=== PATIENT | female | born 1940 | race Caucasian/White ===

== ENCOUNTER 2016-12-08 17:25 | Inpatient (IN) | payer MEDICARE, OTHER ==
[~2016-12-08] VITALS: Ht 160 cm; Wt 53.1 kg
[2016-12-18 16:35] VITALS: BP 130/77
[2016-12-18] MEDS ORDERED: RT-ALBUTEROL HFA (VENTOLIN) PER PUFF IH PRN (17:15)
[2016-12-18] MEDS ORDERED: SALINE NASAL SPRAY (OCEAN) 45 ML BTL PRN (17:15)
[2016-12-18] MEDS: SIMvastatin 40 MG (ZOCOR) TAB PO SCH (20:14)
[2016-12-18] MEDS: meTOprolol TARTRATE 25 MG (LOPRESSOR) TABLET PO SCH (20:15)
[2016-12-18] MEDS: POLYETHYLENE GLYCOL 17 GM (MIRALAX) PACK PO SCH (20:15)
[2016-12-18] MEDS: PANTOPRAZOLE 40 MG (PROTONIX) TAB PO SCH (20:15)
[2016-12-18 20:30] VITALS: BP 132/65
[2016-12-18] MEDS ORDERED: RT-SYMBICORT 160/4.5 MCG INHALER PER PUFF IH SCH (21:00)
[2016-12-18] MEDS: RT-ADVAIR HFA 115/21 MCG PER PUFF IH SCH (21:01)
[2016-12-18] MEDS: ACETAMINOPHEN 325 MG TABLET/CAPLET (TYLENOL) PO PRN (22:40)
[2016-12-19 05:42] LABS: BASOPHILS # (AUTO) 0.1 10^3/uL (0.0-0.1); BASOPHILS % (AUTO) 1 % (0-10); EOSINOPHILS # (AUTO) 0.2 10^3/uL (0.0-0.3); EOSINOPHILS % (AUTO) 2 % (0-10); LYMPHOCYTES # (AUTO) 2.2 X 10^3 (1.0-4.0); LYMPHOCYTES % (AUTO) 19 % (12-44); MEAN CORPUSCULAR HEMOGLOBIN 29 PG (25-34); MEAN CORPUSCULAR HGB CONC 31 G/DL (32-36); MEAN CORPUSCULAR VOLUME 94 FL (80-99); MEAN PLATELET VOLUME 10.5 FL (7.4-10.4); MONOCYTES % (AUTO) 9 % (0-12); NEUTROPHILS # (AUTO) 8.3 X 10^3 (1.8-7.8); NEUTROPHILS % (AUTO) 70 % (42-75); PLATELET COUNT 145 10^3/uL (130-400); RED BLOOD COUNT 3.24 10^6/uL (4.35-5.85); WHITE BLOOD COUNT 11.8 10^3/uL (4.3-11.0)
[2016-12-19 05:47] LABS: INR 1.6 (0.8-1.4); PROTHROMBIN TIME PATIENT 18.7 SEC (12.2-14.7)
[2016-12-19 05:56] LABS: ALBUMIN 2.5 G/DL (3.2-4.5); BILIRUBIN,TOTAL 0.4 MG/DL (0.1-1.0); CALCIUM 7.9 MG/DL (8.5-10.1); CREATININE SERUM 1.25 MG/DL (0.60-1.30); POTASSIUM 4.4 MMOL/L (3.6-5.0); TOTAL PROTEIN 4.7 G/DL (6.4-8.2)
[2016-12-19 06:00] VITALS: BP 144/82
[2016-12-19] MEDS: KCL 10 MEQ TAB (MICRO K) PO SCH (06:02)
[2016-12-19] MEDS: PANTOPRAZOLE 40 MG (PROTONIX) TAB PO SCH ×2 (06:02→20:02)
[2016-12-19] MEDS: POLYETHYLENE GLYCOL 17 GM (MIRALAX) PACK PO SCH ×2 (07:49→20:03)
[2016-12-19] MEDS ORDERED: NICOTINE 21 MG (NICODERM) PATCH TD SCH (09:00)
[2016-12-19] MEDS: FUROSEMIDE 20 MG (LASIX) TAB PO SCH (09:02)
[2016-12-19] MEDS: ASPIRIN E.C. 325 MG (ECOTRIN) TABLET PO SCH (09:02)
[2016-12-19] MEDS: meTOprolol TARTRATE 25 MG (LOPRESSOR) TABLET PO SCH ×2 (09:02→20:02)
[2016-12-19] MEDS: NICOTINE PATCH REMOVAL TP SCH (09:02)
[2016-12-19] MEDS: FLUTICASONE NASAL SPRAY (FLONASE) 16 GM BTL NS SCH (09:04)
--- NOTE | 2016-12-19 09:09 | ST Cognitive Linguistic Eval ---
Speech Evaluation-General Medical Diagnosis Lower Extremity Paresis Onset Date: Dec 18, 2016 Therapy Diagnosis Therapy Diagnosis: Cognitive Linguistic Skills WFL Precautions Precautions/Isolations: Fall Prevention, Standard Precautions, Pressure Ulcer Referral Referring Physician: Dr. Gilberto Mayen Reason for Referral: Evaluation/Treatment Cognitive Evaluation Medical History Pertinent Medical History: Atrial Fib, COPD, HTN Hyperlipidemia, Aortic Aneurysm Reviewed History: Yes Speech PLF-Current Status Prior Level of Function The patient denied cognitive, linguistic, or swallowing difficulties prior to admission. Subjective The patient was admitted to [facility] Rehabilitation unit with a diagnosis of lower extremity paresis following an aortic aneurysm repair. The patient greeted the clinician appropriately and agreed the participate in the cognitive evaluation on this date. Language Eval: Auditory Comprehends Simple Yes/No Ques: Functional Indent/Objects Multiple [place]: Functional Ident/Pics in Multiple [place]: Functional Follows 1-Step Commands: Functional Follows Complex Directions: Functional Follows General Conversations: Functional Language Eval: Verbal Language Completes Spontaneous Greeting: Functional Produces Auto, Serial Info: Functional Imitates Simple Words/Phrases: Functional Word Finding: Functional Requests Basic Needs: Functional States Basic Personal Info: Functional Expresses Complex Ideas: Functional Cognitive Patient Orientation The patient was oriented to month, year, and location. The patient required cues for accurate identification of day and date. Objective Cognitive Domain Attention: WNL Memory: WNL Problem Solving: Functional Objective Impression The patient demonstrated cognitive linguistic skills appropriate for completion of ADL's. Communication/Social Cognition Comprehension: 6 Expression: 6 Social Interaction: 6 Problem Solvin Memory: 6 Speech Patient Assess Expression of Ideas/Wants: Expression (4) Understanding [place] Content: Understands (4) Brief Interview-Mental Status: Yes Repetition of Three Words: Three (3) Temporal Orientation: Year: Correct (3) Temporal Orientation: Month: Accurate within 5 days(2) Temporal Orientation: Day: Incorrect or No Answer(0) Recall : Wear to say "Sock": Yes, no cue required (2) Recall : Color: Yes, no cue required (2) Recall : Bed: Yes,after cueing (1) Speech-Plan Treatment Plan Speech Therapy Treatment Plan: Discontinue ST Evaluation, only. Rehab Potential: Good Safety Risks/Education Teaching Recipient: Patient Teaching Methods: Discussion Response to Teaching: Verbalize Understanding Education Topics Provided: Plan of Care, Recommendations Time Speech Therapy Time In: 08:15 Speech Therapy Time Out: 08:30 Total Billed Time: 15 Billed Treatment Time 1, ELVI HENRY Dec 19, 2016 09:09
--- NOTE | 2016-12-19 10:17 | PM&R Post Admission Assessment ---
Post Admission Physician Asses The preadmission screen agrees with the post admission assessment that the patient is a good candidate for inpatient rehabilitation. The patient will have a comprehensive program of inpatient rehabilitation with a goal of maximizing level of functional dependence prior to discharge home with [family]. The patient will have PT/OT ninety minutes per day, each discipline, five days a week for gait strengthening, conditioning, balance, ADLs , any patient/family/caregiver training necessary. Speech therapy to do cognitive assessment and treat as indicted. Rehabilitation nursing to assist with bowel, bladder, skin, wound care, medication administration, pain management. Yarn Weigher to assist with discharge planning, community reentry. SCD's for DVT prophylaxis.Anticoagulation for DVT prophylaxis as well She appears to be well motivated to participate in three hours of therapy a day. She should be able to tolerate three hours of therapy a day from a medical standpoint. She should benefit from the three hours of therapy a day. She has a reasonable discharge plan, reasonable discharge rehabilitation goals and a supportive family. She has various comorbidities that need to be closely monitored with medications and treatments adjusted on a daily basis as needed. These include: Anticoagulation with warfarin Ongoing treatment of COPD and 02 dependence Postop urinary retention Postop anemia Abdominal pain Barriers to discharge for this patient who had been independent prior to this are for her to be modified independent to supervision for ADLs and mobility skills prior to discharge home with family and C, so as to lessen the burden of the caregivers. Risks for this patient include: 1. Fall 2. Fracture 3. DVT 4. Pulmonary embolism 5. Wound infection 6. Skin breakdown 7. Contractures 8. Poorly controlled pain 9. Urinary retention 10. UTI 11. Respiratory infection 12. Aspiration Estimated Length of Stay: 2-3 weeks Prognosis: Rehab prognosis appears good for goal of discharge home with family modified independent to supervision for ADLs and mobility skills. Will have a trial of Voluntary voiding on 12/23/16 MICHELE YEUNG MD Dec 19, 2016 10:17
[2016-12-19] MEDS ORDERED: POLY17PO6 PO (10:22)
[2016-12-19] MEDS ORDERED: BISA10SU58 RC (10:22)
[2016-12-19] MEDS ORDERED: SENN-40 PO (10:22)
[2016-12-19] MEDS ORDERED: METO50TA2 PO (10:22)
[2016-12-19] MEDS ORDERED: ACET325T38 PO (10:22)
[2016-12-19] MEDS ORDERED: NCT21TD TD (10:22)
[2016-12-19] MEDS ORDERED: WARF1TAB6 PO (10:22)
[2016-12-19] MEDS ORDERED: TRAM50TA2 PO (10:22)
[2016-12-19] MEDS ORDERED: PANT40TA3 PO (10:22)
[2016-12-19] MEDS ORDERED: 0.9126SP NS (10:22)
[2016-12-19] MEDS ORDERED: FURO20TA4 PO (10:35)
[2016-12-19] MEDS ORDERED: BUDE10.2 IH (10:35)
[2016-12-19] MEDS ORDERED: ASPI325T32 PO (10:35)
[2016-12-19] MEDS ORDERED: FLUT16SP22 NS (10:35)
[2016-12-19] MEDS ORDERED: ALBU2.5V4 NEB (10:35)
[2016-12-19] MEDS ORDERED: RT-ALBUINH IH (10:35)
[2016-12-19] MEDS ORDERED: POTA10CA43 PO (10:35)
[2016-12-19] MEDS ORDERED: SIMV40TA4 PO (10:35)
--- NOTE | 2016-12-19 11:14 | HISTORY AND PHYSICAL ---
DATE OF ADMISSION: 12/18/2016 CHIEF COMPLAINT: Difficulty with walking. HISTORY OF PRESENT ILLNESS: The patient is a 76-year-old female who had repair of a thoracic aortic aneurysm at . She had complications postop of a clot. She was anticoagulated, now on Coumadin. She has multiple comorbidities including hypertension, COPD, tobaccoism and [place]. Currently, she requires assistance for her ADLs and mobility skills and is referred to Inpatient Rehabilitation Unit for ongoing care and therapies. Her unfortunately during her hospitalization this past November. She lives in [place], [place], but has close family nearby. Her PCP is Dr. Christoph Vazquez in [place]. She had been independent prior to this. She had urinary retention the evening of admission and Dr. Silva has been consulted this a.m. and has seen and Wheeler catheter placed for now. Medications started. We will have trial of voiding next week. The patient had complaints of left lower quadrant pain, left upper quadrant pain. Staff at discussed the case with Dr. Mayen on the day of transfer indicated they did a work-up and could not find a reason for this and just to treat it as chronic pain at this point. The patient did request a pain pill upon admission to this unit and Lortab generic was ordered in addition to p.r.n. tramadol. Currently she is Mod assist for upper body dressing and max assist for lower body dressing Set up for eating The patient is min assist for transfers and ambulation with a FWW. PAST MEDICAL HISTORY: 1. COPD. 2. Tobaccoism. 3. Coronary artery disease. 4. History of [place]. 5. Pulmonary hypertension. 6. Atrial fibrillation. PAST SURGICAL HISTORY: As per above. ALLERGIES: No known medication allergies. FAMILY HISTORY: Noncontributory. SOCIAL HISTORY: Essentially as per above. She is on patch for smoking cessation. REVIEW OF SYSTEMS: Shortness of breath, currently on O2. She does have oxygen at home. Urinary retention. MEDICATIONS: 1. NicoDerm patch 21 mg daily. 2. ASA 325 mg p.o. daily. 3. Flonase one spray each nostril daily. 4. Furosemide 20 mg p.o. daily. 5. KCL 10 mEq p.o. daily. 6. MiraLAX 17 grams p.o. b.i.d. 7. Lopressor 25 mg p.o. b.i.d. 8. Protonix 40 mg p.o. b.i.d. 9. Simvastatin 40 mg p.o. at bedtime. 10. Advair 2 puffs b.i.d. 11. Senokot-S 1 tablet p.o. b.i.d. p.r.n. constipation. 12. Tramadol 50 mg p.o. t.i.d. p.r.n. pain. 13. Acetaminophen 650 mg p.o. q.4 hours p.r.n. fever or mild pain. 14. Proventil respiratory treatments q.i.d. p.r.n. dyspnea. 15. Lortab 10 generic 1 tablet p.o. q.4 hours p.r.n. moderate pain. PHYSICAL EXAMINATION: Significant for a female, appearing her stated age, lying in bed, in no acute distress. VITAL SIGNS: Blood pressure 130/77, respirations 22, pulse is 80. Temperature is 99.3. O2 sat 95% on 2 liters of O2 by nasal cannula. HEENT: O2 by nasal cannula. Vision, speech, hearing, grossly intact. No oral lesion is noted. NECK: Supple without mass. HEART: Irregular rhythm. LUNGS: Clear. ABDOMEN: Soft, nontender. Bowel sounds present. EXTREMITIES: Trace edema both ankles. No calf tenderness. MUSCULOSKELETAL: The patient has functional active range of motion in all 4 extremities. NEUROLOGIC: She has generalized weakness. Cognition grossly intact. Sensation intact to touch.Strength at hips 3-/5 in flexion 3+/5 knee flexion and extension Ankle dorsiflexion 3/5 : Indwelling Wheeler catheter to dependent drainage at this point, due to urinary retention. IMPRESSION: 1. Ambulatory dysfunction secondary to thoracic aortic aneurysm, status post repair with postoperative constipation, respiratory failure, exacerbation of COPD and thrombus formation now anticoagulated with INR today 1.6. 2. Postoperative anemia with H&H 9.5/31. 3. Hypoalbuminemia with total protein 4.7 on 12/19 and albumin 3.5 4. Hypocalcemia, serum calcium today on 12/19 7.9. Mild azotemia with BUN 22 today on 12/19. 5. COPD on respiratory treatments, and O2. 6. O2 dependence. 7. Tobaccoism currently abstaining on patch. 8. Chronic abdominal pain. PLAN: The patient will have a comprehensive program of inpatient rehabilitation with a goal of maximizing level of functional independence prior to discharge home with family. The patient will have PT/OT 90 minutes per day, each discipline, 5 days week for gait strengthening, conditioning, balance, energy conservation, ADLs, any patient/family/caregiver training necessary, any adaptive equipment and training necessary. Speech therapy has already assessed patient. Will follow-up regarding their recommendations. Rehabilitation nursing assist with bowel, bladder, skin care, medication administration, pain management Wheeler catheter care. Dr. Silva has been consulted Wheeler catheter remain in for now, Flomax to start and will have trial of voiding next week. travelers' aid worker to assist with discharge planning, community reentry. Respiratory therapy to assist with 02 administration, and administration respiratory treatments. Consult Dr. Muñoz to assist with medical care while on Inpatient Rehabilitation Unit. ESTIMATED LENGTH OF STAY: Two to three weeks. PROGNOSIS: Rehab prognosis appears good for goal of discharging home with family and home health care, hopefully modified independent to supervision for ADLs to supervision for ADLs and mobility skills with decreased pain and continence of bowel and bladder with voiding. DIET: Carb consistent. CODE STATUS: Full code Job ID: [id number] Dictated Date: 12/19/2016 10:02:56 Premix Concrete Batcher Date: 12/19/2016 10:56:14/sujatha VELASCO
[2016-12-19] MEDS: RT-ADVAIR HFA 115/21 MCG PER PUFF IH SCH ×2 (11:15→19:46)
--- NOTE | 2016-12-19 11:31 | Physical Therapy Evaluation ---
PT Evaluation-General Medical Diagnosis Admission Date Dec 18, 2016 at 16:35 Medical Diagnosis: Lower Extremity Paresis Onset Date: Nov 27, 2016 Therapy Diagnosis Therapy Diagnosis: thoracic aortic aneurism Height/Weight Height (Feet): 5 Height (Inches): 3.00 Weight (Pounds): 111 Weight (Ounces): 0.3 Precautions Precautions/Isolations: Fall Prevention, Standard Precautions, Pressure Ulcer Referral Physician: Faheem Reason for Referral: Evaluation/Treatment Medical History Pertinent Medical History: Atrial Fib, CAD, COPD, HTN, [place] Additional Medical History HLD, home O2, gastritis, vasculitis, chronic constipation, thrombocytopenia, hiatal hernia, reflux esophagitis, PAD, surg (shoulder arthroscopy, knee replacement) Current History Patient initially presented to the hospital with SOA and midsternal chest pain Reviewed History: Yes Social History Home: Single Level Current Living Status: Alone PT Steps Into Home: 2 Patient states she has many family member available to help. Prior/Core FIM Prior Level of Function Functional [place] Measure 0=Not Assessed/NA 4=Minimal Assistance 1=Total Assistance 5=Supervision or Setup 2=Maximal Assistance 6=Modified [place] 3=Moderate Assistance 7=Complete [place] Bed Mobility: 7 Transfers (B,C,W/C) (FIM): 7 Gait: 7 PT Evaluation-Current Subjective Patient in bed pre tx, agrees to PT, states she has pain of 5/10 in right side and back. Patient states she has a shower bench and walker at home. Pt/Family Goals to be independent at home Objective Patient Orientation: Person, Place, Situation Attachments: Oxygen 2L O2 nasal canula ROM/Strength ROM Lower Extremities WNL Strenght Lower Extremities right lower extremity (hip flexion 3-/5, knee flexion 3+/5, knee extension 3+/5 , dorsiflexion 3/5), left lower extremity (hip flexion 3-/5, knee flexion 3+/5, knee extension 3+/5, dorsiflexion 3/5) Integumentary/Posture Bowel Incontinence: Yes Bladder Incontinence: Wheeler Cath Neuromuscular (Tone, Coordination, Reflexes) Patient has decreased coordination in both lower extremities due to weakness Sensory Hearing: Impaired Sensation Right Lower Extremit: Impaired Sensation Left Lower Extremity: Impaired Sensation Lower Extremities Patient states her feet are pretty numb, she does have sensation in them but not light touch Transfers Functional [place] Measure 0=Not Assessed/NA 4=Minimal Assistance 1=Total Assistance 5=Supervision or Setup 2=Maximal Assistance 6=Modified [place] 3=Moderate Assistance 7=Complete IndependenceIRFPAI Quality Coding Scale 6 Independent with activity with or without an assistive device 5 Patient requires set up or clean up by helper. Patient completes activity by themselves 4 Supervision or touching assist (CGA). [place] provide cues , steadying assist 3 The helper provides less than half the effort to complete the activity 2 The helper provides more than half the effort to complete the activity 1 Dependent. The helper does all the effort to complete an activity 7 Patient refused to complete or attempt activity 9 The patient did not perform the activity before the current illness or injury 88 Not attempted due to Medical conditions or safety concerns Transfers (B, C, W/C) (FIM): 3 Scootin Rollin Roll Left to Right (QC): 4 Supine to/from Sit: 4 Sit to/from Stand: 3 bed t/f WC(FIM only if WC use): 3 Sit to Lying (QC): 3 Lying to Sitting/Side of Bed(Q: 3 Sit to Stand (QC): 2 Chair/Vdy-pg-Cyuno Xfer(QC): 2 Car Transfer (QC): 88 Patient needs cues for safety and hand placement, will often try to pull on therapist to sit up or stand. Gait Does the Patient Walk?: Yes Mode of Locomotion: Both Anticipated Mode of Locomotion: Walk Gait (FIM): 1 Walk 10 feet (QC): 4 Walk 50 ft with 2 Turns(QC): 88 Walk 150 ft (QC): 88 Walking 10ft/uneven surface-QC: 88 Distance: 10'x2 Gait Level of Assist: 4 (CGA) Gait Persons Needed: 1 Gait Assistive Device: FWW Comments/Gait Description Wheelchair follow. Patient fatigues quickly, slow ambulation, poor heel strike and foot clearance. Wheelchair Training Does the Pt Use a Wheelchair?: Yes Wheelchair (FIM): 2 Distance: 50'x2 Wheelchair Level of Assist: 4 Wheel 50 ft with 2 turns (QC): 3 Wheel 150 ft (QC): 88 Type of Wheelchair: Manual Patient propels a manual wheelchair with both arms, very slow, needs cues for obstacles and how to operate a wheelchair, needs assist sometimes around obstacles and doorways. Stairs 1 Step (curb) (QC): 88 4 Steps (QC): 88 12 Steps (QC): 88 If not tested on admit;explain Patient is not strong enough to attempt even 1 step at this time, due to safety reasons and a probable fall, stairs were not attempted at this time. Balance Sitting Static: Normal Sitting Dynamic: Good Standing Static: Poor Standing Dynamic: Poor Picking up an Object (QC): 88 Treatment LAQ alternating for 3 min, seated hip flexion x20, AP x20, patient stood in the parallel bars for 2 min before having to sit Assessment/Needs Patient is very weak and has poor endurance, impairments in mobility, bed mobility, transfers, ambulation, stairs. Rehab Potential: Fair PT Short Term Goals Short Term Goals Time Frame: Dec 26, 2016 Transfers (B,C,W/C) (FIM): 4 (CGA) Gait (FIM): 1 Gait Distance Comment: 30' Gait Level of Assist: 4 Gait Assistive Device: FWW PT Community Service Representative Goals Community Service Representative Goals PT Community Service Representative Goals Time Frame: January 09, 2017 Transfers (B,C,W/C) (FIM): 5 Sit to Lying (QC): 4 Lying-Sitting on Side/Bed(QC): 4 Sit to Stand (QC): 4 Rollin Roll Left to Right (QC): 4 Chair/Upx-pn-Fsfse Xfer(QC): 4 Car Transfer (QC): 3 Gait (FIM): 2 Distance: 50' Walk 10 feet (QC): 4 Walk 10ft-Uneven Surface(QC): 4 Walk 50ft with 2 Turns (QC): 4 Walk 150 ft (QC): 88 Gait Level of Assist: 4 (CGA) Gait Assistive Device: FWW Wheelchair (FIM): 5 Distance: 150' Wheelchair Level of Assist: 5 Wheel 50 feet with 2 turns (QC: 4 Stairs (FIM): 2 # of Steps: 4 1 Step (curb) (QC): 3 4 Steps (QC): 3 12 Steps (QC): 88 Stairs Level Of Assist: 4 Picking up an Object (QC): 88 PT Plan Problem List Problem List: Activity Tolerance, Functional Strength, Safety, Balance, Gait, Transfer, Bed Mobility Treatment/Plan Treatment Plan: Continue Plan of Care Treatment Plan: Bed Mobility, Education, Functional Activity Brad, Functional Strength, Group Therapy, Gait, Safety, Therapeutic Exercise, Transfers Treatment Duration: January 09, 2017 # of days/week 5-6 Visits Per Week: 10-11 Minutes/Day (M-F): 60-90 Minutes/Day (Sat/Stone): 15-30 Pt/Family Agrees w/Plan: Yes Safety Risks/Education Patient Education: Gait Training, Transfer Techniques, Correct Positioning, W/ C Management, Safety Issues Teaching Recipient: Patient Teaching Methods: Demonstration, Discussion Response to Teaching: Reinforcement Needed Discharge Recommendations Plan Patient will perform bed mobility and transfer training, balance and endurance training, functional strengthening, stair training, gait training, and education to improve functional mobility and independence at home. Therapy D/C Recommendations: Home w/ Family Support Time/GCodes Time In: 1030 Time Out: 1130 Total Billed Treatment Time: 60 Total Billed Treatment 1 visit EVM 15' FA 15' [facility] 15' GT 15' TANIA GREENBERG PT Dec 19, 2016 11:31
--- NOTE | 2016-12-19 12:43 | Occupational Therapy Eval ---
OT Evaluation-General/PLF Medical Diagnosis Admission Date Dec 18, 2016 at 16:35 Medical Diagnosis: Lower Extremity Paresis Onset Date: Nov 27, 2016 Therapy Diagnosis Therapy Diagnosis: decreased self care skills Height/Weight Height (Feet): 5 Height (Inches): 3.00 Weight (Pounds): 111 Weight (Ounces): 0.3 Precautions Precautions/Isolations: Fall Prevention, Standard Precautions, Pressure Ulcer Safety Interventions: Reorient-PRN Referral Physician: Faheem Medical History Pertinent Medical History: Atrial Fib, CAD, COPD, HTN, [place] Additional Medical History HLD, home O2, gastritis, vasculitis, chronic constipation, thrombocytopenia, hiatal hernia, reflux esophagitis, PAD, surg (shoulder arthroscopy, knee replacement) Reviewed History: Yes Social History Home: Single Level Current Living Status: Alone Steps Into Home: 2 Pt states she has many family members nearby ADL-Prior Level of Function ADL PLOF Comments Pt reports being independent with self care and mobility prior to hospitalization. DME/Equipment: Bath Chair, Grab Bars, Shower, Tall Toilet, Tub/Shower Drive Self: Yes OT Current Status Subjective Pt in bed, agrees to treatment. Pt reports 6/10 back pain Mental Status/Objective Patient Orientation: Person, Place, Situation Attachments: Wheeler Catheter, Oxygen Current Glasses/Contacts: Yes Hearing Aids: No Dentures/Partials: Yes Hand Dominance: Right Upper Extremity ROM Grossly WFL Upper Extremity Coordination Intact Upper Extremity Strength Fair ADL-Treatment ADL-Current Pt supine to sit with minimal assistance. Pt incontinent of bowel. Sit to stand with moderate assistance. Requires total assist for hygiene. Sponge bath completed seated in chair. Pt able to wash bilateral UE, chest, abdomen, and bilateral upper legs. Assist for other areas. Don pullover shirt with minimal assistance. Pt requires maximal assistance to don Depends and pants. Total assist required to don socks. Pt fatigues quickly with activity and requires occasional rest breaks during ADL tasks. Pt requests to return to bed after session. Transfer chair to EOB with moderate assistance using FWW, cues for hand placement. Sit to supine with assist for LE. Pt in bed with needs met after session. Functional [place] Measure 0=Not Assessed/NA 4=Minimal Assistance 1=Total Assistance 5=Supervision or Setup 2=Maximal Assistance 6=Modified [place] 3=Moderate Assistance 7=Complete IndependenceIRFPAI Quality Coding Scale 6 Independent with activity with or without an assistive device 5 Patient requires set up or clean up by helper. Patient completes activity by themselves 4 Supervision or touching assist (CGA). [place] provide cues , steadying assist 3 The helper provides less than half the effort to complete the activity 2 The helper provides more than half the effort to complete the activity 1 Dependent. The helper does all the effort to complete an activity 7 Patient refused to complete or attempt activity 9 The patient did not perform the activity before the current illness or injury 88 Not attempted due to Medical conditions or safety concerns Eating (FIM): 5 (Pt reports feeding self, but requires assist to open packages) Eating (QC): 5 Bathing (FIM): 3 Shower/Bathe Self (QC): 3 Upper Body Dressing (FIM): 4 Upper Body Dressing (QC): 3 Lower Body Dressing (FIM): 2 Lower Body Dressing (QC): 2 On/Off Footwear (QC): 1 Education OT Patient Education: Rehab process Teaching Recipient: Patient Teaching Methods: Discussion Response to Teaching: Verbalize Understanding OT Short Term Goals Short Term Goals Time Frame: Dec 26, 2016 Bathing(FIM): 4 Upper Body Dressing(FIM): 5 Lower Body Dressing(FIM): 3 Toileting(FIM): 3 Toilet/Commode Transfer(FIM): 4 1=Demonstrate adherence to instructed precautions during ADL tasks. 2=Patient will verbalize/demonstrate understanding of assistive devices/ modifications for ADL. 3=Patient will improve strength/tolerance for activity to enable patient to perform ADL's. OT Longterm Goals Longterm Goals Time Frame: January 09, 2017 Eating (FIM): 6 Eating (QC): 6 Groomin Oral Hygiene (QC): 6 Bathing(FIM): 5 Shower/Bathe Self (QC): 5 Upper Body Dressing(FIM): 6 Upper Body Dressing (QC): 6 Lower Body Dressing(FIM): 5 Lower Body Dressing (QC): 5 On/Off Footwear (QC): 5 Toileting(FIM): 5 Toileting Hygiene (QC): 5 Toilet/Commode Transfer(FIM): 5 Toilet/Commode Transfer (QC): 5 Shower Transfer(FIM): 5 Additional Goals: 1-Demonstrate ADL Tasks, 2-Verbalize Understanding, 3- ImproveStrength/Brad 1=Demonstrate adherence to instructed precautions during ADL tasks. 2=Patient will verbalize/demonstrate understanding of assistive devices/ modifications for ADL. 3=Patient will improve strength/tolerance for activity to enable patient to perform ADL's. OT Education/Plan Problem List/Assessment Assessment: Decreased Activ Tolerance, Decreased UE Strength, Dependent Transfers, Impaired Funct Balance, Impaired Self-Care Skills Pt demonstrates decreased mobility, strength, activity tolerance, and ADL functioning. Pt to benefit from skilled OT intervention for ADL training, transfers, strengthening, and home safety education to maximize level of function and allow safe return home. Discharge Recommendations Plan/Recommendations: Continue POC Treatment Plan/Plan of Care Treatment,Training & Education: Yes Patient would benefit from OT for education, treatment and training to promote independence in ADL's, mobility, safety and/or upper extremity function for ADL' s. Plan of Care: ADL Retraining, Functional Mobility, Group Exercise/Act as Ind, UE Funct Exercise/Act Treatment Duration: January 09, 2017 # of days/week 5-6 Visits Per Week: 10-12 Minutes/Day (M-F): 60-90 Minutes/Day (Sat/Stone): PRN Agreement: Yes Rehab Potential: Fair Time/GCodes Start Time: 09:00 Stop Time: 10:00 Total Time Billed (hr/min): 60 Billed Treatment Time 1 visit, EVM(15minutes), ADLx3(45minutes) AYAAN PLUNKETT OT Dec 19, 2016 12:42
[2016-12-19] MEDS: HYDROcodone/APAP 10 MG/325 MG (LORTAB) TAB PO PRN ×2 (12:45→20:02)
--- NOTE | 2016-12-19 13:06 | Consultation ---
History of Present Illness History of Present Illness Patient Consulted On(fish/time) 12/19/16 13:04 Date of Admission History of Present Illness Patient had surgery at [facility]. Had surgical thoracic aortic aneurysm procedure 3 Had a clot. Patient has history of atrial fibrillation. Patient has COPD, CAD, and pulmonary hypertension. recently . Patient has debility Allergies and Home Medications Allergies Coded Allergies: No Known Drug Allergies (Unverified , 12/18/16) Home Medications 0.9 % Sodium Chloride 126 Ml [place], 1-2 SPRAYS NS UD PRN for NASAL, (Reported) Acetaminophen 325 Mg Tablet, 650 MG PO Q4H PRN for PAIN-MILD, (Reported) Albuterol Sulfate 1 Puff Puff, 2 PUFF IH Q6H PRN for SHORTNESS OF BREATH, ( Reported) 1 PUFF = 90 MCG Albuterol Sulfate 2.5 Mg/3 Ml Vial.neb, 2.5 MG NEB Q6H PRN for SHORTNESS OF BREATH, (Reported) Aspirin 325 Mg Tablet.dr, 325 MG PO DAILY, (Reported) Bisacodyl 10 Mg Supp.rect, 10 MG RC DAILY PRN for CONSTIPATION, (Reported) Budesonide/Formoterol Fumarate 10.2 Gm Hfa.aer.ad, 2 PUFF IH BID, (Reported) Fluticasone Propionate 16 Gm [place].susp, 1 SPRAY NS DAILY, (Reported) Furosemide 20 Mg Tablet, 20 MG PO 1200, (Reported) Metoprolol Tartrate 50 Mg Tablet, 25 MG PO BID, (Reported) TAKES 1/2 (50MG) TABLET Nicotine 1 Each Patch.td24, 21 MG TD DAILY, (Reported) Pantoprazole Sodium 40 Mg Tablet.dr, 40 MG PO BID, (Reported) Polyethylene Glycol 3350 17 Gm Powd.pack, 17 GM PO BID, (Reported) Potassium Chloride 10 Meq Capsule.er, 10 MEQ PO 1200, (Reported) Sennosides/Docusate Sodium 1 Each Tablet, 2 TAB PO BID, (Reported) Simvastatin 40 Mg Tablet, 40 MG PO HS, (Reported) Tramadol HCl 50 Mg Tablet, 50 MG PO Q6H PRN for PAIN-MILD TO MODERATE, (Reported ) Warfarin Sodium 1 Mg Tablet, 1 MG PO HS, (Reported) Past Caflyxc-Pugnsu-Ezhtob Hx Patient Social History Alcohol Use: Denies Use Recreational Drug Use: No Smoking Status: Current Everyday Smoker Type Used: Cigarettes Recent Foreign Travel: No Contact w/Someone Who Travel: No Recent Infectious Disease Expo: No Recent Hopitalizations: Yes Physical Abuse Screen: No Sexual Abuse: No Immunizations Up To Date Date of Pneumonia Vaccine: Jul 23, 2016 Seasonal Allergies Seasonal Allergies: Yes Surgeries Surgeries: Orthopedic Respiratory Respiratory Disorders: COPD Reproductive System : No Sexually Transmitted Disease: No HIV/AIDS: No Female Reproductive Disorders: Denies Genitourinary Genitourinary Disorders: Renal Failure Gastrointestinal Gastrointestinal Disorders: Gastroesophageal Reflux, Chronic Constipation, Hiatal Hernia HEENT Loss of Vision: Denies Hearing Impairment: Denies Blood Transfusions Adverse Reaction to a Blood Tr: No Review of Systems-General Constitutional: no symptoms reported EENTM: no symptoms reported Respiratory: other (He OPD history) Cardiovascular: other (Atrial fibrillation) Gastrointestinal: no symptoms reported Genitourinary: other (Has a Wheeler catheter) Physical Exam-General Problems Physical Exam Vital Signs Vital Sign - Last 12Hours 12/18/16 16:35 Temp 99.3 Pulse 80 Resp 22 B/P (MAP) 130/77 Pulse Ox 95 O2 Delivery Nasal Cannula O2 Flow Rate 2.00 Capillary Refill : General Appearance: WD/WN, thin Eyes: Bilateral Eye Normal Inspection HEENT: normal ENT inspection Neck: non-tender, full range of motion Respiratory: chest non-tender, no respiratory distress, no accessory muscle use , decreased breath sounds Cardiovascular: irregularly irregular Gastrointestinal: soft Assessment/Plan Assessment/Plan Admission Diagnosis/Plan Debility. Atrial fibrillation. COPD. Inability to void Clinical Quality Measures DVT/VTE Risk/Contraindication: Risk Factor Score Per Nursin RFS Level Per Nursing on Admit: 4+=Very High ROMAIN MARSH DO Dec 19, 2016 13:06
--- NOTE | 2016-12-19 13:41 | Occupational Ther Daily Note ---
OT Current Status-Daily Note Subjective Pt in bed, agrees to treatment. Pt reports back pain, but does not rate. Mental Status/Objective Functional [place] Measure 0=Not Assessed/NA 4=Minimal Assistance 1=Total Assistance 5=Supervision or Setup 2=Maximal Assistance 6=Modified [place] 3=Moderate Assistance 7=Complete [place] Attachments: Wheeler Catheter, Oxygen ADL-Treatment Pt supine to sit with minimal assistance. Pt transferred to w/c with moderate assistance using FWW. Cues for hand placement and safety. To restroom via w/c. Pt completed grooming tasks while seated in chair. Pt brushed hair and completed denture care with set up and increased time. Pt demonstrated transfers w/c <-> toilet with moderate assistance. Pt fatigues quickly with transfers and requires rest breaks. Pt requests to return to bed after session. Transfer w/c to bed with moderate assist. Sit to supine with assist for LE. Pt in bed with needs met after session. Functional [place] Measure 0=Not Assessed/NA 4=Minimal Assistance 1=Total Assistance 5=Supervision or Setup 2=Maximal Assistance 6=Modified [place] 3=Moderate Assistance 7=Complete IndependenceIRFPAI Quality Coding Scale 6 Independent with activity with or without an assistive device 5 Patient requires set up or clean up by helper. Patient completes activity by themselves 4 Supervision or touching assist (CGA). [place] provide cues , steadying assist 3 The helper provides less than half the effort to complete the activity 2 The helper provides more than half the effort to complete the activity 1 Dependent. The helper does all the effort to complete an activity 7 Patient refused to complete or attempt activity 9 The patient did not perform the activity before the current illness or injury 88 Not attempted due to Medical conditions or safety concerns Grooming (FIM): 5 Oral Hygiene (QC): 5 Toilet/Commode Transfer (FIM): 3 Toilet Transfer (QC): 3 OT Short Term Goals Short Term Goals Time Frame: Dec 26, 2016 Bathing(FIM): 4 Upper Body Dressing(FIM): 5 Lower Body Dressing(FIM): 3 Toileting(FIM): 3 Toilet/Commode Transfer(FIM): 4 1=Demonstrate adherence to instructed precautions during ADL tasks. 2=Patient will verbalize/demonstrate understanding of assistive devices/ modifications for ADL. 3=Patient will improve strength/tolerance for activity to enable patient to perform ADL's. OT Coiled Coil Inspector Goals Snf Goals Time Frame: January 09, 2017 Eating (FIM): 6 Eating (QC): 6 Groomin Oral Hygiene (QC): 6 Bathing(FIM): 5 Shower/Bathe Self (QC): 5 Upper Body Dressing(FIM): 6 Upper Body Dressing (QC): 6 Lower Body Dressing(FIM): 5 Lower Body Dressing (QC): 5 On/Off Footwear (QC): 5 Toileting(FIM): 5 Toileting Hygiene (QC): 5 Toilet/Commode Transfer(FIM): 5 Toilet/Commode Transfer (QC): 5 Shower Transfer(FIM): 5 Additional Goals: 1-Demonstrate ADL Tasks, 2-Verbalize Understanding, 3- ImproveStrength/Brad 1=Demonstrate adherence to instructed precautions during ADL tasks. 2=Patient will verbalize/demonstrate understanding of assistive devices/ modifications for ADL. 3=Patient will improve strength/tolerance for activity to enable patient to perform ADL's. OT Education/Plan Problem List/Assessment Pt demonstrates decreased mobility, strength, activity tolerance, and ADL functioning. Pt to benefit from skilled OT intervention for ADL training, transfers, strengthening, and home safety education to maximize level of function and allow safe return home. Discharge Recommendations Plan/Recommendations: Continue POC Treatment Plan/Plan of Care Patient would benefit from OT for education, treatment and training to promote independence in ADL's, mobility, safety and/or upper extremity function for ADL' s. Plan of Care: ADL Retraining, Functional Mobility, Group Exercise/Act as Ind, UE Funct Exercise/Act Treatment Duration: January 09, 2017 Visits Per Week: 10-12 Minutes/Day (M-F): 60-90 Minutes/Day (Sat/Stone): PRN Agreement: Yes Rehab Potential: Fair Time/GCodes Start Time: 13:00 Stop Time: 13:30 Total Time Billed (hr/min): 30 Billed Treatment Time 1 visit, ADLx2(30minutes) AYAAN PLUNKETT OT Dec 19, 2016 13:41
--- NOTE | 2016-12-19 14:15 | PM & R (SOAP) Progress Note ---
Subjective Subjective/Events-last exam Patient was seen in her room this AM Adjusting well to unit Discussed case with Dr Lawler and Shira Therapy notes reviewed.Patient mod assist for transfers Objective Exam Last Set of Vital Signs Vital Signs Date Time Temp Pulse Resp B/P (MAP) Pulse Ox O2 Delivery O2 Flow Rate FiO2 12/19/16 06:00 98.0 67 20 144/82 97 Nasal Cannula 2.00 Capillary Refill : I&O Bad tableGeneral: Alert, Oriented X3, Cooperative, No Acute Distress HEENT: Atraumatic, PERRLA, EOMI, Mucous Memb Moist/[place], Other (02 by N/C in place) Neck: Supple, No JVD Lungs: Clear to Auscultation Heart: Regular Rate Abdomen: Normal Bowel Sounds, Soft, No Tenderness Extremities: No Edema Neuro: Other (generalized weakness) Other physical findings Indwelling Wheeler catheter to DD Results Lab Laboratory Tests 12/18/16 20:17: Glucometer 106 12/19/16 05:15: White Blood Count 11.8H, Red Blood Count 3.24L, Hemoglobin 9.5L, Hematocrit 31L , Mean Corpuscular Volume 94, Mean Corpuscular Hemoglobin 29, Mean Corpuscular Hemoglobin Concent 31L, Red Cell Distribution Width 20.0H, Platelet Count 145, Mean Platelet Volume 10.5H, Neutrophils (%) (Auto) 70, Lymphocytes (%) (Auto) 19 , Monocytes (%) (Auto) 9, Eosinophils (%) (Auto) 2, Basophils (%) (Auto) 1, Neutrophils # (Auto) 8.3H, Lymphocytes # (Auto) 2.2, Monocytes # (Auto) 1.0, Eosinophils # (Auto) 0.2, Basophils # (Auto) 0.1, Prothrombin Time 18.7H, INR Comment 1.6H, Sodium Level 144, Potassium Level 4.4, Chloride Level 106, Carbon Dioxide Level 26, Anion Gap 12, Blood Urea Nitrogen 22H, Creatinine 1.25, Estimat Glomerular Filtration Rate 42, BUN/Creatinine Ratio 18, Glucose Level 99 , Calcium Level 7.9L, Total Bilirubin 0.4, Aspartate Amino Transf (AST/SGOT) 19 , Alanine Aminotransferase (ALT/SGPT) 11, Alkaline Phosphatase 74, Total Protein 4.7L, Albumin 2.5L Assessment/Plan Assessment General debil s/p Aortic Aneurysm repair Anticoagulation Postop urinary retention following with Wheeler catheter for now HTN controlled COPD on treatments and 02 Plan Continue PT/OT F/U with Dr lawler and Shira as per their schedule Monitor INR and adjust Coumadin as needed Trial of Voiding next week See orders MICHELE YEUNG MD Dec 19, 2016 14:15
--- NOTE | 2016-12-19 14:38 | Physical Therapy Daily Note ---
PT Daily Note-Current Subjective Pt agreeable to PT. Notes she just finished OT and is tired. Towards the end of treatment, pt expresses back pain--does not rate or describe it. Mental Status Patient Orientation: Person, Place, Time, Situation Transfers Functional [place] Measure 0=Not Assessed/NA 4=Minimal Assistance 1=Total Assistance 5=Supervision or Setup 2=Maximal Assistance 6=Modified [place] 3=Moderate Assistance 7=Complete IndependenceIRFPAI Quality Coding Scale 6 Independent with activity with or without an assistive device 5 Patient requires set up or clean up by helper. Patient completes activity by themselves 4 Supervision or touching assist (CGA). [place] provide cues , steadying assist 3 The helper provides less than half the effort to complete the activity 2 The helper provides more than half the effort to complete the activity 1 Dependent. The helper does all the effort to complete an activity 7 Patient refused to complete or attempt activity 9 The patient did not perform the activity before the current illness or injury 88 Not attempted due to Medical conditions or safety concerns Treatments Sup to sit EOB with CGA. Sit to stand with 3 attempts with mod assist. Gait x 10 ft with FWW with close CGA. Seated B LE ther ex x 15 for AP, heel raises, LAQ, hip flexion, hip abduct and ham curls. Gait x 10 ft with FWW with close CGA and then needed mod assist to turn to sit on EOB. Pt able to transfer sit to supine with CGA and skilled cues for sequencing. Pt in bed post treatment with needs met. Assessment Pt progressing and reports she is doing more here than she had been doing. Pt fatigued and tired this pm. Limited functional act toleranc.e PT Short Term Goals Short Term Goals Time Frame: Dec 26, 2016 Gait (FIM): 1 Gait Distance Comment: 30' Gait Level of Assist: 4 Gait Assistive Device: FWW Wheelchair Distance: 50'x2 PT Poultry Tender Goals [facility] Goals PT Poultry Tender Goals Time Frame: January 09, 2017 Transfers (B,C,W/C) (FIM): 5 Sit to Lying (QC): 4 Lying-Sitting on Side/Bed(QC): 4 Sit to Stand (QC): 4 Rollin Roll Left to Right (QC): 4 Chair/Bzi-ws-Irzxw Xfer(QC): 4 Car Transfer (QC): 3 Gait (FIM): 2 Distance: 50' Walk 10 feet (QC): 4 Walk 10ft-Uneven Surface(QC): 4 Walk 50ft with 2 Turns (QC): 4 Walk 150 ft (QC): 88 Gait Level of Assist: 4 Gait Assistive Device: FWW Wheelchair (FIM): 5 Distance: 150' Wheelchair Level of Assist: 5 Wheel 50 feet with 2 turns (QC: 4 Stairs (FIM): 2 # of Steps: 4 1 Step (curb) (QC): 3 4 Steps (QC): 3 12 Steps (QC): 88 Stairs Level Of Assist: 4 Picking up an Object (QC): 88 PT Plan Problem List Problem List: Activity Tolerance, Functional Strength, Safety, Balance, Gait, Transfer, Bed Mobility Treatment/Plan Treatment Plan: Continue Plan of Care Treatment Plan: Bed Mobility, Education, Functional Activity Brad, Functional Strength, Group Therapy, Gait, Safety, Therapeutic Exercise, Transfers Treatment Duration: January 09, 2017 Visits Per Week: 10-11 Minutes/Day (M-F): 60-90 Minutes/Day (Sat/Stone): 15-30 Safety Risks/Education Patient Education: Safety Issues Teaching Recipient: Patient Teaching Methods: Discussion Response to Teaching: Return Demonstration Time/GCodes Time In: 1330 Time Out: 1400 Total Billed Treatment Time: 30 Total Billed Treatment visit FA 15 EX 15 AVEL BAZZI PT Dec 19, 2016 14:38
[2016-12-19] MEDS: warFARin 1 MG (COUMADIN) TAB PO SCH (18:17)
[2016-12-19] MEDS: ALFUZOSIN HCL 10 MG TAB (UROXATRAL) PO SCH (18:17)
[2016-12-19 18:26] VITALS: BP 131/78
[2016-12-19] MEDS: SIMvastatin 40 MG (ZOCOR) TAB PO SCH (20:02)
--- NOTE | 2016-12-19 20:43 | Individualized Plan of Care ---
Individualized Plan of Care Rehab Nursing IPOC Order Admission Date Dec 18, 2016 at 16:35 Current Orders Orders Consult Physician (12/19/16 09:49) Patient Visit (12/19/16 ) Speech Sound Lang Comp (12/19/16 ) Alfuzosin Tablet (Uroxatral Tablet) (12/19/16 18:00) Warfarin Tablet (Coumadin Tablet) (12/19/16 18:00) Patient Visit (12/19/16 ) Pt Eval Moderate Complexity (12/19/16 ) Functional Activities, Ea 15 (12/19/16 ) Wheelchair Mgmt/Propulsn 15min (12/19/16 ) Gait Training, Ea 15 Min (12/19/16 ) Patient Visit (12/19/16 ) Functional Activities, Ea 15 (12/19/16 ) Exercise Therap, Ea 15 Min (12/19/16 ) Rehab Nursing Orders: Diseage Management, Edu in Press Rel Techn, Hydration Management, Nutrition Management, Pain Management Other Nursing Orders: Wheeler catheter to DD TOV 12/23/16 PT IPOC Problem List: Activity Tolerance, Functional Strength, Safety, Balance, Gait, Transfer, Bed Mobility Treatment Plan: Continue Plan of Care Bed Mobility, Education, Functional Activity Brad, Functional Strength, Group Therapy, Gait, Safety, Therapeutic Exercise, Transfers Treatment Duration: January 09, 2017 Visits Per Week: 10-11 Minutes/Day (M-F): 60-90 Minutes/Day (Sat/Stone): 15-30 OT IPOC Problems: Decreased Activ Tolerance, Decreased UE Strength, Dependent Transfers , Impaired Funct Balance, Impaired Self-Care Skills OT Problems Pt demonstrates decreased mobility, strength, activity tolerance, and ADL functioning. Pt to benefit from skilled OT intervention for ADL training, transfers, strengthening, and home safety education to maximize level of function and allow safe return home. Plan of Care: ADL Retraining, Functional Mobility, Group Exercise/Act as Ind, UE Funct Exercise/Act Treatment Duration: January 09, 2017 Visits Per Week: 10-12 Minutes/Day (M-F): 60-90 Minutes/Day (Sat/Stone): PRN ST IPOC Speech Therapy Treatment Plan: Discontinue ST Physician IPOC Medical Issues being managed closely and that require the 24 hour availability of a physician: anticoagulation COPD with 02 dependence Urinary retention being followed by Medical Issues: Bowel/Bladder Function, DVT Prophylaxis, Falls Precautions, Fluid/Electrolyte/Nutrition Balance, Infection Protection, Pain Management, Other (List) Brief Synthesis of Preadmission Screen, Post-Admission Evaluation, and Therapy Evaluations: 76 yo female who had been living with spouse and independent prior to hospitalization for repaie of a AAA Patient had postop complications and now anticoagulated on Coumadin Currently 02 dependent with hx of COPD Has postop urinary retention being followed by DR Silva Medical Prognosis: good Anticipated Length of Stay: 01/09/27 Rehab Goals Modified Independent for adls and mobility skills with continence of Bowel and bladder Anticipated discharge destinat: Home with family and [facility] MICHELE YEUNG MD Dec 19, 2016 20:43
[2016-12-20] VITALS (9 sets, daily range): BP systolic 84–131; BP diastolic 52–70
[2016-12-20] MEDS: KCL 10 MEQ TAB (MICRO K) PO SCH (06:13)
[2016-12-20] MEDS: PANTOPRAZOLE 40 MG (PROTONIX) TAB PO SCH ×2 (06:13→20:09)
[2016-12-20] MEDS: HYDROcodone/APAP 10 MG/325 MG (LORTAB) TAB PO PRN (06:14)
[2016-12-20] MEDS: RT-ADVAIR HFA 115/21 MCG PER PUFF IH SCH ×2 (07:21→19:04)
[2016-12-20] MEDS: RT-ALBUTEROL SULF 2.5 MG/3 ML PRE-MIX VIAL IH PRN ×2 (07:50→16:07)
--- NOTE | 2016-12-20 08:15 | Progress Note (SOAP) ---
Subjective Subjective/Events-last exam thoracic aortic aneurysm. Weakness. Patient states she short of breath. Chest x-ray and CBC ordered. Atrial fibrillation. COPD Objective Exam Vital Signs Date Time Temp Pulse Resp B/P (MAP) Pulse Ox O2 Delivery O2 Flow Rate FiO2 12/20/16 08:08 95 Nasal Cannula 2.00 12/20/16 07:50 78 2.00 12/20/16 07:21 96 2.00 12/20/16 05:00 97.0 64 18 131/64 93 Nasal Cannula 2.00 12/19/16 20:00 94 Nasal Cannula 2.00 12/19/16 19:47 92 2.00 12/19/16 18:26 97.3 69 18 131/78 92 Nasal Cannula 2.00 12/19/16 09:00 94 2.00 I & O 12/20/16 07:00 Intake Total 1300 ml Output Total 1800 ml Balance -500 ml Capillary Refill : General Appearance: No Apparent Distress, Thin HEENT: Normal ENT Inspection Neck: Normal Inspection Respiratory: No Accessory Muscle Use, No Respiratory Distress Cardiovascular: Irregularly Irregular Gastrointestinal: non tender, soft Results Lab Laboratory Tests 12/19/16 17:17: Glucometer 112H 12/20/16 05:48: Glucometer 109 Assessment/Plan Assessment/Plan Assess & Plan/Chief Complaint Debility. Atrial fibrillation. COPD. Inability to void. . . Debility. Atrial fibrillation. COPD. Patient complains of short of breathe today Clinical Quality Measures DVT/VTE Risk/Contraindication: Risk Factor Score Per Nursin RFS Level Per Nursing on Admit: 4+=Very High ROMAIN MARSH DO Dec 20, 2016 08:15
[2016-12-20 08:40] LABS: BASOPHILS % (AUTO) 0 % (0-10); EOSINOPHILS # (AUTO) 0.2 10^3/uL (0.0-0.3); EOSINOPHILS % (AUTO) 1 % (0-10); LYMPHOCYTES # (AUTO) 2.4 X 10^3 (1.0-4.0); LYMPHOCYTES % (AUTO) 19 % (12-44); MEAN CORPUSCULAR HEMOGLOBIN 29 PG (25-34); MEAN CORPUSCULAR HGB CONC 31 G/DL (32-36); MEAN CORPUSCULAR VOLUME 94 FL (80-99); MEAN PLATELET VOLUME 10.9 FL (7.4-10.4); MONOCYTES # (AUTO) 0.9 X 10^3 (0.0-1.0); MONOCYTES % (AUTO) 7 % (0-12); NEUTROPHILS # (AUTO) 9.2 X 10^3 (1.8-7.8); NEUTROPHILS % (AUTO) 72 % (42-75); PLATELET COUNT 151 10^3/uL (130-400); RED BLOOD COUNT 3.23 10^6/uL (4.35-5.85); RED CELL DISTRIBUTION WIDTH 19.8 % (10.0-14.5); WHITE BLOOD COUNT 12.7 10^3/uL (4.3-11.0)
--- NOTE | 2016-12-20 08:46 | PM & R (SOAP) Progress Note ---
Subjective Subjective/Events-last exam Patient was seen in her room this AM C/O increased abdominal pain this AM Discussed with RN Robyn murphy note and orders.Patient CGA for transfers Objective Exam Last Set of Vital Signs Vital Signs Date Time Temp Pulse Resp B/P (MAP) Pulse Ox O2 Delivery O2 Flow Rate FiO2 12/20/16 08:08 96.5 75 20 117/58 95 Nasal Cannula 2.00 Capillary Refill : I&O Intake and Output 12/20/16 00:00 Intake Total 1100 ml Output Total 1050 ml Balance 50 ml Intake Oral 1100 ml Output Urine Total 1050 ml General: Alert, Oriented X3, Cooperative, No Acute Distress HEENT: Atraumatic, PERRLA, EOMI, Mucous Memb Moist/[place], Other (02 by N/C in place) Neck: Supple, No JVD Lungs: Clear to Auscultation Heart: Regular Rate Abdomen: Normal Bowel Sounds, Soft, No Tenderness Extremities: No Edema Neuro: Other (generalized weakness) Results Lab Laboratory Tests 12/18/16 20:17: Glucometer 106 12/19/16 05:15: White Blood Count 11.8H, Red Blood Count 3.24L, Hemoglobin 9.5L, Hematocrit 31L , Mean Corpuscular Volume 94, Mean Corpuscular Hemoglobin 29, Mean Corpuscular Hemoglobin Concent 31L, Red Cell Distribution Width 20.0H, Platelet Count 145, Mean Platelet Volume 10.5H, Neutrophils (%) (Auto) 70, Lymphocytes (%) (Auto) 19 , Monocytes (%) (Auto) 9, Eosinophils (%) (Auto) 2, Basophils (%) (Auto) 1, Neutrophils # (Auto) 8.3H, Lymphocytes # (Auto) 2.2, Monocytes # (Auto) 1.0, Eosinophils # (Auto) 0.2, Basophils # (Auto) 0.1, Prothrombin Time 18.7H, INR Comment 1.6H, Sodium Level 144, Potassium Level 4.4, Chloride Level 106, Carbon Dioxide Level 26, Anion Gap 12, Blood Urea Nitrogen 22H, Creatinine 1.25, Estimat Glomerular Filtration Rate 42, BUN/Creatinine Ratio 18, Glucose Level 99 , Calcium Level 7.9L, Total Bilirubin 0.4, Aspartate Amino Transf (AST/SGOT) 19 , Alanine Aminotransferase (ALT/SGPT) 11, Alkaline Phosphatase 74, Total Protein 4.7L, Albumin 2.5L 12/19/16 17:17: Glucometer 112H 12/20/16 05:48: Glucometer 109 12/20/16 08:34: Assessment/Plan Assessment General debil s/p Aortic Aneurysm repair Anticoagulation Postop urinary retention following with Wheeler catheter for now HTN controlled COPD on treatments and 02 Abdominal pain -patient has had complete workup for this at [facility] and no findings found Plan Continue PT/OT Pain Management F/U with Dr lawler and Shira as per their schedule Monitor INR and adjust Coumadin as needed Trial of Voiding next week Check CXR and labs [place] consult re anxiety See orders MICHELE YEUNG MD Dec 20, 2016 08:46
[2016-12-20 09:00] LABS: INR 1.3 (0.8-1.4); PROTHROMBIN TIME PATIENT 16.3 SEC (12.2-14.7)
[2016-12-20] MEDS ORDERED: NICOTINE 21 MG (NICODERM) PATCH TD SCH (09:00)
[2016-12-20] MEDS: ASPIRIN E.C. 325 MG (ECOTRIN) TABLET PO SCH ×2 (09:03→10:42)
--- NOTE | 2016-12-20 09:48 | Physical Therapy Daily Note ---
PT Daily Note-Current Subjective Patient in bed pre tx, states she is not feeling well and is numb from the waist down. Nurse and doctor notified but will continue with PT at a much decreased intensity. Patient was sat up in bed with max assist and transferred to the wheelchair and she was dependent with that. She was then taken to the therapy gym and attempted to transfer to the [facility]. Patient then said that she couldnt do it and started leaning forward in the wheelchair and states that she could not get back up. Patient seemed to lose control of her trunk and neck. She was taken back to her room and placed back in bed and was totally dependent for mobility. Vitals were taken and HR was 70 bpm, O2 was 90%, and BP was about 91/57. Nursing in the room when PT left, doctor will be checking her. Transfers Functional [place] Measure 0=Not Assessed/NA 4=Minimal Assistance 1=Total Assistance 5=Supervision or Setup 2=Maximal Assistance 6=Modified [place] 3=Moderate Assistance 7=Complete IndependenceIRFPAI Quality Coding Scale 6 Independent with activity with or without an assistive device 5 Patient requires set up or clean up by helper. Patient completes activity by themselves 4 Supervision or touching assist (CGA). [place] provide cues , steadying assist 3 The helper provides less than half the effort to complete the activity 2 The helper provides more than half the effort to complete the activity 1 Dependent. The helper does all the effort to complete an activity 7 Patient refused to complete or attempt activity 9 The patient did not perform the activity before the current illness or injury 88 Not attempted due to Medical conditions or safety concerns Assessment Current Status: Poor Progress See note in subjective PT Short Term Goals Short Term Goals Time Frame: Dec 26, 2016 Gait (FIM): 1 Gait Distance Comment: 30' Gait Level of Assist: 4 Gait Assistive Device: FWW Wheelchair Distance: 50'x2 PT [employer] Goals Fdc Goals PT [employer] Goals Time Frame: January 09, 2017 Transfers (B,C,W/C) (FIM): 5 Sit to Lying (QC): 4 Lying-Sitting on Side/Bed(QC): 4 Sit to Stand (QC): 4 Rollin Roll Left to Right (QC): 4 Chair/Wiw-lg-Fwrxp Xfer(QC): 4 Car Transfer (QC): 3 Gait (FIM): 2 Distance: 50' Walk 10 feet (QC): 4 Walk 10ft-Uneven Surface(QC): 4 Walk 50ft with 2 Turns (QC): 4 Walk 150 ft (QC): 88 Gait Level of Assist: 4 Gait Assistive Device: FWW Wheelchair (FIM): 5 Distance: 150' Wheelchair Level of Assist: 5 Wheel 50 feet with 2 turns (QC: 4 Stairs (FIM): 2 # of Steps: 4 1 Step (curb) (QC): 3 4 Steps (QC): 3 12 Steps (QC): 88 Stairs Level Of Assist: 4 Picking up an Object (QC): 88 PT Plan Problem List Problem List: Activity Tolerance, Functional Strength, Safety, Balance, Gait, Transfer, Bed Mobility Treatment/Plan Treatment Plan: Continue Plan of Care Treatment Plan: Bed Mobility, Education, Functional Activity Brad, Functional Strength, Group Therapy, Gait, Safety, Therapeutic Exercise, Transfers Treatment Duration: January 09, 2017 Visits Per Week: 10-11 Minutes/Day (M-F): 60-90 Minutes/Day (Sat/Stone): 15-30 Safety Risks/Education Patient Education: Transfer Techniques, Correct Positioning, Safety Issues Teaching Recipient: Patient Teaching Methods: Demonstration, Discussion Response to Teaching: Reinforcement Needed Time/GCodes Time In: 900 Time Out: 940 Total Billed Treatment Time: 40 Total Billed Treatment 1 visit FA 40' TANIA GREENBERG PT Dec 20, 2016 09:48
[2016-12-20] MEDS: meTOprolol TARTRATE 25 MG (LOPRESSOR) TABLET PO SCH ×3 (10:42→20:08)
[2016-12-20] MEDS: FUROSEMIDE 20 MG (LASIX) TAB PO SCH ×2 (10:42→15:45)
[2016-12-20] MEDS: POLYETHYLENE GLYCOL 17 GM (MIRALAX) PACK PO SCH ×2 (10:44→20:09)
[2016-12-20] MEDS: NICOTINE PATCH REMOVAL TP SCH (10:44)
--- NOTE | 2016-12-20 10:59 | Diagnostic Imaging Report ---
EXAM: Postoperative radiograph of the chest. INDICATION: Dyspnea. The patient has a history of thoracic aortic aneurysm that was managed with an endovascular thoracic aortic graft performed at [facility]. Prior comparison exams performed at .. dated 12/12/2016 is loaded for comparison. FINDINGS: There is an 8.3 cm descending aortic aneurysm seen. This compares to 9 cm in caliber based on 12/12/2016, a mild decrease in overall size. There is a thoracic aortic endograft in place. There is background hyperinflation of the lungs with scattered interstitial scarring suggested. There is mild right basilar opacity likely related to atelectasis. No significant effusion or pneumothorax. The heart size is at the upper limits of normal. IMPRESSION: An 8.3 cm descending thoracic aneurysm with an endo prosthesis in place. COPD. Mild opacity in the right lung base, likely related to atelectasis. Dictated by: Dictated on workstation # [id number]
--- NOTE | 2016-12-20 11:34 | Occ Therapy Progress Note ---
Therapy Progress Note Attempted OT treatment at 1000. Pt in bed, states she can't participate at this time. Pt reports shortness of breath, fatigue, and pain. RN is present and aware of pt's complaints. Will continue as able. 1, visit AYAAN PLUNKETT OT Dec 20, 2016 11:34
[2016-12-20] MEDS: FLUTICASONE NASAL SPRAY (FLONASE) 16 GM BTL NS SCH (11:52)
[2016-12-20] MEDS: SALIVA STIMULANT MOUTH SPRAY (BIOTENE) 1.5 OZ MM PRN (11:52)
--- NOTE | 2016-12-20 13:42 | Occupational Ther Daily Note ---
OT Current Status-Daily Note Subjective RN reports pt is doing better and is okay to participate in therapy as tolerated. Pt in bed, states she feels better this afternoon, agrees to therapy. Mental Status/Objective Functional [place] Measure 0=Not Assessed/NA 4=Minimal Assistance 1=Total Assistance 5=Supervision or Setup 2=Maximal Assistance 6=Modified [place] 3=Moderate Assistance 7=Complete [place] ADL-Treatment Functional [place] Measure 0=Not Assessed/NA 4=Minimal Assistance 1=Total Assistance 5=Supervision or Setup 2=Maximal Assistance 6=Modified [place] 3=Moderate Assistance 7=Complete IndependenceIRFPAI Quality Coding Scale 6 Independent with activity with or without an assistive device 5 Patient requires set up or clean up by helper. Patient completes activity by themselves 4 Supervision or touching assist (CGA). [place] provide cues , steadying assist 3 The helper provides less than half the effort to complete the activity 2 The helper provides more than half the effort to complete the activity 1 Dependent. The helper does all the effort to complete an activity 7 Patient refused to complete or attempt activity 9 The patient did not perform the activity before the current illness or injury 88 Not attempted due to Medical conditions or safety concerns Other Treatment Pt participated in UE activity while in supine to increase strength needed for ADLs and transfers. Pt performed shoulder flexion, forward press, biceps curls, and wrist flex/ext x10 reps with dowel rory. Rest breaks taken between exercises. Bilateral hand multiple drum sander helper exercises x20 reps with minimal resistance therapy foam. Pt complete putty activity with bilateral hands to increase multiple drum sander helper/ pinch strength. Pt able to remove small beads from putty with increased time. Pt agrees to transfer to w/c for group therapy. Pt supine to sit with maximal assistance. Pt has decreased sitting balance at EOB, requires min to mod assist to correct. Assist to scoot to EOB. Pt is anxious with mobility. Pt transferred EOB to w/c with assist x2 required for safety. Pt to group therapy via w/c. Continue POC. OT Short Term Goals Short Term Goals Time Frame: Dec 26, 2016 Bathing(FIM): 4 Upper Body Dressing(FIM): 5 Lower Body Dressing(FIM): 3 Toileting(FIM): 3 Toilet/Commode Transfer(FIM): 4 1=Demonstrate adherence to instructed precautions during ADL tasks. 2=Patient will verbalize/demonstrate understanding of assistive devices/ modifications for ADL. 3=Patient will improve strength/tolerance for activity to enable patient to perform ADL's. OT Court Monitor Goals Court Monitor Goals Time Frame: January 09, 2017 Eating (FIM): 6 Eating (QC): 6 Groomin Oral Hygiene (QC): 6 Bathing(FIM): 5 Shower/Bathe Self (QC): 5 Upper Body Dressing(FIM): 6 Upper Body Dressing (QC): 6 Lower Body Dressing(FIM): 5 Lower Body Dressing (QC): 5 On/Off Footwear (QC): 5 Toileting(FIM): 5 Toileting Hygiene (QC): 5 Toilet/Commode Transfer(FIM): 5 Toilet/Commode Transfer (QC): 5 Shower Transfer(FIM): 5 Additional Goals: 1-Demonstrate ADL Tasks, 2-Verbalize Understanding, 3- ImproveStrength/Brad 1=Demonstrate adherence to instructed precautions during ADL tasks. 2=Patient will verbalize/demonstrate understanding of assistive devices/ modifications for ADL. 3=Patient will improve strength/tolerance for activity to enable patient to perform ADL's. OT Education/Plan Problem List/Assessment Pt demonstrates decreased mobility, strength, activity tolerance, and ADL functioning. Pt to benefit from skilled OT intervention for ADL training, transfers, strengthening, and home safety education to maximize level of function and allow safe return home. Discharge Recommendations Plan/Recommendations: Continue POC Treatment Plan/Plan of Care Patient would benefit from OT for education, treatment and training to promote independence in ADL's, mobility, safety and/or upper extremity function for ADL' s. Plan of Care: ADL Retraining, Functional Mobility, Group Exercise/Act as Ind, UE Funct Exercise/Act Treatment Duration: January 09, 2017 Visits Per Week: 10-12 Minutes/Day (M-F): 60-90 Minutes/Day (Sat/Stone): PRN Agreement: Yes Rehab Potential: Fair Time/GCodes Start Time: 12:25 Stop Time: 13:00 Total Time Billed (hr/min): 35 Billed Treatment Time 1 visit, EX(20minutes), FA(15minutes) AYAAN PLUNKETT OT Dec 20, 2016 13:41
[2016-12-20] MEDS ORDERED: NS IV 1000 ML 1,000 ML ONE (14:02)
[2016-12-20] MEDS ORDERED: NS IV 1000 ML 250 ML IV SCH (14:15)
--- NOTE | 2016-12-20 14:34 | Therapy Group Daily Note ---
Therapy Daily Group Note Other/Notes Group therapy attempted with Lindsay but patient became unresponsive and could not participate. Patient taken back to her room via nursing for assessment. Start Time: 13:00 Stop Time: 13:20 Total Billed Treatment Time: 20 Total Billed Treatment 1 visit TANIA GREENBERG PT Dec 20, 2016 14:34
[2016-12-20] MEDS ORDERED: ONDANSETRON 4 MG/2 ML (SDV) Z0FRAN IVP PRN (14:45)
[2016-12-20] MEDS ORDERED: ONDANSETRON 4 MG (ZOFRAN) ORAL DISSOLVE TAB PO PRN (14:45)
[2016-12-20 14:47] LABS: ALBUMIN 2.6 G/DL (3.2-4.5); BILIRUBIN,TOTAL 0.5 MG/DL (0.1-1.0); CALCIUM 8.1 MG/DL (8.5-10.1); CREATININE SERUM 1.04 MG/DL (0.60-1.30); POTASSIUM 3.9 MMOL/L (3.6-5.0)
[2016-12-20 16:12] LABS: BILIRUBIN,URINE NEGATIVE (NEGATIVE); KETONES,URINE NEGATIVE (NEGATIVE); LEUKOCYTE ESTERASE ,URINE 3+ (NEGATIVE); NITRITE,URINE POSITIVE (NEGATIVE); PH,URINE 6 (5-9); PROTEIN,URINE 2+ (NEGATIVE); UROBILINOGEN,URINE NORMAL (NORMAL)
[2016-12-20 16:20] LABS: CALCIUM OXALATE CRYSTALS,UR FEW /LPF; WBC,URINE 25-50 /HPF; YEAST,URINE MODERATE /HPF
--- NOTE | 2016-12-20 16:32 | Diagnostic Imaging Report ---
PROCEDURE: CT head without contrast. TECHNIQUE: Multiple contiguous axial images were obtained through the brain without the use of intravenous contrast. INDICATION: Orthostatic hypotension. FINDINGS: The ventricles are normal in size, shape and position. There is no acute parenchymal hemorrhage, edema or mass. There are age-related senescent changes present. There is no extra-axial mass or hemorrhage. There is no bony abnormality. IMPRESSION: Age-related atrophy. No acute abnormality is seen. Dictated by: Dictated on workstation # [id number]
--- NOTE | 2016-12-20 17:31 | Progress Note (SOAP) ---
Subjective Subjective/Events-last exam Patient had a rough day today. Patient hypotensive. Patient hypoxemic at times. Patient is a DO NOT RESUSCITATE. Patient this evening is confused. Patient is talking. Patient has confusion. Patient appears to be stable Objective Exam Vital Signs Date Time Temp Pulse Resp B/P (MAP) Pulse Ox O2 Delivery O2 Flow Rate FiO2 12/20/16 16:07 93 5.00 12/20/16 15:58 95 12/20/16 15:15 102/64 12/20/16 15:06 94/56 12/20/16 14:10 62 18 96 Nasal Cannula 12/20/16 13:55 84 18 90/70 96 Nasal Cannula 12/20/16 13:54 84/52 12/20/16 10:15 66 18 113/61 95 Nasal Cannula 2.00 12/20/16 09:40 86 20 91/52 96 Nasal Cannula 2.00 12/20/16 08:08 96.5 75 20 117/58 95 Nasal Cannula 2.00 12/20/16 07:50 78 2.00 12/20/16 07:21 96 2.00 12/20/16 05:00 97.0 64 18 131/64 93 Nasal Cannula 2.00 12/19/16 20:00 94 Nasal Cannula 2.00 12/19/16 19:47 92 2.00 12/19/16 18:26 97.3 69 18 131/78 92 Nasal Cannula 2.00 I & O 12/20/16 07:00 Intake Total 1300 ml Output Total 1800 ml Balance -500 ml Capillary Refill : General Appearance: No Apparent Distress, Thin HEENT: Normal ENT Inspection Neck: Normal Inspection Respiratory: Decreased Breath Sounds, Other (On oxygen congestion with coughing ) Cardiovascular: Regular Rate, Rhythm Gastrointestinal: non tender, soft Results Lab Laboratory Tests 12/20/16 05:48: Glucometer 109 12/20/16 08:34: White Blood Count 12.7H, Red Blood Count 3.23L, Hemoglobin 9.3L, Hematocrit 30L , Mean Corpuscular Volume 94, Mean Corpuscular Hemoglobin 29, Mean Corpuscular Hemoglobin Concent 31L, Red Cell Distribution Width 19.8H, Platelet Count 151, Mean Platelet Volume 10.9H, Neutrophils (%) (Auto) 72, Lymphocytes (%) (Auto) 19 , Monocytes (%) (Auto) 7, Eosinophils (%) (Auto) 1, Basophils (%) (Auto) 0, Neutrophils # (Auto) 9.2H, Lymphocytes # (Auto) 2.4, Monocytes # (Auto) 0.9, Eosinophils # (Auto) 0.2, Basophils # (Auto) 0.0, Prothrombin Time 16.3H, INR Comment 1.3 12/20/16 09:49: Glucometer 163H 12/20/16 14:18: Sodium Level 139, Potassium Level 3.9, Chloride Level 103, Carbon Dioxide Level 26, Anion Gap 10, Blood Urea Nitrogen 21H, Creatinine 1.04, Estimat Glomerular Filtration Rate 52, BUN/Creatinine Ratio 20, Glucose Level 158H, Calcium Level 8.1L, Total Bilirubin 0.5, Aspartate Amino Transf (AST/SGOT) 19, Alanine Aminotransferase (ALT/SGPT) 11, Alkaline Phosphatase 73, Total Protein 5.0L, Albumin 2.6L 12/20/16 15:54: Glucometer 153H 12/20/16 15:55: Urine Color YELLOW, Urine Clarity SLIGHTLY CLOUDY, Urine pH 6, Urine Specific [place] 1.015L, Urine Protein 2+H, Urine Glucose (UA) NEGATIVE, Urine Ketones NEGATIVE, Urine Nitrite POSITIVEH, Urine Bilirubin NEGATIVE, Urine Urobilinogen NORMAL, Urine Leukocyte Esterase 3+H, Urine RBC (Auto) 2+H, Urine RBC RARE, Urine WBC 25-50H, Urine Squamous Epithelial Cells NONE, Urine Crystals PRESENTH , Urine Calcium Oxalate Crystals FEWH, Urine Bacteria LARGEH, Urine Casts NONE, Urine Mucus NEGATIVE, Urine Yeast MODERATEH, Urine Culture Indicated YES Assessment/Plan Assessment/Plan Assess & Plan/Chief Complaint Debility. Atrial fibrillation. COPD. Inability to void. . . Debility. Atrial fibrillation. COPD. Patient complains of short of breathe today. . 12/20/16. Blood pressure better. Apical rate under control. Patient talking. Patient appears somewhat better. Patient is DO NOT RESUSCITATE Clinical Quality Measures DVT/VTE Risk/Contraindication: Risk Factor Score Per Nursin RFS Level Per Nursing on Admit: 4+=Very High ROMAIN MARSH DO Dec 20, 2016 17:31
[2016-12-20] MEDS: NS IV 1000 ML 1,000 ML IV SCH (17:43)
[2016-12-20] MEDS: RT-ALBUTEROL SULF 2.5 MG/3 ML PRE-MIX VIAL IH SCH ×2 (19:04→22:01)
[2016-12-20] MEDS: SIMvastatin 40 MG (ZOCOR) TAB PO SCH (20:09)
[2016-12-20] MEDS: ALFUZOSIN HCL 10 MG TAB (UROXATRAL) PO SCH (20:12)
[2016-12-20] MEDS: warFARin 1 MG (COUMADIN) TAB PO SCH (20:12)
[2016-12-21] MEDS: RT-ALBUTEROL SULF 2.5 MG/3 ML PRE-MIX VIAL IH SCH ×6 (02:01→21:57)
[2016-12-21] MEDS: NS IV 1000 ML 1,000 ML IV SCH (04:04)
[2016-12-21 05:41] LABS: MEAN PLATELET VOLUME 10.6 FL (7.4-10.4); RED BLOOD COUNT 2.89 10^6/uL (4.35-5.85); RED CELL DISTRIBUTION WIDTH 19.5 % (10.0-14.5); WHITE BLOOD COUNT 12.5 10^3/uL (4.3-11.0)
[2016-12-21 06:05] LABS: INR 1.5 (0.8-1.4)
[2016-12-21 06:09] VITALS: BP 136/65
[2016-12-21 06:17] LABS: ALBUMIN 2.5 G/DL (3.2-4.5); BILIRUBIN,TOTAL 0.5 MG/DL (0.1-1.0); CALCIUM 8.1 MG/DL (8.5-10.1); CREATININE SERUM 0.94 MG/DL (0.60-1.30); MAGNESIUM 1.2 MG/DL (1.8-2.4); POTASSIUM 3.9 MMOL/L (3.6-5.0); TOTAL PROTEIN 4.7 G/DL (6.4-8.2)
[2016-12-21] MEDS: RT-ADVAIR HFA 115/21 MCG PER PUFF IH SCH ×2 (06:21→18:11)
[2016-12-21] MEDS: PANTOPRAZOLE 40 MG (PROTONIX) TAB PO SCH ×2 (06:58→20:35)
[2016-12-21] MEDS: KCL 10 MEQ TAB (MICRO K) PO SCH (06:58)
[2016-12-21] MEDS: NICOTINE 14 MG (NICODERM) PATCH TD SCH (08:13)
[2016-12-21] MEDS: NICOTINE PATCH REMOVAL TP SCH (08:13)
[2016-12-21] MEDS: FUROSEMIDE 20 MG (LASIX) TAB PO SCH (08:14)
[2016-12-21] MEDS: ASPIRIN E.C. 325 MG (ECOTRIN) TABLET PO SCH (08:14)
[2016-12-21] MEDS: meTOprolol TARTRATE 25 MG (LOPRESSOR) TABLET PO SCH ×2 (08:14→20:35)
[2016-12-21] MEDS: FLUTICASONE NASAL SPRAY (FLONASE) 16 GM BTL NS SCH (08:14)
[2016-12-21] MEDS: POLYETHYLENE GLYCOL 17 GM (MIRALAX) PACK PO SCH ×2 (08:17→20:35)
--- NOTE | 2016-12-21 09:52 | Occupational Ther Daily Note ---
OT Current Status-Daily Note Subjective Pt in bed, agrees to therapy with encouragement. Pt reports pain in low back, but does not rate. Mental Status/Objective Functional [place] Measure 0=Not Assessed/NA 4=Minimal Assistance 1=Total Assistance 5=Supervision or Setup 2=Maximal Assistance 6=Modified [place] 3=Moderate Assistance 7=Complete [place] ADL-Treatment Co-treat with PT this am. OT focusing on ADL completion at EOB and UE placement for sitting balance. PT focusing on functional transfers supine to sit and sit to stand, and dynamic sitting balance at EOB during ADLs. Pt supine to sit with moderate assistance. Pt sat EOB to complete ADL tasks. Pt completed sponge bath with increased time. Pt able to wash bilateral UE, chest, abdomen, and partially washed bilateral upper legs. Pt required assist to wash bilateral lower legs. Pt sit to stand with max assist x1 while didier care was performed. Pt required total assist to wash buttocks and complete didier care. Don gown with max assist. Pt required total assist to don socks. Pt has decreased sitting balance at EOB during functional activity and requires minimal assist to correct. Pt fatigues quickly with activity and requires occasional rest breaks throughout treatment. Pt returned to supine with needs met after session. Functional [place] Measure 0=Not Assessed/NA 4=Minimal Assistance 1=Total Assistance 5=Supervision or Setup 2=Maximal Assistance 6=Modified [place] 3=Moderate Assistance 7=Complete IndependenceIRFPAI Quality Coding Scale 6 Independent with activity with or without an assistive device 5 Patient requires set up or clean up by helper. Patient completes activity by themselves 4 Supervision or touching assist (CGA). [place] provide cues , steadying assist 3 The helper provides less than half the effort to complete the activity 2 The helper provides more than half the effort to complete the activity 1 Dependent. The helper does all the effort to complete an activity 7 Patient refused to complete or attempt activity 9 The patient did not perform the activity before the current illness or injury 88 Not attempted due to Medical conditions or safety concerns OT Short Term Goals Short Term Goals Time Frame: Dec 26, 2016 Bathing(FIM): 4 Upper Body Dressing(FIM): 5 Lower Body Dressing(FIM): 3 Toileting(FIM): 3 Toilet/Commode Transfer(FIM): 4 1=Demonstrate adherence to instructed precautions during ADL tasks. 2=Patient will verbalize/demonstrate understanding of assistive devices/ modifications for ADL. 3=Patient will improve strength/tolerance for activity to enable patient to perform ADL's. OT Jail Goals Jail Goals Time Frame: January 09, 2017 Eating (FIM): 6 Eating (QC): 6 Groomin Oral Hygiene (QC): 6 Bathing(FIM): 5 Shower/Bathe Self (QC): 5 Upper Body Dressing(FIM): 6 Upper Body Dressing (QC): 6 Lower Body Dressing(FIM): 5 Lower Body Dressing (QC): 5 On/Off Footwear (QC): 5 Toileting(FIM): 5 Toileting Hygiene (QC): 5 Toilet/Commode Transfer(FIM): 5 Toilet/Commode Transfer (QC): 5 Shower Transfer(FIM): 5 Additional Goals: 1-Demonstrate ADL Tasks, 2-Verbalize Understanding, 3- ImproveStrength/Brad 1=Demonstrate adherence to instructed precautions during ADL tasks. 2=Patient will verbalize/demonstrate understanding of assistive devices/ modifications for ADL. 3=Patient will improve strength/tolerance for activity to enable patient to perform ADL's. OT Education/Plan Discharge Recommendations Plan/Recommendations: Continue POC Treatment Plan/Plan of Care Patient would benefit from OT for education, treatment and training to promote independence in ADL's, mobility, safety and/or upper extremity function for ADL' s. Plan of Care: ADL Retraining, Functional Mobility, Group Exercise/Act as Ind, UE Funct Exercise/Act Treatment Duration: January 09, 2017 Visits Per Week: 10-12 Minutes/Day (M-F): 60-90 Minutes/Day (Sat/Stone): PRN Agreement: Yes Rehab Potential: Fair Time/GCodes Start Time: 07:20 Stop Time: 08:00 Total Time Billed (hr/min): 40 Billed Treatment Time 1 visit, ADLx3(40minutes) Co-treat with PT AYAAN PLUNKETT OT Dec 21, 2016 09:52
--- NOTE | 2016-12-21 09:52 | Physical Therapy Daily Note ---
PT Daily Note-Current Subjective "I can't do anything today." "I'm not sure I can do that." Pt ends treatment stating, "I need to lie down now." Transfers Functional [place] Measure 0=Not Assessed/NA 4=Minimal Assistance 1=Total Assistance 5=Supervision or Setup 2=Maximal Assistance 6=Modified [place] 3=Moderate Assistance 7=Complete IndependenceIRFPAI Quality Coding Scale 6 Independent with activity with or without an assistive device 5 Patient requires set up or clean up by helper. Patient completes activity by themselves 4 Supervision or touching assist (CGA). [place] provide cues , steadying assist 3 The helper provides less than half the effort to complete the activity 2 The helper provides more than half the effort to complete the activity 1 Dependent. The helper does all the effort to complete an activity 7 Patient refused to complete or attempt activity 9 The patient did not perform the activity before the current illness or injury 88 Not attempted due to Medical conditions or safety concerns Treatments Co treat with OT as OT addressed self care activities and ADL"s, PT addressed balance, core stability/strength and functional activity tolerance. Sup to from sit EOB with mod assist. Pt sat EOB greater than 30 minutes to work on seated functional static and dynamic balance while OT addressed ADL's and self care. Pt required 75% cueing for balance and posture as well and min to CGA for seated balance. Sit to stand x 1 with max assist with FWW, unable to come to a full stand. Sit to stand x 2 dance style (max of 1 assist) while OT addressed didier care. Pt in bed post treatment with needs met and breakfast ordered. Assessment Current Status: Fair Progress Pt paricipates reluctantly and with constant gentle encouragement. Pt with limited functional activity tolerance and requires 2 skilled clinicians to address her multiple needs due to complexity of her status. Pt has much difficulty participating and often requests to stop throughout the treatment. Weak LE's with dimished ability to WB compared when last seen by this clinician on . PT Short Term Goals Short Term Goals Time Frame: Dec 26, 2016 Gait (FIM): 1 Gait Distance Comment: 30' Gait Level of Assist: 4 Gait Assistive Device: FWW Wheelchair Distance: 50'x2 PT Sales Operations Associate Goals Custodial Goals PT Custodial Goals Time Frame: January 09, 2017 Transfers (B,C,W/C) (FIM): 5 Sit to Lying (QC): 4 Lying-Sitting on Side/Bed(QC): 4 Sit to Stand (QC): 4 Rollin Roll Left to Right (QC): 4 Chair/Cra-tu-Sekqm Xfer(QC): 4 Car Transfer (QC): 3 Gait (FIM): 2 Distance: 50' Walk 10 feet (QC): 4 Walk 10ft-Uneven Surface(QC): 4 Walk 50ft with 2 Turns (QC): 4 Walk 150 ft (QC): 88 Gait Level of Assist: 4 Gait Assistive Device: FWW Wheelchair (FIM): 5 Distance: 150' Wheelchair Level of Assist: 5 Wheel 50 feet with 2 turns (QC: 4 Stairs (FIM): 2 # of Steps: 4 1 Step (curb) (QC): 3 4 Steps (QC): 3 12 Steps (QC): 88 Stairs Level Of Assist: 4 Picking up an Object (QC): 88 PT Plan Problem List Problem List: Activity Tolerance, Functional Strength, Safety, Balance, Gait, Transfer, Bed Mobility Treatment/Plan Treatment Plan: Continue Plan of Care Treatment Plan: Bed Mobility, Education, Functional Activity Brad, Functional Strength, Group Therapy, Gait, Safety, Therapeutic Exercise, Transfers Treatment Duration: January 09, 2017 Visits Per Week: 10-11 Minutes/Day (M-F): 60-90 Minutes/Day (Sat/Stone): 15-30 Safety Risks/Education Patient Education: Transfer Techniques, Safety Issues Teaching Recipient: Patient Teaching Methods: Demonstration, Discussion Response to Teaching: Reinforcement Needed Time/GCodes Time In: 720 Time Out: 800 Total Billed Treatment Time: 40 Total Billed Treatment visit FA 40 AVEL BAZZI PT Dec 21, 2016 09:52
--- NOTE | 2016-12-21 09:54 | Physical Therapy Daily Note ---
PT Daily Note-Current Subjective Agrees to PT. Reports she ate yogurt and feels a bit better. However, treatment discontinued as pt expressed that she could not do any more and must lie down. Transfers Functional [place] Measure 0=Not Assessed/NA 4=Minimal Assistance 1=Total Assistance 5=Supervision or Setup 2=Maximal Assistance 6=Modified [place] 3=Moderate Assistance 7=Complete IndependenceIRFPAI Quality Coding Scale 6 Independent with activity with or without an assistive device 5 Patient requires set up or clean up by helper. Patient completes activity by themselves 4 Supervision or touching assist (CGA). [place] provide cues , steadying assist 3 The helper provides less than half the effort to complete the activity 2 The helper provides more than half the effort to complete the activity 1 Dependent. The helper does all the effort to complete an activity 7 Patient refused to complete or attempt activity 9 The patient did not perform the activity before the current illness or injury 88 Not attempted due to Medical conditions or safety concerns Exercises Supine Ex: Bridging, Ankle pumps, Quad Set, Heel Slides, Short Arc Quads, Hip abd/add Supine Reps: 10 Pt requires min to mod assist with ther ex on the right LE. CO treat with OT during ther ex to maintain continues strengthening to promote functional activity tolerance and increase CV endurance. Pt unable to continually perform UE or LE exercise but able to alternate, therefor Co treat indicated to maintain a higher level of CV function. Treatments Sup to/from sit with max assist. OT addressing sequencing and task initiation whilst PT addressing core engagement and use of U/LE to facilitate transfer. Sat EOB and worked on static and dynamic balance with PT address core mm actiivation and OT addressing self care. SPT x 2 dep assist to the wheelchair. WC mobility to work on CV functional act tolerance and to promote participation and indep with participation within environment by being mobile in her wheelchair. OT addressed use of UE and PT LE and propulsion as well. WC progression 30 ft x 3 with SBA and skilled cues to propel. Pt in bed post treatment with needs met. Assessment Current Status: Fair Progress Pt still needs much encouragement to participate. Limited functional act tolerance and limited initiation of tasks. Difficulty participating in this level of intensity of therapy PT Short Term Goals Short Term Goals Time Frame: Dec 26, 2016 Gait (FIM): 1 Gait Distance Comment: 30' Gait Level of Assist: 4 Gait Assistive Device: FWW Wheelchair Distance: 50'x2 PT Skilled Nursing Goals Toll Ticket Clerk Goals PT Skilled Nursing Goals Time Frame: January 09, 2017 Transfers (B,C,W/C) (FIM): 5 Sit to Lying (QC): 4 Lying-Sitting on Side/Bed(QC): 4 Sit to Stand (QC): 4 Rollin Roll Left to Right (QC): 4 Chair/Ogz-qz-Bowmq Xfer(QC): 4 Car Transfer (QC): 3 Gait (FIM): 2 Distance: 50' Walk 10 feet (QC): 4 Walk 10ft-Uneven Surface(QC): 4 Walk 50ft with 2 Turns (QC): 4 Walk 150 ft (QC): 88 Gait Level of Assist: 4 Gait Assistive Device: FWW Wheelchair (FIM): 5 Distance: 150' Wheelchair Level of Assist: 5 Wheel 50 feet with 2 turns (QC: 4 Stairs (FIM): 2 # of Steps: 4 1 Step (curb) (QC): 3 4 Steps (QC): 3 12 Steps (QC): 88 Stairs Level Of Assist: 4 Picking up an Object (QC): 88 PT Plan Problem List Problem List: Activity Tolerance, Functional Strength Treatment/Plan Treatment Plan: Continue Plan of Care Treatment Plan: Bed Mobility, Education, Functional Activity Brad, Functional Strength, Group Therapy, Gait, Safety, Therapeutic Exercise, Transfers Treatment Duration: January 09, 2017 Visits Per Week: 10-11 Minutes/Day (M-F): 60-90 Minutes/Day (Sat/Stone): 15-30 Time/GCodes Time In: 855 Time Out: 935 Total Billed Treatment Time: 40 Total Billed Treatment visit Co treat with OT FA 10 WC 15 EX 15 AVEL BAZZI PT Dec 21, 2016 09:54
--- NOTE | 2016-12-21 09:59 | Progress Note (SOAP) ---
Subjective Subjective/Events-last exam patient doing much better today. blood pressure is normal today. Patient knows where she is at .. To give magnesium. 2 DC IV Objective Exam Vital Signs Date Time Temp Pulse Resp B/P (MAP) Pulse Ox O2 Delivery O2 Flow Rate FiO2 12/21/16 06:30 91 4.00 12/21/16 06:24 91 4.00 12/21/16 06:09 96.8 73 20 136/65 90 Nasal Cannula 12/21/16 02:04 4.00 12/20/16 22:02 97 4.00 12/20/16 20:00 Nasal Cannula 3.50 12/20/16 19:08 4.00 12/20/16 19:05 4.00 12/20/16 18:59 96.4 74 20 118/65 95 Nasal Cannula 4.50 12/20/16 16:07 93 5.00 12/20/16 15:58 95 12/20/16 15:15 102/64 12/20/16 15:06 94/56 12/20/16 14:10 62 18 96 Nasal Cannula 12/20/16 13:55 84 18 90/70 96 Nasal Cannula 12/20/16 13:54 84/52 12/20/16 10:15 66 18 113/61 95 Nasal Cannula 2.00 I & O 12/21/16 07:00 Intake Total 2550 ml Output Total 1450 ml Balance 1100 ml Capillary Refill : General Appearance: No Apparent Distress, WD/WN HEENT: Normal ENT Inspection Neck: Normal Inspection Respiratory: Chest Non Tender, Lungs Clear, No Accessory Muscle Use, No Respiratory Distress Cardiovascular: Regular Rate, Rhythm Gastrointestinal: normal bowel sounds Results Lab Laboratory Tests 12/20/16 14:18: Sodium Level 139, Potassium Level 3.9, Chloride Level 103, Carbon Dioxide Level 26, Anion Gap 10, Blood Urea Nitrogen 21H, Creatinine 1.04, Estimat Glomerular Filtration Rate 52, BUN/Creatinine Ratio 20, Glucose Level 158H, Calcium Level 8.1L, Total Bilirubin 0.5, Aspartate Amino Transf (AST/SGOT) 19, Alanine Aminotransferase (ALT/SGPT) 11, Alkaline Phosphatase 73, Total Protein 5.0L, Albumin 2.6L 12/20/16 15:54: Glucometer 153H 12/20/16 15:55: Urine Color YELLOW, Urine Clarity SLIGHTLY CLOUDY, Urine pH 6, Urine Specific [place] 1.015L, Urine Protein 2+H, Urine Glucose (UA) NEGATIVE, Urine Ketones NEGATIVE, Urine Nitrite POSITIVEH, Urine Bilirubin NEGATIVE, Urine Urobilinogen NORMAL, Urine Leukocyte Esterase 3+H, Urine RBC (Auto) 2+H, Urine RBC RARE, Urine WBC 25-50H, Urine Squamous Epithelial Cells NONE, Urine Crystals PRESENTH , Urine Calcium Oxalate Crystals FEWH, Urine Bacteria LARGEH, Urine Casts NONE, Urine Mucus NEGATIVE, Urine Yeast MODERATEH, Urine Culture Indicated YES 12/21/16 05:18: White Blood Count 12.5H, Red Blood Count 2.89L, Hemoglobin 8.4L, Hematocrit 27L , Mean Corpuscular Volume 94, Mean Corpuscular Hemoglobin 29, Mean Corpuscular Hemoglobin Concent 31L, Red Cell Distribution Width 19.5H, Platelet Count 177, Mean Platelet Volume 10.6H 12/21/16 05:20: Prothrombin Time 18.0H, INR Comment 1.5H, Sodium Level 142, Potassium Level 3.9 , Chloride Level 105, Carbon Dioxide Level 27, Anion Gap 10, Blood Urea Nitrogen 17, Creatinine 0.94, Estimat Glomerular Filtration Rate 58, BUN/ Creatinine Ratio 18, Glucose Level 104, Calcium Level 8.1L, Magnesium Level 1.2L , Total Bilirubin 0.5, Aspartate Amino Transf (AST/SGOT) 24, Alanine Aminotransferase (ALT/SGPT) 10, Alkaline Phosphatase 78, B-Type Natriuretic Peptide 276.9H, Total Protein 4.7L, Albumin 2.5L Microbiology 12/20/16 Urine Culture - Preliminary, Resulted Probable Pseudomonas Assessment/Plan Assessment/Plan Assess & Plan/Chief Complaint Debility. Atrial fibrillation. COPD. Inability to void. . . Debility. Atrial fibrillation. COPD. Patient complains of short of breathe today. . 12/20/16. Blood pressure better. Apical rate under control. Patient talking. Patient appears somewhat better. Patient is DO NOT RESUSCITATE. . 12/21/16 patient doing much better today. Patient more alert. Blood pressure is within normal limits. Patient not confused. Patient not hypotensive. Patient has hypomagnesemia. Clinical Quality Measures DVT/VTE Risk/Contraindication: Risk Factor Score Per Nursin RFS Level Per Nursing on Admit: 4+=Very High ROMAIN MARSH DO Dec 21, 2016 09:59
--- NOTE | 2016-12-21 10:10 | Occupational Ther Daily Note ---
OT Current Status-Daily Note Subjective Pt resting in bed, states she was able to eat a little bit for breakfast. Pt agrees to therapy. Pt reports continued pain in back Mental Status/Objective Functional [place] Measure 0=Not Assessed/NA 4=Minimal Assistance 1=Total Assistance 5=Supervision or Setup 2=Maximal Assistance 6=Modified [place] 3=Moderate Assistance 7=Complete [place] ADL-Treatment Pt performed oral care with mouth swab with set up while in bed. Pt combed hair with minimal assistance to reach back of head while seated EOB. Functional [place] Measure 0=Not Assessed/NA 4=Minimal Assistance 1=Total Assistance 5=Supervision or Setup 2=Maximal Assistance 6=Modified [place] 3=Moderate Assistance 7=Complete IndependenceIRFPAI Quality Coding Scale 6 Independent with activity with or without an assistive device 5 Patient requires set up or clean up by helper. Patient completes activity by themselves 4 Supervision or touching assist (CGA). [place] provide cues , steadying assist 3 The helper provides less than half the effort to complete the activity 2 The helper provides more than half the effort to complete the activity 1 Dependent. The helper does all the effort to complete an activity 7 Patient refused to complete or attempt activity 9 The patient did not perform the activity before the current illness or injury 88 Not attempted due to Medical conditions or safety concerns Grooming (FIM): 4 Other Treatment Pt performed alternating bilateral UE/LE exercises while in supine. Co-treat with PT during exercises to maintain continuous therapy to improve functional activity tolerance needed for ADL tasks. Pt able to maintain continuous therapy if alternating between UE/LE. Pt performed active shoulder flexion, abduction, horizontal abduction, and elbow flexion/extension x10 reps. 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 Pt performed supine to sit with moderate assistance. OT addressed combing hair while seated EOB while PT addressed functional balance. Stand pivot transfer to w/c. Pt performed w/c mobility to increase functional use of UE and to promote functional mobility. Pt able to slowly propel w/c using bilateral UE and right LE. Fatigues with activity and requires seated rest breaks. Pt reports discomfort in sitting and attempts repositioning, but requires assist to maintain optimal positioning. While up in w/c pt states "I'm done for now," and reports need to return to bed secondary to fatigue and pain. Pt returned to supine in bed with needs met. Assisted pt to order drink from kitchen. Continue POC. OT Short Term Goals Short Term Goals Time Frame: Dec 26, 2016 Bathing(FIM): 4 Upper Body Dressing(FIM): 5 Lower Body Dressing(FIM): 3 Toileting(FIM): 3 Toilet/Commode Transfer(FIM): 4 1=Demonstrate adherence to instructed precautions during ADL tasks. 2=Patient will verbalize/demonstrate understanding of assistive devices/ modifications for ADL. 3=Patient will improve strength/tolerance for activity to enable patient to perform ADL's. OT [facility] Goals Instructional Media Services Technician Goals Time Frame: January 09, 2017 Eating (FIM): 6 Eating (QC): 6 Groomin Oral Hygiene (QC): 6 Bathing(FIM): 5 Shower/Bathe Self (QC): 5 Upper Body Dressing(FIM): 6 Upper Body Dressing (QC): 6 Lower Body Dressing(FIM): 5 Lower Body Dressing (QC): 5 On/Off Footwear (QC): 5 Toileting(FIM): 5 Toileting Hygiene (QC): 5 Toilet/Commode Transfer(FIM): 5 Toilet/Commode Transfer (QC): 5 Shower Transfer(FIM): 5 Additional Goals: 1-Demonstrate ADL Tasks, 2-Verbalize Understanding, 3- ImproveStrength/Brad 1=Demonstrate adherence to instructed precautions during ADL tasks. 2=Patient will verbalize/demonstrate understanding of assistive devices/ modifications for ADL. 3=Patient will improve strength/tolerance for activity to enable patient to perform ADL's. OT Education/Plan Discharge Recommendations Plan/Recommendations: Continue POC Treatment Plan/Plan of Care Patient would benefit from OT for education, treatment and training to promote independence in ADL's, mobility, safety and/or upper extremity function for ADL' s. Plan of Care: ADL Retraining, Functional Mobility, Group Exercise/Act as Ind, UE Funct Exercise/Act Treatment Duration: January 09, 2017 Visits Per Week: 10-12 Minutes/Day (M-F): 60-90 Minutes/Day (Sat/Stone): PRN Agreement: Yes Rehab Potential: Fair Time/GCodes Start Time: 08:55 Stop Time: 09:40 Total Time Billed (hr/min): 45 Billed Treatment Time 1 visit, EX(20minutes), FAx2(25minutes) Co-treat with PT AYAAN PLUNKETT OT Dec 21, 2016 10:10
[2016-12-21] MEDS: MAGNESIUM 1 GM/100 ML IVPB 100 ML IV SCH ×3 (10:18→12:28)
--- NOTE | 2016-12-21 10:35 | Occupational Ther Daily Note ---
OT Current Status-Daily Note Subjective Pt in bed, agrees to bed level activity. After therapy pt states "Even that wears me out." Mental Status/Objective Functional [place] Measure 0=Not Assessed/NA 4=Minimal Assistance 1=Total Assistance 5=Supervision or Setup 2=Maximal Assistance 6=Modified [place] 3=Moderate Assistance 7=Complete [place] ADL-Treatment Functional [place] Measure 0=Not Assessed/NA 4=Minimal Assistance 1=Total Assistance 5=Supervision or Setup 2=Maximal Assistance 6=Modified [place] 3=Moderate Assistance 7=Complete IndependenceIRFPAI Quality Coding Scale 6 Independent with activity with or without an assistive device 5 Patient requires set up or clean up by helper. Patient completes activity by themselves 4 Supervision or touching assist (CGA). [place] provide cues , steadying assist 3 The helper provides less than half the effort to complete the activity 2 The helper provides more than half the effort to complete the activity 1 Dependent. The helper does all the effort to complete an activity 7 Patient refused to complete or attempt activity 9 The patient did not perform the activity before the current illness or injury 88 Not attempted due to Medical conditions or safety concerns Other Treatment Pt performed fine motor tasks with bilateral UE to increase coordination needed for ADL tasks. Pt completed peg activity. Pt has mild difficulty placing pegs in pegboard secondary to weakness, but is able to complete task without assistance. Pt performed fine motor task with nuts and bolts. Increased time to complete task. Requires rest break. Pt resting in bed with needs met after session. OT Short Term Goals Short Term Goals Time Frame: Dec 26, 2016 Bathing(FIM): 4 Upper Body Dressing(FIM): 5 Lower Body Dressing(FIM): 3 Toileting(FIM): 3 Toilet/Commode Transfer(FIM): 4 1=Demonstrate adherence to instructed precautions during ADL tasks. 2=Patient will verbalize/demonstrate understanding of assistive devices/ modifications for ADL. 3=Patient will improve strength/tolerance for activity to enable patient to perform ADL's. OT Snf Goals Snf Goals Time Frame: January 09, 2017 Eating (FIM): 6 Eating (QC): 6 Groomin Oral Hygiene (QC): 6 Bathing(FIM): 5 Shower/Bathe Self (QC): 5 Upper Body Dressing(FIM): 6 Upper Body Dressing (QC): 6 Lower Body Dressing(FIM): 5 Lower Body Dressing (QC): 5 On/Off Footwear (QC): 5 Toileting(FIM): 5 Toileting Hygiene (QC): 5 Toilet/Commode Transfer(FIM): 5 Toilet/Commode Transfer (QC): 5 Shower Transfer(FIM): 5 Additional Goals: 1-Demonstrate ADL Tasks, 2-Verbalize Understanding, 3- ImproveStrength/Brad 1=Demonstrate adherence to instructed precautions during ADL tasks. 2=Patient will verbalize/demonstrate understanding of assistive devices/ modifications for ADL. 3=Patient will improve strength/tolerance for activity to enable patient to perform ADL's. OT Education/Plan Discharge Recommendations Plan/Recommendations: Continue POC Treatment Plan/Plan of Care Patient would benefit from OT for education, treatment and training to promote independence in ADL's, mobility, safety and/or upper extremity function for ADL' s. Plan of Care: ADL Retraining, Functional Mobility, Group Exercise/Act as Ind, UE Funct Exercise/Act Treatment Duration: January 09, 2017 Visits Per Week: 10-12 Minutes/Day (M-F): 60-90 Minutes/Day (Sat/Stone): PRN Agreement: Yes Rehab Potential: Fair Time/GCodes Start Time: 10:13 Stop Time: 10:28 Total Time Billed (hr/min): 15 Billed Treatment Time 1 visit, FA(15minutes) AYAAN PLUNKETT OT Dec 21, 2016 10:35
[2016-12-21] MEDS: warFARin 1 MG (COUMADIN) TAB PO SCH (17:05)
[2016-12-21] MEDS: ALFUZOSIN HCL 10 MG TAB (UROXATRAL) PO SCH (17:05)
[2016-12-21 17:46] VITALS: BP 113/61
[2016-12-21] MEDS: SENNA W/DOCUSATE (SENOKOT S) TABLET PO PRN (20:34)
[2016-12-21] MEDS: SIMvastatin 40 MG (ZOCOR) TAB PO SCH (20:35)
[2016-12-22] MEDS: RT-ALBUTEROL SULF 2.5 MG/3 ML PRE-MIX VIAL IH SCH ×6 (02:01→22:36)
[2016-12-22 05:22] VITALS: BP 116/70
[2016-12-22] MEDS: PANTOPRAZOLE 40 MG (PROTONIX) TAB PO SCH ×2 (06:01→20:08)
[2016-12-22] MEDS: KCL 10 MEQ TAB (MICRO K) PO SCH (06:01)
[2016-12-22 06:25] LABS: INR 1.5 (0.8-1.4); PROTHROMBIN TIME PATIENT 18.1 SEC (12.2-14.7)
[2016-12-22] MEDS: RT-ADVAIR HFA 115/21 MCG PER PUFF IH SCH ×2 (08:10→18:56)
[2016-12-22] MEDS: RT-ALBUTEROL SULF 2.5 MG/3 ML PRE-MIX VIAL IH PRN (08:10)
[2016-12-22] MEDS: NICOTINE PATCH REMOVAL TP SCH (09:38)
[2016-12-22] MEDS: POLYETHYLENE GLYCOL 17 GM (MIRALAX) PACK PO SCH ×2 (09:38→20:22)
[2016-12-22] MEDS: NICOTINE 14 MG (NICODERM) PATCH TD SCH (09:38)
[2016-12-22] MEDS: ASPIRIN E.C. 325 MG (ECOTRIN) TABLET PO SCH (09:38)
[2016-12-22] MEDS: meTOprolol TARTRATE 25 MG (LOPRESSOR) TABLET PO SCH ×2 (09:38→20:09)
[2016-12-22] MEDS: FLUTICASONE NASAL SPRAY (FLONASE) 16 GM BTL NS SCH (09:39)
[2016-12-22] MEDS: FUROSEMIDE 20 MG (LASIX) TAB PO SCH (09:40)
[2016-12-22] MEDS: ALFUZOSIN HCL 10 MG TAB (UROXATRAL) PO SCH (16:51)
[2016-12-22] MEDS: warFARin 1 MG (COUMADIN) TAB PO SCH (16:51)
[2016-12-22] MEDS: HYDROcodone/APAP 10 MG/325 MG (LORTAB) TAB PO PRN (16:51)
[2016-12-22 17:38] VITALS: BP 119/71
[2016-12-22] MEDS: SIMvastatin 40 MG (ZOCOR) TAB PO SCH (20:08)
[2016-12-23] MEDS: RT-ALBUTEROL SULF 2.5 MG/3 ML PRE-MIX VIAL IH SCH (02:40)
[2016-12-23] MEDS ORDERED: NS IV 1000 ML 1,000 ML IV SCH (03:30)
[2016-12-23 03:47] LABS: BASOPHILS % (AUTO) 1 % (0-10); EOSINOPHILS # (AUTO) 0.3 10^3/uL (0.0-0.3); EOSINOPHILS % (AUTO) 4 % (0-10); LYMPHOCYTES % (AUTO) 23 % (12-44); MEAN CORPUSCULAR HEMOGLOBIN 30 PG (25-34); MEAN CORPUSCULAR HGB CONC 31 G/DL (32-36); MEAN CORPUSCULAR VOLUME 94 FL (80-99); MEAN PLATELET VOLUME 10.3 FL (7.4-10.4); MONOCYTES % (AUTO) 11 % (0-12); NEUTROPHILS # (AUTO) 5.5 X 10^3 (1.8-7.8); NEUTROPHILS % (AUTO) 62 % (42-75); PLATELET COUNT 172 10^3/uL (130-400); WHITE BLOOD COUNT 8.8 10^3/uL (4.3-11.0)
[2016-12-23 03:54] LABS: INR 1.5 (0.8-1.4); PROTHROMBIN TIME PATIENT 17.6 SEC (12.2-14.7)
[2016-12-23 04:04] LABS: ALANINE AMINOTRANSFERASE 12 U/L (0-55); ALBUMIN 2.5 G/DL (3.2-4.5); ANION GAP 8 MMOL/L (5-14); ASPARTATE AMINO TRANSFERASE 19 U/L (5-34); BILIRUBIN,TOTAL 0.4 MG/DL (0.1-1.0); BLOOD UREA NITROGEN 16 MG/DL (7-18); BUN/CREATININE RATIO 18; CALCIUM 7.8 MG/DL (8.5-10.1); CARBON DIOXIDE 28 MMOL/L (21-32); CHLORIDE 106 MMOL/L (98-107); CREATININE SERUM 0.87 MG/DL (0.60-1.30); GFR ESTIMATED > 60; GLUCOSE 91 MG/DL (70-105); POTASSIUM 3.8 MMOL/L (3.6-5.0); SODIUM 142 MMOL/L (135-145); TOTAL PROTEIN 4.6 G/DL (6.4-8.2)
[2016-12-23] MEDS: KCL 10 MEQ TAB (MICRO K) PO SCH (07:00)
--- NOTE | 2016-12-23 07:33 | Diagnostic Imaging Report ---
INDICATION: Respiratory distress. COMPARISON: 12/20/2016. Study interpreted in correlation with outside CT of the chest 12/07/2016. FINDINGS: New infiltrate in the right upper lobe suspect for pneumonia. Mass effect in the left thorax projecting lateral to an endograft is presumed to reflect the known proximal descending thoracic aortic aneurysm when it is correlated with its appearance on the prior CT and shows no evidence of increased enlargement. Air trapping and COPD with small right pleural effusion noted. IMPRESSION: Probable right upper lobe pneumonia is a new finding. Aneurysmal mass effect unchanged, COPD and right pleural effusion noted. Dictated by: Dictated on workstation # [id number]
[2016-12-25] MEDS: FERROUS SULF 325 MG (IRON) TAB PO SCH (17:41)
[2016-12-25] MEDS: warFARin 2 MG (COUMADIN) TAB PO SCH (17:43)
[2016-12-25] MEDS: methylPREDNISolone 40 MG/ML (Solu-MEDROL) VIAL IV SCH (18:06)
[2016-12-25 18:12] VITALS: BP 101/68
[2016-12-25] MEDS ORDERED: FERR-74 PO (18:21)
[2016-12-25] MEDS ORDERED: IPRA3AMP INH (18:21)
[2016-12-25] MEDS: RT-ADVAIR HFA 115/21 MCG PER PUFF IH SCH (18:51)
[2016-12-25] MEDS: RT-ALBUTEROL/IPRATROPIUM 3 ML (DUONEB) VIAL INH SCH ×2 (18:51→22:01)
[2016-12-25] MEDS: meTOprolol TARTRATE 25 MG (LOPRESSOR) TABLET PO SCH (20:22)
[2016-12-25] MEDS: PANTOPRAZOLE 40 MG (PROTONIX) TAB PO SCH ×5 (20:22→21:05)
[2016-12-25] MEDS: SIMvastatin 40 MG (ZOCOR) TAB PO SCH ×3 (20:22→21:02)
[2016-12-25] MEDS: NICOTINE PATCH REMOVAL TP SCH ×3 (20:51→21:01)
[2016-12-25] MEDS: ASPIRIN E.C. 325 MG (ECOTRIN) TABLET PO SCH ×3 (20:54→21:02)
[2016-12-25] MEDS: FLUTICASONE NASAL SPRAY (FLONASE) 16 GM BTL NS SCH ×3 (20:54→21:02)
[2016-12-25] MEDS: FUROSEMIDE 20 MG (LASIX) TAB PO SCH ×3 (20:54→21:02)
[2016-12-25] MEDS: NICOTINE 14 MG (NICODERM) PATCH TD SCH ×3 (20:55→21:04)
[2016-12-25] MEDS: POLYETHYLENE GLYCOL 17 GM (MIRALAX) PACK PO SCH ×6 (20:55→21:06)
[2016-12-25] MEDS: KCL 10 MEQ TAB (MICRO K) PO SCH ×2 (20:56→21:01)
[2016-12-26] MEDS: methylPREDNISolone 40 MG/ML (Solu-MEDROL) VIAL IV SCH ×4 (01:14→17:52)
[2016-12-26] MEDS: CATHETER FLUSH 10 ML SYR IV PRN ×2 (01:16→07:07)
[2016-12-26] MEDS: RT-ALBUTEROL/IPRATROPIUM 3 ML (DUONEB) VIAL INH SCH ×6 (01:59→22:13)
[2016-12-26 05:24] VITALS: BP 153/70
[2016-12-26] MEDS: KCL 10 MEQ TAB (MICRO K) PO SCH (06:26)
[2016-12-26] MEDS: FERROUS SULF 325 MG (IRON) TAB PO SCH ×3 (06:26→17:52)
[2016-12-26] MEDS: PANTOPRAZOLE 40 MG (PROTONIX) TAB PO SCH ×4 (06:27→20:56)
[2016-12-26] MEDS: RT-ADVAIR HFA 115/21 MCG PER PUFF IH SCH ×2 (07:12→18:21)
[2016-12-26 07:51] LABS: INR 1.6 (0.8-1.4); PROTHROMBIN TIME PATIENT 18.5 SEC (12.2-14.7)
--- NOTE | 2016-12-26 08:38 | Diagnostic Imaging Report ---
INDICATION: History of aortic aneurysm. COMPARISON: 12/25/2016 FINDINGS: Single frontal radiographic view of the chest was obtained and demonstrates interval development of focal airspace disease in the right upper lobe. There is persistent hyperinflation with blunting of the bilateral lateral costophrenic angles and hazy opacification of the lung bases. There is no pneumothorax. Cardio mediastinal structures are stable. Postsurgical changes of previous aortic stent are noted. Masslike opacification in the left perihilar region is again identified and corresponds to focal aortic aneurysm seen on previously performed CT. Bony structures show no acute abnormalities. IMPRESSION: 1. Interval development of airspace disease in the right upper lobe concerning for pneumonia. Followup is recommended. 2. Probable stable bibasilar effusions. 3. Aortic aneurysm. 4. Background COPD. Dictated by: Dictated on workstation # [id number]
[2016-12-26] MEDS: POLYETHYLENE GLYCOL 17 GM (MIRALAX) PACK PO SCH ×2 (09:00→21:00)
[2016-12-26] MEDS: FLUTICASONE NASAL SPRAY (FLONASE) 16 GM BTL NS SCH (09:00)
[2016-12-26] MEDS: NICOTINE PATCH REMOVAL TP SCH (09:00)
[2016-12-26] MEDS: NICOTINE 14 MG (NICODERM) PATCH TD SCH (09:58)
[2016-12-26] MEDS: ASPIRIN E.C. 325 MG (ECOTRIN) TABLET PO SCH (09:59)
[2016-12-26] MEDS: CEFEPIME INJECTION 2,000 MG in NS (IVPB) 50 ML IV SCH (09:59)
[2016-12-26] MEDS: FUROSEMIDE 20 MG (LASIX) TAB PO SCH (10:00)
[2016-12-26] MEDS: meTOprolol TARTRATE 25 MG (LOPRESSOR) TABLET PO SCH ×2 (10:00→20:52)
--- NOTE | 2016-12-26 12:15 | Progress Note-Urology ---
Progress Note-Urology Progress Notes/Assess & Plan Progress/Assessment & Plan TOV TODAY Final Diagnosis URINE RETENTION JOON SOLORIO MD Dec 26, 2016 12:15 pm
--- NOTE | 2016-12-26 12:28 | Physical Therapy Daily Note ---
PT Daily Note-Current Subjective Agreeable to PT. "I told myself last night that I was really going to try." During treatment pt reports feeling SOA and reports she feels very tired. Mental Status Patient Orientation: Person, Place, Time, Situation Transfers Functional [place] Measure 0=Not Assessed/NA 4=Minimal Assistance 1=Total Assistance 5=Supervision or Setup 2=Maximal Assistance 6=Modified [place] 3=Moderate Assistance 7=Complete IndependenceIRFPAI Quality Coding Scale 6 Independent with activity with or without an assistive device 5 Patient requires set up or clean up by helper. Patient completes activity by themselves 4 Supervision or touching assist (CGA). [place] provide cues , steadying assist 3 The helper provides less than half the effort to complete the activity 2 The helper provides more than half the effort to complete the activity 1 Dependent. The helper does all the effort to complete an activity 7 Patient refused to complete or attempt activity 9 The patient did not perform the activity before the current illness or injury 88 Not attempted due to Medical conditions or safety concerns Transfers (B, C, W/C) (FIM): 2 Scootin Rollin Roll Left to Right (QC): 3 Supine to/from Sit: 2 Sit to/from Stand: 3 Sit to Lying (QC): 2 Sit to Stand (QC): 3 Chair/Kit-as-Soyuf Xfer(QC): 3 Car Transfer (QC): 88 (unsafe to attempt) Pt needs heavy assist with bed mobilithy and sit to stand transfers. Pt slow with mobility and needs frequent cues to sequence. Gait Training Does the Patient Walk?: Yes Gait (FIM): 2 Distance (FIM): 1=up to 49 ft Distance: 10 ft Walk 10 feet (QC): 3 Walk 50 ft with 2 Turns(QC): 88 Walk 150 ft (QC): 88 Walking 10ft/uneven surface-QC: 88 Gait Level of Assist: 4 (Min A for safety) Gait Assistive Device: FWW Gait slow with decreased step length and narrow JD. Unsteady gait and required min assisst for safety Wheelchair Training Wheelchair (FIM): 2 Wheelchair Distance: 3=755-77 ft Distance: 50 ft Wheelchair Level of Assist: 4 Wheel 50 ft with 2 turns (QC): 4 Wheel 150 ft (QC): 88 Type of Wheelchair: Manual Used B U/LE to propel with heavy reliance on UE's to propel. Pt slow and needs cues to stay on task Stair Training Stairs (FIM): 0 (unable / unsafe to attempt) 1 Step (curb) (QC): 88 4 Steps (QC): 88 12 Steps (QC): 88 Balance Picking up an Object (QC): 88 Treatments Functional transfers; sat EOB x 15 min to don shirt and pants, CGA-SBA to sit EOB for balance and max assist to dress. Wheelchair mobility and gait as noted above. Additional gain in //bars wtih miin assist x 7 ft. Pt in room with oxygen in situ post treatment with needs met. Assessment Current Status: Fair Progress Limited functional activity tolreance and required frequent rest breaks throghout treatment. Spent time educating and working on deep breathing tech while resting. Pt cooperative this visit. Pt has been on a leave in our ICU and returned yesterday. Goals remain the same as does POC. Functional status noted above for today's date. PT Short Term Goals Short Term Goals Time Frame: Dec 26, 2016 Gait (FIM): 1 Gait Distance Comment: 30' Gait Level of Assist: 4 Gait Assistive Device: FWW Wheelchair Distance: 50'x2 PT Treatment Supervisor Goals [facility] Goals PT Treatment Supervisor Goals Time Frame: January 09, 2017 Transfers (B,C,W/C) (FIM): 5 Sit to Lying (QC): 4 Lying-Sitting on Side/Bed(QC): 4 Sit to Stand (QC): 4 Rollin Roll Left to Right (QC): 4 Chair/Btp-lm-Tpokd Xfer(QC): 4 Car Transfer (QC): 3 Gait (FIM): 2 Distance: 50' Walk 10 feet (QC): 4 Walk 10ft-Uneven Surface(QC): 4 Walk 50ft with 2 Turns (QC): 4 Walk 150 ft (QC): 88 Gait Level of Assist: 4 Gait Assistive Device: FWW Wheelchair (FIM): 5 Distance: 150' Wheelchair Level of Assist: 5 Wheel 50 feet with 2 turns (QC: 4 Stairs (FIM): 2 # of Steps: 4 1 Step (curb) (QC): 3 4 Steps (QC): 3 12 Steps (QC): 88 Stairs Level Of Assist: 4 Picking up an Object (QC): 88 PT Plan Problem List Problem List: Activity Tolerance, Functional Strength, Safety, Balance, Gait, Transfer, Bed Mobility Treatment/Plan Treatment Plan: Continue Plan of Care Treatment Plan: Bed Mobility, Education, Functional Activity Brad, Functional Strength, Group Therapy, Gait, Safety, Therapeutic Exercise, Transfers Treatment Duration: January 09, 2017 Visits Per Week: 10-11 Minutes/Day (M-F): 60-90 Minutes/Day (Sat/Stone): 15-30 Safety Risks/Education Patient Education: Gait Training, Transfer Techniques, Safety Issues Teaching Recipient: Patient Teaching Methods: Demonstration, Discussion Response to Teaching: Reinforcement Needed Time/GCodes Time In: 800 Time Out: 900 Total Billed Treatment Time: 60 Total Billed Treatment visit WC 15 GT 15 FA 30 AVEL BAZZI PT Dec 26, 2016 12:28
--- NOTE | 2016-12-26 12:53 | Occupational Ther Daily Note ---
OT Current Status-Daily Note Subjective Pt sitting in w/c, agrees to treatment. Pt reports back "discomfort" but does not rate. Mental Status/Objective Functional [place] Measure 0=Not Assessed/NA 4=Minimal Assistance 1=Total Assistance 5=Supervision or Setup 2=Maximal Assistance 6=Modified [place] 3=Moderate Assistance 7=Complete [place] Attachments: Oxygen ADL-Treatment Pt completed sponge bath while seated in w/c. Pt doffed shirt with SBA. Pt able to wash bilateral UE, chest, and abdomen. Don shirt with set up. Pt required assist to wash lower body. Pt incontinent of small amount of BM, states she feels like she could use BSC. Transferred w/c <-> BSC with moderate assistance using FWW, cues for safety. Pt required total assist for toileting hygiene and clothing management. Pt donned Depend and pants with total assist. Pt requires total assist to for footwear. Pt combed hair with set up while seated in w/c. Pt removed/replaced dentures with SBA. Pt requests to return to bed after session. Sit to stand with maximal assistance secondary to fatigue. Transfer to EOB with moderate assistance with FWW. Sit to supine with maximal assistance. Pt in bed with needs met after session. Pt has decreased activity tolerance and requires frequent rest breaks throughout treatment. Functional [place] Measure 0=Not Assessed/NA 4=Minimal Assistance 1=Total Assistance 5=Supervision or Setup 2=Maximal Assistance 6=Modified [place] 3=Moderate Assistance 7=Complete IndependenceIRFPAI Quality Coding Scale 6 Independent with activity with or without an assistive device 5 Patient requires set up or clean up by helper. Patient completes activity by themselves 4 Supervision or touching assist (CGA). [place] provide cues , steadying assist 3 The helper provides less than half the effort to complete the activity 2 The helper provides more than half the effort to complete the activity 1 Dependent. The helper does all the effort to complete an activity 7 Patient refused to complete or attempt activity 9 The patient did not perform the activity before the current illness or injury 88 Not attempted due to Medical conditions or safety concerns Grooming (FIM): 5 Oral Hygiene (QC): 5 Bathing (FIM): 2 Shower/Bathe Self (QC): 2 Upper Body (FIM): 5 Upper Body Dressing (QC): 5 Lower Body Dressing (FIM): 1 Lower Body Dressing (QC): 1 On/Off Footwear (QC): 1 Toileting (FIM): 1 Toileting Hygiene (QC): 1 Toilet/Commode Transfer (FIM): 3 Education OT Patient Education: Rehab process Teaching Recipient: Patient Teaching Methods: Discussion Response to Teaching: Verbalize Understanding OT Short Term Goals Short Term Goals Time Frame: Dec 26, 2016 Bathing(FIM): 4 Upper Body Dressing(FIM): 5 Lower Body Dressing(FIM): 3 Toileting(FIM): 3 Toilet/Commode Transfer(FIM): 4 1=Demonstrate adherence to instructed precautions during ADL tasks. 2=Patient will verbalize/demonstrate understanding of assistive devices/ modifications for ADL. 3=Patient will improve strength/tolerance for activity to enable patient to perform ADL's. OT Chcf Goals Chcf Goals Time Frame: January 09, 2017 Eating (FIM): 6 Eating (QC): 6 Groomin Oral Hygiene (QC): 6 Bathing(FIM): 5 Shower/Bathe Self (QC): 5 Upper Body Dressing(FIM): 6 Upper Body Dressing (QC): 6 Lower Body Dressing(FIM): 5 Lower Body Dressing (QC): 5 On/Off Footwear (QC): 5 Toileting(FIM): 5 Toileting Hygiene (QC): 5 Toilet/Commode Transfer(FIM): 5 Toilet/Commode Transfer (QC): 5 Shower Transfer(FIM): 5 Additional Goals: 1-Demonstrate ADL Tasks, 2-Verbalize Understanding, 3- ImproveStrength/Brad 1=Demonstrate adherence to instructed precautions during ADL tasks. 2=Patient will verbalize/demonstrate understanding of assistive devices/ modifications for ADL. 3=Patient will improve strength/tolerance for activity to enable patient to perform ADL's. 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 POC and goals remain the same. Discharge Recommendations Plan/Recommendations: Continue POC Treatment Plan/Plan of Care Patient would benefit from OT for education, treatment and training to promote independence in ADL's, mobility, safety and/or upper extremity function for ADL' s. Plan of Care: ADL Retraining, Functional Mobility, Group Exercise/Act as Ind, UE Funct Exercise/Act Treatment Duration: January 09, 2017 Visits Per Week: 10-12 Minutes/Day (M-F): 60-90 Minutes/Day (Sat/Stone): PRN Agreement: Yes Rehab Potential: Fair Time/GCodes Start Time: 09:00 Stop Time: 10:00 Total Time Billed (hr/min): 60 Billed Treatment Time 1 visit, ADLx4(60minutes) AYAAN PLUNKETT OT Dec 26, 2016 12:53
--- NOTE | 2016-12-26 12:58 | Occupational Ther Daily Note ---
OT Current Status-Daily Note Subjective Pt in bed with visitors present, agrees to treatment. Pt reports fatigue after session and states back is sore. Mental Status/Objective Functional [place] Measure 0=Not Assessed/NA 4=Minimal Assistance 1=Total Assistance 5=Supervision or Setup 2=Maximal Assistance 6=Modified [place] 3=Moderate Assistance 7=Complete [place] ADL-Treatment Pt supine to sit with moderate assistance. Transfer to w/c with moderate assistance using FWW. Pt performed bilateral UE exercises to promote increased strength needed for ADLs and transfers. Pt performed shoulder flexion, forward press, biceps curls, and wrist flex/ext x10 reps with dowel rory. Rest breaks between exercises. Graded clothespin activity with bilateral hands to increase insurance agency owner/pinch strength. Pt completed putty activity with bilateral hands to increase strength and coordination. Pt able to remove small beads from putty with increased time. Pt reports fatigue and requests to return to bed after session. Max assist to return to bed. Sit to supine with assist for bilateral LE. Pt's meal tray arrives, pt able to feed self after set up. Needs met and visitors present after session. Functional [place] Measure 0=Not Assessed/NA 4=Minimal Assistance 1=Total Assistance 5=Supervision or Setup 2=Maximal Assistance 6=Modified [place] 3=Moderate Assistance 7=Complete IndependenceIRFPAI Quality Coding Scale 6 Independent with activity with or without an assistive device 5 Patient requires set up or clean up by helper. Patient completes activity by themselves 4 Supervision or touching assist (CGA). [place] provide cues , steadying assist 3 The helper provides less than half the effort to complete the activity 2 The helper provides more than half the effort to complete the activity 1 Dependent. The helper does all the effort to complete an activity 7 Patient refused to complete or attempt activity 9 The patient did not perform the activity before the current illness or injury 88 Not attempted due to Medical conditions or safety concerns Eating (FIM): 5 Eating (QC): 5 OT Short Term Goals Short Term Goals Time Frame: Dec 26, 2016 Bathing(FIM): 4 Upper Body Dressing(FIM): 5 Lower Body Dressing(FIM): 3 Toileting(FIM): 3 Toilet/Commode Transfer(FIM): 4 1=Demonstrate adherence to instructed precautions during ADL tasks. 2=Patient will verbalize/demonstrate understanding of assistive devices/ modifications for ADL. 3=Patient will improve strength/tolerance for activity to enable patient to perform ADL's. OT Etl Analyst Goals Etl Analyst Goals Time Frame: January 09, 2017 Eating (FIM): 6 Eating (QC): 6 Groomin Oral Hygiene (QC): 6 Bathing(FIM): 5 Shower/Bathe Self (QC): 5 Upper Body Dressing(FIM): 6 Upper Body Dressing (QC): 6 Lower Body Dressing(FIM): 5 Lower Body Dressing (QC): 5 On/Off Footwear (QC): 5 Toileting(FIM): 5 Toileting Hygiene (QC): 5 Toilet/Commode Transfer(FIM): 5 Toilet/Commode Transfer (QC): 5 Shower Transfer(FIM): 5 Additional Goals: 1-Demonstrate ADL Tasks, 2-Verbalize Understanding, 3- ImproveStrength/Brad 1=Demonstrate adherence to instructed precautions during ADL tasks. 2=Patient will verbalize/demonstrate understanding of assistive devices/ modifications for ADL. 3=Patient will improve strength/tolerance for activity to enable patient to perform ADL's. OT Education/Plan Discharge Recommendations Plan/Recommendations: Continue POC Treatment Plan/Plan of Care Patient would benefit from OT for education, treatment and training to promote independence in ADL's, mobility, safety and/or upper extremity function for ADL' s. Plan of Care: ADL Retraining, Functional Mobility, Group Exercise/Act as Ind, UE Funct Exercise/Act Treatment Duration: January 09, 2017 Visits Per Week: 10-12 Minutes/Day (M-F): 60-90 Minutes/Day (Sat/Stone): PRN Agreement: Yes Rehab Potential: Fair Time/GCodes Start Time: 11:30 Stop Time: 12:00 Total Time Billed (hr/min): 30 Billed Treatment Time 1 visit, EXx2(30minutes) AYAAN PLUNKETT OT Dec 26, 2016 12:58
--- NOTE | 2016-12-26 14:54 | Physical Therapy Daily Note ---
PT Daily Note-Current Subjective Agreeable to PT. Requests bed exercises initially. Reports she is worn out. Transfers Functional [place] Measure 0=Not Assessed/NA 4=Minimal Assistance 1=Total Assistance 5=Supervision or Setup 2=Maximal Assistance 6=Modified [place] 3=Moderate Assistance 7=Complete IndependenceIRFPAI Quality Coding Scale 6 Independent with activity with or without an assistive device 5 Patient requires set up or clean up by helper. Patient completes activity by themselves 4 Supervision or touching assist (CGA). [place] provide cues , steadying assist 3 The helper provides less than half the effort to complete the activity 2 The helper provides more than half the effort to complete the activity 1 Dependent. The helper does all the effort to complete an activity 7 Patient refused to complete or attempt activity 9 The patient did not perform the activity before the current illness or injury 88 Not attempted due to Medical conditions or safety concerns Transfers (B, C, W/C) (FIM): 3 Rollin Supine to/from Sit: 3 Sit to/from Stand: 4 (CGA ) Chair/Xte-qq-Xdlsz Xfer(QC): 4 (CGA and FWW. ) Rolling in bed left to from right to assist nursing in cleaning BM. Pt had been incont of bowel. Up in chair post treatment, pt sat up x 30 minutes and then returned to bed with assist of nursing. Exercises Supine Ex: Bridging, Ankle pumps, Quad Set, Glut sets, Heel Slides, Short Arc Quads, Straight leg raise Supine Reps: 12 (to increase LE strength for functional transfers and functional act tolerance) Assessment Current Status: Fair Progress Pt did perform SPT with more ease this visit. Still with limited activity tolerance, but pt does appear to be giving full effort. PT Short Term Goals Short Term Goals Time Frame: Dec 26, 2016 Gait (FIM): 1 Gait Distance Comment: 30' Gait Level of Assist: 4 Gait Assistive Device: FWW Wheelchair Distance: 50 ft PT Chemical Laboratory Tester Goals Chemical Laboratory Tester Goals PT Jail Goals Time Frame: January 09, 2017 Transfers (B,C,W/C) (FIM): 5 Sit to Lying (QC): 4 Lying-Sitting on Side/Bed(QC): 4 Sit to Stand (QC): 4 Rollin Roll Left to Right (QC): 4 Chair/Zno-pc-Koqpt Xfer(QC): 4 Car Transfer (QC): 3 Gait (FIM): 2 Distance: 50' Walk 10 feet (QC): 4 Walk 10ft-Uneven Surface(QC): 4 Walk 50ft with 2 Turns (QC): 4 Walk 150 ft (QC): 88 Gait Level of Assist: 4 Gait Assistive Device: FWW Wheelchair (FIM): 5 Distance: 150' Wheelchair Level of Assist: 5 Wheel 50 feet with 2 turns (QC: 4 Stairs (FIM): 2 # of Steps: 4 1 Step (curb) (QC): 3 4 Steps (QC): 3 12 Steps (QC): 88 Stairs Level Of Assist: 4 Picking up an Object (QC): 88 PT Plan Problem List Problem List: Activity Tolerance, Functional Strength, Safety, Balance, Gait, Transfer Treatment/Plan Treatment Plan: Continue Plan of Care Treatment Plan: Bed Mobility, Education, Functional Activity Brad, Functional Strength, Group Therapy, Gait, Safety, Therapeutic Exercise, Transfers Treatment Duration: January 09, 2017 Visits Per Week: 10-11 Minutes/Day (M-F): 60-90 Minutes/Day (Sat/Stone): 15-30 Safety Risks/Education Patient Education: Safety Issues Teaching Recipient: Patient Teaching Methods: Discussion Response to Teaching: Reinforcement Needed Time/GCodes Time In: 1250 Time Out: 1320 Total Billed Treatment Time: 30 Total Billed Treatment visit FA 15 EX 15 AVEL BAZZI PT Dec 26, 2016 14:54
[2016-12-26] MEDS: ALPRAZolam 0.25 MG (XANAX) TAB PO PRN (15:37)
[2016-12-26 16:45] VITALS: BP 84/57
[2016-12-26] MEDS: ALFUZOSIN HCL 10 MG TAB (UROXATRAL) PO SCH (17:52)
[2016-12-26] MEDS: warFARin 2 MG (COUMADIN) TAB PO SCH (17:52)
[2016-12-26 18:01] VITALS: BP 80/56
[2016-12-26 20:49] LABS: BILIRUBIN,URINE NEGATIVE (NEGATIVE); KETONES,URINE NEGATIVE (NEGATIVE); LEUKOCYTE ESTERASE ,URINE NEGATIVE (NEGATIVE); NITRITE,URINE NEGATIVE (NEGATIVE); PH,URINE 6 (5-9); PROTEIN,URINE NEGATIVE (NEGATIVE); UROBILINOGEN,URINE NORMAL (NORMAL)
[2016-12-26] MEDS: SIMvastatin 40 MG (ZOCOR) TAB PO SCH ×2 (20:58→20:59)
[2016-12-26 21:06] LABS: SQUAMOUS EPITHELIAL CELL,UR 0-2 /HPF
[2016-12-27] MEDS: CATHETER FLUSH 10 ML SYR IV PRN (01:34)
[2016-12-27] MEDS: methylPREDNISolone 40 MG/ML (Solu-MEDROL) VIAL IV SCH ×4 (01:34→19:46)
[2016-12-27] MEDS: RT-ALBUTEROL/IPRATROPIUM 3 ML (DUONEB) VIAL INH SCH ×5 (02:30→21:53)
[2016-12-27 05:00] VITALS: BP 95/60
[2016-12-27 05:46] LABS: MEAN PLATELET VOLUME 10.5 FL (7.4-10.4); RED BLOOD COUNT 2.96 10^6/uL (4.35-5.85); RED CELL DISTRIBUTION WIDTH 19.4 % (10.0-14.5); WHITE BLOOD COUNT 8.3 10^3/uL (4.3-11.0)
[2016-12-27 05:57] LABS: ANION GAP 11 MMOL/L (5-14); BLOOD UREA NITROGEN 27 MG/DL (7-18); BUN/CREATININE RATIO 33; CALCIUM 7.8 MG/DL (8.5-10.1); CARBON DIOXIDE 29 MMOL/L (21-32); CHLORIDE 103 MMOL/L (98-107); CREATININE SERUM 0.83 MG/DL (0.60-1.30); GFR ESTIMATED > 60; GLUCOSE 156 MG/DL (70-105); POTASSIUM 2.9 MMOL/L (3.6-5.0); SODIUM 143 MMOL/L (135-145)
[2016-12-27] MEDS: KCL 10 MEQ TAB (MICRO K) PO SCH (06:04)
[2016-12-27] MEDS: FERROUS SULF 325 MG (IRON) TAB PO SCH ×3 (06:04→16:59)
[2016-12-27] MEDS: PANTOPRAZOLE 40 MG (PROTONIX) TAB PO SCH ×2 (06:04→21:19)
[2016-12-27 06:25] LABS: INR 1.7 (0.8-1.4); PROTHROMBIN TIME PATIENT 19.4 SEC (12.2-14.7)
[2016-12-27] MEDS: RT-ADVAIR HFA 115/21 MCG PER PUFF IH SCH ×2 (06:40→18:51)
--- NOTE | 2016-12-27 07:07 | Pulmonary Progress Note ---
Subjective Subjective/Events-last exam pt is improved Exam Exam Vital Signs Date Time Temp Pulse Resp B/P (MAP) Pulse Ox O2 Delivery O2 Flow Rate FiO2 12/27/16 06:41 97 2.00 12/27/16 05:00 98.0 61 18 95/60 96 High Flow NC 2.00 12/27/16 02:31 95 2.00 12/26/16 22:13 92 2.00 12/26/16 20:05 Nasal Cannula 2.00 12/26/16 18:27 2.00 12/26/16 18:22 94 2.00 12/26/16 18:01 96.9 61 16 80/56 97 12/26/16 16:45 78 84/57 12/26/16 13:38 94 2.00 12/26/16 10:08 94 2.00 12/26/16 08:00 92 Room Air 4.00 12/26/16 07:23 2.00 12/26/16 07:17 97 12/26/16 07:13 97 3.00 I & O 12/27/16 07:00 Intake Total 1882 ml Output Total 2900 ml Balance -1018 ml General Appearance: No Apparent Distress, WD/WN HEENT: Normal ENT Inspection Neck: Normal Inspection Respiratory: Chest Non Tender, Lungs Clear, No Accessory Muscle Use, No Respiratory Distress Cardiovascular: Regular Rate, Rhythm Gastrointestinal: normal bowel sounds Results Lab Laboratory Tests 12/27/16 05:30 Assessment/Plan Assessment/Plan Acute respiratory distress - now improved -Trial pt back on regular NC Pneumonia -Cefepime and continue to monitor UTI with pseudomonas -Cefepime COPDAE -SVNS, oxygen -add solumedrol Hypotension - improved -Decrease lopressor and hold for SBP <100 Probable CHARISMA -Out patient testing Clinical Quality Measures DVT/VTE Risk/Contraindication: Risk Factor Score Per Nursin RFS Level Per Nursing on Admit: 4+=Very High FRITZ MADRIGAL DO Dec 27, 2016 07:07
--- NOTE | 2016-12-27 08:16 | Progress Note (SOAP) ---
Subjective Subjective/Events-last exam patient did better with physical therapy yesterday. Patient hypotensive this morning. Patient states she had a little short of breath this morning. Lungs sound good. Chest x-ray yesterday showed pneumonia developing. Objective Exam Vital Signs Date Time Temp Pulse Resp B/P (MAP) Pulse Ox O2 Delivery O2 Flow Rate FiO2 12/27/16 06:41 97 2.00 12/27/16 05:00 98.0 61 18 95/60 96 High Flow NC 2.00 12/27/16 02:31 95 2.00 12/26/16 22:13 92 2.00 12/26/16 20:05 Nasal Cannula 2.00 12/26/16 18:27 2.00 12/26/16 18:22 94 2.00 12/26/16 18:01 96.9 61 16 80/56 97 12/26/16 16:45 78 84/57 12/26/16 13:38 94 2.00 12/26/16 10:08 94 2.00 I & O 12/27/16 07:00 Intake Total 1882 ml Output Total 2900 ml Balance -1018 ml Capillary Refill : General Appearance: No Apparent Distress, WD/WN HEENT: Normal ENT Inspection Neck: Full Range of Motion, Normal Inspection Respiratory: Chest Non Tender, Normal Breath Sounds, No Accessory Muscle Use, No Respiratory Distress Cardiovascular: Regular Rate, Rhythm, No Murmur Gastrointestinal: non tender, soft Results Lab Laboratory Tests 12/27/16 05:30 Laboratory Tests 12/26/16 15:54: Glucometer 189H 12/26/16 20:20: Urine Color YELLOW, Urine Clarity CLEAR, Urine pH 6, Urine Specific [place] 1.010L, Urine Protein NEGATIVE, Urine Glucose (UA) NEGATIVE, Urine Ketones NEGATIVE, Urine Nitrite NEGATIVE, Urine Bilirubin NEGATIVE, Urine Urobilinogen NORMAL, Urine Leukocyte Esterase NEGATIVE, Urine RBC (Auto) NEGATIVE, Urine RBC NONE, Urine WBC NONE, Urine Squamous Epithelial Cells 0-2, Urine Crystals NONE, Urine Bacteria NONE, Urine Casts NONE, Urine Mucus NEGATIVE, Urine Culture Indicated NO 12/27/16 05:30: White Blood Count 8.3, Red Blood Count 2.96L, Hemoglobin 8.6L, Hematocrit 28L, Mean Corpuscular Volume 94, Mean Corpuscular Hemoglobin 29, Mean Corpuscular Hemoglobin Concent 31L, Red Cell Distribution Width 19.4H, Platelet Count 157, Mean Platelet Volume 10.5H, Sodium Level 143, Potassium Level 2.9L, Chloride Level 103, Carbon Dioxide Level 29, Anion Gap 11, Blood Urea Nitrogen 27H, Creatinine 0.83, Estimat Glomerular Filtration Rate > 60, BUN/Creatinine Ratio 33, Glucose Level 156H, Calcium Level 7.8L 12/27/16 06:05: Prothrombin Time 19.4H, INR Comment 1.7H Microbiology 12/20/16 Urine Culture - Final, Complete Pseudomonas Aeruginosa Yeast Species Assessment/Plan Assessment/Plan Assess & Plan/Chief Complaint Debility. Atrial fibrillation. COPD. Inability to void. . . Debility. Atrial fibrillation. COPD. Patient complains of short of breathe today. . 12/20/16. Blood pressure better. Apical rate under control. Patient talking. Patient appears somewhat better. Patient is DO NOT RESUSCITATE. . 12/21/16 patient doing much better today. Patient more alert. Blood pressure is within normal limits. Patient not confused. Patient not hypotensive. Patient has hypomagnesemia.. . 12/27/16. Patient feeling better today. Patient not confused. Patient has some hypotension. chest x-ray yesterday showed pneumonia. Patient afebrile. White blood cell count within [place] Clinical Quality Measures DVT/VTE Risk/Contraindication: Risk Factor Score Per Nursin RFS Level Per Nursing on Admit: 4+=Very High ROMAIN MARSH DO Dec 27, 2016 08:16
[2016-12-27] MEDS ORDERED: KCL 10 MEQ TAB (MICRO K) PO NR (08:30)
[2016-12-27 09:20] VITALS: BP 88/40
[2016-12-27] MEDS: ASPIRIN E.C. 325 MG (ECOTRIN) TABLET PO SCH (09:27)
[2016-12-27] MEDS: NICOTINE 14 MG (NICODERM) PATCH TD SCH ×2 (09:27→09:51)
[2016-12-27] MEDS: FUROSEMIDE 20 MG (LASIX) TAB PO SCH (09:27)
[2016-12-27] MEDS: CEFEPIME INJECTION 2,000 MG in NS (IVPB) 50 ML IV SCH (09:27)
[2016-12-27] MEDS: NICOTINE PATCH REMOVAL TP SCH (09:27)
[2016-12-27] MEDS: meTOprolol TARTRATE 25 MG (LOPRESSOR) TABLET PO SCH ×2 (09:28→21:19)
[2016-12-27] MEDS: FLUTICASONE NASAL SPRAY (FLONASE) 16 GM BTL NS SCH (09:47)
[2016-12-27] MEDS: POLYETHYLENE GLYCOL 17 GM (MIRALAX) PACK PO SCH ×2 (09:48→21:19)
--- NOTE | 2016-12-27 09:51 | Physical Therapy Daily Note ---
PT Daily Note-Current Subjective Pt. agrees to Rx. States she has had such a rough go and cant seem to bounce back. Speaks of the pain of losing her Pain Numeric Pain Scale: 0-No Pain Mental Status Patient Orientation: Normal For Age Attachments: Oxygen Transfers Functional [place] Measure 0=Not Assessed/NA 4=Minimal Assistance 1=Total Assistance 5=Supervision or Setup 2=Maximal Assistance 6=Modified [place] 3=Moderate Assistance 7=Complete IndependenceIRFPAI Quality Coding Scale 6 Independent with activity with or without an assistive device 5 Patient requires set up or clean up by helper. Patient completes activity by themselves 4 Supervision or touching assist (CGA). [place] provide cues , steadying assist 3 The helper provides less than half the effort to complete the activity 2 The helper provides more than half the effort to complete the activity 1 Dependent. The helper does all the effort to complete an activity 7 Patient refused to complete or attempt activity 9 The patient did not perform the activity before the current illness or injury 88 Not attempted due to Medical conditions or safety concerns Transfers (B, C, W/C) (FIM): 3 Scootin Rollin Supine to/from Sit: 3 Sit to/from Stand: 3 Bed to/from Chair: 3 Exercises Supine Ex: Ankle pumps, Quad Set, Rolling, Glut sets, Heel Slides, Short Arc Quads, Scooting, Straight leg raise, Hip abd/add Supine Reps: 12 (APROM aassisted) Seated Therapy Exercises: Ankle pumps, Long arc quads, Hip flexion Seated Reps: 10 Treatments vitals BP88/40, HR 73, O2 sats 97%, standing at parallel Assessment Current Status: Good Progress, Fair Progress PT Short Term Goals Short Term Goals Time Frame: Dec 26, 2016 Gait (FIM): 1 Gait Distance Comment: 30' Gait Level of Assist: 4 Gait Assistive Device: FWW Wheelchair Distance: 50 ft PT Community Support Associate Goals Half-Way Goals PT Half-Way Goals Time Frame: January 09, 2017 Transfers (B,C,W/C) (FIM): 5 Sit to Lying (QC): 4 Lying-Sitting on Side/Bed(QC): 4 Sit to Stand (QC): 4 Rollin Roll Left to Right (QC): 4 Chair/Zew-sv-Dkadk Xfer(QC): 4 Car Transfer (QC): 3 Gait (FIM): 2 Distance: 50' Walk 10 feet (QC): 4 Walk 10ft-Uneven Surface(QC): 4 Walk 50ft with 2 Turns (QC): 4 Walk 150 ft (QC): 88 Gait Level of Assist: 4 Gait Assistive Device: FWW Wheelchair (FIM): 5 Distance: 150' Wheelchair Level of Assist: 5 Wheel 50 feet with 2 turns (QC: 4 Stairs (FIM): 2 # of Steps: 4 1 Step (curb) (QC): 3 4 Steps (QC): 3 12 Steps (QC): 88 Stairs Level Of Assist: 4 Picking up an Object (QC): 88 PT Plan Treatment/Plan Treatment Plan: Continue Plan of Care Treatment Plan: Bed Mobility, Education, Functional Activity Brad, Functional Strength, Group Therapy, Gait, Safety, Therapeutic Exercise, Transfers Treatment Duration: January 09, 2017 Visits Per Week: 10-11 Minutes/Day (M-F): 60-90 Minutes/Day (Sat/Stone): 15-30 Safety Risks/Education Patient Education: Transfer Techniques Time/GCodes Time In: 900 Time Out: 1000 Total Billed Treatment Time: 60 Total Billed Treatment 1,FA30m,EX30m G Codes Necessary: PAULO Mukherjee DIRECTOR OF MANUFACTURING OPERATIONS Dec 27, 2016 09:51
[2016-12-27] MEDS: SENNA W/DOCUSATE (SENOKOT S) TABLET PO PRN (09:56)
[2016-12-27 10:13] VITALS: BP 88/56
--- NOTE | 2016-12-27 11:50 | Occupational Ther Daily Note ---
OT Current Status-Daily Note Subjective Pt in bed, agrees to treatment. Pt reports back pain, but does not rate. RN notified. Mental Status/Objective Functional [place] Measure 0=Not Assessed/NA 4=Minimal Assistance 1=Total Assistance 5=Supervision or Setup 2=Maximal Assistance 6=Modified [place] 3=Moderate Assistance 7=Complete [place] Attachments: Oxygen ADL-Treatment Pt in bed, incontinent of bowel. Pt rolled left and right with minimal assistance for hygiene. Pt requires total assistance for hygiene and to don brief. Supine to sit with moderate assistance and skilled cues for technique. Don pullover shirt with minimal assistance for sitting balance at EOB. Pt requires assist to start pants over feet. Stood with moderate assistance for balance during pant hike. Pt able to partially assist with pant hike. Transfer to w/c with moderate assistance using FWW for balance. Pt unable to doff/don socks. Instruction provided regarding use of adaptive equipment to complete task. Pt initially resistant to using adaptive equipment stating "I don't want to have to use that." Education provided regarding modification of task until pt is able to complete without adaptive equipment. Pt states she will try it. Pt doffed socks with SBA and increased time using dressing stick. Pt donned socks with minimal assistance using sock aid, skilled cues for technique. Pt combed hair and washed face with set up while seated in w/c. Functional [place] Measure 0=Not Assessed/NA 4=Minimal Assistance 1=Total Assistance 5=Supervision or Setup 2=Maximal Assistance 6=Modified [place] 3=Moderate Assistance 7=Complete IndependenceIRFPAI Quality Coding Scale 6 Independent with activity with or without an assistive device 5 Patient requires set up or clean up by helper. Patient completes activity by themselves 4 Supervision or touching assist (CGA). [place] provide cues , steadying assist 3 The helper provides less than half the effort to complete the activity 2 The helper provides more than half the effort to complete the activity 1 Dependent. The helper does all the effort to complete an activity 7 Patient refused to complete or attempt activity 9 The patient did not perform the activity before the current illness or injury 88 Not attempted due to Medical conditions or safety concerns Grooming (FIM): 5 Upper Body (FIM): 4 Lower Body Dressing (FIM): 2 Other Treatment Pt performed bilateral UE exercises to promote increased strength and activity tolerance needed for ADLs and transfers. Pt performed AROM x10 reps in all planes with rest breaks between exercises. Bilateral hand design technician exercises x15 reps with minimal resistance therapy foam. Pt sitting in w/c with needs met after session. OT Short Term Goals Short Term Goals Time Frame: Dec 26, 2016 Bathing(FIM): 4 Upper Body Dressing(FIM): 5 Lower Body Dressing(FIM): 3 Toileting(FIM): 3 Toilet/Commode Transfer(FIM): 4 1=Demonstrate adherence to instructed precautions during ADL tasks. 2=Patient will verbalize/demonstrate understanding of assistive devices/ modifications for ADL. 3=Patient will improve strength/tolerance for activity to enable patient to perform ADL's. OT Automation/Controls Manager Goals Automation/Controls Manager Goals Time Frame: January 09, 2017 Eating (FIM): 6 Eating (QC): 6 Groomin Oral Hygiene (QC): 6 Bathing(FIM): 5 Shower/Bathe Self (QC): 5 Upper Body Dressing(FIM): 6 Upper Body Dressing (QC): 6 Lower Body Dressing(FIM): 5 Lower Body Dressing (QC): 5 On/Off Footwear (QC): 5 Toileting(FIM): 5 Toileting Hygiene (QC): 5 Toilet/Commode Transfer(FIM): 5 Toilet/Commode Transfer (QC): 5 Shower Transfer(FIM): 5 Additional Goals: 1-Demonstrate ADL Tasks, 2-Verbalize Understanding, 3- ImproveStrength/Brad 1=Demonstrate adherence to instructed precautions during ADL tasks. 2=Patient will verbalize/demonstrate understanding of assistive devices/ modifications for ADL. 3=Patient will improve strength/tolerance for activity to enable patient to perform ADL's. OT Education/Plan Discharge Recommendations Plan/Recommendations: Continue POC Treatment Plan/Plan of Care Patient would benefit from OT for education, treatment and training to promote independence in ADL's, mobility, safety and/or upper extremity function for ADL' s. Plan of Care: ADL Retraining, Functional Mobility, Group Exercise/Act as Ind, UE Funct Exercise/Act Treatment Duration: January 09, 2017 Visits Per Week: 10-12 Minutes/Day (M-F): 60-90 Minutes/Day (Sat/Stone): PRN Agreement: Yes Rehab Potential: Fair Time/GCodes Start Time: 08:00 Stop Time: 09:00 Total Time Billed (hr/min): 60 Billed Treatment Time 1 visit, ADLx3(45minutes), EX(15minutes) AYAAN PLUNKETT OT Dec 27, 2016 11:50
[2016-12-27 12:45] VITALS: BP 98/57
--- NOTE | 2016-12-27 14:45 | Therapy Group Daily Note ---
Therapy Daily Group Note Other/Notes Each patient participated in group therapy in the common area of the rehab floor. Each patient was transported from their room via wheelchair or ambulation to the common area. After they were gathered each patient had to introduce themselves and state where they were from and recall a specific memory from their past. The group was oriented to the rehab floor because there are several new people and topics such as minutes of therapy needed and the role of the different therapy disciplines and discharge planning were covered. Patients also performed several upper extremity exercises as a group. Patient's also received education orally from the therapists about stroke signs and symptoms. Finally each patient participated in a group activity that involved digital manipulation, memory, critical thinking, problem solving, and strategy. Then each patient was transported back to their rooms via wheelchair or ambulation and placed in a chair or bed with nurse call, phone, and tray within reach. Start Time: 13:00 Stop Time: 14:30 Total Billed Treatment Time: 90 Total Billed Treatment 1 visit GRP 90 min TANIA GREENBERG PT Dec 27, 2016 14:45
--- NOTE | 2016-12-27 15:33 | Progress Note-Urology ---
Progress Note-Urology Progress Notes/Assess & Plan Progress/Assessment & Plan PVR YESTERDAY 700C, TODAY SEEMS TO HAVE RETENTION WITH OVERFLOW, WILL CHECK PVR Final Diagnosis URINE RETENTION JOON SOLORIO MD Dec 27, 2016 3:33 pm
[2016-12-27] MEDS: ALPRAZolam 0.25 MG (XANAX) TAB PO PRN (15:38)
[2016-12-27] MEDS: ACETAMINOPHEN 325 MG TABLET/CAPLET (TYLENOL) PO PRN (16:57)
[2016-12-27] MEDS: warFARin 2 MG (COUMADIN) TAB PO SCH (17:00)
[2016-12-27] MEDS: ALFUZOSIN HCL 10 MG TAB (UROXATRAL) PO SCH (17:00)
[2016-12-27 18:09] VITALS: BP 100/72
--- NOTE | 2016-12-27 20:35 | PM & R (SOAP) Progress Note ---
Subjective Subjective/Events-last exam Patient was seen in her room this evening 02 by N/C in place Patient returned to unit from ICU during interupted stay during my absence from unit Appreciate Dr Tena and Keya notes and orders Current meds and therapiy notes reviewed.Patient Min to mod assist for transfers. Review of Systems General: Fatigue Pulmonary: Dyspnea Neurological: Weakness Objective Exam Last Set of Vital Signs Vital Signs Date Time Temp Pulse Resp B/P (MAP) Pulse Ox O2 Delivery O2 Flow Rate FiO2 12/27/16 18:51 2.00 12/27/16 18:44 94 12/27/16 12:45 98/57 12/27/16 10:13 58 12/27/16 09:20 18 High Flow N/C 12/27/16 05:00 98.0 12/23/16 04:10 75 Capillary Refill : I&O Intake and Output 12/27/16 00:00 Intake Total 1642 ml Output Total 2700 ml Balance -1058 ml Intake Oral 550 ml IV Total 1092 ml Output Urine Total 2600 ml Post Void Residual 100 ml Bladder Scan Volume Amount 886 ml # Bowel Movements 3 General: Alert, Oriented X3, Cooperative, No Acute Distress HEENT: Atraumatic, PERRLA, EOMI, Mucous Memb Moist/Ojus, Other (02 by N/C in place) Neck: Supple, No JVD Lungs: Clear to Auscultation Heart: Regular Rate Abdomen: Normal Bowel Sounds, Soft, No Tenderness Extremities: No Edema Neuro: Other (generalized weakness) Results Lab Laboratory Tests 12/26/16 06:15: Prothrombin Time 18.5H, INR Comment 1.6H 12/26/16 06:17: Glucometer 147H 12/26/16 15:54: Glucometer 189H 12/26/16 20:20: Urine Color YELLOW, Urine Clarity CLEAR, Urine pH 6, Urine Specific [place] 1.010L, Urine Protein NEGATIVE, Urine Glucose (UA) NEGATIVE, Urine Ketones NEGATIVE, Urine Nitrite NEGATIVE, Urine Bilirubin NEGATIVE, Urine Urobilinogen NORMAL, Urine Leukocyte Esterase NEGATIVE, Urine RBC (Auto) NEGATIVE, Urine RBC NONE, Urine WBC NONE, Urine Squamous Epithelial Cells 0-2, Urine Crystals NONE, Urine Bacteria NONE, Urine Casts NONE, Urine Mucus NEGATIVE, Urine Culture Indicated NO 12/27/16 05:30: White Blood Count 8.3, Red Blood Count 2.96L, Hemoglobin 8.6L, Hematocrit 28L, Mean Corpuscular Volume 94, Mean Corpuscular Hemoglobin 29, Mean Corpuscular Hemoglobin Concent 31L, Red Cell Distribution Width 19.4H, Platelet Count 157, Mean Platelet Volume 10.5H, Sodium Level 143, Potassium Level 2.9L, Chloride Level 103, Carbon Dioxide Level 29, Anion Gap 11, Blood Urea Nitrogen 27H, Creatinine 0.83, Estimat Glomerular Filtration Rate > 60, BUN/Creatinine Ratio 33, Glucose Level 156H, Calcium Level 7.8L, B-Type Natriuretic Peptide 842.2H 12/27/16 06:05: Prothrombin Time 19.4H, INR Comment 1.7H 12/27/16 15:56: Glucometer 145H Microbiology 12/20/16 Urine Culture - Final, Complete Pseudomonas Aeruginosa Yeast Species Assessment/Plan Assessment General debil s/p Aortic Aneurysm repair Anticoagulation Postop urinary retention following with Wheeler catheter out now with st cathing being done UTI- under treatment with antibiotics Pneumonia on antibiotics HTN controlled COPD on treatments and 02 Abdominal pain -patient has had complete workup for this at [facility] and no findings found IV steroids with hyperglycemia Plan Continue PT/OT Pain Management F/U with Nicky Meyer and Shira as per their schedule Monitor INR and adjust Coumadin as needed Trial of Voiding -failed St acthing being done for now Check CXR and labs-done [facility] consult re anxiety Monitor Bllod glucoses F/U with SW and Team Next week re discharge options if no furhter improvement with therapies. MICHELE YEUNG MD Dec 27, 2016 20:35
[2016-12-27 21:18] VITALS: BP 96/54
[2016-12-27] MEDS: SIMvastatin 40 MG (ZOCOR) TAB PO SCH (21:19)
[2016-12-28] MEDS: CATHETER FLUSH 10 ML SYR IV PRN ×2 (00:25→06:03)
[2016-12-28] MEDS: methylPREDNISolone 40 MG/ML (Solu-MEDROL) VIAL IV SCH ×4 (00:25→18:40)
[2016-12-28] MEDS: RT-ALBUTEROL/IPRATROPIUM 3 ML (DUONEB) VIAL INH SCH ×5 (01:59→18:48)
[2016-12-28 05:31] VITALS: BP 106/68
[2016-12-28] MEDS: FERROUS SULF 325 MG (IRON) TAB PO SCH ×3 (06:02→16:41)
[2016-12-28] MEDS: KCL 10 MEQ TAB (MICRO K) PO SCH (06:02)
[2016-12-28] MEDS: PANTOPRAZOLE 40 MG (PROTONIX) TAB PO SCH ×2 (06:02→20:18)
[2016-12-28 06:04] LABS: INR 1.7 (0.8-1.4); PROTHROMBIN TIME PATIENT 19.5 SEC (12.2-14.7)
[2016-12-28] MEDS: RT-ADVAIR HFA 115/21 MCG PER PUFF IH SCH ×2 (06:47→18:48)
--- NOTE | 2016-12-28 08:09 | Diagnostic Imaging Report ---
INDICATION: Shortness of breath Portable chest 7:44 AM There is a large round mass in the left hilum that measures 7.5 cm in diameter. There is some infiltrate in the anterior segment of the right upper lobe suspicious for pneumonia. Patient has had previous endograft repair of the thoracic aorta. IMPRESSION: Left hilar mass. Right upper lobe infiltrate. No significant change management the past 2 days. Dictated by: Dictated on workstation # [id number]
--- NOTE | 2016-12-28 08:50 | Physical Therapy Daily Note ---
PT Daily Note-Current Subjective Patient states she wants to go to bed. PT encouraged patient to remain up in chair. Pain Numeric Pain Scale: 0-No Pain Location: No Pain Reported Mental Status Patient Orientation: Person, Time, Situation Attachments: Oxygen Transfers Functional [place] Measure 0=Not Assessed/NA 4=Minimal Assistance 1=Total Assistance 5=Supervision or Setup 2=Maximal Assistance 6=Modified [place] 3=Moderate Assistance 7=Complete IndependenceIRFPAI Quality Coding Scale 6 Independent with activity with or without an assistive device 5 Patient requires set up or clean up by helper. Patient completes activity by themselves 4 Supervision or touching assist (CGA). [place] provide cues , steadying assist 3 The helper provides less than half the effort to complete the activity 2 The helper provides more than half the effort to complete the activity 1 Dependent. The helper does all the effort to complete an activity 7 Patient refused to complete or attempt activity 9 The patient did not perform the activity before the current illness or injury 88 Not attempted due to Medical conditions or safety concerns Transfers (B, C, W/C) (FIM): 2 Scootin Sit to/from Stand: 2 Sit to Stand (QC): 2 Chair/Mjg-yu-Zjmex Xfer(QC): 2 Bed to/from Chair: 2 Patient requires max assist with sit to stand transfers x 3 sets with FWW. Patient requires cues to lock bilateral knees and to take steps to pivot to turn bed to w/c Gait Training Does the Patient Walk?: No and Walking Goal IS indicated Gait (FIM): 1 Distance (FIM): 1=up to 49 ft Walk 10 feet (QC): 5' Gait Level of Assist: 2 Gait Persons Needed: 1 Gait Assistive Device: FWW shuffle gait sequence Exercises Seated Therapy Exercises: Ankle pumps, Long arc quads, Hip flexion, Hip abd/add Seated Reps: 10 ( sets AAROM left LE) Assessment Patient requires encouragement to participate with PT and to remain up in w/c. Patient is slowly progressing with treatment plan. PT Short Term Goals Short Term Goals Time Frame: Dec 26, 2016 Gait (FIM): 1 Gait Distance Comment: 30' Gait Level of Assist: 4 Gait Assistive Device: FWW Wheelchair Distance: 50 ft PT Pie Maker Machine Goals Shelter Goals PT Pie Maker Machine Goals Time Frame: January 09, 2017 Transfers (B,C,W/C) (FIM): 5 Sit to Lying (QC): 4 Lying-Sitting on Side/Bed(QC): 4 Sit to Stand (QC): 4 Rollin Roll Left to Right (QC): 4 Chair/Anv-he-Yypuv Xfer(QC): 4 Car Transfer (QC): 3 Gait (FIM): 2 Distance: 50' Walk 10 feet (QC): 4 Walk 10ft-Uneven Surface(QC): 4 Walk 50ft with 2 Turns (QC): 4 Walk 150 ft (QC): 88 Gait Level of Assist: 4 Gait Assistive Device: FWW Wheelchair (FIM): 5 Distance: 150' Wheelchair Level of Assist: 5 Wheel 50 feet with 2 turns (QC: 4 Stairs (FIM): 2 # of Steps: 4 1 Step (curb) (QC): 3 4 Steps (QC): 3 12 Steps (QC): 88 Stairs Level Of Assist: 4 Picking up an Object (QC): 88 PT Plan Treatment/Plan Treatment Plan: Continue Plan of Care Treatment Plan: Bed Mobility, Education, Functional Activity Brad, Functional Strength, Group Therapy, Gait, Safety, Therapeutic Exercise, Transfers Treatment Duration: January 09, 2017 Visits Per Week: 10-11 Minutes/Day (M-F): 60-90 Minutes/Day (Sat/Stone): 15-30 Time/GCodes Time In: 830 Time Out: 845 Total Billed Treatment Time: 15 Total Billed Treatment 1 visit FA 15 min MARK MONET PT Dec 28, 2016 08:50
[2016-12-28 09:25] VITALS: BP 100/70
[2016-12-28] MEDS: CEFEPIME INJECTION 2,000 MG in NS (IVPB) 50 ML IV SCH (09:36)
[2016-12-28] MEDS: SENNA W/DOCUSATE (SENOKOT S) TABLET PO PRN (09:36)
[2016-12-28] MEDS: NICOTINE PATCH REMOVAL TP SCH (09:36)
[2016-12-28] MEDS: ASPIRIN E.C. 325 MG (ECOTRIN) TABLET PO SCH (09:36)
[2016-12-28] MEDS: FUROSEMIDE 20 MG (LASIX) TAB PO SCH (09:36)
[2016-12-28] MEDS: SALIVA STIMULANT MOUTH SPRAY (BIOTENE) 1.5 OZ MM PRN (09:47)
[2016-12-28] MEDS: FLUTICASONE NASAL SPRAY (FLONASE) 16 GM BTL NS SCH (09:47)
[2016-12-28] MEDS: POLYETHYLENE GLYCOL 17 GM (MIRALAX) PACK PO SCH ×2 (09:48→20:18)
[2016-12-28] MEDS: NICOTINE 14 MG (NICODERM) PATCH TD SCH (09:48)
[2016-12-28] MEDS: meTOprolol TARTRATE 25 MG (LOPRESSOR) TABLET PO SCH ×2 (09:48→20:18)
--- NOTE | 2016-12-28 10:18 | Progress Note-Urology ---
Progress Note-Urology Progress Notes/Assess & Plan Progress/Assessment & Plan STILL UNABLE TO VOID ON OWN. CONTINUE SAME FOR NOW. TOLERATES UROXATRAL WELL Final Diagnosis URINE RETENTION JOON SOLORIO MD Dec 28, 2016 10:17 am
--- NOTE | 2016-12-28 10:23 | Occupational Ther Daily Note ---
OT Current Status-Daily Note Subjective Pt lying in bed with eyes closed, opened eyes to name. Pt agreed to therapy. Pt did not c/o pain though was c/o wooziness. Pt stated that she was frustrated because she couldn't do anything for herself. Mental Status/Objective Patient Orientation: Person, Situation Functional [place] Measure 0=Not Assessed/NA 4=Minimal Assistance 1=Total Assistance 5=Supervision or Setup 2=Maximal Assistance 6=Modified [place] 3=Moderate Assistance 7=Complete [place] ADL-Treatment Pt required mod A for going from supine to sitting EOB. Pt had to rest after sitting up due to dizziness. Pt able to sit EOB by self though required assist to scoot to EOB. Pt stated that she was unable to stand up that her legs felt weak. Cues needed to position hands correctly with transfer. Assist to stand then pt was able to bear weight on legs. Pt had small BM on bed pad so pt sat back down on bed to set up BSC. Max A to transfer from bed to BSC. Pt max A to complete donning pants, toilet transfer and toileting. After therapy, PT took over care. All needs met in room. Functional [place] Measure 0=Not Assessed/NA 4=Minimal Assistance 1=Total Assistance 5=Supervision or Setup 2=Maximal Assistance 6=Modified [place] 3=Moderate Assistance 7=Complete IndependenceIRFPAI Quality Coding Scale 6 Independent with activity with or without an assistive device 5 Patient requires set up or clean up by helper. Patient completes activity by themselves 4 Supervision or touching assist (CGA). [place] provide cues , steadying assist 3 The helper provides less than half the effort to complete the activity 2 The helper provides more than half the effort to complete the activity 1 Dependent. The helper does all the effort to complete an activity 7 Patient refused to complete or attempt activity 9 The patient did not perform the activity before the current illness or injury 88 Not attempted due to Medical conditions or safety concerns Lower Body Dressing (FIM): 2 Toileting (FIM): 2 Transfers (B, C, W/C) (FIM): 2 Toilet/Commode Transfer (FIM): 2 OT Short Term Goals Short Term Goals Time Frame: Dec 26, 2016 Bathing(FIM): 4 Upper Body Dressing(FIM): 5 Lower Body Dressing(FIM): 3 Toileting(FIM): 3 Toilet/Commode Transfer(FIM): 4 1=Demonstrate adherence to instructed precautions during ADL tasks. 2=Patient will verbalize/demonstrate understanding of assistive devices/ modifications for ADL. 3=Patient will improve strength/tolerance for activity to enable patient to perform ADL's. OT Asphalt Distributor Operator Goals Snf Goals Time Frame: January 09, 2017 Eating (FIM): 6 Eating (QC): 6 Groomin Oral Hygiene (QC): 6 Bathing(FIM): 5 Shower/Bathe Self (QC): 5 Upper Body Dressing(FIM): 6 Upper Body Dressing (QC): 6 Lower Body Dressing(FIM): 5 Lower Body Dressing (QC): 5 On/Off Footwear (QC): 5 Toileting(FIM): 5 Toileting Hygiene (QC): 5 Toilet/Commode Transfer(FIM): 5 Toilet/Commode Transfer (QC): 5 Shower Transfer(FIM): 5 Additional Goals: 1-Demonstrate ADL Tasks, 2-Verbalize Understanding, 3- ImproveStrength/Brad 1=Demonstrate adherence to instructed precautions during ADL tasks. 2=Patient will verbalize/demonstrate understanding of assistive devices/ modifications for ADL. 3=Patient will improve strength/tolerance for activity to enable patient to perform ADL's. OT Education/Plan Discharge Recommendations Plan/Recommendations: Continue POC Treatment Plan/Plan of Care Patient would benefit from OT for education, treatment and training to promote independence in ADL's, mobility, safety and/or upper extremity function for ADL' s. Plan of Care: ADL Retraining, Functional Mobility, Group Exercise/Act as Ind, UE Funct Exercise/Act Treatment Duration: January 09, 2017 Visits Per Week: 10-12 Minutes/Day (M-F): 60-90 Minutes/Day (Sat/Stone): PRN Agreement: Yes Rehab Potential: Fair Time/GCodes Start Time: 08:15 Stop Time: 08:30 Total Time Billed (hr/min): 15 Billed Treatment Time 1 visit-FA 1 (15 min) AVEL RAMIREZ Dec 28, 2016 10:23
[2016-12-28] MEDS: MENTHOL/ZINC OXIDE (CALMOSEPTINE) 113 GM TUBE TOP SCH (13:30)
[2016-12-28] MEDS: ACETAMINOPHEN 325 MG TABLET/CAPLET (TYLENOL) PO PRN (13:46)
[2016-12-28] MEDS: ALPRAZolam 0.25 MG (XANAX) TAB PO PRN (16:40)
[2016-12-28 18:00] VITALS: BP 136/71
[2016-12-28] MEDS: warFARin 2 MG (COUMADIN) TAB PO SCH (18:40)
[2016-12-28] MEDS: ALFUZOSIN HCL 10 MG TAB (UROXATRAL) PO SCH (18:40)
[2016-12-28 20:15] VITALS: BP 107/70
[2016-12-28] MEDS: SIMvastatin 40 MG (ZOCOR) TAB PO SCH (20:18)
[2016-12-29] MEDS: CATHETER FLUSH 10 ML SYR IV PRN ×2 (00:12→05:56)
[2016-12-29] MEDS: methylPREDNISolone 40 MG/ML (Solu-MEDROL) VIAL IV SCH ×4 (00:12→18:20)
[2016-12-29] MEDS: RT-ALBUTEROL/IPRATROPIUM 3 ML (DUONEB) VIAL INH SCH ×4 (01:24→19:32)
[2016-12-29 04:06] VITALS: BP 106/67
[2016-12-29 05:51] LABS: PROTHROMBIN TIME PATIENT 22.5 SEC (12.2-14.7)
[2016-12-29] MEDS: FERROUS SULF 325 MG (IRON) TAB PO SCH ×3 (05:56→16:03)
[2016-12-29] MEDS: KCL 10 MEQ TAB (MICRO K) PO SCH (05:56)
[2016-12-29] MEDS: PANTOPRAZOLE 40 MG (PROTONIX) TAB PO SCH ×2 (05:57→20:10)
[2016-12-29] MEDS: RT-ADVAIR HFA 115/21 MCG PER PUFF IH SCH ×2 (08:02→19:32)
[2016-12-29] MEDS: MENTHOL/ZINC OXIDE (CALMOSEPTINE) 113 GM TUBE TOP SCH ×2 (08:27→20:11)
[2016-12-29] MEDS: FLUTICASONE NASAL SPRAY (FLONASE) 16 GM BTL NS SCH (08:28)
[2016-12-29] MEDS: SALIVA STIMULANT MOUTH SPRAY (BIOTENE) 1.5 OZ MM PRN (08:28)
[2016-12-29 08:45] VITALS: BP 101/62
[2016-12-29] MEDS: SENNA W/DOCUSATE (SENOKOT S) TABLET PO PRN (08:51)
[2016-12-29] MEDS: ASPIRIN E.C. 325 MG (ECOTRIN) TABLET PO SCH (08:51)
[2016-12-29] MEDS: CEFEPIME INJECTION 2,000 MG in NS (IVPB) 50 ML IV SCH (08:51)
[2016-12-29] MEDS: FUROSEMIDE 20 MG (LASIX) TAB PO SCH (08:51)
[2016-12-29] MEDS: NICOTINE 14 MG (NICODERM) PATCH TD SCH (08:52)
[2016-12-29] MEDS: NICOTINE PATCH REMOVAL TP SCH (08:52)
[2016-12-29] MEDS: POLYETHYLENE GLYCOL 17 GM (MIRALAX) PACK PO SCH ×2 (08:52→20:10)
[2016-12-29] MEDS: meTOprolol TARTRATE 25 MG (LOPRESSOR) TABLET PO SCH ×2 (10:11→20:10)
[2016-12-29] MEDS: ALFUZOSIN HCL 10 MG TAB (UROXATRAL) PO SCH (17:01)
[2016-12-29] MEDS: warFARin 2 MG (COUMADIN) TAB PO SCH (17:01)
[2016-12-29 17:43] VITALS: BP 104/72
[2016-12-29] MEDS: SIMvastatin 40 MG (ZOCOR) TAB PO SCH (20:10)
[2016-12-30] MEDS: CATHETER FLUSH 10 ML SYR IV PRN (01:47)
[2016-12-30] MEDS: methylPREDNISolone 40 MG/ML (Solu-MEDROL) VIAL IV SCH ×4 (01:47→17:56)
[2016-12-30] MEDS: RT-ALBUTEROL/IPRATROPIUM 3 ML (DUONEB) VIAL INH SCH ×4 (03:08→20:06)
[2016-12-30 05:46] VITALS: BP 163/88
[2016-12-30 06:07] LABS: INR 2.4 (0.8-1.4); PROTHROMBIN TIME PATIENT 26.2 SEC (12.2-14.7)
[2016-12-30] MEDS: KCL 10 MEQ TAB (MICRO K) PO SCH (06:33)
[2016-12-30] MEDS: PANTOPRAZOLE 40 MG (PROTONIX) TAB PO SCH ×2 (06:33→20:36)
[2016-12-30] MEDS: FERROUS SULF 325 MG (IRON) TAB PO SCH ×3 (06:33→17:22)
[2016-12-30 08:06] VITALS: BP 99/67
--- NOTE | 2016-12-30 08:26 | Progress Note (SOAP) ---
Subjective Subjective/Events-last exam frustrate today. Patient feel she was not improving quick enough. Patient has been getting better according to the nurse. Debility. Thoracic aortic aneurysm. Pneumonia. Objective Exam Vital Signs Date Time Temp Pulse Resp B/P (MAP) Pulse Ox O2 Delivery O2 Flow Rate FiO2 12/30/16 08:06 61 99/67 12/30/16 05:46 96.3 61 18 163/88 95 High Flow N/C 2.00 12/30/16 03:08 94 2.00 12/29/16 20:10 Nasal Cannula 2.00 12/29/16 19:32 90 2.00 12/29/16 17:43 97.8 68 18 104/72 98 High Flow N/C 2.00 12/29/16 14:40 93 2.00 12/29/16 08:45 62 18 101/62 97 High Flow N/C 2.00 I & O 12/30/16 07:00 Intake Total 1250 ml Output Total 2425 ml Balance -1175 ml Capillary Refill : General Appearance: No Apparent Distress, WD/WN HEENT: Normal ENT Inspection Neck: Normal Inspection Respiratory: Chest Non Tender, No Accessory Muscle Use, No Respiratory Distress Cardiovascular: Irregularly Irregular Results Lab Laboratory Tests 12/29/16 15:36: Glucometer 248H 12/30/16 05:30: Prothrombin Time 26.2H, INR Comment 2.4H 12/30/16 05:35: Glucometer 143H Microbiology 12/20/16 Urine Culture - Final, Complete Pseudomonas Aeruginosa Yeast Species Assessment/Plan Assessment/Plan Assess & Plan/Chief Complaint Debility. Atrial fibrillation. COPD. Inability to void. . . Debility. Atrial fibrillation. COPD. Patient complains of short of breathe today. . 12/20/16. Blood pressure better. Apical rate under control. Patient talking. Patient appears somewhat better. Patient is DO NOT RESUSCITATE. . 12/21/16 patient doing much better today. Patient more alert. Blood pressure is within normal limits. Patient not confused. Patient not hypotensive. Patient has hypomagnesemia.. . 12/27/16. Patient feeling better today. Patient not confused. Patient has some hypotension. chest x-ray yesterday showed pneumonia. Patient afebrile. White blood cell count within [place]. . 12/30/16. Patient frustrated. Patient has Improved. To get chest x-ray today Clinical Quality Measures DVT/VTE Risk/Contraindication: Risk Factor Score Per Nursin RFS Level Per Nursing on Admit: 4+=Very High ROMAIN MARSH DO Dec 30, 2016 08:26
--- NOTE | 2016-12-30 08:55 | Progress Note-Urology ---
Progress Note-Urology Progress Notes/Assess & Plan Progress/Assessment & Plan STILL NOT VOIDING. COMPLAINS OF WEAKNESS AND NUMBNESS IN LEGS. Final Diagnosis URINE RETENTION JOON SOLORIO MD Dec 30, 2016 8:55 am
[2016-12-30] MEDS: POLYETHYLENE GLYCOL 17 GM (MIRALAX) PACK PO SCH ×2 (08:59→20:36)
[2016-12-30] MEDS: CEFEPIME INJECTION 2,000 MG in NS (IVPB) 50 ML IV SCH (08:59)
[2016-12-30] MEDS: NICOTINE PATCH REMOVAL TP SCH (09:00)
[2016-12-30] MEDS: meTOprolol TARTRATE 25 MG (LOPRESSOR) TABLET PO SCH ×2 (09:00→20:36)
[2016-12-30] MEDS: FUROSEMIDE 20 MG (LASIX) TAB PO SCH (09:00)
[2016-12-30] MEDS: ASPIRIN E.C. 325 MG (ECOTRIN) TABLET PO SCH (09:00)
[2016-12-30] MEDS: FLUTICASONE NASAL SPRAY (FLONASE) 16 GM BTL NS SCH (09:01)
[2016-12-30] MEDS: NICOTINE 14 MG (NICODERM) PATCH TD SCH (09:01)
[2016-12-30] MEDS: MENTHOL/ZINC OXIDE (CALMOSEPTINE) 113 GM TUBE TOP SCH ×2 (09:07→20:37)
[2016-12-30 09:25] LABS: MEAN PLATELET VOLUME 11.5 FL (7.4-10.4); RED BLOOD COUNT 3.19 10^6/uL (4.35-5.85); RED CELL DISTRIBUTION WIDTH 19.2 % (10.0-14.5); WHITE BLOOD COUNT 9.6 10^3/uL (4.3-11.0)
[2016-12-30] MEDS: RT-ADVAIR HFA 115/21 MCG PER PUFF IH SCH ×2 (09:48→20:06)
[2016-12-30 09:50] LABS: ANION GAP 11 MMOL/L (5-14); BLOOD UREA NITROGEN 28 MG/DL (7-18); BUN/CREATININE RATIO 36; CALCIUM 7.6 MG/DL (8.5-10.1); CARBON DIOXIDE 31 MMOL/L (21-32); CHLORIDE 99 MMOL/L (98-107); CREATININE SERUM 0.78 MG/DL (0.60-1.30); GFR ESTIMATED > 60; GLUCOSE 241 MG/DL (70-105); POTASSIUM 3.7 MMOL/L (3.6-5.0); SODIUM 141 MMOL/L (135-145)
--- NOTE | 2016-12-30 11:01 | Physical Therapy Daily Note ---
PT Daily Note-Current Subjective Patient in bed pre tx, agrees to PT, seems anxious, states her light headedness has been better. Patient has pain of 7/10 in back. Appearance Patient BTB post tx with nurse call, phone, tray, bilateral heel lift with pillow. Mental Status Patient Orientation: Person, Place, Situation Transfers Functional [place] Measure 0=Not Assessed/NA 4=Minimal Assistance 1=Total Assistance 5=Supervision or Setup 2=Maximal Assistance 6=Modified [place] 3=Moderate Assistance 7=Complete IndependenceIRFPAI Quality Coding Scale 6 Independent with activity with or without an assistive device 5 Patient requires set up or clean up by helper. Patient completes activity by themselves 4 Supervision or touching assist (CGA). [place] provide cues , steadying assist 3 The helper provides less than half the effort to complete the activity 2 The helper provides more than half the effort to complete the activity 1 Dependent. The helper does all the effort to complete an activity 7 Patient refused to complete or attempt activity 9 The patient did not perform the activity before the current illness or injury 88 Not attempted due to Medical conditions or safety concerns Transfers (B, C, W/C) (FIM): 2 Scootin Rollin Supine to/from Sit: 3 Sit to/from Stand: 2 Bed to/from Chair: 2 Exercises Seated Therapy Exercises: Ankle pumps, Long arc quads, Hip flexion, Hip abd/add Seated Reps: 20 LAQ alternating for 5 min, patient also stood in the parallel bars x4 with max assist for about 20 seconds each time Treatments bed mobility and transfers, functional strengthening, standing Assessment Current Status: Fair Progress Improved endurance. Patient needs significant rest breaks between activities to catch her breath and to let light headedness pass, which it did fairly quickly. PT Short Term Goals Short Term Goals Time Frame: Dec 26, 2016 Gait (FIM): 1 Gait Distance Comment: 30' Gait Level of Assist: 4 Gait Assistive Device: FWW Wheelchair Distance: 50 ft PT Fdc Goals Fdc Goals PT Paving Machine Operator Goals Time Frame: January 09, 2017 Transfers (B,C,W/C) (FIM): 5 Sit to Lying (QC): 4 Lying-Sitting on Side/Bed(QC): 4 Sit to Stand (QC): 4 Rollin Roll Left to Right (QC): 4 Chair/Qff-cp-[place] Xfer(QC): 4 Car Transfer (QC): 3 Gait (FIM): 2 Distance: 50' Walk 10 feet (QC): 4 Walk 10ft-Uneven Surface(QC): 4 Walk 50ft with 2 Turns (QC): 4 Walk 150 ft (QC): 88 Gait Level of Assist: 4 Gait Assistive Device: FWW Wheelchair (FIM): 5 Distance: 150' Wheelchair Level of Assist: 5 Wheel 50 feet with 2 turns (QC: 4 Stairs (FIM): 2 # of Steps: 4 1 Step (curb) (QC): 3 4 Steps (QC): 3 12 Steps (QC): 88 Stairs Level Of Assist: 4 Picking up an Object (QC): 88 PT Plan Problem List Problem List: Activity Tolerance, Functional Strength, Safety, Balance, Gait, Transfer, Bed Mobility Treatment/Plan Treatment Plan: Continue Plan of Care Treatment Plan: Bed Mobility, Education, Functional Activity Brad, Functional Strength, Group Therapy, Gait, Safety, Therapeutic Exercise, Transfers Treatment Duration: January 09, 2017 Visits Per Week: 10-11 Minutes/Day (M-F): 60-90 Minutes/Day (Sat/Stone): 15-30 Safety Risks/Education Patient Education: Transfer Techniques, Correct Positioning, Safety Issues Teaching Recipient: Patient Teaching Methods: Demonstration, Discussion Response to Teaching: Reinforcement Needed Time/GCodes Time In: 1015 Time Out: 1100 Total Billed Treatment Time: 45 Total Billed Treatment 1 visit EX 15 min FA 30 min TANIA GREENBERG PT Dec 30, 2016 11:01
--- NOTE | 2016-12-30 11:56 | Occupational Ther Daily Note ---
OT Current Status-Daily Note Subjective Pt in bed, agrees to treatment. Pt reports 01/24 back pain. Mental Status/Objective Functional [place] Measure 0=Not Assessed/NA 4=Minimal Assistance 1=Total Assistance 5=Supervision or Setup 2=Maximal Assistance 6=Modified [place] 3=Moderate Assistance 7=Complete [place] Attachments: Oxygen ADL-Treatment Pt incontinent of bowel. Pt upset and states "I can't wear diapers for the rest of my life." Rolls left and right with minimal assistance. Total assist for hygiene and to don brief. Supine to sit with moderate assistance and skilled cues for technique. Pt transferred to w/c with maximal assistance using FWW. Sponge bath completed seated in chair. Pt able to wash bilateral UE, abdomen, and chest. Assist for other areas. Don pullover shirt with set up. Pt Dependent to don pants. Stood with max assist for balance during pant hike. Pt easily fatigued and requires extended rest breaks during ADL activity. Pt combed hair with set up. Functional [place] Measure 0=Not Assessed/NA 4=Minimal Assistance 1=Total Assistance 5=Supervision or Setup 2=Maximal Assistance 6=Modified [place] 3=Moderate Assistance 7=Complete IndependenceIRFPAI Quality Coding Scale 6 Independent with activity with or without an assistive device 5 Patient requires set up or clean up by helper. Patient completes activity by themselves 4 Supervision or touching assist (CGA). [place] provide cues , steadying assist 3 The helper provides less than half the effort to complete the activity 2 The helper provides more than half the effort to complete the activity 1 Dependent. The helper does all the effort to complete an activity 7 Patient refused to complete or attempt activity 9 The patient did not perform the activity before the current illness or injury 88 Not attempted due to Medical conditions or safety concerns Bathing (FIM): 2 Shower/Bathe Self (QC): 2 Upper Body (FIM): 5 Lower Body Dressing (FIM): 1 Other Treatment Pt completed fine motor peg task with bilateral UE to improve coordination/ manipulation skills needed for functional tasks. Pt required increased time for task, but did not require any assistance. Pt transferred back to bed with max assist. Sit to supine with assist for LE. Pt in bed with needs met after session. OT Short Term Goals Short Term Goals Time Frame: Dec 26, 2016 Bathing(FIM): 4 Upper Body Dressing(FIM): 5 Lower Body Dressing(FIM): 3 Toileting(FIM): 3 Toilet/Commode Transfer(FIM): 4 1=Demonstrate adherence to instructed precautions during ADL tasks. 2=Patient will verbalize/demonstrate understanding of assistive devices/ modifications for ADL. 3=Patient will improve strength/tolerance for activity to enable patient to perform ADL's. OT Nursing Home Goals Card Puncher Goals Time Frame: January 09, 2017 Eating (FIM): 6 Eating (QC): 6 Groomin Oral Hygiene (QC): 6 Bathing(FIM): 5 Shower/Bathe Self (QC): 5 Upper Body Dressing(FIM): 6 Upper Body Dressing (QC): 6 Lower Body Dressing(FIM): 5 Lower Body Dressing (QC): 5 On/Off Footwear (QC): 5 Toileting(FIM): 5 Toileting Hygiene (QC): 5 Toilet/Commode Transfer(FIM): 5 Toilet/Commode Transfer (QC): 5 Shower Transfer(FIM): 5 Additional Goals: 1-Demonstrate ADL Tasks, 2-Verbalize Understanding, 3- ImproveStrength/Brad 1=Demonstrate adherence to instructed precautions during ADL tasks. 2=Patient will verbalize/demonstrate understanding of assistive devices/ modifications for ADL. 3=Patient will improve strength/tolerance for activity to enable patient to perform ADL's. OT Education/Plan Discharge Recommendations Plan/Recommendations: Continue POC Treatment Plan/Plan of Care Patient would benefit from OT for education, treatment and training to promote independence in ADL's, mobility, safety and/or upper extremity function for ADL' s. Plan of Care: ADL Retraining, Functional Mobility, Group Exercise/Act as Ind, UE Funct Exercise/Act Treatment Duration: January 09, 2017 Visits Per Week: 10-12 Minutes/Day (M-F): 60-90 Minutes/Day (Sat/Stone): PRN Agreement: Yes Rehab Potential: Fair Time/GCodes Start Time: 08:45 Stop Time: 09:45 Total Time Billed (hr/min): 60 Billed Treatment Time 1 visit, ADLx3(45minutes), FA(15minutes) AYAAN PLUNKETT OT Dec 30, 2016 11:56
--- NOTE | 2016-12-30 12:27 | Diagnostic Imaging Report ---
EXAMINATION: AP and lateral views of the chest. INDICATION: Shortness of breath. FINDINGS: There is a thoracic descending aortic aneurysm measuring 8.7 cm in size. The finding is stable from 12/28/2016. 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 The heart size is mildly enlarged. There is no significant vascular congestion. Background hyperinflation, probably related to COPD. No effusion or pneumothorax. The mediastinum and anastasia appear unremarkable. IMPRESSION: COPD. Cardiomegaly. Thoracic aortic aneurysm with endograft repair. No acute process. Dictated by: Dictated on workstation # [id number]
[2016-12-30] MEDS ORDERED: FUROSEMIDE 20 MG (LASIX) TAB PO NR (13:24)
[2016-12-30] MEDS: ALPRAZolam 0.25 MG (XANAX) TAB PO PRN ×2 (13:32→21:38)
--- NOTE | 2016-12-30 15:08 | Physical Therapy Daily Note ---
PT Daily Note-Current Subjective Pt. c/o multiple times of extreme dizziness when attempted to sit EOB . Pt. became anxious and c/o she could not breath. Nursing was called and pt. did not attend group as she was so hypertensive she could not tolerate sitting up Pain Numeric Pain Scale: 0-No Pain Appearance hdz in color, some laboring of breathing noted but may have been anxiety Mental Status Patient Orientation: Normal For Age Transfers Functional [place] Measure 0=Not Assessed/NA 4=Minimal Assistance 1=Total Assistance 5=Supervision or Setup 2=Maximal Assistance 6=Modified [place] 3=Moderate Assistance 7=Complete IndependenceIRFPAI Quality Coding Scale 6 Independent with activity with or without an assistive device 5 Patient requires set up or clean up by helper. Patient completes activity by themselves 4 Supervision or touching assist (CGA). [place] provide cues , steadying assist 3 The helper provides less than half the effort to complete the activity 2 The helper provides more than half the effort to complete the activity 1 Dependent. The helper does all the effort to complete an activity 7 Patient refused to complete or attempt activity 9 The patient did not perform the activity before the current illness or injury 88 Not attempted due to Medical conditions or safety concerns sup to sit attempted x 2 with pt. becoming very dizzy and hypotensive each time Exercises Supine Ex: Ankle pumps, Quad Set, Rolling, Glut sets, Heel Slides, Short Arc Quads, Scooting, Hip abd/add Supine Reps: 10 Treatments ther ex done in supine to attempt to bring BP up enough for pt. to tolerate sitting etc. to no avail Assessment Current Status: No Treatment/Other Tests pt. unable to tolerate Rx or up in chair to attend group. BP 80/64 in supine, pt. unable to tolerate sitting long enough for BP . O2 sat 95% HR 50, nursing present with pt PT Short Term Goals Short Term Goals Time Frame: Dec 26, 2016 Gait (FIM): 1 Gait Distance Comment: 30' Gait Level of Assist: 4 Gait Assistive Device: FWW Wheelchair Distance: 50 ft PT Video Clerk Goals Intermediate Goals PT Video Clerk Goals Time Frame: January 09, 2017 Transfers (B,C,W/C) (FIM): 5 Sit to Lying (QC): 4 Lying-Sitting on Side/Bed(QC): 4 Sit to Stand (QC): 4 Rollin Roll Left to Right (QC): 4 Chair/Xyd-kg-Zamgv Xfer(QC): 4 Car Transfer (QC): 3 Gait (FIM): 2 Distance: 50' Walk 10 feet (QC): 4 Walk 10ft-Uneven Surface(QC): 4 Walk 50ft with 2 Turns (QC): 4 Walk 150 ft (QC): 88 Gait Level of Assist: 4 Gait Assistive Device: FWW Wheelchair (FIM): 5 Distance: 150' Wheelchair Level of Assist: 5 Wheel 50 feet with 2 turns (QC: 4 Stairs (FIM): 2 # of Steps: 4 1 Step (curb) (QC): 3 4 Steps (QC): 3 12 Steps (QC): 88 Stairs Level Of Assist: 4 Picking up an Object (QC): 88 PT Plan Treatment/Plan Treatment Plan: Continue Plan of Care Treatment Plan: Bed Mobility, Education, Functional Activity Brad, Functional Strength, Group Therapy, Gait, Safety, Therapeutic Exercise, Transfers Treatment Duration: January 09, 2017 Visits Per Week: 10-11 Minutes/Day (M-F): 60-90 Minutes/Day (Sat/Stone): 15-30 Time/GCodes Time In: 1235 Time Out: 1300 Total Billed Treatment Time: 25 Total Billed Treatment 1,FA25m G Codes Necessary: PAULO Mukherjee GEOPOLITICS TEACHER Dec 30, 2016 15:08
--- NOTE | 2016-12-30 15:30 | Occupational Ther Daily Note ---
OT Current Status-Daily Note Subjective RN states pt had episode of anxiety and hypotension earlier this afternoon, but is doing better and is okay for bed level activity as tolerated at this time. Pt in bed eating a snack states she is feeling better, "I think i had an anxiety attack." Pt reports 6/10 back pain Mental Status/Objective Functional [place] Measure 0=Not Assessed/NA 4=Minimal Assistance 1=Total Assistance 5=Supervision or Setup 2=Maximal Assistance 6=Modified [place] 3=Moderate Assistance 7=Complete [place] ADL-Treatment Functional [place] Measure 0=Not Assessed/NA 4=Minimal Assistance 1=Total Assistance 5=Supervision or Setup 2=Maximal Assistance 6=Modified [place] 3=Moderate Assistance 7=Complete IndependenceIRFPAI Quality Coding Scale 6 Independent with activity with or without an assistive device 5 Patient requires set up or clean up by helper. Patient completes activity by themselves 4 Supervision or touching assist (CGA). [place] provide cues , steadying assist 3 The helper provides less than half the effort to complete the activity 2 The helper provides more than half the effort to complete the activity 1 Dependent. The helper does all the effort to complete an activity 7 Patient refused to complete or attempt activity 9 The patient did not perform the activity before the current illness or injury 88 Not attempted due to Medical conditions or safety concerns Other Treatment Pt agrees to UE activity while in bed. Pt completed AROM x10 reps at shoulder and elbow joints to promote increased strength. Rest breaks between exercises. Pt performed fine motor activity with nuts and bolts to increase coordination/ manipulation skills. Pt completed task without assistance, but required occasional rest breaks. Pt completed putty activity with bilateral hands to increase sales supervisor/pinch strength. Pt able to remove small beads from putty with increased time. Pt reports fatigue and requests to rest at this time. Assisted pt to reposition in bed, assist x2 to scoot to HOB. Pt in bed with needs met after session. OT Short Term Goals Short Term Goals Time Frame: Dec 26, 2016 Bathing(FIM): 4 Upper Body Dressing(FIM): 5 Lower Body Dressing(FIM): 3 Toileting(FIM): 3 Toilet/Commode Transfer(FIM): 4 1=Demonstrate adherence to instructed precautions during ADL tasks. 2=Patient will verbalize/demonstrate understanding of assistive devices/ modifications for ADL. 3=Patient will improve strength/tolerance for activity to enable patient to perform ADL's. OT Nursing Home Goals Supervisor Paint Department Goals Time Frame: January 09, 2017 Eating (FIM): 6 Eating (QC): 6 Groomin Oral Hygiene (QC): 6 Bathing(FIM): 5 Shower/Bathe Self (QC): 5 Upper Body Dressing(FIM): 6 Upper Body Dressing (QC): 6 Lower Body Dressing(FIM): 5 Lower Body Dressing (QC): 5 On/Off Footwear (QC): 5 Toileting(FIM): 5 Toileting Hygiene (QC): 5 Toilet/Commode Transfer(FIM): 5 Toilet/Commode Transfer (QC): 5 Shower Transfer(FIM): 5 Additional Goals: 1-Demonstrate ADL Tasks, 2-Verbalize Understanding, 3- ImproveStrength/Brad 1=Demonstrate adherence to instructed precautions during ADL tasks. 2=Patient will verbalize/demonstrate understanding of assistive devices/ modifications for ADL. 3=Patient will improve strength/tolerance for activity to enable patient to perform ADL's. OT Education/Plan Discharge Recommendations Plan/Recommendations: Continue POC Treatment Plan/Plan of Care Patient would benefit from OT for education, treatment and training to promote independence in ADL's, mobility, safety and/or upper extremity function for ADL' s. Plan of Care: ADL Retraining, Functional Mobility, Group Exercise/Act as Ind, UE Funct Exercise/Act Treatment Duration: January 09, 2017 Visits Per Week: 10-12 Minutes/Day (M-F): 60-90 Minutes/Day (Sat/Stone): PRN Agreement: Yes Rehab Potential: Fair Time/GCodes Start Time: 14:45 Stop Time: 15:15 Total Time Billed (hr/min): 30 Billed Treatment Time 1 visit, EXx2(30minutes) AYAAN PLUNKETT OT Dec 30, 2016 15:30
[2016-12-30] MEDS: warFARin 2 MG (COUMADIN) TAB PO SCH (17:22)
[2016-12-30] MEDS: ALFUZOSIN HCL 10 MG TAB (UROXATRAL) PO SCH (17:22)
[2016-12-30] MEDS: inSUlin ASPART (NovoLOG) 1 UNIT/0.01 ML (CHARGE PER UNIT) SC SCH ×2 (17:23→20:40)
[2016-12-30 18:17] VITALS: BP 143/84
--- NOTE | 2016-12-30 18:44 | PM & R (SOAP) Progress Note ---
Subjective Subjective/Events-last exam Patient was seen in her room earlier this evening Discussed case with RN Patient having ST cathing for urinary retention today DR Silva following Missed some thapies today due to patients complaint of dizziness Blood pressure tends to be low Will follow-up Objective Exam Last Set of Vital Signs Vital Signs Date Time Temp Pulse Resp B/P (MAP) Pulse Ox O2 Delivery O2 Flow Rate FiO2 12/30/16 15:23 93 2.00 12/30/16 08:06 61 99/67 12/30/16 08:00 Nasal Cannula 12/30/16 05:46 96.3 18 Capillary Refill : I&O Intake and Output 12/30/16 00:00 Intake Total 1530 ml Output Total 2200 ml Balance -670 ml Intake Oral 1530 ml Output Urine Total 2200 ml Bladder Scan Volume Amount 999 ml 684 ml 516 ml # Bowel Movements 4 General: Alert, Oriented X3, Cooperative, No Acute Distress HEENT: Atraumatic, PERRLA, EOMI, Mucous Memb Moist/[place], Other (02 by N/C in place) Neck: Supple, No JVD Lungs: Clear to Auscultation Heart: Regular Rate Abdomen: Normal Bowel Sounds, Soft, No Tenderness Extremities: No Edema Neuro: Other (generalized weakness) Results Lab Laboratory Tests 12/28/16 05:05: Prothrombin Time 19.5H, INR Comment 1.7H 12/28/16 06:06: Glucometer 189H 12/28/16 15:41: Glucometer 204H 12/29/16 05:10: Prothrombin Time 22.5H, INR Comment 2.0H 12/29/16 05:12: Glucometer 175H 12/29/16 15:36: Glucometer 248H 12/30/16 05:30: Prothrombin Time 26.2H, INR Comment 2.4H 12/30/16 05:35: Glucometer 143H 12/30/16 08:47: White Blood Count 9.6, Red Blood Count 3.19L, Hemoglobin 9.3L, Hematocrit 30L, Mean Corpuscular Volume 95, Mean Corpuscular Hemoglobin 29, Mean Corpuscular Hemoglobin Concent 31L, Red Cell Distribution Width 19.2H, Platelet Count 97L, Mean Platelet Volume 11.5H, Sodium Level 141, Potassium Level 3.7, Chloride Level 99, Carbon Dioxide Level 31, Anion Gap 11, Blood Urea Nitrogen 28H, Creatinine 0.78, Estimat Glomerular Filtration Rate > 60, BUN/Creatinine Ratio 36, Glucose Level 241H, Calcium Level 7.6L 12/30/16 10:15: B-Type Natriuretic Peptide 740.1H 12/30/16 16:07: Glucometer 272H Microbiology 12/20/16 Urine Culture - Final, Complete Pseudomonas Aeruginosa Yeast Species Assessment/Plan Assessment General debil s/p Aortic Aneurysm repair Anticoagulation Postop urinary retention following with Wheeler catheter out now with st cathing being done UTI- under treatment with antibiotics Pneumonia on antibiotics HTN with episodes of hypotension associated with dizziness COPD on treatments and 02 Abdominal pain -patient has had complete workup for this at [facility] and no findings found IV steroids with hyperglycemia Plan Continue PT/OT Pain Management F/U with Nicky Meyer and Shira as per their schedule Monitor INR and adjust Coumadin as needed Trial of Voiding -failed St acthing being done for now Check CXR and labs-done [facility] consult re anxiety Monitor Bllod glucoses F/U with SW and Team tomorrw re discharge options if no furhter improvement with therapies. Adjust meds for episodes of hypotension as needed MICHELE YEUNG MD Dec 30, 2016 18:44
[2016-12-30] MEDS: SIMvastatin 40 MG (ZOCOR) TAB PO SCH (20:36)
[2016-12-31] MEDS: methylPREDNISolone 40 MG/ML (Solu-MEDROL) VIAL IV SCH ×4 (00:33→18:00)
[2016-12-31] MEDS: RT-ALBUTEROL/IPRATROPIUM 3 ML (DUONEB) VIAL INH SCH ×4 (02:16→21:54)
[2016-12-31 05:31] LABS: INR 2.7 (0.8-1.4); PROTHROMBIN TIME PATIENT 28.2 SEC (12.2-14.7)
[2016-12-31] MEDS: inSUlin ASPART (NovoLOG) 1 UNIT/0.01 ML (CHARGE PER UNIT) SC SCH ×4 (06:03→21:03)
[2016-12-31] MEDS: FERROUS SULF 325 MG (IRON) TAB PO SCH ×3 (06:04→16:33)
[2016-12-31] MEDS: KCL 10 MEQ TAB (MICRO K) PO SCH (06:04)
[2016-12-31] MEDS: PANTOPRAZOLE 40 MG (PROTONIX) TAB PO SCH ×2 (06:04→20:01)
[2016-12-31 06:10] VITALS: BP 141/77
[2016-12-31] MEDS: RT-ADVAIR HFA 115/21 MCG PER PUFF IH SCH ×2 (08:30→21:54)
--- NOTE | 2016-12-31 08:41 | Progress Note (SOAP) ---
Subjective Subjective/Events-last exam thoracic or aortic aneurysm. Patient feeling better today. Patient doing better today Objective Exam Vital Signs Date Time Temp Pulse Resp B/P (MAP) Pulse Ox O2 Delivery O2 Flow Rate FiO2 12/31/16 08:37 2.00 12/31/16 08:30 93 2.00 12/31/16 06:10 96.4 68 20 141/77 93 High Flow N/C 2.00 12/31/16 02:16 96 2.00 12/30/16 20:45 2.00 12/30/16 20:08 2.00 12/30/16 20:06 92 2.00 12/30/16 18:17 96.9 61 14 143/84 95 12/30/16 15:23 93 2.00 12/30/16 09:45 92 2.00 I & O 12/31/16 07:00 Intake Total 1970 ml Output Total 2150 ml Balance -180 ml Capillary Refill : General Appearance: No Apparent Distress, Thin HEENT: Normal ENT Inspection Neck: Normal Inspection, Non Tender Respiratory: Chest Non Tender, No Accessory Muscle Use, No Respiratory Distress , Decreased Breath Sounds Gastrointestinal: non tender, soft Results Lab Laboratory Tests 12/30/16 08:47 Laboratory Tests 12/30/16 08:47: White Blood Count 9.6, Red Blood Count 3.19L, Hemoglobin 9.3L, Hematocrit 30L, Mean Corpuscular Volume 95, Mean Corpuscular Hemoglobin 29, Mean Corpuscular Hemoglobin Concent 31L, Red Cell Distribution Width 19.2H, Platelet Count 97L, Mean Platelet Volume 11.5H, Sodium Level 141, Potassium Level 3.7, Chloride Level 99, Carbon Dioxide Level 31, Anion Gap 11, Blood Urea Nitrogen 28H, Creatinine 0.78, Estimat Glomerular Filtration Rate > 60, BUN/Creatinine Ratio 36, Glucose Level 241H, Calcium Level 7.6L 12/30/16 10:15: B-Type Natriuretic Peptide 740.1H 12/30/16 16:07: Glucometer 272H 12/30/16 20:10: Glucometer 175H 12/31/16 05:05: Prothrombin Time 28.2H, INR Comment 2.7H, Hemoglobin A1c 5.7, B-Type Natriuretic Peptide 741.5H 12/31/16 05:06: Glucometer 203H Microbiology 12/20/16 Urine Culture - Final, Complete Pseudomonas Aeruginosa Yeast Species Assessment/Plan Assessment/Plan Assess & Plan/Chief Complaint Debility. Atrial fibrillation. COPD. Inability to void. . . Debility. Atrial fibrillation. COPD. Patient complains of short of breathe today. . 12/20/16. Blood pressure better. Apical rate under control. Patient talking. Patient appears somewhat better. Patient is DO NOT RESUSCITATE. . 12/21/16 patient doing much better today. Patient more alert. Blood pressure is within normal limits. Patient not confused. Patient not hypotensive. Patient has hypomagnesemia.. . 12/27/16. Patient feeling better today. Patient not confused. Patient has some hypotension. chest x-ray yesterday showed pneumonia. Patient afebrile. White blood cell count within [place]. . 12/30/16. Patient frustrated. Patient has Improved. To get chest x-ray today. . 12/31/16. Patient feeling much better today.Patient and breathing better. Patient improved since yesterday Clinical Quality Measures DVT/VTE Risk/Contraindication: Risk Factor Score Per Nursin RFS Level Per Nursing on Admit: 4+=Very High ROMAIN MARSH DO Dec 31, 2016 08:41
[2016-12-31] MEDS: ASPIRIN E.C. 325 MG (ECOTRIN) TABLET PO SCH (08:55)
[2016-12-31] MEDS: FUROSEMIDE 20 MG (LASIX) TAB PO SCH (08:56)
[2016-12-31] MEDS: CEFEPIME INJECTION 2,000 MG in NS (IVPB) 50 ML IV SCH (08:58)
[2016-12-31] MEDS: POLYETHYLENE GLYCOL 17 GM (MIRALAX) PACK PO SCH ×2 (08:58→19:59)
[2016-12-31] MEDS: CATHETER FLUSH 10 ML SYR IV PRN ×3 (08:58→22:14)
[2016-12-31] MEDS: NICOTINE PATCH REMOVAL TP SCH (08:59)
[2016-12-31] MEDS: NICOTINE 14 MG (NICODERM) PATCH TD SCH (08:59)
[2016-12-31 09:00] VITALS: BP_SYST 87; BP_SYST 97; BP_DIAS 59; BP_DIAS 66
[2016-12-31] MEDS: meTOprolol TARTRATE 25 MG (LOPRESSOR) TABLET PO SCH (09:00)
[2016-12-31] MEDS: MENTHOL/ZINC OXIDE (CALMOSEPTINE) 113 GM TUBE TOP SCH ×2 (09:29→20:01)
--- NOTE | 2016-12-31 10:28 | Occupational Ther Daily Note ---
OT Current Status-Daily Note Subjective Pt in bed with RN present, agrees to treatment. Mental Status/Objective Functional [place] Measure 0=Not Assessed/NA 4=Minimal Assistance 1=Total Assistance 5=Supervision or Setup 2=Maximal Assistance 6=Modified [place] 3=Moderate Assistance 7=Complete [place] ADL-Treatment Functional [place] Measure 0=Not Assessed/NA 4=Minimal Assistance 1=Total Assistance 5=Supervision or Setup 2=Maximal Assistance 6=Modified [place] 3=Moderate Assistance 7=Complete IndependenceIRFPAI Quality Coding Scale 6 Independent with activity with or without an assistive device 5 Patient requires set up or clean up by helper. Patient completes activity by themselves 4 Supervision or touching assist (CGA). [place] provide cues , steadying assist 3 The helper provides less than half the effort to complete the activity 2 The helper provides more than half the effort to complete the activity 1 Dependent. The helper does all the effort to complete an activity 7 Patient refused to complete or attempt activity 9 The patient did not perform the activity before the current illness or injury 88 Not attempted due to Medical conditions or safety concerns Other Treatment RN present in room, states she would like to get a standing BP. Pt supine to sit with moderate assistance. Assist to scoot to EOB. Pt sit to stand with max assist. Pt stood with FWW, states she feels like she "might pass out". Unable to obtain standing BP. Pt returned to supine and states she feels better. Pt incontinent of bowel. Rolls left and right with minimal assistance, requires total assist for hygiene. RN states pt is okay to participate in bed level activity at this time. Pt performed bilateral UE exercises to promote increased strength needed for ADLs and transfers. Pt performed shoulder flexion, forward press, biceps curls, and wrist flex/ext x10 reps with dowel rory. Brief rest breaks between exercises. Pt does not exhibit any shortness of breath during exercises. Bilateral hand roving changer exercises x20 reps with yellow therapy foam to increase roving changer strength. Graded clothespin activity with bilateral hands to increase roving changer/pinch strength. Pt has difficulty with higher resistance clothespins, and uses gross grasp perform task. Minimal resistance putty activity with bilateral hands to increase strength. Pt able to remove small beads from putty with increased time. Pt performed grooved pegboard activity with right hand to increase fine motor coordination. Pt has mild difficulty with task and requires increased time to complete. Pt resting in bed with needs met after session. OT Short Term Goals Short Term Goals Time Frame: Dec 26, 2016 Bathing(FIM): 4 Upper Body Dressing(FIM): 5 Lower Body Dressing(FIM): 3 Toileting(FIM): 3 Toilet/Commode Transfer(FIM): 4 1=Demonstrate adherence to instructed precautions during ADL tasks. 2=Patient will verbalize/demonstrate understanding of assistive devices/ modifications for ADL. 3=Patient will improve strength/tolerance for activity to enable patient to perform ADL's. OT Jail Goals Process Tech Goals Time Frame: January 09, 2017 Eating (FIM): 6 Eating (QC): 6 Groomin Oral Hygiene (QC): 6 Bathing(FIM): 5 Shower/Bathe Self (QC): 5 Upper Body Dressing(FIM): 6 Upper Body Dressing (QC): 6 Lower Body Dressing(FIM): 5 Lower Body Dressing (QC): 5 On/Off Footwear (QC): 5 Toileting(FIM): 5 Toileting Hygiene (QC): 5 Toilet/Commode Transfer(FIM): 5 Toilet/Commode Transfer (QC): 5 Shower Transfer(FIM): 5 Additional Goals: 1-Demonstrate ADL Tasks, 2-Verbalize Understanding, 3- ImproveStrength/Brad 1=Demonstrate adherence to instructed precautions during ADL tasks. 2=Patient will verbalize/demonstrate understanding of assistive devices/ modifications for ADL. 3=Patient will improve strength/tolerance for activity to enable patient to perform ADL's. OT Education/Plan Discharge Recommendations Plan/Recommendations: Continue POC Treatment Plan/Plan of Care Patient would benefit from OT for education, treatment and training to promote independence in ADL's, mobility, safety and/or upper extremity function for ADL' s. Plan of Care: ADL Retraining, Functional Mobility, Group Exercise/Act as Ind, UE Funct Exercise/Act Treatment Duration: January 09, 2017 Visits Per Week: 10-12 Minutes/Day (M-F): 60-90 Minutes/Day (Sat/Stone): PRN Agreement: Yes Rehab Potential: Fair Time/GCodes Start Time: 09:15 Stop Time: 10:15 Total Time Billed (hr/min): 60 Billed Treatment Time 1 visit, FA(15minutes), EXx2(45minutes) AYAAN PLUNKETT OT Dec 31, 2016 10:28
[2016-12-31] MEDS ORDERED: FUROSEMIDE 20 MG (LASIX) TAB PO NR (10:30)
--- NOTE | 2016-12-31 10:31 | PM & R (SOAP) Progress Note ---
Subjective Subjective/Events-last exam Patient was seen in her room this AM Discussed case with RN and PT Patient with orthostatic Hypotension which limite her participation in therapies Discuss case with DR Ospina this AM He will see in consult Patient on multiple meds Objective Exam Last Set of Vital Signs Vital Signs Date Time Temp Pulse Resp B/P (MAP) Pulse Ox O2 Delivery O2 Flow Rate FiO2 12/31/16 08:37 2.00 12/31/16 08:30 93 12/31/16 06:10 96.4 68 20 141/77 High Flow N/C Capillary Refill : I&O Intake and Output 12/31/16 00:00 Intake Total 1770 ml Output Total 2375 ml Balance -605 ml Intake Oral 1720 ml IV Total 50 ml Output Urine Total 2375 ml # Bowel Movements 2 General: Alert, Oriented X3, Cooperative, No Acute Distress HEENT: Atraumatic, PERRLA, EOMI, Mucous Memb Moist/[place], Other (02 by N/C in place) Neck: Supple, No JVD Lungs: Clear to Auscultation Heart: Regular Rate Abdomen: Normal Bowel Sounds, Soft, No Tenderness Extremities: No Edema Neuro: Other (generalized weakness) Results Lab Laboratory Tests 12/28/16 15:41: Glucometer 204H 12/29/16 05:10: Prothrombin Time 22.5H, INR Comment 2.0H 12/29/16 05:12: Glucometer 175H 12/29/16 15:36: Glucometer 248H 12/30/16 05:30: Prothrombin Time 26.2H, INR Comment 2.4H 12/30/16 05:35: Glucometer 143H 12/30/16 08:47: White Blood Count 9.6, Red Blood Count 3.19L, Hemoglobin 9.3L, Hematocrit 30L, Mean Corpuscular Volume 95, Mean Corpuscular Hemoglobin 29, Mean Corpuscular Hemoglobin Concent 31L, Red Cell Distribution Width 19.2H, Platelet Count 97L, Mean Platelet Volume 11.5H, Sodium Level 141, Potassium Level 3.7, Chloride Level 99, Carbon Dioxide Level 31, Anion Gap 11, Blood Urea Nitrogen 28H, Creatinine 0.78, Estimat Glomerular Filtration Rate > 60, BUN/Creatinine Ratio 36, Glucose Level 241H, Calcium Level 7.6L 12/30/16 10:15: B-Type Natriuretic Peptide 740.1H 12/30/16 16:07: Glucometer 272H 12/30/16 20:10: Glucometer 175H 12/31/16 05:05: Prothrombin Time 28.2H, INR Comment 2.7H, Hemoglobin A1c 5.7, B-Type Natriuretic Peptide 741.5H 12/31/16 05:06: Glucometer 203H Microbiology 12/20/16 Urine Culture - Final, Complete Pseudomonas Aeruginosa Yeast Species Assessment/Plan Assessment General debil s/p Aortic Aneurysm repair Anticoagulation Postop urinary retention following with Wheeler catheter out now with st cathing being done UTI- under treatment with antibiotics Pneumonia on antibiotics HTN with episodes of hypotension associated with dizziness COPD on treatments and 02 Abdominal pain -patient has had complete workup for this at [facility] and no findings found IV steroids with hyperglycemia Orthostatic hypotension Plan Continue PT/OT as tolerated Pain Management F/U with Nicky Meyer and Shira as per their schedule Monitor INR and adjust Coumadin as needed Trial of Voiding -failed St acthing being done for now Check CXR and labs-done [facility] consult re anxiety Monitor Bllod glucoses Consult DR Ospina as per above re orthostatic Hypotension. See orders Team Conference tomorrow 01/01/17 MICHELE YEUNG MD Dec 31, 2016 10:31
--- NOTE | 2016-12-31 11:20 | Consultation-Cardiology ---
HPI-Cardiology Cardiology Consultation: Date of Consultation 12/31/16 Date of Admission 12-18-16 Attending Physician Gilberto Mayen MD Admitting Physician Christoph Vazquez DO Consulting Physician Aurelia Ospina MD HPI: Chief Complaint: Orthostatic hypotension Dizziness Ms. Vargas is a 76 year old female [place] who was admitted for rehab following thoracic aortic aneurysm repair at [facility] by Dr. Bonilla with a lengthy stay following surgery. We have been called to see her d/t near syncope and orthostatic hypotension. She states with changes in position she has significant dizziness and feels as though she may pass out. She feels nauseated and diaphoretic. The episodes last for a few minutes and then gradually resolve. She reports she has had NO pooja syncope. She has chronic SOB, but feels this has been improving. No c/o CP, palpitations. She does report some LE edema, which is improving. She reports generalized weakness. She reports her recently and she is having a lot of grief and anxiety. She is reporting frustration with length of post surgical recovery. She wishes to return home. Review of Systems-Cardiology Review of Systems Constitutional: As described under HPI Eyes: No blurred vision, No drainage, No pain, No vision change Ears/Nose/Throat: No ear discharge, No ear pain, No nasal drainage, No ulcerations Respiratory: As described under HPI Cardiovascular: As described under HPI Gastrointestinal: No constipation, No diarrhea, No nausea, No vomiting, No stool coloration changes Genitourinary: No dysuria, No discharge, No frequency, No hematuria, No urgency Skin: No rash, No skin related problems, No ulcerations Psychiatric/Neurological: No anxiety, No depression, No focal weakness, No seizure, No syncope Hematologic: No bleeding abnormalities VIQ-Htrfff-Vsorcy Hx Patient Social History Alcohol Use: Denies Use Recreational Drug Use: No Smoking Status: Current Everyday Smoker Type Used: Cigarettes Recent Foreign Travel: No Recent Infectious Disease Expo: No Hospitalization with Isolation: Denies Physical Abuse Screen: No Sexual Abuse: No Immunizations Up To Date Date of Pneumonia Vaccine: Jul 23, 2016 Past Medical History PMH As described under Assessment. Allergies and Home Medications Allergies Coded Allergies: No Known Drug Allergies (Unverified , 12/18/16) Home Medications 0.9 % Sodium Chloride 126 Ml [place], 1-2 SPRAYS NS UD PRN for NASAL, (Reported) Acetaminophen 325 Mg Tablet, 650 MG PO Q4H PRN for PAIN-MILD, (Reported) TAKES 2 (325 MG) TABLETS Albuterol Sulfate 1 Puff Puff, 2 PUFF IH Q6H PRN for SHORTNESS OF BREATH, ( Reported) 1 PUFF = 90 MCG Albuterol Sulfate 2.5 Mg/3 Ml Vial.neb, 2.5 MG NEB Q6H PRN for SHORTNESS OF BREATH, (Reported) Aspirin 325 Mg Tablet.dr, 325 MG PO DAILY, (Reported) Bisacodyl 10 Mg Supp.rect, 10 MG RC DAILY PRN for CONSTIPATION-4TH LINE, ( Reported) Budesonide/Formoterol Fumarate 10.2 Gm Hfa.aer.ad, 2 PUFF IH BID, (Reported) Ferrous Sulfate 325 Mg Tablet, 325 MG PO TIDWM for 90 Days, #30 Prescribed by: ISELA ELIZABETH on 12/25/161820 Fluticasone Propionate 16 Gm Boncarbo.susp, 1 SPRAY NS DAILY, (Reported) Furosemide 20 Mg Tablet, 20 MG PO 1200, (Reported) Ipratropium/Albuterol Sulfate 3 Ml Ampul.neb, 3 ML INH RTQ4HR for 90 Days, #90 Prescribed by: ISELA ELIZABETH on 12/25/161820 Metoprolol Tartrate 50 Mg Tablet, 25 MG PO BID, (Reported) TAKES 1/2 (50MG) TABLET Nicotine 1 Each Patch.td24, 21 MG TD DAILY, (Reported) Pantoprazole Sodium 40 Mg Tablet.dr, 40 MG PO BID, (Reported) Polyethylene Glycol 3350 17 Gm Powd.pack, 17 GM PO BID, (Reported) Potassium Chloride 10 Meq Capsule.er, 10 MEQ PO 1200, (Reported) Sennosides/Docusate Sodium 1 Each Tablet, 2 TAB PO BID, (Reported) Simvastatin 40 Mg Tablet, 40 MG PO HS, (Reported) Tramadol HCl 50 Mg Tablet, 50 MG PO Q6H PRN for PAIN-MILD TO MODERATE, (Reported ) Warfarin Sodium 1 Mg Tablet, 1 MG PO HS, (Reported) Physical Exam-Cardiology Physical Exam Vital Signs/I&O Vital Sign - Last 12Hours 12/31/16 12/31/16 12/31/16 12/31/16 06:10 08:00 08:30 08:37 Temp 96.4 Pulse 68 Resp 20 B/P (MAP) 141/77 Pulse Ox 93 93 O2 Delivery High Flow N/C O2 Flow Rate 2.00 1.50 2.00 2.00 12/31/16 14:23 Pulse Ox 92 O2 Flow Rate 2.00 Intake and Output 12/31/16 00:00 Intake Total 1420 ml Output Total 1050 ml Balance 370 ml Capillary Refill : Constitutional: appears stated age, No apparent distress, well-developed, well- nourished HEENT: PERRL, No discharge, hearing is well preserved, oral hygience is good, No ulceration, No xanthelasmas are seen Neck: No carotid bruit, carotid pulses are 2 + bilaterally Respiratory: No accessory muscle use, No respiratory distress, other ( diminished bases bilat) Cardiovascular: irregularly irregular, No JVD, S1 and S2, systolic murmur Gastrointestinal: soft, round, audible bowel sounds, No spleenomegaly Rectal: deferred Extremities: No clubbing, No cyanosis, No significant edema Neurologic/Psychiatric: alert, oriented x 3, power is 5/5 both on sides Skin: No rash, No ulcerations Data Review Labs Laboratory Tests 12/30/16 16:07: Glucometer 272H 12/30/16 20:10: Glucometer 175H 12/31/16 05:05: Prothrombin Time 28.2H, INR Comment 2.7H, Hemoglobin A1c 5.7, B-Type Natriuretic Peptide 741.5H 12/31/16 05:06: Glucometer 203H 12/31/16 12:11: Glucometer 158H 12/31/16 12:15: White Blood Count 12.9H, Red Blood Count 3.14L, Hemoglobin 9.3L, Hematocrit 30L , Mean Corpuscular Volume 96, Mean Corpuscular Hemoglobin 30, Mean Corpuscular Hemoglobin Concent 31L, Red Cell Distribution Width 19.8H, Platelet Count 85L, Mean Platelet Volume 11.1H 12/31/16 13:15: Sodium Level 142, Potassium Level 3.1L, Chloride Level 99, Carbon Dioxide Level 33H, Anion Gap 10, Blood Urea Nitrogen 36H, Creatinine 0.79, Estimat Glomerular Filtration Rate > 60, BUN/Creatinine Ratio 46, Glucose Level 141H, Calcium Level 8.3L, Magnesium Level 1.9, Total Bilirubin 0.4, Aspartate Amino Transf ( AST/SGOT) 20, Alanine Aminotransferase (ALT/SGPT) 38, Alkaline Phosphatase 77, Total Protein 5.2L, Albumin 3.0L, Thyroid Stimulating Hormone (TSH) 1.05 Microbiology 12/20/16 Urine Culture - Final, Complete Pseudomonas Aeruginosa Yeast Species Radiology NAME: RICARDO VARGAS [facility] REC#: [id number] PT STATUS: ADM IN : 1940 PHYSICIAN: ROMAIN MARSH DO ADMIT DATE: 12/18/16/IRF Draft Date of Exam:12/30/16 CHEST PA/LAT (2 VIEW) EXAMINATION: AP and lateral views of the chest. INDICATION: Shortness of breath. FINDINGS: There is a thoracic descending aortic aneurysm measuring 8.7 cm in size. The finding is stable from 12/28/2016. 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 The heart size is mildly enlarged. There is no significant vascular congestion. Background hyperinflation, probably related to COPD. No effusion or pneumothorax. The mediastinum and anastasia appear unremarkable. IMPRESSION: COPD. Cardiomegaly. Thoracic aortic aneurysm with endograft repair. No acute process. Dictated on workstation # [id number] Dict: 12/30/16 1207 Trans: 12/30/16 1226 [id number] Interpreted by: RAMESH LEMON MD Electronically signed by: ECG Impression ECG Comment SR with PAC per EKG of 12-20-16 A/P-Cardiology Assessment/Admission Diagnosis Near syncope Orthostatic hypotension Thoracic aortic aneurysm repair at [facility] by Dr. Bonilla on 11-29-16 - TEVAR using 3 sequential devices. The first was a 37 x 20 [place] tag endoprosthesis. The second was a 40x15. The third was a 45 x 20. CTA of the chest at [facility] on 12-02-16 showed development of a small thrombus at the origin of the left subclavian artery. No thrombus seen in the left common carotid artery. Mild cardiomegaly with mildly enlarged main pulmonary artery suggestive of pulmonary hypertension. Echocardiogram of November 28, [address] [facility] showed LVEF 55%. Sclerotic arotic valve, no stenosis, overall no significant valve disease. Normal size aortic root. PASP 53mmHg. Pulmonary hypertension - PASP 53 mmHg on echocardiogram of 3-17 H/O PAF Warfarin tx - therapeutic INR COPD H/O tobaccoism (50 year smoking history) HTN HLP CAD - h/o cardiac cath in 2009 at [facility] in [place], [place] by Dr. 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 Silva managing H/O anxiety Discussion and Recomendations Complex management issue. Review of her extensive records from [facility] that are available to us has been completed. Orthostatic hypotension with near syncope. We will hold BB for now. We will hold Lasix and Potassium for now. Mild thrombocytopenia of undetermined etiology. We will hold ASA for now since there is no apparent indication for ASA. We will continue warfarin d/t h/o PAF with recent endograft repair. Monitor INR closely. Monitor CBC closely. We will place her on tele to evaluate for any arrhythmia or bradycardia. We will repeat the echocardiogram to re-eval LVEF and PASP. We advise thigh-high compression stockings and slow deliberate, assisted position changes. We will request a copy of her cardiac cath which was at [facility] by Dr. Comer. Further recommendations will be based on her hospital course. We have discussed all of the above issues and recommendations with her. We would like to thank Dr. Mayen for this consult. This consult is being scribed by Phyllis Bennett APRN on behalf of Dr. Ospina after discussion regarding plan of care. Clinical Quality Measures DVT/VTE Risk/Contraindication: Risk Factor Score Per Nursin RFS Level Per Nursing on Admit: 4+=Very High Physician Assessment Physician Assessment Lungs: fair air entry, prolonged exp phase Cor: reg A&R * As documented in our note above * Complex management due to multiple comorbidities * I had a detailed discussion with the patient and with her son. Also discussed her case with Dr Mayen * I d/c bb and diuretics doesn't work, will consider adding midodrine * ARIAS Quintanilla INSURANCE CODER Dec 31, 2016 11:20 AURELIA OSPINA MD FACP FAC CCDS Dec 31, 2016 14:36
[2016-12-31] MEDS: FLUTICASONE NASAL SPRAY (FLONASE) 16 GM BTL NS SCH (12:09)
[2016-12-31 12:23] LABS: MEAN PLATELET VOLUME 11.1 FL (7.4-10.4); RED BLOOD COUNT 3.14 10^6/uL (4.35-5.85); RED CELL DISTRIBUTION WIDTH 19.8 % (10.0-14.5); WHITE BLOOD COUNT 12.9 10^3/uL (4.3-11.0)
--- NOTE | 2016-12-31 13:10 | Physical Therapy Daily Note ---
PT Daily Note-Current Subjective Patient in bed pre tx, agrees to PT. She has been having blood pressure issues and nurse OK's getting patient out of bed if she feels ok. Patient is very upset about her progress at this point and very depressed about her and her medical issues. Patient has pain of 6/10 in her back. A nurse practitioner did come to talk to Lindsay during therapy when she was resting between transitions. Appearance Patient BTB post tx with nurse call, phone, tray, all needs met. Lunch ordered for patient. Mental Status Patient Orientation: Person, Place, Situation Attachments: Oxygen 2L of O2 nasal canula Transfers Functional [place] Measure 0=Not Assessed/NA 4=Minimal Assistance 1=Total Assistance 5=Supervision or Setup 2=Maximal Assistance 6=Modified [place] 3=Moderate Assistance 7=Complete IndependenceIRFPAI Quality Coding Scale 6 Independent with activity with or without an assistive device 5 Patient requires set up or clean up by helper. Patient completes activity by themselves 4 Supervision or touching assist (CGA). [place] provide cues , steadying assist 3 The helper provides less than half the effort to complete the activity 2 The helper provides more than half the effort to complete the activity 1 Dependent. The helper does all the effort to complete an activity 7 Patient refused to complete or attempt activity 9 The patient did not perform the activity before the current illness or injury 88 Not attempted due to Medical conditions or safety concerns Transfers (B, C, W/C) (FIM): 2 Scootin Rollin Supine to/from Sit: 4 Sit to/from Stand: 2 Bed to/from Chair: 2 bed mobility min assist, transfers max assist, patient needs cues for safety and hand placement, will almost always try to pull on therapist. After patient was put in a wheelchair blood pressure was taken and it was 85/48. BP was low but patient states her dizziness was better after a few moments and was ready to continue. Patient needed rest between transitioning to let her blood pressure accomodate. Wheelchair Training Wheelchair (FIM): 2 Distance: 50'x2 Wheelchair Level of Assist: 4 Type of Wheelchair: Manual min assist due to patient fatigue and assist with turning Exercises Seated Therapy Exercises: Ankle pumps, Hip flexion, Hip abd/add Seated Reps: 20 LAQ alternating for 5 minutes Treatments bed mobility and transfers, wheelchair mobility, functional strengthening Assessment Current Status: Fair Progress Patient did make progress in that her dizziness was able to get better with rest. She did need a significant amount of rest between transitioning and between activities. PT Short Term Goals Short Term Goals Time Frame: Dec 26, 2016 Gait (FIM): 1 Gait Distance Comment: 30' Gait Level of Assist: 4 Gait Assistive Device: FWW Wheelchair Distance: 50 ft PT Mcc Goals Experimental Electronics Developer Goals PT Mcc Goals Time Frame: January 09, 2017 Transfers (B,C,W/C) (FIM): 5 Sit to Lying (QC): 4 Lying-Sitting on Side/Bed(QC): 4 Sit to Stand (QC): 4 Rollin Roll Left to Right (QC): 4 Chair/Tcc-fb-Wpjec Xfer(QC): 4 Car Transfer (QC): 3 Gait (FIM): 2 Distance: 50' Walk 10 feet (QC): 4 Walk 10ft-Uneven Surface(QC): 4 Walk 50ft with 2 Turns (QC): 4 Walk 150 ft (QC): 88 Gait Level of Assist: 4 Gait Assistive Device: FWW Wheelchair (FIM): 5 Distance: 150' Wheelchair Level of Assist: 5 Wheel 50 feet with 2 turns (QC: 4 Stairs (FIM): 2 # of Steps: 4 1 Step (curb) (QC): 3 4 Steps (QC): 3 12 Steps (QC): 88 Stairs Level Of Assist: 4 Picking up an Object (QC): 88 PT Plan Problem List Problem List: Activity Tolerance, Functional Strength, Safety, Balance, Gait, Transfer, Bed Mobility Treatment/Plan Treatment Plan: Continue Plan of Care Treatment Plan: Bed Mobility, Education, Functional Activity Brad, Functional Strength, Group Therapy, Gait, Safety, Therapeutic Exercise, Transfers Treatment Duration: January 09, 2017 Visits Per Week: 10-11 Minutes/Day (M-F): 60-90 Minutes/Day (Sat/Stone): 15-30 Safety Risks/Education Patient Education: Transfer Techniques, Correct Positioning, W/C Management, Safety Issues Teaching Recipient: Patient Teaching Methods: Demonstration, Discussion Response to Teaching: Reinforcement Needed Time/GCodes Time In: 1100 Time Out: 1200 Total Billed Treatment Time: 60 Total Billed Treatment 1 visit [facility] 15 min EX 15 min FA 30 min TANIA GREENBERG PT Dec 31, 2016 13:10
[2016-12-31 13:44] LABS: ALANINE AMINOTRANSFERASE 38 U/L (0-55); ANION GAP 10 MMOL/L (5-14); ASPARTATE AMINO TRANSFERASE 20 U/L (5-34); BILIRUBIN,TOTAL 0.4 MG/DL (0.1-1.0); BLOOD UREA NITROGEN 36 MG/DL (7-18); BUN/CREATININE RATIO 46; CALCIUM 8.3 MG/DL (8.5-10.1); CARBON DIOXIDE 33 MMOL/L (21-32); CHLORIDE 99 MMOL/L (98-107); CREATININE SERUM 0.79 MG/DL (0.60-1.30); GFR ESTIMATED > 60; GLUCOSE 141 MG/DL (70-105); MAGNESIUM 1.9 MG/DL (1.8-2.4); POTASSIUM 3.1 MMOL/L (3.6-5.0); SODIUM 142 MMOL/L (135-145); TOTAL PROTEIN 5.2 G/DL (6.4-8.2)
--- NOTE | 2016-12-31 13:51 | Diagnostic Imaging Report ---
PROCEDURE: US Carotid Duplex Bilateral. TECHNIQUE: Multiple real-time grayscale images were obtained over the carotid arteries in various projections bilaterally. Additional duplex Doppler and color Doppler images were also obtained. INDICATION: Syncope. Low blood pressure. FINDINGS: The grayscale images demonstrate atherosclerotic plaque. There is antegrade flow in the right vertebral artery and retrograde flow in the left vertebral artery. The peak systolic velocities in the right ICA are 35, 47, and 53 cm/s from proximal to distal and on the left are 28, 45, and 55 cm/s. The ICA/CCA ratios are up to 1.3 on the right and up to 1.2 on the left. IMPRESSION: 1. There is no evidence of a significant stenosis of the internal carotid artery on either side. There is, however, decreased flow velocity in the left common carotid and left internal carotid arteries which may or may not relate to a proximal stenosis in the left common carotid artery. 2. Reversal of flow in the left vertebral artery. 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 Dictated by: Dictated on workstation # [id number]
[2016-12-31 14:06] LABS: THYROID STIMULATING HORMONE 1.05 UIU/ML (0.35-4.94)
--- NOTE | 2016-12-31 14:06 | Occupational Ther Daily Note ---
OT Current Status-Daily Note Subjective Pt in bed, states "I'm not in the mood to do anything this afternoon." Pt does agree to therapy with encouragement. Mental Status/Objective Functional [place] Measure 0=Not Assessed/NA 4=Minimal Assistance 1=Total Assistance 5=Supervision or Setup 2=Maximal Assistance 6=Modified [place] 3=Moderate Assistance 7=Complete [place] ADL-Treatment Pt supine to sit with moderate assistance. Pt sat EOB for 10 minutes for grooming tasks. Pt washed face and combed hair with set up. Increased time for ADL tasks. Pt requests to return to supine. Sit to supine with assist for bilateral LE. Functional [place] Measure 0=Not Assessed/NA 4=Minimal Assistance 1=Total Assistance 5=Supervision or Setup 2=Maximal Assistance 6=Modified [place] 3=Moderate Assistance 7=Complete IndependenceIRFPAI Quality Coding Scale 6 Independent with activity with or without an assistive device 5 Patient requires set up or clean up by helper. Patient completes activity by themselves 4 Supervision or touching assist (CGA). [place] provide cues , steadying assist 3 The helper provides less than half the effort to complete the activity 2 The helper provides more than half the effort to complete the activity 1 Dependent. The helper does all the effort to complete an activity 7 Patient refused to complete or attempt activity 9 The patient did not perform the activity before the current illness or injury 88 Not attempted due to Medical conditions or safety concerns Grooming (FIM): 5 Oral Hygiene (QC): 5 Other Treatment Pt completed peg activity with bilateral UE to promote reaching and coordination. Increased time for task. Pt completed fine motor task with nuts and bolts to increase coordination/manipulation skills. Pt required one brief rest break during task. Pt resting in bed with needs met after session. OT Short Term Goals Short Term Goals Time Frame: Dec 26, 2016 Bathing(FIM): 4 Upper Body Dressing(FIM): 5 Lower Body Dressing(FIM): 3 Toileting(FIM): 3 Toilet/Commode Transfer(FIM): 4 1=Demonstrate adherence to instructed precautions during ADL tasks. 2=Patient will verbalize/demonstrate understanding of assistive devices/ modifications for ADL. 3=Patient will improve strength/tolerance for activity to enable patient to perform ADL's. OT Correction Goals Correction Goals Time Frame: January 09, 2017 Eating (FIM): 6 Eating (QC): 6 Groomin Oral Hygiene (QC): 6 Bathing(FIM): 5 Shower/Bathe Self (QC): 5 Upper Body Dressing(FIM): 6 Upper Body Dressing (QC): 6 Lower Body Dressing(FIM): 5 Lower Body Dressing (QC): 5 On/Off Footwear (QC): 5 Toileting(FIM): 5 Toileting Hygiene (QC): 5 Toilet/Commode Transfer(FIM): 5 Toilet/Commode Transfer (QC): 5 Shower Transfer(FIM): 5 Additional Goals: 1-Demonstrate ADL Tasks, 2-Verbalize Understanding, 3- ImproveStrength/Brad 1=Demonstrate adherence to instructed precautions during ADL tasks. 2=Patient will verbalize/demonstrate understanding of assistive devices/ modifications for ADL. 3=Patient will improve strength/tolerance for activity to enable patient to perform ADL's. OT Education/Plan Discharge Recommendations Plan/Recommendations: Continue POC Treatment Plan/Plan of Care Patient would benefit from OT for education, treatment and training to promote independence in ADL's, mobility, safety and/or upper extremity function for ADL' s. Plan of Care: ADL Retraining, Functional Mobility, Group Exercise/Act as Ind, UE Funct Exercise/Act Treatment Duration: January 09, 2017 Visits Per Week: 10-12 Minutes/Day (M-F): 60-90 Minutes/Day (Sat/Stone): PRN Agreement: Yes Rehab Potential: Fair Time/GCodes Start Time: 13:20 Stop Time: 13:50 Total Time Billed (hr/min): 30 Billed Treatment Time 1 visit, ADL(10minutes), FA(20minutes) AYAAN PLUNKETT OT Dec 31, 2016 14:06
--- NOTE | 2016-12-31 14:43 | Physical Therapy Daily Note ---
PT Daily Note-Current Subjective Patient is more alert and talkative this p.m. Pain Numeric Pain Scale: 5-Moderate Pain Location: Medial, Lower Location Body Site: Back Pain Description: Ache Mental Status Patient Orientation: Normal For Age Attachments: Oxygen Transfers Functional [place] Measure 0=Not Assessed/NA 4=Minimal Assistance 1=Total Assistance 5=Supervision or Setup 2=Maximal Assistance 6=Modified [place] 3=Moderate Assistance 7=Complete IndependenceIRFPAI Quality Coding Scale 6 Independent with activity with or without an assistive device 5 Patient requires set up or clean up by helper. Patient completes activity by themselves 4 Supervision or touching assist (CGA). [place] provide cues , steadying assist 3 The helper provides less than half the effort to complete the activity 2 The helper provides more than half the effort to complete the activity 1 Dependent. The helper does all the effort to complete an activity 7 Patient refused to complete or attempt activity 9 The patient did not perform the activity before the current illness or injury 88 Not attempted due to Medical conditions or safety concerns Transfers (B, C, W/C) (FIM): 2 Scootin Rollin Roll Left to Right (QC): 2 Supine to/from Sit: 2 bed mobility exercises with rolling and sit<>supine with sitting EOB for positional change to allow BP to adapt. Patient has increase c/o dizziness with all mobility. Exercises Supine Ex: Ankle pumps, Quad Set, Heel Slides, Straight leg raise, Hip abd/add Supine Reps: 10 (2 sets) Seated Therapy Exercises: Ankle pumps, Long arc quads Seated Reps: 10 (2 sets) Assessment Patient is alert and becoming more active in participating with therapy. PT to increase activity as tolerated by patient. PT Short Term Goals Short Term Goals Time Frame: Dec 26, 2016 Gait (FIM): 1 Gait Distance Comment: 30' Gait Level of Assist: 4 Gait Assistive Device: FWW Wheelchair Distance: 50'x2 PT Longterm Goals Longterm Goals PT Scale Installer Goals Time Frame: January 09, 2017 Transfers (B,C,W/C) (FIM): 5 Sit to Lying (QC): 4 Lying-Sitting on Side/Bed(QC): 4 Sit to Stand (QC): 4 Rollin Roll Left to Right (QC): 4 Chair/Dak-lo-Buekv Xfer(QC): 4 Car Transfer (QC): 3 Gait (FIM): 2 Distance: 50' Walk 10 feet (QC): 4 Walk 10ft-Uneven Surface(QC): 4 Walk 50ft with 2 Turns (QC): 4 Walk 150 ft (QC): 88 Gait Level of Assist: 4 Gait Assistive Device: FWW Wheelchair (FIM): 5 Distance: 150' Wheelchair Level of Assist: 5 Wheel 50 feet with 2 turns (QC: 4 Stairs (FIM): 2 # of Steps: 4 1 Step (curb) (QC): 3 4 Steps (QC): 3 12 Steps (QC): 88 Stairs Level Of Assist: 4 Picking up an Object (QC): 88 PT Plan Treatment/Plan Treatment Plan: Continue Plan of Care Treatment Plan: Bed Mobility, Education, Functional Activity Brad, Functional Strength, Group Therapy, Gait, Safety, Therapeutic Exercise, Transfers Treatment Duration: January 09, 2017 Visits Per Week: 10-11 Minutes/Day (M-F): 60-90 Minutes/Day (Sat/Stone): 15-30 Time/GCodes Time In: 1400 Time Out: 1430 Total Billed Treatment Time: 30 Total Billed Treatment 1 visit EX x 2 30 min MARK MONET PT Dec 31, 2016 14:43
[2016-12-31] MEDS ORDERED: KCL 20 MEQ TAB (K-DUR) PO NR (14:56)
[2016-12-31 15:13] VITALS: BP 95/69
--- NOTE | 2016-12-31 17:19 | Behavioral Health Consult ---
Consult- Consult CPT Code: 92796 Psychodiagnostic Examination 42865 Complex Interactive Date of Service: 12/31/16 Start Time: 1435 Stop Time: 1530 Chief Complaint: depression Referral: Lindsay Cardona is a 76-year-old, , female referred by Dr. Mayen for a clinical diagnostic assessment. Information for this evaluation was gathered from self-report, clinical observation, collaboration with her nurse and physical therapist, and available medical records. Presenting Problem: The presenting clinical problem is depression. Duration of the current problem was reported as approximately 1 month. The primary clinical theme and problem discussed during the appointment was depressed mood, loss of spouse, and medical problems. According to records, Lindsay has been hospitalized at [facility] since 12/18/16. Lindsay reported that she was not clear of the dates and how long she had been hospitalized. 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 According to records, she had undergone repair of a thoracic aortic aneurysm at [facility]. She apparently had complications related to a clot, complicating her hospital stay. Additionally, Lindsay reported that since her aneurysm she has experienced numbness in her legs which are impacting her ability to walk. She continues to use a wheelchair. She reported that prior to admission she was functionally independent, including shopping, housekeeping, and driving. Her hospital stay has also been troubled by the of her spouse on or around November 12. She stated that she was hospitalized with him at [facility] and the doctor allowed them to be together just prior to transferring to a longterm. She stated that she was holding his hand at his bedside when he . She reported feeling sad about this and sometimes wishes that she didnt witness his state at the time of his . Lindsay reported that she has always been the strong person in her family, thus she has been very worried about her sons having to care for her. She reported feeling that they have not been able to grieve the loss of their father. She also reported that she has felt angry at herself for not working hard enough. She questioned whether depression and panic are impacting her ability to get better. She denied history of depression or panic , as well as any prior psychiatric treatment. However, she did recognize her current symptoms of sadness, anxiety, anhedonia, guilt, fatigue, and irritability. She also reported intermittent thoughts of wanting to and stated that she has asked God to take her life. However, she stated that she prayed for the opposite when one of her sons became upset at her over a comment she made. She has been taking Xanax daily, but has reportedly never taken this or any anti-depressants in the past. There was no report or evidence of paranoid ideation, obsessions, compulsions, hallucinations, yury, hypomania , decreased need for sleep, pressured speech, reckless or dangerous behavior, inattention, or hyperactivity. Observations/Mental Status: Lindsay was seen at [facility] and was alone. Overall appearance was disheveled and dressed in hospital clothing. Lindsay appeared to be an adequate historian. Observed gait and gross motor movements indicated facial signs of discomfort. In regards to pain, Lindsay reported intermittent pain currently rated as 6/10. Parveen general approach to the evaluation indicated interest. She was grateful for the opportunity to talk. Orientation was intact for person, place, time, and situation. Lindsay evidenced good understanding of the reason for the appointment. Parve[place] in- session behavior was cooperative. The predominant mood was depressed and anxious with congruent affect. Immediate attention and concentration was grossly intact. Memory functioning appeared to be intact. Level of intellectual functioning compared to same age peers was estimated to be in the average range. Thought processes were found to be generally logical, coherent and goal directed. Thought content appeared normal. Psychomotor retardation was observed. Tone of voice was soft. Expressive speech was marked by emotionality. Eye contact was good. Insight was excellent. Overall, style of interacting during the appointment was appropriate and motivated. Current/Previous Mental Health Treatment: Past psychiatric history was reported as unremarkable for psychotherapy, medication management, or psychiatric hospitalization. History of self or other harm was denied. Current destructive behavior patterns: none indicated or reported. Lindsay did not report history of physical, sexual, or emotional abuse. Disturbance in sleep patterns were indicated as excessive sleeping during hospitalization. Family psychiatric history was not reported. Medical History: Medical conditions were noted in medical records as COPD, coronary artery disease, history of [place], pulmonary hypertension, and atrial fibrillation. Surgical history was not assessed. Developmental history was not assessed. Sensory motor problems were reported in vision. Lindsay denied history of brain injury or seizure disorder. Current medications: please defer to medical record. Of psychiatric interest, she is prescribed Xanax 0.25 Q8 hr and according to the nurse has been receiving it daily. Drug allergies: no known drug allergies. Current physician is Dr. Mauricio Vazquez in [place]. Relevant family medical history was not reported. Recreational Drug Usage: Substance abuse history was not assessed. Family history of alcohol or drug abuse was not assessed. Educational and Vocational Histories: Current level of formal education was not assessed. History of learning problems: none indicated or reported. School- based remedial education services: not assessed. In-school behavior problems: not assessed. Current vocational status: retired. 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 Legal History: Legal history was reported as unremarkable. Family and Social Histories: Lindsay currently lives in [place]. She was living with her spouse of 57 years prior to admission. She was reared in [place], [place]. She described that her father was 60 when she was born and she was born a twin to her mother who was 40. Her father reportedly when she was 2. Her mother was prior to and after her father and she has 9 siblings. She reported that only one sister remains. She has 5 adult sons (ages 61-69) who live nearby in [place]. She has 8 grandchildren and 1 great grandchild. She reported positive support from friends and family; however, she also commented that her son was much more social. She reported that she has friends with whom she speaks on the telephone. Hobbies and recreational activities were reported as none and she commented that this has never been a priority for her. Summary of Assessment Information/Prognosis: Lindsay is a 76-year-old female with unremarkable psychiatric history. She is seen at this time due to symptoms of depression and anxiety following extended hospitalization and the of her spouse. She was quite open about her current feelings, but commented that this had been the first time that she had talked openly. She indicated feeling that she feels angry and is having difficulty crying. She also reported experience of panic-like symptoms for which she is prescribed Xanax at this time. We talked about some deep breathing exercises and she was encouraged to ask for Xanax as needed. However, due to her difficulty with ambulation and fatigue is recommended that she be started on an antidepressant, as the Xanax may just make her more amotivated. Lindsay was taught some strategies on how to manage her emotions. This provider will plan to follow up with her during her hospitalization in order to encourage improvement in self-esteem and grieving. Following current assessment, presenting problem and symptoms appear consistent with a preliminary diagnosis of F43.23 adjustment disorder with mixed depression and anxiety. Current emotional symptoms are of severe Intensity. Overall, prognosis is estimated to be guarded. Diagnostic Impressions (ICD-10): F43.23 adjustment disorder with mixed depression and anxiety TISHA HAWLEY PHD Dec 31, 2016 17:19
[2016-12-31] MEDS: warFARin 2 MG (COUMADIN) TAB PO SCH (17:54)
[2016-12-31] MEDS: ALFUZOSIN HCL 10 MG TAB (UROXATRAL) PO SCH (17:54)
[2016-12-31 18:56] VITALS: BP 105/55
[2016-12-31] MEDS ORDERED: DILTIAZEM 120 MG (CARDIZEM CD) CAP PO NR (18:58)
[2016-12-31] MEDS: DIGOXIN 0.25 MG/ML (LANOXIN) 2 ML AMP IV SCH ×2 (19:39→22:14)
[2016-12-31] MEDS: SIMvastatin 40 MG (ZOCOR) TAB PO SCH (20:01)
[2016-12-31 21:15] VITALS: BP_SYST 105; BP_SYST 115; BP_DIAS 55; BP_DIAS 57; BP_DIAS 75
[2017-01-01] MEDS: DIGOXIN 0.25 MG/ML (LANOXIN) 2 ML AMP IV SCH (00:01)
[2017-01-01] MEDS: CATHETER FLUSH 10 ML SYR IV PRN ×3 (00:01→06:09)
[2017-01-01] MEDS: methylPREDNISolone 40 MG/ML (Solu-MEDROL) VIAL IV SCH ×4 (00:12→17:52)
[2017-01-01] MEDS: ALPRAZolam 0.25 MG (XANAX) TAB PO PRN ×3 (01:55→20:13)
[2017-01-01] MEDS: RT-ALBUTEROL/IPRATROPIUM 3 ML (DUONEB) VIAL INH SCH ×5 (02:36→18:40)
[2017-01-01 05:00] VITALS: BP 111/77
[2017-01-01] MEDS: inSUlin ASPART (NovoLOG) 1 UNIT/0.01 ML (CHARGE PER UNIT) SC SCH ×4 (06:08→20:47)
[2017-01-01] MEDS: FERROUS SULF 325 MG (IRON) TAB PO SCH ×3 (06:09→17:52)
[2017-01-01] MEDS: PANTOPRAZOLE 40 MG (PROTONIX) TAB PO SCH ×2 (06:09→20:13)
[2017-01-01 06:50] LABS: INR 2.6 (0.8-1.4); PROTHROMBIN TIME PATIENT 27.9 SEC (12.2-14.7)
[2017-01-01] MEDS: RT-ALBUTEROL SULF 2.5 MG/3 ML PRE-MIX VIAL IH PRN (07:14)
[2017-01-01] MEDS: RT-ADVAIR HFA 115/21 MCG PER PUFF IH SCH ×2 (07:14→18:40)
[2017-01-01 08:00] VITALS: BP_SYST 84; BP_SYST 96; BP_DIAS 64; BP_DIAS 66
[2017-01-01 08:20] LABS: MEAN PLATELET VOLUME 11.9 FL (7.4-10.4); RED BLOOD COUNT 3.42 10^6/uL (4.35-5.85); RED CELL DISTRIBUTION WIDTH 19.2 % (10.0-14.5); WHITE BLOOD COUNT 15.8 10^3/uL (4.3-11.0)
[2017-01-01 08:27] LABS: ANION GAP 11 MMOL/L (5-14); BLOOD UREA NITROGEN 37 MG/DL (7-18); BUN/CREATININE RATIO 44; CALCIUM 8.1 MG/DL (8.5-10.1); CARBON DIOXIDE 28 MMOL/L (21-32); CHLORIDE 102 MMOL/L (98-107); CREATININE SERUM 0.85 MG/DL (0.60-1.30); GFR ESTIMATED > 60; GLUCOSE 202 MG/DL (70-105); MAGNESIUM 1.9 MG/DL (1.8-2.4); POTASSIUM 4.3 MMOL/L (3.6-5.0); SODIUM 141 MMOL/L (135-145)
--- NOTE | 2017-01-01 08:28 | Progress Note (SOAP) ---
Subjective Subjective/Events-last exam thoracic aaortic aneurysm. Depression. Hypertension. Near syncope. Patient states she had a rough day . Patient feels better today and feels she has some Hope. Orthostatic hypotension Objective Exam Vital Signs Date Time Temp Pulse Resp B/P (MAP) Pulse Ox O2 Delivery O2 Flow Rate FiO2 01/01/17 07:28 93 01/01/17 07:18 93 2.00 01/01/17 05:00 97.8 73 16 111/77 96 High Flow N/C 2.00 01/01/17 02:36 92 2.00 01/01/17 01:07 109 12/31/16 21:59 94 2.00 12/31/16 21:54 94 2.00 12/31/16 21:15 105/55 (72) 105/75 (85) 115/57 (76) 12/31/16 20:00 1.50 12/31/16 18:56 96.4 93 18 105/55 94 High Flow N/C 1.50 12/31/16 18:54 124 12/31/16 15:13 59 95/69 91 12/31/16 14:23 92 2.00 12/31/16 13:56 1.50 12/31/16 12:33 91 12/31/16 09:00 97/66 (76) 87/59 (68) 12/31/16 08:37 2.00 12/31/16 08:30 93 2.00 I & O 01/01/17 07:00 Intake Total 1240 ml Output Total 1505 ml Balance -265 ml Capillary Refill : General Appearance: No Apparent Distress, Thin HEENT: Normal ENT Inspection Neck: Normal Inspection Respiratory: Chest Non Tender, Lungs Clear, Normal Breath Sounds, No Accessory Muscle Use, No Respiratory Distress Cardiovascular: Irregularly Irregular Gastrointestinal: non tender, soft Results Lab Laboratory Tests 12/31/16 12:15 12/31/16 13:15 01/01/17 06:11 Laboratory Tests 12/31/16 12:11: Glucometer 158H 12/31/16 12:15: White Blood Count 12.9H, Red Blood Count 3.14L, Hemoglobin 9.3L, Hematocrit 30L , Mean Corpuscular Volume 96, Mean Corpuscular Hemoglobin 30, Mean Corpuscular Hemoglobin Concent 31L, Red Cell Distribution Width 19.8H, Platelet Count 85L, Mean Platelet Volume 11.1H 12/31/16 13:15: Sodium Level 142, Potassium Level 3.1L, Chloride Level 99, Carbon Dioxide Level 33H, Anion Gap 10, Blood Urea Nitrogen 36H, Creatinine 0.79, Estimat Glomerular Filtration Rate > 60, BUN/Creatinine Ratio 46, Glucose Level 141H, Calcium Level 8.3L, Magnesium Level 1.9, Total Bilirubin 0.4, Aspartate Amino Transf ( AST/SGOT) 20, Alanine Aminotransferase (ALT/SGPT) 38, Alkaline Phosphatase 77, Total Protein 5.2L, Albumin 3.0L, Thyroid Stimulating Hormone (TSH) 1.05 12/31/16 16:05: Glucometer 291H 12/31/16 20:29: Glucometer 252H 01/01/17 06:04: Glucometer 200H 01/01/17 06:11: White Blood Count 15.8H, Red Blood Count 3.42L, Hemoglobin 10.0L, Hematocrit 33L , Mean Corpuscular Volume 95, Mean Corpuscular Hemoglobin 29, Mean Corpuscular Hemoglobin Concent 31L, Red Cell Distribution Width 19.2H, Platelet Count 99L, Mean Platelet Volume 11.9H, Prothrombin Time 27.9H, INR Comment 2.6H Microbiology 12/20/16 Urine Culture - Final, Complete Pseudomonas Aeruginosa Yeast Species Assessment/Plan Assessment/Plan Assess & Plan/Chief Complaint Debility. Atrial fibrillation. COPD. Inability to void. . . Debility. Atrial fibrillation. COPD. Patient complains of short of breathe today. . 12/20/16. Blood pressure better. Apical rate under control. Patient talking. Patient appears somewhat better. Patient is DO NOT RESUSCITATE. . 12/21/16 patient doing much better today. Patient more alert. Blood pressure is within normal limits. Patient not confused. Patient not hypotensive. Patient has hypomagnesemia.. . 12/27/16. Patient feeling better today. Patient not confused. Patient has some hypotension. chest x-ray yesterday showed pneumonia. Patient afebrile. White blood cell count within [place]. . 12/30/16. Patient frustrated. Patient has Improved. To get chest x-ray today. . 12/31/16. Patient feeling much better today.Patient and breathing better. Patient improved since yesterday. . 01/01/17. Debility. Depression. Atrial fibrillation. COPD. Patient feels better today and feels hopeful Clinical Quality Measures DVT/VTE Risk/Contraindication: Risk Factor Score Per Nursin RFS Level Per Nursing on Admit: 4+=Very High ROMAIN MARSH DO Jan 01, 2017 08:28
[2017-01-01] MEDS: NICOTINE PATCH REMOVAL TP SCH (08:46)
[2017-01-01] MEDS: NICOTINE 14 MG (NICODERM) PATCH TD SCH (08:46)
[2017-01-01] MEDS: POLYETHYLENE GLYCOL 17 GM (MIRALAX) PACK PO SCH ×2 (08:48→20:14)
[2017-01-01] MEDS: MENTHOL/ZINC OXIDE (CALMOSEPTINE) 113 GM TUBE TOP SCH ×2 (08:50→20:14)
[2017-01-01] MEDS: CEFEPIME INJECTION 2,000 MG in NS (IVPB) 50 ML IV SCH (08:50)
[2017-01-01] MEDS: FLUTICASONE NASAL SPRAY (FLONASE) 16 GM BTL NS SCH (08:50)
--- NOTE | 2017-01-01 08:54 | Progress Note-Urology ---
Progress Note-Urology Progress Notes/Assess & Plan Progress/Assessment & Plan STILL UNABLE TO VOID. PLAN EITHER ISC QID OR CAMPBELL TO DD AND CHANGE EVERY 4WEEKS AND PRN Final Diagnosis URINE RETENTION JOON SOLORIO MD Jan 01, 2017 8:54 am
[2017-01-01] MEDS ORDERED: DILTIAZEM 120 MG (CARDIZEM CD) CAP PO SCH (09:00)
[2017-01-01] MEDS: HYDROcodone/APAP 10 MG/325 MG (LORTAB) TAB PO PRN (09:27)
[2017-01-01] MEDS: FUROSEMIDE 20 MG (LASIX) TAB PO SCH ×2 (09:27→09:30)
--- NOTE | 2017-01-01 10:19 | Progress Note-Cardiology ---
Cardiology SOAP Progress Note Subjective: Reports she did not have a good night last nigh. Reports episode of fast HR. No c/o CP or SOB with the episode. Occurred without activity. States she feels better this morning. She is reporting numbness in her feet and legs. States she can not stand for very long d/t this. Objective: I&O/Vital Signs Vital Sign - Last 12Hours 01/01/17 01/01/17 01/01/17 01/01/17 02:36 05:00 07:18 07:28 Temp 97.8 Pulse 73 Resp 16 B/P (MAP) 111/77 Pulse Ox 92 96 93 93 O2 Delivery High Flow N/C O2 Flow Rate 2.00 2.00 2.00 01/01/17 01/01/17 08:00 08:00 B/P (MAP) 96/66 (76) Pulse Ox 93 O2 Flow Rate 2.00 Intake and Output 01/01/17 00:00 Intake Total 850 ml Output Total 755 ml Balance 95 ml Weight (Pounds): 109 Weight (Ounces): 4.8 Weight (Calculated Kilograms): [id number] Constitutional: appears stated age, No apparent distress, well-developed, well- nourished Respiratory: No accessory muscle use, No respiratory distress, lungs clear to auscultation Cardiovascular: irregularly irregular, No JVD, S1 and S2, systolic murmur Gastrointestional: soft, round, audible bowel sounds, No spleenomegaly Extremities: No clubbing, No cyanosis, No significant edema Neurologic/Psychiatric: alert, oriented x 3, power is 5/5 both on sides Skin: No rash, No ulcerations Results/Procedures: Labs Laboratory Tests 12/31/16 16:05: Glucometer 291H 12/31/16 20:29: Glucometer 252H 01/01/17 06:04: Glucometer 200H 01/01/17 06:11: White Blood Count 15.8H, Red Blood Count 3.42L, Hemoglobin 10.0L, Hematocrit 33L , Mean Corpuscular Volume 95, Mean Corpuscular Hemoglobin 29, Mean Corpuscular Hemoglobin Concent 31L, Red Cell Distribution Width 19.2H, Platelet Count 99L, Mean Platelet Volume 11.9H, Prothrombin Time 27.9H, INR Comment 2.6H, Sodium Level 141, Potassium Level 4.3, Chloride Level 102, Carbon Dioxide Level 28, Anion Gap 11, Blood Urea Nitrogen 37H, Creatinine 0.85, Estimat Glomerular Filtration Rate > 60, BUN/Creatinine Ratio 44, Glucose Level 202H, Calcium Level 8.1L, Magnesium Level 1.9 01/01/17 10:56: Glucometer 276H Microbiology 12/20/16 Urine Culture - Final, Complete Pseudomonas Aeruginosa Yeast Species A/P: Assessment: Near syncope - no further episodes No postural hypotension demonstrable if bp taken in the right arm. 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 Bonilla on 11-29-16 - TEVAR using 3 sequential devices. The first was a 37 x 20 [place] tag endoprosthesis. The second was a 40x15. The third was a 45 x 20. CTA of the chest at [facility] on 12-02-16 showed development of a small thrombus at the origin of the left subclavian artery. No thrombus seen in the left common carotid artery. Mild cardiomegaly with mildly enlarged main pulmonary artery suggestive of pulmonary hypertension. There is no evidence of a significant stenosis of the internal carotid artery on either side. There is, however, decreased flow velocity in the left common carotid and left internal carotid arteries which may or may not relate to a proximal stenosis in the left common carotid artery. Reversal of flow in the left vertebral artery. 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 Per u/s of 12-31-16 Echocardiogram of November 28, [address] [facility] showed LVEF 55%. Sclerotic arotic valve, no stenosis, overall no significant valve disease. Normal size aortic root. PASP 53mmHg. Pulmonary hypertension - PASP 53 mmHg on echocardiogram of 11-28-16 Cardiac cath of Oct [address] Comer at [facility] in [place], [place] show no angiographic evidence of any hemodynamically significant CAD for which medical tx was advised PAF/flutter - rate improved (H/O PAF) - first documented during hospitalization of November [address] [facility] Warfarin tx - therapeutic INR COPD H/O tobaccoism (50 year smoking history) HTN HLP CAD - h/o cardiac cath in 2009 at [facility] in [place], [place] by Dr. 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 Silva managing H/O anxiety Not a suitable candidate for BB or Cardizem CD d/t orthostatic hypotension CT of the head from 12-20-16 showed age related atrophy Plan: Complex management issue. 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 Carotid u/s of 12-31-16 shows left subclavian occlusion, BP in left arm is 80-90's systolic, BP in right arm is 130's systolic. Continue Cardizem CD for rate control A-fib - will continue Digoxin 0.25 mg daily for rate control Continue warfarin d/t PAF with recent endograft repair. Monitor INR closely. Monitor CBC closely. Mild thrombocytopenia with some improvement following cessation of ASA Continue thigh high SUMMER hose Numbness in her legs/feet bilat and neurogenic bladder of undetermined etiology - MRI should be considered - medical services managing Physician Assessment Physician Assessment Lungs: good air entry Cor: irreg A&R * As documented in our note above that I updated at the time of this dictation * Complex management due to multiple comorbidities that are described above ARIAS SHEPARD INSTRUMENT AND CONTROLS TECHNICIAN Jan 01, 2017 10:19 LANDON FINLEY MD FACP [facility] Jan 01, 2017 13:38
--- NOTE | 2017-01-01 10:28 | Occupational Ther Daily Note ---
OT Current Status-Daily Note Subjective Pt in bed, agrees to treatment. Pt reports pain in upper abdomen and back. RN notified and provided pain medication. Mental Status/Objective Functional [place] Measure 0=Not Assessed/NA 4=Minimal Assistance 1=Total Assistance 5=Supervision or Setup 2=Maximal Assistance 6=Modified [place] 3=Moderate Assistance 7=Complete [place] Attachments: Oxygen ADL-Treatment Pt supine to sit with modified independence and skilled cues for technique. Pt reports dizziness during transition that subsides with rest at EOB. Pt transferred to w/c with max assist using FWW. Sponge bath completed seated in w/ c. Pt able to wash face and upper body with increased time. Assist required for lower body. Pt donned hospital gown with assistance. Combed hair with set up. Pt fatigues quickly with activity and requires extended rest breaks during ADL activity. Increased time required for functional tasks. Sit to stand from w/c with max assist, cues for hand placement and safety. Pt transferred to EOB with max assist using FWW. Sit to supine with assist for bilateral LE. Pt requires total assist to scoot to HOB. Pt positioned in bed with needs met after session. Functional [place] Measure 0=Not Assessed/NA 4=Minimal Assistance 1=Total Assistance 5=Supervision or Setup 2=Maximal Assistance 6=Modified [place] 3=Moderate Assistance 7=Complete IndependenceIRFPAI Quality Coding Scale 6 Independent with activity with or without an assistive device 5 Patient requires set up or clean up by helper. Patient completes activity by themselves 4 Supervision or touching assist (CGA). [place] provide cues , steadying assist 3 The helper provides less than half the effort to complete the activity 2 The helper provides more than half the effort to complete the activity 1 Dependent. The helper does all the effort to complete an activity 7 Patient refused to complete or attempt activity 9 The patient did not perform the activity before the current illness or injury 88 Not attempted due to Medical conditions or safety concerns Grooming (FIM): 5 Bathing (FIM): 2 Shower/Bathe Self (QC): 2 OT Short Term Goals Short Term Goals Time Frame: Dec 26, 2016 Bathing(FIM): 4 Upper Body Dressing(FIM): 5 Lower Body Dressing(FIM): 3 Toileting(FIM): 3 Toilet/Commode Transfer(FIM): 4 1=Demonstrate adherence to instructed precautions during ADL tasks. 2=Patient will verbalize/demonstrate understanding of assistive devices/ modifications for ADL. 3=Patient will improve strength/tolerance for activity to enable patient to perform ADL's. OT Correction Goals Motorman/Woman Goals Time Frame: January 09, 2017 Eating (FIM): 6 Eating (QC): 6 Groomin Oral Hygiene (QC): 6 Bathing(FIM): 5 Shower/Bathe Self (QC): 5 Upper Body Dressing(FIM): 6 Upper Body Dressing (QC): 6 Lower Body Dressing(FIM): 5 Lower Body Dressing (QC): 5 On/Off Footwear (QC): 5 Toileting(FIM): 5 Toileting Hygiene (QC): 5 Toilet/Commode Transfer(FIM): 5 Toilet/Commode Transfer (QC): 5 Shower Transfer(FIM): 5 Additional Goals: 1-Demonstrate ADL Tasks, 2-Verbalize Understanding, 3- ImproveStrength/Brad 1=Demonstrate adherence to instructed precautions during ADL tasks. 2=Patient will verbalize/demonstrate understanding of assistive devices/ modifications for ADL. 3=Patient will improve strength/tolerance for activity to enable patient to perform ADL's. OT Education/Plan Discharge Recommendations Plan/Recommendations: Continue POC Treatment Plan/Plan of Care Patient would benefit from OT for education, treatment and training to promote independence in ADL's, mobility, safety and/or upper extremity function for ADL' s. Plan of Care: ADL Retraining, Functional Mobility, Group Exercise/Act as Ind, UE Funct Exercise/Act Treatment Duration: January 09, 2017 Visits Per Week: 10-12 Minutes/Day (M-F): 60-90 Minutes/Day (Sat/Stone): PRN Agreement: Yes Rehab Potential: Fair Time/GCodes Start Time: 09:00 Stop Time: 10:00 Total Time Billed (hr/min): 60 Billed Treatment Time 1 visit, ADLx4(60minutes) AYAAN PLUNKETT OT Jan 01, 2017 10:28
--- NOTE | 2017-01-01 11:09 | Physical Therapy Daily Note ---
PT Daily Note-Current Subjective Patient in bed pre tx, agrees to PT, has 7/10 pain in mid back. BP obtained at lying down and sitting, standing blood pressure was not obtained because patient could not stand long enough even with therapist assist to get the blood pressure. BP lying down was 96/66 with HR of 93bpm, sitting was 84/64 with HR 96bpm. Appearance Patient BTB post tx with nurse call, phone, tray, all needs met. Patient laying on left side with pillow support, nurse aide in the room. Mental Status Patient Orientation: Person, Place, Situation Attachments: Oxygen 2L of O2 nasal canula Transfers Functional [place] Measure 0=Not Assessed/NA 4=Minimal Assistance 1=Total Assistance 5=Supervision or Setup 2=Maximal Assistance 6=Modified [place] 3=Moderate Assistance 7=Complete IndependenceIRFPAI Quality Coding Scale 6 Independent with activity with or without an assistive device 5 Patient requires set up or clean up by helper. Patient completes activity by themselves 4 Supervision or touching assist (CGA). [place] provide cues , steadying assist 3 The helper provides less than half the effort to complete the activity 2 The helper provides more than half the effort to complete the activity 1 Dependent. The helper does all the effort to complete an activity 7 Patient refused to complete or attempt activity 9 The patient did not perform the activity before the current illness or injury 88 Not attempted due to Medical conditions or safety concerns Transfers (B, C, W/C) (FIM): 2 Scootin Rollin Supine to/from Sit: 3 Sit to/from Stand: 2 Bed to/from Chair: 2 Patient needs cues with every transfer not to pull up on therapist, to use bed or armrests to push up from. Wheelchair Training Does the Pt Use a Wheelchair?: Yes Wheelchair (FIM): 2 Distance: 50'x2 Wheelchair Level of Assist: 4 Type of Wheelchair: Manual Exercises Seated Therapy Exercises: Ankle pumps, Hip flexion, Hip abd/add Seated Reps: 20 LAQ alternating for 5 min NuStep Minutes: 10 NuStep Workload: 3 Treatments bed mobility and transfers, wheelchair mobility, functional strengthening Assessment Current Status: Fair Progress Patient has made some progress. She is very depressed. Patient needs a lot of extra time for mobility and rest breaks between every activity. PT Short Term Goals Short Term Goals Time Frame: Dec 26, 2016 Gait (FIM): 1 Gait Distance Comment: 30' Gait Level of Assist: 4 Gait Assistive Device: FWW Wheelchair Distance: 50'x2 PT Outlet Manager Goals Outlet Manager Goals PT Outlet Manager Goals Time Frame: January 09, 2017 Transfers (B,C,W/C) (FIM): 5 Sit to Lying (QC): 4 Lying-Sitting on Side/Bed(QC): 4 Sit to Stand (QC): 4 Rollin Roll Left to Right (QC): 4 Chair/Rhn-kz-Pssnn Xfer(QC): 4 Car Transfer (QC): 3 Gait (FIM): 2 Distance: 50' Walk 10 feet (QC): 4 Walk 10ft-Uneven Surface(QC): 4 Walk 50ft with 2 Turns (QC): 4 Walk 150 ft (QC): 88 Gait Level of Assist: 4 Gait Assistive Device: FWW Wheelchair (FIM): 5 Distance: 150' Wheelchair Level of Assist: 5 Wheel 50 feet with 2 turns (QC: 4 Stairs (FIM): 2 # of Steps: 4 1 Step (curb) (QC): 3 4 Steps (QC): 3 12 Steps (QC): 88 Stairs Level Of Assist: 4 Picking up an Object (QC): 88 PT Plan Problem List Problem List: Activity Tolerance, Functional Strength, Safety, Balance, Gait, Transfer, Bed Mobility Treatment/Plan Treatment Plan: Continue Plan of Care Treatment Plan: Bed Mobility, Education, Functional Activity Brad, Functional Strength, Group Therapy, Gait, Safety, Therapeutic Exercise, Transfers Treatment Duration: January 09, 2017 Visits Per Week: 10-11 Minutes/Day (M-F): 60-90 Minutes/Day (Sat/Stone): 15-30 Safety Risks/Education Patient Education: Transfer Techniques, Correct Positioning, W/C Management, Safety Issues Teaching Recipient: Patient Teaching Methods: Demonstration, Discussion Response to Teaching: Reinforcement Needed Time/GCodes Time In: 1000 Time Out: 1100 Total Billed Treatment Time: 60 Total Billed Treatment 1 visit [facility] 15 min EX 15 min FA 30 min TANIA GREENBERG PT Jan 01, 2017 11:09
--- NOTE | 2017-01-01 13:04 | Occupational Ther Daily Note ---
OT Current Status-Daily Note Subjective Pt in bed, agrees to treatment. Pt reports back pain, but does not rate. Mental Status/Objective Functional [place] Measure 0=Not Assessed/NA 4=Minimal Assistance 1=Total Assistance 5=Supervision or Setup 2=Maximal Assistance 6=Modified [place] 3=Moderate Assistance 7=Complete [place] ADL-Treatment Functional [place] Measure 0=Not Assessed/NA 4=Minimal Assistance 1=Total Assistance 5=Supervision or Setup 2=Maximal Assistance 6=Modified [place] 3=Moderate Assistance 7=Complete IndependenceIRFPAI Quality Coding Scale 6 Independent with activity with or without an assistive device 5 Patient requires set up or clean up by helper. Patient completes activity by themselves 4 Supervision or touching assist (CGA). [place] provide cues , steadying assist 3 The helper provides less than half the effort to complete the activity 2 The helper provides more than half the effort to complete the activity 1 Dependent. The helper does all the effort to complete an activity 7 Patient refused to complete or attempt activity 9 The patient did not perform the activity before the current illness or injury 88 Not attempted due to Medical conditions or safety concerns Other Treatment Pt supine to sit with moderate assistance. Sit to stand and transfer to w/c with maximal assistance using FWW, skilled cues for technique. Pt performed bilateral UE exercises to promote increased strength needed for ADLs and transfers. Pt performed shoulder flexion, forward press, and biceps curls x12 reps with dowel rory. Rest breaks between exercises. Pt performed graded clothespin activity with bilateral hands to increase washhouse hand/pinch strength. Pt uses gross grasp to complete task. Pt returned to bed with maximal assistance. In bed with needs met and family member present after session. OT Short Term Goals Short Term Goals Time Frame: Dec 26, 2016 Bathing(FIM): 4 Upper Body Dressing(FIM): 5 Lower Body Dressing(FIM): 3 Toileting(FIM): 3 Toilet/Commode Transfer(FIM): 4 1=Demonstrate adherence to instructed precautions during ADL tasks. 2=Patient will verbalize/demonstrate understanding of assistive devices/ modifications for ADL. 3=Patient will improve strength/tolerance for activity to enable patient to perform ADL's. OT Call Center Dispatcher Goals Call Center Dispatcher Goals Time Frame: January 09, 2017 Eating (FIM): 6 Eating (QC): 6 Groomin Oral Hygiene (QC): 6 Bathing(FIM): 5 Shower/Bathe Self (QC): 5 Upper Body Dressing(FIM): 6 Upper Body Dressing (QC): 6 Lower Body Dressing(FIM): 5 Lower Body Dressing (QC): 5 On/Off Footwear (QC): 5 Toileting(FIM): 5 Toileting Hygiene (QC): 5 Toilet/Commode Transfer(FIM): 5 Toilet/Commode Transfer (QC): 5 Shower Transfer(FIM): 5 Additional Goals: 1-Demonstrate ADL Tasks, 2-Verbalize Understanding, 3- ImproveStrength/Brad 1=Demonstrate adherence to instructed precautions during ADL tasks. 2=Patient will verbalize/demonstrate understanding of assistive devices/ modifications for ADL. 3=Patient will improve strength/tolerance for activity to enable patient to perform ADL's. OT Education/Plan Discharge Recommendations Plan/Recommendations: Continue POC Treatment Plan/Plan of Care Patient would benefit from OT for education, treatment and training to promote independence in ADL's, mobility, safety and/or upper extremity function for ADL' s. Plan of Care: ADL Retraining, Functional Mobility, Group Exercise/Act as Ind, UE Funct Exercise/Act Treatment Duration: January 09, 2017 Visits Per Week: 10-12 Minutes/Day (M-F): 60-90 Minutes/Day (Sat/Stone): PRN Agreement: Yes Rehab Potential: Fair Time/GCodes Start Time: 11:30 Stop Time: 12:00 Total Time Billed (hr/min): 30 Billed Treatment Time 1 visit, EXx2(30minutes) AYAAN PLUNKETT OT Jan 01, 2017 13:04
--- NOTE | 2017-01-01 14:28 | Physical Therapy Daily Note ---
PT Daily Note-Current Subjective Patient in bed pre tx, agrees to PT, states she has pain of 4/10 in mid back. Patient has some clothes to put on now. She requests not to put on a sweatshirt because it is too hot, will keep gown on. Will put on a brief and sweatpants. Appearance Patient in bed post tx with nurse call, phone, tray, all needs met, family in the room. Mental Status Patient Orientation: Person, Place, Situation Transfers Functional [place] Measure 0=Not Assessed/NA 4=Minimal Assistance 1=Total Assistance 5=Supervision or Setup 2=Maximal Assistance 6=Modified [place] 3=Moderate Assistance 7=Complete IndependenceIRFPAI Quality Coding Scale 6 Independent with activity with or without an assistive device 5 Patient requires set up or clean up by helper. Patient completes activity by themselves 4 Supervision or touching assist (CGA). [place] provide cues , steadying assist 3 The helper provides less than half the effort to complete the activity 2 The helper provides more than half the effort to complete the activity 1 Dependent. The helper does all the effort to complete an activity 7 Patient refused to complete or attempt activity 9 The patient did not perform the activity before the current illness or injury 88 Not attempted due to Medical conditions or safety concerns Rollin Patient had to roll a couple of time to pull up her sweatpants Exercises Supine Ex: Ankle pumps, Quad Set, Glut sets, Heel Slides, Short Arc Quads, Straight leg raise, Hip abd/add Supine Reps: 20 Treatments bed mobility, lower extremity dressing, functional strengthening Assessment Current Status: Fair Progress Patient dann well, seemed in better spirits PT Short Term Goals Short Term Goals Time Frame: Dec 26, 2016 Gait (FIM): 1 Gait Distance Comment: 30' Gait Level of Assist: 4 Gait Assistive Device: FWW Wheelchair Distance: 50'x2 PT Double End Tenoner Operator Goals Detention Goals PT Double End Tenoner Operator Goals Time Frame: January 09, 2017 Transfers (B,C,W/C) (FIM): 5 Sit to Lying (QC): 4 Lying-Sitting on Side/Bed(QC): 4 Sit to Stand (QC): 4 Rollin Roll Left to Right (QC): 4 Chair/Mii-ak-Pgchz Xfer(QC): 4 Car Transfer (QC): 3 Gait (FIM): 2 Distance: 50' Walk 10 feet (QC): 4 Walk 10ft-Uneven Surface(QC): 4 Walk 50ft with 2 Turns (QC): 4 Walk 150 ft (QC): 88 Gait Level of Assist: 4 Gait Assistive Device: FWW Wheelchair (FIM): 5 Distance: 150' Wheelchair Level of Assist: 5 Wheel 50 feet with 2 turns (QC: 4 Stairs (FIM): 2 # of Steps: 4 1 Step (curb) (QC): 3 4 Steps (QC): 3 12 Steps (QC): 88 Stairs Level Of Assist: 4 Picking up an Object (QC): 88 PT Plan Problem List Problem List: Activity Tolerance, Functional Strength, Safety, Balance, Gait, Transfer, Bed Mobility, ROM Treatment/Plan Treatment Plan: Continue Plan of Care Treatment Plan: Bed Mobility, Education, Functional Activity Brad, Functional Strength, Group Therapy, Gait, Safety, Therapeutic Exercise, Transfers Treatment Duration: January 09, 2017 Visits Per Week: 10-11 Minutes/Day (M-F): 60-90 Minutes/Day (Sat/Stone): 15-30 Safety Risks/Education Patient Education: Correct Positioning, Safety Issues Teaching Recipient: Patient Teaching Methods: Demonstration, Discussion Response to Teaching: Reinforcement Needed Time/GCodes Time In: 1400 Time Out: 1430 Total Billed Treatment Time: 30 Total Billed Treatment 1 visit FA 15 min EX 15 min TANIA GREENBERG PT Jan 01, 2017 14:28
--- NOTE | 2017-01-01 16:17 | PM & R (SOAP) Progress Note ---
Subjective Subjective/Events-last exam Patient was seen in her room earlier today Discussed case with Dr Muñoz Appreciate Dr Cosme consult( [facility] )Antidepressant recommended-See orders Patient still c/o intermittent tingling in feet which was a postop complaint at [facility] where she had her vasc surgery Will check Plain films May require MRI to better image Spinal cord. WBC count climbing Will check U/A Appreciate Dr Davila F/U note Patient still requiring ICP for urinary retention -Willl reinsert Wheeler catheter for now.Patient Min to mod assist for transfers depending on her various medical issues and fatique Review of Systems Musculoskeletal: back pain Objective Exam Last Set of Vital Signs Vital Signs Date Time Temp Pulse Resp B/P (MAP) Pulse Ox O2 Delivery O2 Flow Rate FiO2 01/01/17 15:33 2.00 01/01/17 08:00 93 01/01/17 08:00 96/66 (76) 01/01/17 05:00 97.8 73 16 High Flow N/C Capillary Refill : I&O Intake and Output 01/01/17 00:00 Intake Total 1400 ml Output Total 1855 ml Balance -455 ml Intake Oral 1350 ml IV Total 50 ml Output Urine Total 1855 ml General: Alert, Oriented X3, Cooperative, No Acute Distress HEENT: Atraumatic, PERRLA, EOMI, Mucous Memb Moist/[place], Other (02 by N/C in place) Neck: Supple, No JVD Lungs: Clear to Auscultation Heart: Regular Rate Abdomen: Normal Bowel Sounds, Soft, No Tenderness Extremities: No Edema Neuro: Other (generalized weakness) Results Lab Laboratory Tests 12/30/16 05:30: Prothrombin Time 26.2H, INR Comment 2.4H 12/30/16 05:35: Glucometer 143H 12/30/16 08:47: White Blood Count 9.6, Red Blood Count 3.19L, Hemoglobin 9.3L, Hematocrit 30L, Mean Corpuscular Volume 95, Mean Corpuscular Hemoglobin 29, Mean Corpuscular Hemoglobin Concent 31L, Red Cell Distribution Width 19.2H, Platelet Count 97L, Mean Platelet Volume 11.5H, Sodium Level 141, Potassium Level 3.7, Chloride Level 99, Carbon Dioxide Level 31, Anion Gap 11, Blood Urea Nitrogen 28H, Creatinine 0.78, Estimat Glomerular Filtration Rate > 60, BUN/Creatinine Ratio 36, Glucose Level 241H, Calcium Level 7.6L 12/30/16 10:15: B-Type Natriuretic Peptide 740.1H 12/30/16 16:07: Glucometer 272H 12/30/16 20:10: Glucometer 175H 12/31/16 05:05: Prothrombin Time 28.2H, INR Comment 2.7H, Hemoglobin A1c 5.7, B-Type Natriuretic Peptide 741.5H 12/31/16 05:06: Glucometer 203H 12/31/16 12:11: Glucometer 158H 12/31/16 12:15: White Blood Count 12.9H, Red Blood Count 3.14L, Hemoglobin 9.3L, Hematocrit 30L , Mean Corpuscular Volume 96, Mean Corpuscular Hemoglobin 30, Mean Corpuscular Hemoglobin Concent 31L, Red Cell Distribution Width 19.8H, Platelet Count 85L, Mean Platelet Volume 11.1H 12/31/16 13:15: Sodium Level 142, Potassium Level 3.1L, Chloride Level 99, Carbon Dioxide Level 33H, Anion Gap 10, Blood Urea Nitrogen 36H, Creatinine 0.79, Estimat Glomerular Filtration Rate > 60, BUN/Creatinine Ratio 46, Glucose Level 141H, Calcium Level 8.3L, Magnesium Level 1.9, Total Bilirubin 0.4, Aspartate Amino Transf ( AST/SGOT) 20, Alanine Aminotransferase (ALT/SGPT) 38, Alkaline Phosphatase 77, Total Protein 5.2L, Albumin 3.0L, Thyroid Stimulating Hormone (TSH) 1.05 12/31/16 16:05: Glucometer 291H 12/31/16 20:29: Glucometer 252H 01/01/17 06:04: Glucometer 200H 01/01/17 06:11: White Blood Count 15.8H, Red Blood Count 3.42L, Hemoglobin 10.0L, Hematocrit 33L , Mean Corpuscular Volume 95, Mean Corpuscular Hemoglobin 29, Mean Corpuscular Hemoglobin Concent 31L, Red Cell Distribution Width 19.2H, Platelet Count 99L, Mean Platelet Volume 11.9H, Prothrombin Time 27.9H, INR Comment 2.6H, Sodium Level 141, Potassium Level 4.3, Chloride Level 102, Carbon Dioxide Level 28, Anion Gap 11, Blood Urea Nitrogen 37H, Creatinine 0.85, Estimat Glomerular Filtration Rate > 60, BUN/Creatinine Ratio 44, Glucose Level 202H, Calcium Level 8.1L, Magnesium Level 1.9 01/01/17 10:56: Glucometer 276H Microbiology 12/20/16 Urine Culture - Final, Complete Pseudomonas Aeruginosa Yeast Species Assessment/Plan Assessment General debil s/p Aortic Aneurysm repair Anticoagulation Postop urinary retention following with Wheeler catheter to be reinserted UTI- under treatment with antibiotics Pneumonia on antibiotics HTN with episodes of hypotension associated with dizziness-Cardiology adjusting meds with some irregularity in readings left vs rt arm due to recent vasc surgery COPD on treatments and 02 Abdominal pain -patient has had complete workup for this at [facility] and no findings found IV steroids with hyperglycemia Orthostatic hypotension Mid Back Pain Will check Plain films and then consider MRI Leukocytosis -will check U/A and recheck CBC in AM Reactive depression-Celexa ordered. Team Conference held eariler today See report for full functional update and POC Discharge postponed til next week due to multiple medical issues as outlined above. Plan Continue PT/OT as tolerated Pain Management F/U with Nicky Meyer.Susi and Shira as per their schedule F/U labs and studies as per above plan Trial of celexa for reactive depression Discharge postponed til next week due to above issues Reinsert Wheeler catheter to DD for now. MICHELE YEUNG MD Jan 01, 2017 16:17
--- NOTE | 2017-01-01 17:21 | Diagnostic Imaging Report ---
EXAMINATION: Three views of the lumbar spine. INDICATION: Back pain. FINDINGS: There is straightening of the lumbar spine lordotic curvature. No compression fracture is seen. There is right convexity scoliosis centered around the L3 level. There is minimal retrolisthesis of L4 over L5. Significant disc height loss and endplate sclerosis in the mid to lower lumbar spine discs is seen. Multilevel anterior osteophytes and small posterior osteophytes, particularly at the L3/4 level, are noted. SI joints demonstrate degenerative sclerotic changes. A TEVAR endograft is seen. IMPRESSION: Right convexity scoliosis. Advanced degenerative changes. Dictated by: Dictated on workstation # [id number]
[2017-01-01 17:46] LABS: BILIRUBIN,URINE NEGATIVE (NEGATIVE); KETONES,URINE NEGATIVE (NEGATIVE); LEUKOCYTE ESTERASE ,URINE NEGATIVE (NEGATIVE); NITRITE,URINE NEGATIVE (NEGATIVE); PH,URINE 6 (5-9); PROTEIN,URINE 2+ (NEGATIVE); UROBILINOGEN,URINE NORMAL (NORMAL)
[2017-01-01] MEDS: warFARin 2 MG (COUMADIN) TAB PO SCH (17:52)
[2017-01-01] MEDS: ALFUZOSIN HCL 10 MG TAB (UROXATRAL) PO SCH (17:52)
[2017-01-01 17:55] LABS: WBC,URINE RARE /HPF
[2017-01-01 17:56] LABS: YEAST,URINE FEW /HPF
--- NOTE | 2017-01-01 18:09 | Diagnostic Imaging Report ---
INDICATION: Generalized back pain. Numbness in bilateral feet. TECHNIQUE: AP and lateral views of the thoracic spine, 4:56 p.m. CORRELATION STUDY: None. FINDINGS: The thoracic spine is largely obscured by extensive thoracic aortic stent graft. There is mild S-type scoliotic curvature about the thoracic spine. The thoracic vertebral bodies overall are fairly well maintained. An acute-appearing compression deformity does not appear to be present. Multilevel thoracic spondylosis is present. IMPRESSION: Thoracic spine largely secured by thoracic aortic stent graft. Given this, there is no definite evidence for an acute bony abnormality. Diffuse thoracic spondylosis is suggested. Dictated by: Dictated on workstation # [id number]
[2017-01-01 18:10] VITALS: BP 122/81
[2017-01-01] MEDS: SIMvastatin 40 MG (ZOCOR) TAB PO SCH (20:13)
[2017-01-01] MEDS ORDERED: DILTIAZEM 120 MG (CARDIZEM CD) CAP PO ONE (21:44)
[2017-01-01] MEDS ORDERED: DILTIAZEM 60 MG (CARDIZEM) TAB PO ONE (21:45)
[2017-01-02] MEDS: methylPREDNISolone 40 MG/ML (Solu-MEDROL) VIAL IV SCH ×4 (01:27→17:38)
[2017-01-02 05:48] VITALS: BP 125/68
[2017-01-02] MEDS: PANTOPRAZOLE 40 MG (PROTONIX) TAB PO SCH ×2 (06:18→20:29)
[2017-01-02] MEDS: inSUlin ASPART (NovoLOG) 1 UNIT/0.01 ML (CHARGE PER UNIT) SC SCH ×4 (06:18→20:30)
[2017-01-02] MEDS: FERROUS SULF 325 MG (IRON) TAB PO SCH ×3 (06:18→17:34)
[2017-01-02 06:33] LABS: INR 3.3 (0.8-1.4); PROTHROMBIN TIME PATIENT 33.6 SEC (12.2-14.7)
[2017-01-02] MEDS: RT-ALBUTEROL/IPRATROPIUM 3 ML (DUONEB) VIAL INH SCH ×2 (07:29→20:07)
[2017-01-02] MEDS: RT-ADVAIR HFA 115/21 MCG PER PUFF IH SCH ×2 (07:30→20:07)
[2017-01-02] MEDS: NICOTINE 14 MG (NICODERM) PATCH TD SCH (08:12)
[2017-01-02] MEDS: FLUTICASONE NASAL SPRAY (FLONASE) 16 GM BTL NS SCH (08:12)
[2017-01-02] MEDS: NICOTINE PATCH REMOVAL TP SCH (08:12)
[2017-01-02] MEDS: DIGOXIN 0.125 MG (LANOXIN) TAB PO SCH (08:13)
[2017-01-02] MEDS: DILTIAZEM 120 MG (CARDIZEM CD) CAP PO SCH (08:13)
[2017-01-02] MEDS: MENTHOL/ZINC OXIDE (CALMOSEPTINE) 113 GM TUBE TOP SCH ×2 (08:14→20:32)
--- NOTE | 2017-01-02 08:14 | Progress Note (SOAP) ---
Subjective Subjective/Events-last exam patient's atrial fib went quick the other night. Increased cardiac exam. Patient slept good last night. Patient feels better this morning. Thoracic aortic aneurysm. Atrial fibrillation. Patient had Wheeler catheter put back in Objective Exam Vital Signs Date Time Temp Pulse Resp B/P (MAP) Pulse Ox O2 Delivery O2 Flow Rate FiO2 01/02/17 07:30 2.00 01/02/17 05:48 96.6 74 18 125/68 93 High Flow N/C 1.50 01/02/17 01:00 93 01/01/17 20:09 1.50 01/01/17 19:00 130 01/01/17 18:45 2.00 01/01/17 18:40 92 2.00 01/01/17 18:10 97.4 68 18 122/81 94 High Flow N/C 2.00 2.00 01/01/17 15:33 2.00 I & O 01/02/17 07:00 Intake Total 610 ml Output Total 1250 ml Balance -640 ml Capillary Refill : General Appearance: No Apparent Distress, WD/WN HEENT: Normal ENT Inspection Neck: Full Range of Motion, Normal Inspection Respiratory: Chest Non Tender, Lungs Clear, Normal Breath Sounds, No Accessory Muscle Use, No Respiratory Distress Cardiovascular: Irregularly Irregular Gastrointestinal: non tender, soft Results Lab Laboratory Tests 01/01/17 10:56: Glucometer 276H 01/01/17 16:59: Glucometer 265H 01/01/17 17:00: Urine Color YELLOW, Urine Clarity SLIGHTLY CLOUDY, Urine pH 6, Urine Specific [place] 1.010L, Urine Protein 2+H, Urine Glucose (UA) 1+H, Urine Ketones NEGATIVE, Urine Nitrite NEGATIVE, Urine Bilirubin NEGATIVE, Urine Urobilinogen NORMAL, Urine Leukocyte Esterase NEGATIVE, Urine RBC (Auto) 1+H, Urine RBC 0-2, Urine WBC RARE, Urine Squamous Epithelial Cells 5-10, Urine Crystals NONE, Urine Bacteria FEWH, Urine Casts NONE, Urine Mucus NEGATIVE, Urine Yeast FEWH, Urine Culture Indicated NO 01/01/17 20:44: Glucometer 247H 01/02/17 05:55: Prothrombin Time 33.6H, INR Comment 3.3H, Digoxin Level 1.23 01/02/17 06:03: Glucometer 187H Microbiology 12/20/16 Urine Culture - Final, Complete Pseudomonas Aeruginosa Yeast Species Assessment/Plan Assessment/Plan Assess & Plan/Chief Complaint Debility. Atrial fibrillation. COPD. Inability to void. . . Debility. Atrial fibrillation. COPD. Patient complains of short of breathe today. . 12/20/16. Blood pressure better. Apical rate under control. Patient talking. Patient appears somewhat better. Patient is DO NOT RESUSCITATE. . 12/21/16 patient doing much better today. Patient more alert. Blood pressure is within normal limits. Patient not confused. Patient not hypotensive. Patient has hypomagnesemia.. . 12/27/16. Patient feeling better today. Patient not confused. Patient has some hypotension. chest x-ray yesterday showed pneumonia. Patient afebrile. White blood cell count within [place]. . 12/30/16. Patient frustrated. Patient has Improved. To get chest x-ray today. . 12/31/16. Patient feeling much better today.Patient and breathing better. Patient improved since yesterday. . 01/01/17. Debility. Depression. Atrial fibrillation. COPD. Patient feels better today and feels hopeful. .. 01/02/17. Debility. Atrial fibrillation. COPD. Inability to void. Patient feeling better today. Patient have an MRI Clinical Quality Measures DVT/VTE Risk/Contraindication: Risk Factor Score Per Nursin RFS Level Per Nursing on Admit: 4+=Very High ROMAIN MARSH DO Jan 02, 2017 08:14
--- NOTE | 2017-01-02 08:42 | PM & R (SOAP) Progress Note ---
Subjective Subjective/Events-last exam Patient was seen in her room this AM Feeling better this AM Patient Min to mod assist for transfers Appreciate DR Laura and Cardiology notes Xray Lumbar spine shows advanced Degenerative disease and Scoliosis ceneterd at L3,MRI ordered to see if any cord involvement,Blood Pressure Readings vary fro left to rt arm due to impaired flow to left s/p Vascular repair [facility]. Objective Exam Last Set of Vital Signs Vital Signs Date Time Temp Pulse Resp B/P (MAP) Pulse Ox O2 Delivery O2 Flow Rate FiO2 01/02/17 07:30 2.00 01/02/17 07:21 73 01/02/17 05:48 96.6 18 125/68 93 High Flow N/C Capillary Refill : I&O Intake and Output 01/02/17 00:00 Intake Total 750 ml Output Total 1550 ml Balance -800 ml Intake Oral 700 ml IV Total 50 ml Output Urine Total 1550 ml # Bowel Movements 1 General: Alert, Oriented X3, Cooperative, No Acute Distress HEENT: Atraumatic, PERRLA, EOMI, Mucous Memb Moist/[place], Other (02 by N/C in place) Neck: Supple, No JVD Lungs: Clear to Auscultation Heart: Regular Rate Abdomen: Normal Bowel Sounds, Soft, No Tenderness Extremities: No Edema Neuro: Other (generalized weakness) Results Lab Laboratory Tests 12/30/16 08:47: White Blood Count 9.6, Red Blood Count 3.19L, Hemoglobin 9.3L, Hematocrit 30L, Mean Corpuscular Volume 95, Mean Corpuscular Hemoglobin 29, Mean Corpuscular Hemoglobin Concent 31L, Red Cell Distribution Width 19.2H, Platelet Count 97L, Mean Platelet Volume 11.5H, Sodium Level 141, Potassium Level 3.7, Chloride Level 99, Carbon Dioxide Level 31, Anion Gap 11, Blood Urea Nitrogen 28H, Creatinine 0.78, Estimat Glomerular Filtration Rate > 60, BUN/Creatinine Ratio 36, Glucose Level 241H, Calcium Level 7.6L 12/30/16 10:15: B-Type Natriuretic Peptide 740.1H 12/30/16 16:07: Glucometer 272H 12/30/16 20:10: Glucometer 175H 12/31/16 05:05: Prothrombin Time 28.2H, INR Comment 2.7H, Hemoglobin A1c 5.7, B-Type Natriuretic Peptide 741.5H 12/31/16 05:06: Glucometer 203H 12/31/16 12:11: Glucometer 158H 12/31/16 12:15: White Blood Count 12.9H, Red Blood Count 3.14L, Hemoglobin 9.3L, Hematocrit 30L , Mean Corpuscular Volume 96, Mean Corpuscular Hemoglobin 30, Mean Corpuscular Hemoglobin Concent 31L, Red Cell Distribution Width 19.8H, Platelet Count 85L, Mean Platelet Volume 11.1H 12/31/16 13:15: Sodium Level 142, Potassium Level 3.1L, Chloride Level 99, Carbon Dioxide Level 33H, Anion Gap 10, Blood Urea Nitrogen 36H, Creatinine 0.79, Estimat Glomerular Filtration Rate > 60, BUN/Creatinine Ratio 46, Glucose Level 141H, Calcium Level 8.3L, Magnesium Level 1.9, Total Bilirubin 0.4, Aspartate Amino Transf ( AST/SGOT) 20, Alanine Aminotransferase (ALT/SGPT) 38, Alkaline Phosphatase 77, Total Protein 5.2L, Albumin 3.0L, Thyroid Stimulating Hormone (TSH) 1.05 12/31/16 16:05: Glucometer 291H 12/31/16 20:29: Glucometer 252H 01/01/17 06:04: Glucometer 200H 01/01/17 06:11: White Blood Count 15.8H, Red Blood Count 3.42L, Hemoglobin 10.0L, Hematocrit 33L , Mean Corpuscular Volume 95, Mean Corpuscular Hemoglobin 29, Mean Corpuscular Hemoglobin Concent 31L, Red Cell Distribution Width 19.2H, Platelet Count 99L, Mean Platelet Volume 11.9H, Prothrombin Time 27.9H, INR Comment 2.6H, Sodium Level 141, Potassium Level 4.3, Chloride Level 102, Carbon Dioxide Level 28, Anion Gap 11, Blood Urea Nitrogen 37H, Creatinine 0.85, Estimat Glomerular Filtration Rate > 60, BUN/Creatinine Ratio 44, Glucose Level 202H, Calcium Level 8.1L, Magnesium Level 1.9 01/01/17 10:56: Glucometer 276H 01/01/17 16:59: Glucometer 265H 01/01/17 17:00: Urine Color YELLOW, Urine Clarity SLIGHTLY CLOUDY, Urine pH 6, Urine Specific [place] 1.010L, Urine Protein 2+H, Urine Glucose (UA) 1+H, Urine Ketones NEGATIVE, Urine Nitrite NEGATIVE, Urine Bilirubin NEGATIVE, Urine Urobilinogen NORMAL, Urine Leukocyte Esterase NEGATIVE, Urine RBC (Auto) 1+H, Urine RBC 0-2, Urine WBC RARE, Urine Squamous Epithelial Cells 5-10, Urine Crystals NONE, Urine Bacteria FEWH, Urine Casts NONE, Urine Mucus NEGATIVE, Urine Yeast FEWH, Urine Culture Indicated NO 01/01/17 20:44: Glucometer 247H 01/02/17 05:55: Prothrombin Time 33.6H, INR Comment 3.3H, Digoxin Level 1.23 01/02/17 06:03: Glucometer 187H Microbiology 12/20/16 Urine Culture - Final, Complete Pseudomonas Aeruginosa Yeast Species Assessment/Plan Assessment General debil s/p Aortic Aneurysm repair Anticoagulation Postop urinary retention following with Wheeler catheter to be reinserted UTI- under treatment with antibiotics Pneumonia on antibiotics HTN with episodes of hypotension associated with dizziness-Cardiology adjusting meds with some irregularity in readings left vs rt arm due to recent vasc surgery COPD on treatments and 02 Abdominal pain -patient has had complete workup for this at [facility] and no findings found IV steroids with hyperglycemia Orthostatic hypotension Mid Back Pain Will check Plain films done and MRI ordered for today Leukocytosis -will check U/A-done Negative and recheck CBC done Reactive depression-Celexa ordered. Team Conference held yesterday- See report for full functional update and POC Discharge postponed til next week due to multiple medical issues as outlined above. Plan Continue PT/OT as tolerated Pain Management F/U with Nicky Meyer.Susi and Shira as per their schedule F/U labs and studies as per above plan Trial of celexa for reactive depression-done Discharge postponed til next week due to above issues Reinsert Wheeler catheter to DD for now. due to continued urinary retention MICHELE YEUNG MD Jan 02, 2017 08:42
[2017-01-02] MEDS: POLYETHYLENE GLYCOL 17 GM (MIRALAX) PACK PO SCH ×2 (09:12→20:29)
[2017-01-02] MEDS ORDERED: DILTIAZEM 120 MG (CARDIZEM CD) CAP PO NR ×2 (09:15→10:56)
[2017-01-02] MEDS: ALPRAZolam 0.25 MG (XANAX) TAB PO PRN ×2 (10:24→20:30)
[2017-01-02] MEDS: HYDROcodone/APAP 10 MG/325 MG (LORTAB) TAB PO PRN (10:24)
--- NOTE | 2017-01-02 10:31 | Occupational Ther Daily Note ---
OT Current Status-Daily Note Subjective Pt alert, lying in bed. Pt agreed to therapy. Pt started off no c/o pain. When moving pt c/o SOA, dizziness and nausea. Nrsg notified of c/o. Mental Status/Objective Patient Orientation: Person, Place, Time, Situation Functional [place] Measure 0=Not Assessed/NA 4=Minimal Assistance 1=Total Assistance 5=Supervision or Setup 2=Maximal Assistance 6=Modified [place] 3=Moderate Assistance 7=Complete [place] ADL-Treatment Pt stated that she had already washed her face and upper body and just wanted to cleanse her didier area and buttocks. Pt stated that her legs were swollen, retrograde massage to feet and lower legs. Compression stockings donned. She was worried about her catheter while cleaning. Mod A for supine to sitting EOB then was able to sit EOB with SBA. Pt stated she felt like she was falling out of bed. Pt was sitting straight up with feet flat on the ground. Nrsg in room with medications. Pt required multiple attempts to go from sit to standing. Initially pt would not push up with arms or legs. BARAKAT assisted with mod A then pt was able to bear wt through LE then stand pivot transfer with FWW with min A. Pt requested to keep hospital gown on. Assist to don pants, briefs and socks. Pt required max A to stand with nrsg to applying cream to wound on buttocks and hiking pants up. Pt did not bear wt through LE's. Nrsg monitoring BP, heart rate and pulse. Functional [place] Measure 0=Not Assessed/NA 4=Minimal Assistance 1=Total Assistance 5=Supervision or Setup 2=Maximal Assistance 6=Modified [place] 3=Moderate Assistance 7=Complete IndependenceIRFPAI Quality Coding Scale 6 Independent with activity with or without an assistive device 5 Patient requires set up or clean up by helper. Patient completes activity by themselves 4 Supervision or touching assist (CGA). [place] provide cues , steadying assist 3 The helper provides less than half the effort to complete the activity 2 The helper provides more than half the effort to complete the activity 1 Dependent. The helper does all the effort to complete an activity 7 Patient refused to complete or attempt activity 9 The patient did not perform the activity before the current illness or injury 88 Not attempted due to Medical conditions or safety concerns Lower Body Dressing (FIM): 2 On/Off Footwear (QC): 2 Other Treatment Pt transported to therapy gym via w/c. Sitting in w/c pt was able to complete resistive fine motor activity to increase strength and dexterity to complete daily functional tasks. Pt begun to c/o nausea and dizziness so BARAKAT transported pt back to room and took BP (139/73). Nrsg notified. Attempted to put warm blanket on pt's back to decrease pain, pt stated it wasn't working. PT came and took over care. All needs met in room. OT Short Term Goals Short Term Goals Time Frame: Dec 26, 2016 Bathing(FIM): 4 Upper Body Dressing(FIM): 5 Lower Body Dressing(FIM): 3 Toileting(FIM): 3 Toilet/Commode Transfer(FIM): 4 1=Demonstrate adherence to instructed precautions during ADL tasks. 2=Patient will verbalize/demonstrate understanding of assistive devices/ modifications for ADL. 3=Patient will improve strength/tolerance for activity to enable patient to perform ADL's. OT Fpc Goals Fpc Goals Time Frame: January 09, 2017 Eating (FIM): 6 Eating (QC): 6 Groomin Oral Hygiene (QC): 6 Bathing(FIM): 5 Shower/Bathe Self (QC): 5 Upper Body Dressing(FIM): 6 Upper Body Dressing (QC): 6 Lower Body Dressing(FIM): 5 Lower Body Dressing (QC): 5 On/Off Footwear (QC): 5 Toileting(FIM): 5 Toileting Hygiene (QC): 5 Toilet/Commode Transfer(FIM): 5 Toilet/Commode Transfer (QC): 5 Shower Transfer(FIM): 5 Additional Goals: 1-Demonstrate ADL Tasks, 2-Verbalize Understanding, 3- ImproveStrength/[place] 1=Demonstrate adherence to instructed precautions during ADL tasks. 2=Patient will verbalize/demonstrate understanding of assistive devices/ modifications for ADL. 3=Patient will improve strength/tolerance for activity to enable patient to perform ADL's. OT Education/Plan Discharge Recommendations Plan/Recommendations: Continue POC Treatment Plan/Plan of Care Patient would benefit from OT for education, treatment and training to promote independence in ADL's, mobility, safety and/or upper extremity function for ADL' s. Plan of Care: ADL Retraining, Functional Mobility, Group Exercise/Act as Ind, UE Funct Exercise/Act Treatment Duration: January 09, 2017 Visits Per Week: 10-12 Minutes/Day (M-F): 60-90 Minutes/Day (Sat/Stone): PRN Agreement: Yes Rehab Potential: Fair Time/GCodes Start Time: 08:30 Stop Time: 10:00 Total Time Billed (hr/min): 90 Billed Treatment Time 1 visit-ADL 2 (30 min) FA 3 (50 min) EX 1 (10 min) AVEL RAMIREZ Jan 02, 2017 10:31
--- NOTE | 2017-01-02 10:37 | Progress Note-Cardiology ---
Cardiology SOAP Progress Note Subjective: Sitting up in a w/c at the bedside. C/O feeling anxious. No c/o CP, palpitations, syncope or near syncope. Objective: I&O/Vital Signs Vital Sign - Last 12Hours 01/02/17 01/02/17 01/02/17 01/02/17 01:00 05:48 07:21 07:30 Temp 96.6 Pulse 93 74 73 Resp 18 B/P (MAP) 125/68 Pulse Ox 93 O2 Delivery High Flow N/C O2 Flow Rate 1.50 2.00 01/02/17 08:00 O2 Flow Rate 1.50 Intake and Output 01/02/17 00:00 Intake Total 360 ml Output Total 800 ml Balance -440 ml Weight (Pounds): 109 Weight (Ounces): 4.8 Weight (Calculated Kilograms): [id number] Constitutional: appears stated age, No apparent distress, well-developed, well- nourished Respiratory: No accessory muscle use, No respiratory distress, lungs clear to auscultation Cardiovascular: irregularly irregular, No JVD, S1 and S2, systolic murmur Gastrointestional: soft, round, audible bowel sounds, No spleenomegaly Extremities: No clubbing, No cyanosis, No significant edema Neurologic/Psychiatric: alert, oriented x 3, power is 5/5 both on sides Skin: No rash, No ulcerations Results/Procedures: Labs Laboratory Tests 01/01/17 16:59: Glucometer 265H 01/01/17 17:00: Urine Color YELLOW, Urine Clarity SLIGHTLY CLOUDY, Urine pH 6, Urine Specific [place] 1.010L, Urine Protein 2+H, Urine Glucose (UA) 1+H, Urine Ketones NEGATIVE, Urine Nitrite NEGATIVE, Urine Bilirubin NEGATIVE, Urine Urobilinogen NORMAL, Urine Leukocyte Esterase NEGATIVE, Urine RBC (Auto) 1+H, Urine RBC 0-2, Urine WBC RARE, Urine Squamous Epithelial Cells 5-10, Urine Crystals NONE, Urine Bacteria FEWH, Urine Casts NONE, Urine Mucus NEGATIVE, Urine Yeast FEWH, Urine Culture Indicated NO 01/01/17 20:44: Glucometer 247H 01/02/17 05:55: Prothrombin Time 33.6H, INR Comment 3.3H, Digoxin Level 1.23 01/02/17 06:03: Glucometer 187H Microbiology 12/20/16 Urine Culture - Final, Complete Pseudomonas Aeruginosa Yeast Species A/P: Assessment: Near syncope - no further episodes No postural hypotension demonstrable if bp taken in the right arm. 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 Bonilla on 11-29-16 - TEVAR using 3 sequential devices. The first was a 37 x 20 Oglesby tag endoprosthesis. The second was a 40x15. The third was a 45 x 20. CTA of the chest at [facility] on 12-02-16 showed development of a small thrombus at the origin of the left subclavian artery. No thrombus seen in the left common carotid artery. Mild cardiomegaly with mildly enlarged main pulmonary artery suggestive of pulmonary hypertension. There is no evidence of a significant stenosis of the internal carotid artery on either side. There is, however, decreased flow velocity in the left common carotid and left internal carotid arteries which may or may not relate to a proximal stenosis in the left common carotid artery. Reversal of flow in the left vertebral artery. 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 Per u/s of 12-31-16 Echocardiogram of November 28, 2016 at [facility] showed LVEF 55%. Sclerotic arotic valve, no stenosis, overall no significant valve disease. Normal size aortic root. PASP 53mmHg. Pulmonary hypertension - PASP 53 mmHg on echocardiogram of 11-28-16 Cardiac cath of Oct [address] Comer at [facility] in [place], [place] show no angiographic evidence of any hemodynamically significant CAD for which medical tx was advised PAF/flutter - rate improved (H/O PAF) - first documented during hospitalization of November 2016 at [facility] Warfarin tx - therapeutic INR COPD H/O tobaccoism (50 year smoking history) HTN HLP CAD - h/o cardiac cath in [address] [facility] in [place], [place] by Dr. 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 Silva managing H/O anxiety Not a suitable candidate for BB or Cardizem CD d/t orthostatic hypotension CT of the head from 12-20-16 showed age related atrophy Plan: Complex management issue. 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 Carotid u/s of 12-31-16 shows left subclavian occlusion, BP in left arm is 80-90's systolic, BP in right arm is 130's systolic. Increase Cardizem CD for rate control A-fib - will continue Digoxin 0.25 mg daily for rate control Continue warfarin d/t PAF with recent endograft repair. Monitor INR closely.- Supra-therapeutic INR today - hold warfarin until INR below 3.0 Monitor CBC closely. Mild thrombocytopenia with some improvement following cessation of ASA Continue thigh high SUMMER hose Numbness in her legs/feet bilat and neurogenic bladder of undetermined etiology - MRI should be considered - medical services managing Physician Assessment Physician Assessment Gets tired easily Cor: irreg, tachy Lungs: dec bs at bases Tele: a fib with RVR A&R * As documented in our note above * Complex management due to multiple, concurrently active problems * Increase long-acting dilt * Monitor heart rhythm and rate * Monitor labs ARIAS SHEPARD Jan 02, 2017 10:37 LANDON FINLEY MD FACP [facility] Jan 02, 2017 11:02
--- NOTE | 2017-01-02 11:00 | Physical Therapy Daily Note ---
PT Daily Note-Current Subjective Patient in wheelchair pre tx, just got through with OT, patient complains of 9- 10/10 pain in her back. Patient is anxious, but BP and HR are within normal limits at the beginning of tx. Appearance Patient BTB post tx with nurse call, phone, tray, all needs met. Mental Status Patient Orientation: Person, Place, Situation Attachments: Oxygen Transfers Functional [place] Measure 0=Not Assessed/NA 4=Minimal Assistance 1=Total Assistance 5=Supervision or Setup 2=Maximal Assistance 6=Modified [place] 3=Moderate Assistance 7=Complete IndependenceIRFPAI Quality Coding Scale 6 Independent with activity with or without an assistive device 5 Patient requires set up or clean up by helper. Patient completes activity by themselves 4 Supervision or touching assist (CGA). [place] provide cues , steadying assist 3 The helper provides less than half the effort to complete the activity 2 The helper provides more than half the effort to complete the activity 1 Dependent. The helper does all the effort to complete an activity 7 Patient refused to complete or attempt activity 9 The patient did not perform the activity before the current illness or injury 88 Not attempted due to Medical conditions or safety concerns Transfers (B, C, W/C) (FIM): 1 Scootin Rollin Supine to/from Sit: 2 Sit to/from Stand: 1 Bed to/from Chair: 1 Patient needs cues for safety and hand placement with every treatment, every transfer she will try to pull up on therapist. Patient stood in the standing frame for about 10 min and BP and HR were the followin/93 125bpm seated, 162/82 60bpm seated, 164/85 80bpm seated, 169/100 92bpm standing, 173/97 70bpm standing, 194/122 76bpm standing, 146/101 96bpm seated, 169/96 76bpm seated, 136/79 81bpm seated. Exercises Seated Therapy Exercises: Ankle pumps, Long arc quads, Hip flexion, Hip abd/add Seated Reps: 20 seated hip abduction with yellow theraband x20 Treatments bed mobility and transfer training, functional strengthening, standing Assessment Current Status: Poor Progress Patient states she wants to try and does not want to give up but needs max encouragement to participate and not give up. PT Short Term Goals Short Term Goals Time Frame: Dec 26, 2016 Gait (FIM): 1 Gait Distance Comment: 30' Gait Level of Assist: 4 Gait Assistive Device: FWW Wheelchair Distance: 50'x2 PT Mcc Goals Mcc Goals PT Mcc Goals Time Frame: January 09, 2017 Transfers (B,C,W/C) (FIM): 5 Sit to Lying (QC): 4 Lying-Sitting on Side/Bed(QC): 4 Sit to Stand (QC): 4 Rollin Roll Left to Right (QC): 4 Chair/Bkm-aj-Utdsp Xfer(QC): 4 Car Transfer (QC): 3 Gait (FIM): 2 Distance: 50' Walk 10 feet (QC): 4 Walk 10ft-Uneven Surface(QC): 4 Walk 50ft with 2 Turns (QC): 4 Walk 150 ft (QC): 88 Gait Level of Assist: 4 Gait Assistive Device: FWW Wheelchair (FIM): 5 Distance: 150' Wheelchair Level of Assist: 5 Wheel 50 feet with 2 turns (QC: 4 Stairs (FIM): 2 # of Steps: 4 1 Step (curb) (QC): 3 4 Steps (QC): 3 12 Steps (QC): 88 Stairs Level Of Assist: 4 Picking up an Object (QC): 88 PT Plan Problem List Problem List: Activity Tolerance, Functional Strength, Safety, Balance, Gait, Transfer, Bed Mobility, ROM Treatment/Plan Treatment Plan: Continue Plan of Care Treatment Plan: Bed Mobility, Education, Functional Activity Brad, Functional Strength, Group Therapy, Gait, Safety, Therapeutic Exercise, Transfers Treatment Duration: January 09, 2017 Visits Per Week: 10-11 Minutes/Day (M-F): 60-90 Minutes/Day (Sat/Stone): 15-30 Safety Risks/Education Patient Education: Transfer Techniques, Correct Positioning, Safety Issues Teaching Recipient: Patient Teaching Methods: Demonstration, Discussion Response to Teaching: Reinforcement Needed Time/GCodes Time In: 1000 Time Out: 1100 Total Billed Treatment Time: 60 Total Billed Treatment 1 visit EX 15 min FA 45 min TANIA GREENBERG PT Jan 02, 2017 11:00
--- NOTE | 2017-01-02 14:23 | Diagnostic Imaging Report ---
PROCEDURE: MRI lumbar spine. TECHNIQUE: Multiplanar, multisequence MRI of the lumbar spine was performed without contrast. INDICATION: Low back pain and numbness. FINDINGS: There is mild right convexity scoliosis of the lumbar spine centered at the L3 level. This is associated with about 7 mm right lateral translation of L3 compared to L2 and L4 levels, seen on the coronal view. The alignment at the posterior spinal line also demonstrates abnormalities of minimal retrolisthesis of L3 over L4, L4 over L5, and L5 over S1. The vertebral body heights are preserved. There is a prominent Schmorl's node along the inferior endplate of L3 with sclerotic changes at the endplates. Some reactive edema and fatty changes at endplates are compatible with subacute and chronic reactive marrow changes from disc disease. There is severe disc height loss involving the L2/3, L3/4, and L4/5 levels and moderate disc height loss at L5/S1 with disc desiccation at all levels. A 1 cm lesion, likely a hemangioma is seen in L1 vertebral body. There is no acute or chronic compression fracture. The cauda equina and conus medullaris appear grossly unremarkable. There is an abdominal aortic aneurysm. This patient has known aneurysm with prior TEVAR treatment as seen on radiographs. T12/L1: There is minimal disc herniation and mild facet hypertrophy. No spinal canal or foraminal stenosis. L1/2: There is a minimal disc bulge and jjrj-cv-kccvoxav facet hypertrophy. No central canal, lateral recess, or foraminal stenosis. L2/3: There is a diffuse disc bulge and bilateral uuht-oe-htttxcxk facet hypertrophy. There is mild central canal stenosis reducing the AP dimension of the canal to 9.6 mm. There is shxn-im-ywipdxzv lateral recess stenosis on the right and odaffnxs-ha-gvbtwb lateral recess stenosis on the left. The foramina demonstrate severe stenosis on the left and moderate stenosis of the right. L3/4: There is a diffuse disc bulge, asymmetric to the right and moderate facet hypertrophy. There is fuhi-ym-jehrgjsm central canal stenosis reducing the AP dimension of the canal to 8.9 mm. There is bilateral moderate lateral recess stenosis. The foramina demonstrate severe stenosis on the right and cwpjowxf-oi-pjuozs stenosis on the left. L4/5: There is a diffuse disc bulge. There is mild facet hypertrophy. No central canal stenosis. There is bilateral lateral recess stenosis, mild to moderate on the left and moderate on the right side abutting the descending L5 nerve roots. The foramina demonstrate severe stenosis on the right and mild to moderate stenosis of the left. L5/S1: There is a diffuse disc bulge and bnre-ub-qbvkvean facet hypertrophy. No central canal stenosis. There is bilateral lateral recess stenosis of wjjl-ux-puyduzje degree. The foramina demonstrate severe stenosis bilaterally but worse on the right side. IMPRESSION: Advanced disc degenerative changes. There is right convexity scoliosis and alignment abnormalities as described, likely secondary to the scoliosis and degenerative changes. There is multilevel severe neural foraminal stenosis. Other findings as above. Dictated by: Dictated on workstation # [id number]
--- NOTE | 2017-01-02 14:30 | Physical Therapy Daily Note ---
PT Daily Note-Current Subjective Patient in bed pre tx, she recently just got back from an MRI, patient has 7/10 pain. Patient agrees to bed exercises. Appearance Patient in bed post tx with nurse call, phone, tray, all needs met. Mental Status Patient Orientation: Person, Place, Situation Attachments: Oxygen Transfers Functional [place] Measure 0=Not Assessed/NA 4=Minimal Assistance 1=Total Assistance 5=Supervision or Setup 2=Maximal Assistance 6=Modified [place] 3=Moderate Assistance 7=Complete IndependenceIRFPAI Quality Coding Scale 6 Independent with activity with or without an assistive device 5 Patient requires set up or clean up by helper. Patient completes activity by themselves 4 Supervision or touching assist (CGA). [place] provide cues , steadying assist 3 The helper provides less than half the effort to complete the activity 2 The helper provides more than half the effort to complete the activity 1 Dependent. The helper does all the effort to complete an activity 7 Patient refused to complete or attempt activity 9 The patient did not perform the activity before the current illness or injury 88 Not attempted due to Medical conditions or safety concerns Exercises Supine Ex: Bridging, Ankle pumps, Quad Set, Glut sets, Heel Slides, Short Arc Quads, Straight leg raise, Hip abd/add Supine Reps: 20 Treatments functional strengthening Assessment Current Status: Poor Progress patient very fatigued PT Short Term Goals Short Term Goals Time Frame: Dec 26, 2016 Gait (FIM): 1 Gait Distance Comment: 30' Gait Level of Assist: 4 Gait Assistive Device: FWW Wheelchair Distance: 50'x2 PT Halfway Goals 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 Goals PT Halfway Goals Time Frame: January 09, 2017 Transfers (B,C,W/C) (FIM): 5 Sit to Lying (QC): 4 Lying-Sitting on Side/Bed(QC): 4 Sit to Stand (QC): 4 Rollin Roll Left to Right (QC): 4 Chair/Mzf-ca-Sdhcb Xfer(QC): 4 Car Transfer (QC): 3 Gait (FIM): 2 Distance: 50' Walk 10 feet (QC): 4 Walk 10ft-Uneven Surface(QC): 4 Walk 50ft with 2 Turns (QC): 4 Walk 150 ft (QC): 88 Gait Level of Assist: 4 Gait Assistive Device: FWW Wheelchair (FIM): 5 Distance: 150' Wheelchair Level of Assist: 5 Wheel 50 feet with 2 turns (QC: 4 Stairs (FIM): 2 # of Steps: 4 1 Step (curb) (QC): 3 4 Steps (QC): 3 12 Steps (QC): 88 Stairs Level Of Assist: 4 Picking up an Object (QC): 88 PT Plan Problem List Problem List: Activity Tolerance, Functional Strength, Safety, Balance, Gait, Transfer, Bed Mobility Treatment/Plan Treatment Plan: Continue Plan of Care Treatment Plan: Bed Mobility, Education, Functional Activity Brad, Functional Strength, Group Therapy, Gait, Safety, Therapeutic Exercise, Transfers Treatment Duration: January 09, 2017 Visits Per Week: 10-11 Minutes/Day (M-F): 60-90 Minutes/Day (Sat/Stone): 15-30 Safety Risks/Education Patient Education: Correct Positioning, Safety Issues Teaching Recipient: Patient Teaching Methods: Demonstration, Discussion Response to Teaching: Reinforcement Needed Time/GCodes Time In: 1400 Time Out: 1430 Total Billed Treatment Time: 30 Total Billed Treatment 1 visit EX 30' TANIA GREENBERG PT Jan 02, 2017 14:30
[2017-01-02] MEDS: ALFUZOSIN HCL 10 MG TAB (UROXATRAL) PO SCH (17:34)
[2017-01-02 18:30] VITALS: BP 120/69
[2017-01-02] MEDS: SIMvastatin 40 MG (ZOCOR) TAB PO SCH (20:29)
[2017-01-03] MEDS: methylPREDNISolone 40 MG/ML (Solu-MEDROL) VIAL IV SCH ×4 (01:03→18:56)
[2017-01-03 05:30] VITALS: BP 184/73
[2017-01-03] MEDS: inSUlin ASPART (NovoLOG) 1 UNIT/0.01 ML (CHARGE PER UNIT) SC SCH ×4 (05:59→20:35)
[2017-01-03] MEDS: FERROUS SULF 325 MG (IRON) TAB PO SCH ×3 (06:04→17:33)
[2017-01-03] MEDS: PANTOPRAZOLE 40 MG (PROTONIX) TAB PO SCH ×2 (06:04→20:35)
[2017-01-03] MEDS: RT-ALBUTEROL/IPRATROPIUM 3 ML (DUONEB) VIAL INH SCH ×3 (06:27→20:16)
[2017-01-03] MEDS: RT-ADVAIR HFA 115/21 MCG PER PUFF IH SCH ×2 (06:27→20:16)
[2017-01-03 06:41] VITALS: BP 159/73
[2017-01-03 06:44] LABS: RED BLOOD COUNT 3.17 10^6/uL (4.35-5.85); RED CELL DISTRIBUTION WIDTH 18.9 % (10.0-14.5); WHITE BLOOD COUNT 22.1 10^3/uL (4.3-11.0)
[2017-01-03 06:52] LABS: INR 3.6 (0.8-1.4)
[2017-01-03 07:09] LABS: ANION GAP 11 MMOL/L (5-14); BLOOD UREA NITROGEN 38 MG/DL (7-18); BUN/CREATININE RATIO 48; CALCIUM 8.2 MG/DL (8.5-10.1); CARBON DIOXIDE 27 MMOL/L (21-32); CHLORIDE 102 MMOL/L (98-107); CREATININE SERUM 0.79 MG/DL (0.60-1.30); GFR ESTIMATED > 60; GLUCOSE 202 MG/DL (70-105); SODIUM 140 MMOL/L (135-145)
--- NOTE | 2017-01-03 08:30 | Progress Note (SOAP) ---
Subjective Subjective/Events-last exam patient feeling better today. White blood cell count elevated to 22,000. Thrombocytopenia but improved from yesterday. Patient has Wheeler catheter in. To do CBC the next 2 days Objective Exam Vital Signs Date Time Temp Pulse Resp B/P (MAP) Pulse Ox O2 Delivery O2 Flow Rate FiO2 01/03/17 07:11 91 01/03/17 06:41 76 159/73 01/03/17 06:31 93 2.00 01/03/17 06:27 92 2.00 01/03/17 05:30 97.8 70 18 184/73 92 High Flow N/C 2.00 01/03/17 01:00 101 01/02/17 20:20 1.50 01/02/17 20:15 93 2.00 01/02/17 20:08 78 01/02/17 19:00 100 01/02/17 18:30 97.4 85 16 120/69 91 1.50 01/02/17 15:18 119 I & O 01/03/17 07:00 Intake Total 560 ml Output Total 850 ml Balance -290 ml Capillary Refill : General Appearance: No Apparent Distress, WD/WN HEENT: Normal ENT Inspection Neck: Full Range of Motion, Normal Inspection Respiratory: Chest Non Tender, No Accessory Muscle Use, No Respiratory Distress Cardiovascular: No Murmur Gastrointestinal: non tender, soft Results Lab Laboratory Tests 01/03/17 06:00 Laboratory Tests 01/02/17 11:01: Glucometer 274H 01/02/17 16:01: Glucometer 188H 01/02/17 20:11: Glucometer 220H 01/03/17 05:43: Glucometer 194H 01/03/17 06:00: White Blood Count 22.1H, Red Blood Count 3.17L, Hemoglobin 9.2L, Hematocrit 30L , Mean Corpuscular Volume 95, Mean Corpuscular Hemoglobin 29, Mean Corpuscular Hemoglobin Concent 31L, Red Cell Distribution Width 18.9H, Platelet Count 112L, Mean Platelet Volume 12.0H, Prothrombin Time 36.0H, INR Comment 3.6H, Sodium Level 140, Potassium Level 4.0, Chloride Level 102, Carbon Dioxide Level 27, Anion Gap 11, Blood Urea Nitrogen 38H, Creatinine 0.79, Estimat Glomerular Filtration Rate > 60, BUN/Creatinine Ratio 48, Glucose Level 202H, Calcium Level 8.2L Microbiology 12/20/16 Urine Culture - Final, Complete Pseudomonas Aeruginosa Yeast Species Assessment/Plan Assessment/Plan Assess & Plan/Chief Complaint Debility. Atrial fibrillation. COPD. Inability to void. . . Debility. Atrial fibrillation. COPD. Patient complains of short of breathe today. . 12/20/16. Blood pressure better. Apical rate under control. Patient talking. Patient appears somewhat better. Patient is DO NOT RESUSCITATE. . 12/21/16 patient doing much better today. Patient more alert. Blood pressure is within normal limits. Patient not confused. Patient not hypotensive. Patient has hypomagnesemia.. . 12/27/16. Patient feeling better today. Patient not confused. Patient has some hypotension. chest x-ray yesterday showed pneumonia. Patient afebrile. White blood cell count within [place]. . 12/30/16. Patient frustrated. Patient has Improved. To get chest x-ray today. . 12/31/16. Patient feeling much better today.Patient and breathing better. Patient improved since yesterday. . 01/01/17. Debility. Depression. Atrial fibrillation. COPD. Patient feels better today and feels hopeful. .. 01/02/17. Debility. Atrial fibrillation. COPD. Inability to void. Patient feeling better today. Patient have an MRI. . 01/03/17 debility. Atrial fibrillation. COPD. Wheeler catheter. Patient has leukocytosis with low platelet count Clinical Quality Measures DVT/VTE Risk/Contraindication: Risk Factor Score Per Nursin RFS Level Per Nursing on Admit: 4+=Very High ROMAIN MARSH DO Jan 03, 2017 08:30
[2017-01-03 09:03] LABS: BILIRUBIN,URINE NEGATIVE (NEGATIVE); KETONES,URINE NEGATIVE (NEGATIVE); LEUKOCYTE ESTERASE ,URINE 3+ (NEGATIVE); NITRITE,URINE NEGATIVE (NEGATIVE); PH,URINE 6 (5-9); PROTEIN,URINE 3+ (NEGATIVE); UROBILINOGEN,URINE NORMAL (NORMAL)
[2017-01-03 09:05] VITALS: BP 149/84
[2017-01-03] MEDS: FLUTICASONE NASAL SPRAY (FLONASE) 16 GM BTL NS SCH (09:06)
[2017-01-03] MEDS: POLYETHYLENE GLYCOL 17 GM (MIRALAX) PACK PO SCH ×2 (09:07→20:36)
[2017-01-03] MEDS: DILTIAZEM 240 MG (CARDIZEM CD) CAP PO SCH ×2 (09:07→09:42)
[2017-01-03] MEDS: MENTHOL/ZINC OXIDE (CALMOSEPTINE) 113 GM TUBE TOP SCH ×2 (09:07→20:36)
[2017-01-03] MEDS: NICOTINE PATCH REMOVAL TP SCH (09:07)
[2017-01-03] MEDS: NICOTINE 14 MG (NICODERM) PATCH TD SCH (09:07)
[2017-01-03] MEDS: DIGOXIN 0.125 MG (LANOXIN) TAB PO SCH (09:07)
[2017-01-03 09:15] LABS: SQUAMOUS EPITHELIAL CELL,UR 0-2 /HPF; WBC,URINE >100 /HPF; YEAST,URINE LARGE /HPF
--- NOTE | 2017-01-03 09:42 | PM & R (SOAP) Progress Note ---
Subjective Subjective/Events-last exam Patient was seen in her room this AM Patient states that she is feeling better but still with significant Back pain when standing which slows her progress Dizziness better with less hypotension with cardiologys adjustment in meds MRI of Lumbar spine shows significant DJD of Lumbar spine which may certainly be conributing to her slow progres with therapies and some of her symptoms, Appreciate Dr murphy note and oprders and current labs Patient with Leukocytosis and abnormal U/A IV antibiotics ordered empirically.Serila labs ordered,Discussed case with Dr Silva today Wheeler catheter reinserted for now.Patient Mod to [place] assist for transfers. Review of Systems Genitourinary: Retention Objective Exam Last Set of Vital Signs Vital Signs Date Time Temp Pulse Resp B/P (MAP) Pulse Ox O2 Delivery O2 Flow Rate FiO2 01/03/17 09:05 95 149/84 01/03/17 06:31 93 2.00 01/03/17 05:30 97.8 18 High Flow N/C Capillary Refill : I&O Intake and Output 01/03/17 00:00 Intake Total 560 ml Output Total 850 ml Balance -290 ml Intake Oral 560 ml Output Urine Total 850 ml General: Alert, Oriented X3, Cooperative, No Acute Distress HEENT: Atraumatic, PERRLA, EOMI, Mucous Memb Moist/[place], Other (02 by N/C in place) Neck: Supple, No JVD Lungs: Clear to Auscultation Heart: Regular Rate Abdomen: Normal Bowel Sounds, Soft, No Tenderness Extremities: No Edema Neuro: Other (generalized weakness) Results Lab Laboratory Tests 12/31/16 12:11: Glucometer 158H 12/31/16 12:15: White Blood Count 12.9H, Red Blood Count 3.14L, Hemoglobin 9.3L, Hematocrit 30L , Mean Corpuscular Volume 96, Mean Corpuscular Hemoglobin 30, Mean Corpuscular Hemoglobin Concent 31L, Red Cell Distribution Width 19.8H, Platelet Count 85L, Mean Platelet Volume 11.1H 12/31/16 13:15: Sodium Level 142, Potassium Level 3.1L, Chloride Level 99, Carbon Dioxide Level 33H, Anion Gap 10, Blood Urea Nitrogen 36H, Creatinine 0.79, Estimat Glomerular Filtration Rate > 60, BUN/Creatinine Ratio 46, Glucose Level 141H, Calcium Level 8.3L, Magnesium Level 1.9, Total Bilirubin 0.4, Aspartate Amino Transf ( AST/SGOT) 20, Alanine Aminotransferase (ALT/SGPT) 38, Alkaline Phosphatase 77, Total Protein 5.2L, Albumin 3.0L, Thyroid Stimulating Hormone (TSH) 1.05 12/31/16 16:05: Glucometer 291H 12/31/16 20:29: Glucometer 252H 01/01/17 06:04: Glucometer 200H 01/01/17 06:11: White Blood Count 15.8H, Red Blood Count 3.42L, Hemoglobin 10.0L, Hematocrit 33L , Mean Corpuscular Volume 95, Mean Corpuscular Hemoglobin 29, Mean Corpuscular Hemoglobin Concent 31L, Red Cell Distribution Width 19.2H, Platelet Count 99L, Mean Platelet Volume 11.9H, Prothrombin Time 27.9H, INR Comment 2.6H, Sodium Level 141, Potassium Level 4.3, Chloride Level 102, Carbon Dioxide Level 28, Anion Gap 11, Blood Urea Nitrogen 37H, Creatinine 0.85, Estimat Glomerular Filtration Rate > 60, BUN/Creatinine Ratio 44, Glucose Level 202H, Calcium Level 8.1L, Magnesium Level 1.9 01/01/17 10:56: Glucometer 276H 01/01/17 16:59: Glucometer 265H 01/01/17 17:00: Urine Color YELLOW, Urine Clarity SLIGHTLY CLOUDY, Urine pH 6, Urine Specific [place] 1.010L, Urine Protein 2+H, Urine Glucose (UA) 1+H, Urine Ketones NEGATIVE, Urine Nitrite NEGATIVE, Urine Bilirubin NEGATIVE, Urine Urobilinogen NORMAL, Urine Leukocyte Esterase NEGATIVE, Urine RBC (Auto) 1+H, Urine RBC 0-2, Urine WBC RARE, Urine Squamous Epithelial Cells 5-10, Urine Crystals NONE, Urine Bacteria FEWH, Urine Casts NONE, Urine Mucus NEGATIVE, Urine Yeast FEWH, Urine Culture Indicated NO 01/01/17 20:44: Glucometer 247H 01/02/17 05:55: Prothrombin Time 33.6H, INR Comment 3.3H, Digoxin Level 1.23 01/02/17 06:03: Glucometer 187H 01/02/17 11:01: Glucometer 274H 01/02/17 16:01: Glucometer 188H 01/02/17 20:11: Glucometer 220H 01/03/17 05:43: Glucometer 194H 01/03/17 06:00: White Blood Count 22.1H, Red Blood Count 3.17L, Hemoglobin 9.2L, Hematocrit 30L , Mean Corpuscular Volume 95, Mean Corpuscular Hemoglobin 29, Mean Corpuscular Hemoglobin Concent 31L, Red Cell Distribution Width 18.9H, Platelet Count 112L, Mean Platelet Volume 12.0H, Prothrombin Time 36.0H, INR Comment 3.6H, Sodium Level 140, Potassium Level 4.0, Chloride Level 102, Carbon Dioxide Level 27, Anion Gap 11, Blood Urea Nitrogen 38H, Creatinine 0.79, Estimat Glomerular Filtration Rate > 60, BUN/Creatinine Ratio 48, Glucose Level 202H, Calcium Level 8.2L 01/03/17 08:55: Urine Color YELLOW, Urine Clarity SLIGHTLY CLOUDY, Urine pH 6, Urine Specific [place] 1.020, Urine Protein 3+H, Urine Glucose (UA) NEGATIVE, Urine Ketones NEGATIVE, Urine Nitrite NEGATIVE, Urine Bilirubin NEGATIVE, Urine Urobilinogen NORMAL, Urine Leukocyte Esterase 3+H, Urine RBC (Auto) 4+H, Urine RBC 2-5H, Urine WBC >100H, Urine Squamous Epithelial Cells 0-2, Urine Crystals NONE, Urine Bacteria TRACE, Urine Casts NONE, Urine Mucus NEGATIVE, Urine Yeast LARGEH , Urine Culture Indicated YES Microbiology 12/20/16 Urine Culture - Final, Complete Pseudomonas Aeruginosa Yeast Species Assessment/Plan Assessment General debil s/p Aortic Aneurysm repair 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 Team Conference held 01/01/17- See report for full functional update and POC Discharge postponed til next week due to multiple medical issues as outlined above. Plan Continue PT/OT as tolerated Pain Management-for additional DX of DJD Lumbar spine F/U with Nicky Meyer.Sary as per their schedule F/U labs and studies as per above plan Trial of celexa for reactive depression-done Discharge postponed til next week due to above issues Reinsert Wheeler catheter to DD for now. due to continued urinary retention MICHELE YEUNG MD Jan 03, 2017 09:42
[2017-01-03] MEDS: DILTIAZEM 120 MG (CARDIZEM CD) CAP PO SCH (09:43)
[2017-01-03] MEDS: cefTRIAXone INJECTION 1,000 MG in NS (IVPB) 50 ML IV SCH (09:43)
--- NOTE | 2017-01-03 10:02 | Diagnostic Imaging Report ---
INDICATION: Leukocytosis. TECHNIQUE: Two-view chest 9:32 AM. CORRELATION STUDY: 12/30/2016. FINDINGS: Heart size is enlarged. Vasculature has increased since prior study. There is extensive stent-graft within large portion of the thoracic aorta again demonstrated. The approximately 9-cm mass over the left upper chest relatively stable. There are prominent interstitial markings compatible with Far[place] B lines with interstitial edema. Bilateral pleural effusions are present. Atelectasis and/ or infiltrate, lung bases right greater than left. Slightly accentuated thoracic kyphotic curvature with degenerative changes of the thoracic spine. IMPRESSION: 1. Development of changes of congestive heart failure including interstitial edema and bilateral pleural effusions. 2. Atelectasis and/or infiltrate versus perhaps edema about the lung bases right greater than left. 3. Large endovascular stent-graft the thoracic aorta. The approximately 9-cm mass of the left upper lung remains present. Dictated by: Dictated on workstation # [id number]
[2017-01-03] MEDS: ACETAMINOPHEN 325 MG TABLET/CAPLET (TYLENOL) PO PRN ×2 (10:05→17:33)
--- NOTE | 2017-01-03 11:07 | Physical Therapy Daily Note ---
PT Daily Note-Current Subjective Patient in wheelchair pre tx, just got done with OT. Patient states she has 10/ 10 pain in her back. Immediately upon starting physical therapy she states that she cant do it and she wants go back to bed. Therapist explains the benefits of PT and how she needs to really try and maximize the benefit of having rehab right now. Appearance Patient BTB post tx with nurse call, phone, tray, all needs met. Mental Status Patient Orientation: Person, Place, Situation Attachments: Oxygen 2L O2 nasal canula Transfers Functional [place] Measure 0=Not Assessed/NA 4=Minimal Assistance 1=Total Assistance 5=Supervision or Setup 2=Maximal Assistance 6=Modified [place] 3=Moderate Assistance 7=Complete IndependenceIRFPAI Quality Coding Scale 6 Independent with activity with or without an assistive device 5 Patient requires set up or clean up by helper. Patient completes activity by themselves 4 Supervision or touching assist (CGA). [place] provide cues , steadying assist 3 The helper provides less than half the effort to complete the activity 2 The helper provides more than half the effort to complete the activity 1 Dependent. The helper does all the effort to complete an activity 7 Patient refused to complete or attempt activity 9 The patient did not perform the activity before the current illness or injury 88 Not attempted due to Medical conditions or safety concerns Transfers (B, C, W/C) (FIM): 1 Scootin Rollin Supine to/from Sit: 2 Sit to/from Stand: 1 Bed to/from Chair: 1 Patient needs cues for safety and hand placement during every treatment, she will always try to pull up from therapist. Wheelchair Training Wheelchair (FIM): 2 Distance: 50' Wheelchair Level of Assist: 4 Type of Wheelchair: Manual Patient needs assist with turning and helping push herself forward. She uses both arms to propel. Very slow. Exercises NuStep Minutes: 3 NuStep Workload: 1 Treatments bed mobility and transfers, functional strengthening Assessment Current Status: Regressing, Refused Treatment Patient eventually refused treatment. She was transferred to the [facility] from the wheelchair, setting was on the lowest resistance. Patient went for a couple of minutes and states she was done and had to go to bed due to pain and light headedness. Her BP was taken and it was 179/75 and HR 80bpm. Advised patient to just take a rest and let her BP come back down before starting again. Patient refused. Again the benefits of PT were explained to patient and she still refuses. When asked "are you refusing physical therapy?", patient says no but she has to go back to bed now. She asks how long do we have left in PT and she says she can't go that long and she has to go back to bed now and she cannot continue. When asked again if she is refusing physical therapy she says "yes". Patient was taken back to her bed in her room as stated above. PT Short Term Goals Short Term Goals Time Frame: Dec 26, 2016 Gait (FIM): 1 Gait Distance Comment: 30' Gait Level of Assist: 4 Gait Assistive Device: FWW Wheelchair Distance: 50'x2 PT Usp Goals Computer Recycling Worker Goals PT Usp Goals Time Frame: January 09, 2017 Transfers (B,C,W/C) (FIM): 5 Sit to Lying (QC): 4 Lying-Sitting on Side/Bed(QC): 4 Sit to Stand (QC): 4 Rollin Roll Left to Right (QC): 4 Chair/Ywv-cu-Glszo Xfer(QC): 4 Car Transfer (QC): 3 Gait (FIM): 2 Distance: 50' Walk 10 feet (QC): 4 Walk 10ft-Uneven Surface(QC): 4 Walk 50ft with 2 Turns (QC): 4 Walk 150 ft (QC): 88 Gait Level of Assist: 4 Gait Assistive Device: FWW Wheelchair (FIM): 5 Distance: 150' Wheelchair Level of Assist: 5 Wheel 50 feet with 2 turns (QC: 4 Stairs (FIM): 2 # of Steps: 4 1 Step (curb) (QC): 3 4 Steps (QC): 3 12 Steps (QC): 88 Stairs Level Of Assist: 4 Picking up an Object (QC): 88 PT Plan Problem List Problem List: Activity Tolerance, Functional Strength, Safety, Balance, Gait, Transfer, Bed Mobility, ROM Treatment/Plan Treatment Plan: Continue Plan of Care Treatment Plan: Bed Mobility, Education, Functional Activity Brad, Functional Strength, Group Therapy, Gait, Safety, Therapeutic Exercise, Transfers Treatment Duration: January 09, 2017 Visits Per Week: 10-11 Minutes/Day (M-F): 60-90 Minutes/Day (Sat/Stone): 15-30 Safety Risks/Education Patient Education: Transfer Techniques, Correct Positioning, W/C Management, Safety Issues Teaching Recipient: Patient Teaching Methods: Demonstration, Discussion Response to Teaching: Reinforcement Needed Time/GCodes Time In: 1030 Time Out: 1055 Total Billed Treatment Time: 25 Total Billed Treatment 1 visit [facility] 10' FA 15' TANIA GREENBERG PT Jan 03, 2017 11:07
--- NOTE | 2017-01-03 12:54 | Occupational Ther Daily Note ---
OT Current Status-Daily Note Subjective Pt agreeable to treatment with encouragement. Pt reports back pain. RN was notified and provided pain medication. Mental Status/Objective Functional [place] Measure 0=Not Assessed/NA 4=Minimal Assistance 1=Total Assistance 5=Supervision or Setup 2=Maximal Assistance 6=Modified [place] 3=Moderate Assistance 7=Complete [place] ADL-Treatment Pt just returning from x-ray when therapist arrives. Pt transferred from radiology w/c to her w/c with maximal assistance. Pt states she has already washed face this morning and declined bathing or changing clothes. Combed hair with set up. Pt states she feels like she may need to have a BM. Pt dependent for transfer w/ c <-> [facility] [place]. Pt required assist x2 for toileting (one to assist with standing and one to assist with hygiene and clothing management.) Total assist to don clean Depends and pants. Pt has poor standing balance and posture and provides minimal participation in mobility or ADL tasks, stating "I can't do it." Much encouragement and education is provided regarding benefits of participating in therapy and safety for functional tasks. Functional [place] Measure 0=Not Assessed/NA 4=Minimal Assistance 1=Total Assistance 5=Supervision or Setup 2=Maximal Assistance 6=Modified [place] 3=Moderate Assistance 7=Complete IndependenceIRFPAI Quality Coding Scale 6 Independent with activity with or without an assistive device 5 Patient requires set up or clean up by helper. Patient completes activity by themselves 4 Supervision or touching assist (CGA). [place] provide cues , steadying assist 3 The helper provides less than half the effort to complete the activity 2 The helper provides more than half the effort to complete the activity 1 Dependent. The helper does all the effort to complete an activity 7 Patient refused to complete or attempt activity 9 The patient did not perform the activity before the current illness or injury 88 Not attempted due to Medical conditions or safety concerns Lower Body Dressing (FIM): 1 Lower Body Dressing (QC): 1 Toileting (FIM): 1 Toileting Hygiene (QC): 1 Toilet/Commode Transfer (FIM): 1 Toilet Transfer (QC): 1 Other Treatment Pt to therapy gym via w/c. Pt participated in UE activity to promote increased strength and activity tolerance needed for functional tasks. Arm arc activity completed with bilateral UE. Pt demonstrates adequate ROM for task, but fatigues quickly and requires extended rest break. Pt completed resistance peg activity with bilateral UE to increase coordination skills and strength. Increased time for activity. Pt performed AROM x10 for shoulder flexion and elbow flex/ext with rest breaks between exercises. Pt sitting in w/c with PT present after session. OT Short Term Goals Short Term Goals Time Frame: Dec 26, 2016 Bathing(FIM): 4 Upper Body Dressing(FIM): 5 Lower Body Dressing(FIM): 3 Toileting(FIM): 3 Toilet/Commode Transfer(FIM): 4 1=Demonstrate adherence to instructed precautions during ADL tasks. 2=Patient will verbalize/demonstrate understanding of assistive devices/ modifications for ADL. 3=Patient will improve strength/tolerance for activity to enable patient to perform ADL's. OT Mechanic Industrial Truck Goals Mechanic Industrial Truck Goals Time Frame: January 09, 2017 Eating (FIM): 6 Eating (QC): 6 Groomin Oral Hygiene (QC): 6 Bathing(FIM): 5 Shower/Bathe Self (QC): 5 Upper Body Dressing(FIM): 6 Upper Body Dressing (QC): 6 Lower Body Dressing(FIM): 5 Lower Body Dressing (QC): 5 On/Off Footwear (QC): 5 Toileting(FIM): 5 Toileting Hygiene (QC): 5 Toilet/Commode Transfer(FIM): 5 Toilet/Commode Transfer (QC): 5 Shower Transfer(FIM): 5 Additional Goals: 1-Demonstrate ADL Tasks, 2-Verbalize Understanding, 3- ImproveStrength/Brad 1=Demonstrate adherence to instructed precautions during ADL tasks. 2=Patient will verbalize/demonstrate understanding of assistive devices/ modifications for ADL. 3=Patient will improve strength/tolerance for activity to enable patient to perform ADL's. OT Education/Plan Discharge Recommendations Plan/Recommendations: Continue POC Treatment Plan/Plan of Care Patient would benefit from OT for education, treatment and training to promote independence in ADL's, mobility, safety and/or upper extremity function for ADL' s. Plan of Care: ADL Retraining, Functional Mobility, Group Exercise/Act as Ind, UE Funct Exercise/Act Treatment Duration: January 09, 2017 Visits Per Week: 10-12 Minutes/Day (M-F): 60-90 Minutes/Day (Sat/Stone): PRN Agreement: Yes Rehab Potential: Fair Time/GCodes Start Time: 09:40 Stop Time: 10:30 Total Time Billed (hr/min): 50 Billed Treatment Time 1 visit, ADL(20minutes), EXx2(30minutes) AYAAN PLUNKETT OT Jan 03, 2017 12:53
--- NOTE | 2017-01-03 13:00 | Occupational Ther Daily Note ---
OT Current Status-Daily Note Subjective Pt in bed, agrees to therapy. Mental Status/Objective Functional [place] Measure 0=Not Assessed/NA 4=Minimal Assistance 1=Total Assistance 5=Supervision or Setup 2=Maximal Assistance 6=Modified [place] 3=Moderate Assistance 7=Complete [place] ADL-Treatment Functional [place] Measure 0=Not Assessed/NA 4=Minimal Assistance 1=Total Assistance 5=Supervision or Setup 2=Maximal Assistance 6=Modified [place] 3=Moderate Assistance 7=Complete IndependenceIRFPAI Quality Coding Scale 6 Independent with activity with or without an assistive device 5 Patient requires set up or clean up by helper. Patient completes activity by themselves 4 Supervision or touching assist (CGA). [place] provide cues , steadying assist 3 The helper provides less than half the effort to complete the activity 2 The helper provides more than half the effort to complete the activity 1 Dependent. The helper does all the effort to complete an activity 7 Patient refused to complete or attempt activity 9 The patient did not perform the activity before the current illness or injury 88 Not attempted due to Medical conditions or safety concerns Other Treatment Pt completed bilateral hand roll cutter exercises x20 reps with resistance foam to promote increased roll cutter strength needed for ADL tasks. Pt performed putty activity with mild resistance putty to increase strength. Pt able to remove small beads from putty with increased time. Pt's meal tray arrived. Assisted pt to set up for meal. Pt eating lunch with other needs met after session. OT Short Term Goals Short Term Goals Time Frame: Dec 26, 2016 Bathing(FIM): 4 Upper Body Dressing(FIM): 5 Lower Body Dressing(FIM): 3 Toileting(FIM): 3 Toilet/Commode Transfer(FIM): 4 1=Demonstrate adherence to instructed precautions during ADL tasks. 2=Patient will verbalize/demonstrate understanding of assistive devices/ modifications for ADL. 3=Patient will improve strength/tolerance for activity to enable patient to perform ADL's. OT Gasoline Catalyst Operator Goals Gasoline Catalyst Operator Goals Time Frame: January 09, 2017 Eating (FIM): 6 Eating (QC): 6 Groomin Oral Hygiene (QC): 6 Bathing(FIM): 5 Shower/Bathe Self (QC): 5 Upper Body Dressing(FIM): 6 Upper Body Dressing (QC): 6 Lower Body Dressing(FIM): 5 Lower Body Dressing (QC): 5 On/Off Footwear (QC): 5 Toileting(FIM): 5 Toileting Hygiene (QC): 5 Toilet/Commode Transfer(FIM): 5 Toilet/Commode Transfer (QC): 5 Shower Transfer(FIM): 5 Additional Goals: 1-Demonstrate ADL Tasks, 2-Verbalize Understanding, 3- ImproveStrength/Brad 1=Demonstrate adherence to instructed precautions during ADL tasks. 2=Patient will verbalize/demonstrate understanding of assistive devices/ modifications for ADL. 3=Patient will improve strength/tolerance for activity to enable patient to perform ADL's. OT Education/Plan Discharge Recommendations Plan/Recommendations: Continue POC Treatment Plan/Plan of Care Patient would benefit from OT for education, treatment and training to promote independence in ADL's, mobility, safety and/or upper extremity function for ADL' s. Plan of Care: ADL Retraining, Functional Mobility, Group Exercise/Act as Ind, UE Funct Exercise/Act Treatment Duration: January 09, 2017 Visits Per Week: 10-12 Minutes/Day (M-F): 60-90 Minutes/Day (Sat/Stone): PRN Agreement: Yes Rehab Potential: Fair Time/GCodes Start Time: 11:50 Stop Time: 12:00 Total Time Billed (hr/min): 10 Billed Treatment Time 1 visit, EX(10minutes) AYAAN PLUNKETT OT Jan 03, 2017 13:00
--- NOTE | 2017-01-03 13:59 | Therapy Group Daily Note ---
Therapy Daily Group Note Patient Education Topic Home Safety Other/Notes Pt was an active participant in OT group. She introduced herself by sharing her rehab story with others. She contributed to group discussion /education on home safety and was able to identify ways that she has done or will do to be safer at home (for example, she got a shower chair). She required the assistance of two people to transfer to a w/c before group and care was transferred to PT after group. Start Time: 12:30 Stop Time: 13:30 Total Billed Treatment Time: 60 Total Billed Treatment visit, 60 minutes group NISH JESSICA OT Jan 03, 2017 13:59
--- NOTE | 2017-01-03 14:10 | Physical Therapy Daily Note ---
PT Daily Note-Current Subjective Patient in wheelchair pre tx, she just got through with group therapy, she has pain of 6/10 in her back. Appearance Patient in bed post tx with nurse call, phone, tray, all needs met. Mental Status Patient Orientation: Person, Place, Situation Attachments: Oxygen Transfers Functional [place] Measure 0=Not Assessed/NA 4=Minimal Assistance 1=Total Assistance 5=Supervision or Setup 2=Maximal Assistance 6=Modified [place] 3=Moderate Assistance 7=Complete IndependenceIRFPAI Quality Coding Scale 6 Independent with activity with or without an assistive device 5 Patient requires set up or clean up by helper. Patient completes activity by themselves 4 Supervision or touching assist (CGA). [place] provide cues , steadying assist 3 The helper provides less than half the effort to complete the activity 2 The helper provides more than half the effort to complete the activity 1 Dependent. The helper does all the effort to complete an activity 7 Patient refused to complete or attempt activity 9 The patient did not perform the activity before the current illness or injury 88 Not attempted due to Medical conditions or safety concerns Transfers (B, C, W/C) (FIM): 1 Scootin Rollin Supine to/from Sit: 3 Sit to/from Stand: 1 Bed to/from Chair: 1 Patient performs a stand pivot transfer with max assist, she needs cues for safety and hand placement, she will always try to pull on therapist first. Wheelchair Training Wheelchair (FIM): 2 Distance: 50' Wheelchair Level of Assist: 4 Type of Wheelchair: Manual needs some assist with turning, very slow, needed several rest breaks Exercises Seated Therapy Exercises: Ankle pumps, Hip flexion, Hip abd/add Seated Reps: 20 LAQ alternating for 5 min Treatments bed mobility and transfer training, wheelchair mobility, functional strengthening Assessment Current Status: Poor Progress No change in mobility. Patient needed a lot of discussion on still trying to perform different activities even if you think you can't do them very well instead of immediately giving up. PT Short Term Goals Short Term Goals Time Frame: Dec 26, 2016 Gait (FIM): 1 Gait Distance Comment: 30' Gait Level of Assist: 4 Gait Assistive Device: FWW Wheelchair Distance: 50' PT Knitter Wire Mesh Goals Alf Goals PT Knitter Wire Mesh Goals Time Frame: January 09, 2017 Transfers (B,C,W/C) (FIM): 5 Sit to Lying (QC): 4 Lying-Sitting on Side/Bed(QC): 4 Sit to Stand (QC): 4 Rollin Roll Left to Right (QC): 4 Chair/Pdq-hw-Wurfn Xfer(QC): 4 Car Transfer (QC): 3 Gait (FIM): 2 Distance: 50' Walk 10 feet (QC): 4 Walk 10ft-Uneven Surface(QC): 4 Walk 50ft with 2 Turns (QC): 4 Walk 150 ft (QC): 88 Gait Level of Assist: 4 Gait Assistive Device: FWW Wheelchair (FIM): 5 Distance: 150' Wheelchair Level of Assist: 5 Wheel 50 feet with 2 turns (QC: 4 Stairs (FIM): 2 # of Steps: 4 1 Step (curb) (QC): 3 4 Steps (QC): 3 12 Steps (QC): 88 Stairs Level Of Assist: 4 Picking up an Object (QC): 88 PT Plan Problem List Problem List: Activity Tolerance, Functional Strength, Safety, Balance, Gait, Transfer, Bed Mobility, ROM Treatment/Plan Treatment Plan: Continue Plan of Care Treatment Plan: Bed Mobility, Education, Functional Activity Brad, Functional Strength, Group Therapy, Gait, Safety, Therapeutic Exercise, Transfers Treatment Duration: January 09, 2017 Visits Per Week: 10-11 Minutes/Day (M-F): 60-90 Minutes/Day (Sat/Stone): 15-30 Safety Risks/Education Patient Education: Transfer Techniques, Correct Positioning, W/C Management, Safety Issues Teaching Recipient: Patient Teaching Methods: Demonstration, Discussion Response to Teaching: Reinforcement Needed Time/GCodes Time In: 1330 Time Out: 1405 Total Billed Treatment Time: 35 Total Billed Treatment 1 visit EX 15' [facility] 20' TANIA GREENBERG PT Jan 03, 2017 14:09
[2017-01-03] MEDS: warFARin 2 MG (COUMADIN) TAB PO SCH (17:33)
[2017-01-03 18:00] VITALS: BP 134/77
[2017-01-03] MEDS: ALFUZOSIN HCL 10 MG TAB (UROXATRAL) PO SCH (18:56)
[2017-01-03] MEDS: SIMvastatin 40 MG (ZOCOR) TAB PO SCH (20:36)
[2017-01-03] MEDS: ALPRAZolam 0.25 MG (XANAX) TAB PO PRN (20:36)
[2017-01-04] MEDS: methylPREDNISolone 40 MG/ML (Solu-MEDROL) VIAL IV SCH ×4 (01:06→18:10)
[2017-01-04] MEDS: inSUlin ASPART (NovoLOG) 1 UNIT/0.01 ML (CHARGE PER UNIT) SC SCH ×4 (06:15→20:19)
[2017-01-04] MEDS: FERROUS SULF 325 MG (IRON) TAB PO SCH ×3 (06:16→16:07)
[2017-01-04] MEDS: PANTOPRAZOLE 40 MG (PROTONIX) TAB PO SCH ×2 (06:16→20:19)
[2017-01-04 06:43] VITALS: BP 174/77
[2017-01-04] MEDS: RT-ADVAIR HFA 115/21 MCG PER PUFF IH SCH ×2 (07:50→18:59)
[2017-01-04] MEDS: RT-ALBUTEROL/IPRATROPIUM 3 ML (DUONEB) VIAL INH SCH ×3 (07:50→18:59)
[2017-01-04 07:55] LABS: BASOPHILS % (AUTO) 0 % (0-10); EOSINOPHILS % (AUTO) 0 % (0-10); LYMPHOCYTES # (AUTO) 0.3 X 10^3 (1.0-4.0); LYMPHOCYTES % (AUTO) 1 % (12-44); MEAN CORPUSCULAR HEMOGLOBIN 29 PG (25-34); MEAN CORPUSCULAR HGB CONC 31 G/DL (32-36); MEAN CORPUSCULAR VOLUME 94 FL (80-99); MEAN PLATELET VOLUME 11.2 FL (7.4-10.4); MONOCYTES # (AUTO) 0.6 X 10^3 (0.0-1.0); MONOCYTES % (AUTO) 3 % (0-12); NEUTROPHILS % (AUTO) 96 % (42-75); PLATELET COUNT 110 10^3/uL (130-400); RED BLOOD COUNT 3.36 10^6/uL (4.35-5.85); RED CELL DISTRIBUTION WIDTH 19.3 % (10.0-14.5); WHITE BLOOD COUNT 21.9 10^3/uL (4.3-11.0)
[2017-01-04 08:10] LABS: INR 2.9 (0.8-1.4); PROTHROMBIN TIME PATIENT 29.8 SEC (12.2-14.7)
[2017-01-04 08:41] LABS: HYPOCHROMASIA SLIGHT; LYMPHOCYTES % (MANUAL) 2 %; NEUTROPHILS % (MANUAL) 97 %
[2017-01-04 08:42] LABS: STOMATOCYTES SLIGHT
[2017-01-04] MEDS: cefTRIAXone INJECTION 1,000 MG in NS (IVPB) 50 ML IV SCH (08:52)
[2017-01-04] MEDS: NICOTINE PATCH REMOVAL TP SCH (08:52)
[2017-01-04] MEDS: NICOTINE 14 MG (NICODERM) PATCH TD SCH (08:52)
[2017-01-04] MEDS: POLYETHYLENE GLYCOL 17 GM (MIRALAX) PACK PO SCH ×2 (08:52→20:19)
[2017-01-04] MEDS: MENTHOL/ZINC OXIDE (CALMOSEPTINE) 113 GM TUBE TOP SCH ×2 (08:53→20:19)
[2017-01-04] MEDS: DIGOXIN 0.125 MG (LANOXIN) TAB PO SCH (08:53)
[2017-01-04] MEDS: DILTIAZEM 240 MG (CARDIZEM CD) CAP PO SCH (08:53)
[2017-01-04] MEDS: HYDROcodone/APAP 10 MG/325 MG (LORTAB) TAB PO PRN ×3 (08:53→20:54)
[2017-01-04] MEDS: FLUTICASONE NASAL SPRAY (FLONASE) 16 GM BTL NS SCH (08:54)
--- NOTE | 2017-01-04 09:08 | Physical Therapy Daily Note ---
PT Daily Note-Current Subjective Pt. states she doesnt even want the lights turned on. States she has had left lower flank pain, points to the area all night off and on and doesnt feel like eating or moving. This CUSTOM CAR BUILDER attempted to help pt. stretch and reposition and move to possibly alleviate this but pt. stated it really just got worse. Pt. appears defeated and tired this morning. Pain Numeric Pain Scale: 7 Location: Left Location Body Site: Chest Pain Description: Pressure Appearance sad, sitting in dark with breakfast in front of her , claims no appetite Mental Status Patient Orientation: Normal For Age Attachments: Oxygen Transfers Functional [place] Measure 0=Not Assessed/NA 4=Minimal Assistance 1=Total Assistance 5=Supervision or Setup 2=Maximal Assistance 6=Modified [place] 3=Moderate Assistance 7=Complete IndependenceIRFPAI Quality Coding Scale 6 Independent with activity with or without an assistive device 5 Patient requires set up or clean up by helper. Patient completes activity by themselves 4 Supervision or touching assist (CGA). [place] provide cues , steadying assist 3 The helper provides less than half the effort to complete the activity 2 The helper provides more than half the effort to complete the activity 1 Dependent. The helper does all the effort to complete an activity 7 Patient refused to complete or attempt activity 9 The patient did not perform the activity before the current illness or injury 88 Not attempted due to Medical conditions or safety concerns Rollin Exercises Supine Ex: Ankle pumps, Quad Set, Rolling, Glut sets, Heel Slides, Scooting, Hip abd/add Supine Reps: 12 Assessment Current Status: Regressing pt. declined up in chair or to sit EOB, this was reported to nursing PT Short Term Goals Short Term Goals Time Frame: Dec 26, 2016 Gait (FIM): 1 Gait Distance Comment: 30' Gait Level of Assist: 4 Gait Assistive Device: FWW Wheelchair Distance: 50' PT Residential Goals Unit Technician Goals PT Unit Technician Goals Time Frame: January 09, 2017 Transfers (B,C,W/C) (FIM): 5 Sit to Lying (QC): 4 Lying-Sitting on Side/Bed(QC): 4 Sit to Stand (QC): 4 Rollin Roll Left to Right (QC): 4 Chair/Dyr-du-Vwhee Xfer(QC): 4 Car Transfer (QC): 3 Gait (FIM): 2 Distance: 50' Walk 10 feet (QC): 4 Walk 10ft-Uneven Surface(QC): 4 Walk 50ft with 2 Turns (QC): 4 Walk 150 ft (QC): 88 Gait Level of Assist: 4 Gait Assistive Device: FWW Wheelchair (FIM): 5 Distance: 150' Wheelchair Level of Assist: 5 Wheel 50 feet with 2 turns (QC: 4 Stairs (FIM): 2 # of Steps: 4 1 Step (curb) (QC): 3 4 Steps (QC): 3 12 Steps (QC): 88 Stairs Level Of Assist: 4 Picking up an Object (QC): 88 PT Plan Treatment/Plan Treatment Plan: Continue Plan of Care Treatment Plan: Bed Mobility, Education, Functional Activity Brad, Functional Strength, Group Therapy, Gait, Safety, Therapeutic Exercise, Transfers Treatment Duration: January 09, 2017 Visits Per Week: 10-11 Minutes/Day (M-F): 60-90 Minutes/Day (Sat/Stone): 15-30 Safety Risks/Education Patient Education: Transfer Techniques, Correct Positioning, Disease Process, Safety Issues Teaching Recipient: Patient Teaching Methods: Demonstration, Discussion Response to Teaching: Verbalize Understanding, Return Demonstration, Reinforcement Needed Time/GCodes Time In: 810 Time Out: 830 Total Billed Treatment Time: 20 Total Billed Treatment 1,EX20m G Codes Necessary: PAULO Mukherjee CUSTOM CAR BUILDER Jan 04, 2017 09:08
[2017-01-04] MEDS: SENNA W/DOCUSATE (SENOKOT S) TABLET PO PRN (13:52)
[2017-01-04] MEDS: fluCOnazole (DIFLUCAN) 100 MG TAB PO SCH (16:07)
[2017-01-04 17:59] VITALS: BP 147/77
[2017-01-04 18:03] VITALS: BP 147/77
[2017-01-04] MEDS: warFARin 2 MG (COUMADIN) TAB PO SCH (18:10)
[2017-01-04] MEDS: ALFUZOSIN HCL 10 MG TAB (UROXATRAL) PO SCH (18:10)
[2017-01-04] MEDS: ALPRAZolam 0.25 MG (XANAX) TAB PO PRN (18:10)
[2017-01-04] MEDS: SIMvastatin 40 MG (ZOCOR) TAB PO SCH (20:19)
[2017-01-05] MEDS: methylPREDNISolone 40 MG/ML (Solu-MEDROL) VIAL IV SCH ×4 (01:04→18:04)
[2017-01-05 06:00] VITALS: BP 151/80
[2017-01-05 06:03] LABS: BASOPHILS % (AUTO) 0 % (0-10); EOSINOPHILS % (AUTO) 0 % (0-10); LYMPHOCYTES # (AUTO) 0.2 X 10^3 (1.0-4.0); LYMPHOCYTES % (AUTO) 1 % (12-44); MEAN CORPUSCULAR HEMOGLOBIN 30 PG (25-34); MEAN CORPUSCULAR HGB CONC 31 G/DL (32-36); MEAN CORPUSCULAR VOLUME 96 FL (80-99); MEAN PLATELET VOLUME 11.6 FL (7.4-10.4); MONOCYTES # (AUTO) 0.5 X 10^3 (0.0-1.0); MONOCYTES % (AUTO) 2 % (0-12); NEUTROPHILS # (AUTO) 23.1 X 10^3 (1.8-7.8); NEUTROPHILS % (AUTO) 97 % (42-75); PLATELET COUNT 96 10^3/uL (130-400); RED BLOOD COUNT 3.31 10^6/uL (4.35-5.85); RED CELL DISTRIBUTION WIDTH 19.3 % (10.0-14.5); WHITE BLOOD COUNT 23.9 10^3/uL (4.3-11.0)
[2017-01-05] MEDS: inSUlin ASPART (NovoLOG) 1 UNIT/0.01 ML (CHARGE PER UNIT) SC SCH ×4 (06:08→20:10)
[2017-01-05] MEDS: PANTOPRAZOLE 40 MG (PROTONIX) TAB PO SCH ×2 (06:08→19:55)
[2017-01-05] MEDS: FERROUS SULF 325 MG (IRON) TAB PO SCH ×3 (06:08→18:03)
[2017-01-05 06:13] LABS: INR 2.8 (0.8-1.4); PROTHROMBIN TIME PATIENT 29.7 SEC (12.2-14.7)
[2017-01-05] MEDS: RT-ADVAIR HFA 115/21 MCG PER PUFF IH SCH ×2 (07:00→20:16)
[2017-01-05] MEDS: RT-ALBUTEROL/IPRATROPIUM 3 ML (DUONEB) VIAL INH SCH ×3 (07:00→20:15)
[2017-01-05] MEDS: DILTIAZEM 240 MG (CARDIZEM CD) CAP PO SCH (09:06)
[2017-01-05] MEDS: SENNA W/DOCUSATE (SENOKOT S) TABLET PO PRN (09:06)
[2017-01-05] MEDS: DIGOXIN 0.125 MG (LANOXIN) TAB PO SCH (09:06)
[2017-01-05] MEDS: POLYETHYLENE GLYCOL 17 GM (MIRALAX) PACK PO SCH ×2 (09:07→19:39)
[2017-01-05] MEDS: cefTRIAXone INJECTION 1,000 MG in NS (IVPB) 50 ML IV SCH (09:07)
[2017-01-05] MEDS: NICOTINE PATCH REMOVAL TP SCH (09:48)
[2017-01-05] MEDS: ALPRAZolam 0.25 MG (XANAX) TAB PO PRN ×2 (09:49→19:55)
[2017-01-05] MEDS: NICOTINE 14 MG (NICODERM) PATCH TD SCH (09:49)
[2017-01-05] MEDS: MENTHOL/ZINC OXIDE (CALMOSEPTINE) 113 GM TUBE TOP SCH ×2 (09:50→20:03)
[2017-01-05] MEDS: FLUTICASONE NASAL SPRAY (FLONASE) 16 GM BTL NS SCH (09:53)
[2017-01-05] MEDS: fluCOnazole (DIFLUCAN) 100 MG TAB PO SCH (15:54)
[2017-01-05 18:03] VITALS: BP 144/76
[2017-01-05] MEDS: warFARin 2 MG (COUMADIN) TAB PO SCH (18:04)
[2017-01-05] MEDS: ALFUZOSIN HCL 10 MG TAB (UROXATRAL) PO SCH (18:04)
[2017-01-05] MEDS: SIMvastatin 40 MG (ZOCOR) TAB PO SCH (19:55)
[2017-01-06] MEDS: HYDROcodone/APAP 10 MG/325 MG (LORTAB) TAB PO PRN ×3 (00:16→12:47)
[2017-01-06] MEDS: methylPREDNISolone 40 MG/ML (Solu-MEDROL) VIAL IV SCH ×3 (00:17→20:45)
[2017-01-06] MEDS: CATHETER FLUSH 10 ML SYR IV PRN ×3 (00:17→20:46)
[2017-01-06] MEDS: inSUlin ASPART (NovoLOG) 1 UNIT/0.01 ML (CHARGE PER UNIT) SC SCH ×4 (04:39→20:46)
[2017-01-06 05:33] VITALS: BP 148/79
[2017-01-06] MEDS: FERROUS SULF 325 MG (IRON) TAB PO SCH ×3 (06:02→17:29)
[2017-01-06] MEDS: PANTOPRAZOLE 40 MG (PROTONIX) TAB PO SCH ×2 (06:02→20:45)
[2017-01-06 07:00] LABS: INR 3.5 (0.8-1.4)
[2017-01-06] MEDS: RT-ALBUTEROL/IPRATROPIUM 3 ML (DUONEB) VIAL INH SCH ×3 (07:06→21:18)
[2017-01-06] MEDS: RT-ADVAIR HFA 115/21 MCG PER PUFF IH SCH ×2 (07:06→21:18)
[2017-01-06] MEDS: NICOTINE PATCH REMOVAL TP SCH (07:34)
[2017-01-06] MEDS: NICOTINE 14 MG (NICODERM) PATCH TD SCH (07:34)
[2017-01-06] MEDS: POLYETHYLENE GLYCOL 17 GM (MIRALAX) PACK PO SCH ×2 (07:35→20:46)
[2017-01-06] MEDS: cefTRIAXone INJECTION 1,000 MG in NS (IVPB) 50 ML IV SCH (07:48)
[2017-01-06] MEDS: FLUTICASONE NASAL SPRAY (FLONASE) 16 GM BTL NS SCH (07:51)
[2017-01-06] MEDS: DIGOXIN 0.125 MG (LANOXIN) TAB PO SCH (07:51)
[2017-01-06] MEDS: DILTIAZEM 240 MG (CARDIZEM CD) CAP PO SCH (07:51)
[2017-01-06] MEDS: MENTHOL/ZINC OXIDE (CALMOSEPTINE) 113 GM TUBE TOP SCH ×2 (07:51→20:48)
[2017-01-06 08:22] LABS: ANION GAP 7 MMOL/L (5-14); BLOOD UREA NITROGEN 37 MG/DL (7-18); BUN/CREATININE RATIO 42; CARBON DIOXIDE 30 MMOL/L (21-32); CHLORIDE 100 MMOL/L (98-107); CREATININE SERUM 0.88 MG/DL (0.60-1.30); POTASSIUM 4.6 MMOL/L (3.6-5.0); SODIUM 137 MMOL/L (135-145)
[2017-01-06 08:23] LABS: ALANINE AMINOTRANSFERASE 25 U/L (0-55); ASPARTATE AMINO TRANSFERASE 13 U/L (5-34); BILIRUBIN,TOTAL 0.5 MG/DL (0.1-1.0); CALCIUM 8.2 MG/DL (8.5-10.1); GFR ESTIMATED > 60; GLUCOSE 145 MG/DL (70-105); TOTAL PROTEIN 4.9 G/DL (6.4-8.2)
[2017-01-06 08:35] LABS: DIGOXIN 2.43 NG/ML (0.80-2.00)
--- NOTE | 2017-01-06 08:36 | Progress Note (SOAP) ---
Subjective Subjective/Events-last exam patient feeling better this morning. Patient not running an elevated temperature. White blood cell count elevated but on Solu-Medrol Objective Exam Vital Signs Date Time Temp Pulse Resp B/P (MAP) Pulse Ox O2 Delivery O2 Flow Rate FiO2 01/06/17 07:10 90 2.50 01/06/17 07:00 85 01/06/17 05:33 95.0 77 22 148/79 96 01/06/17 01:00 90 01/05/17 20:21 92 2.50 01/05/17 20:16 92 2.50 01/05/17 20:00 1.50 01/05/17 19:23 78 01/05/17 18:03 98.1 94 14 144/76 92 01/05/17 14:22 93 2.50 01/05/17 12:56 77 01/05/17 08:45 1.50 I & O 01/06/17 06:59 Intake Total 850 ml Output Total 850 ml Balance 0 ml Capillary Refill : General Appearance: No Apparent Distress, Thin HEENT: Normal ENT Inspection Neck: Full Range of Motion, Normal Inspection Respiratory: Chest Non Tender, Lungs Clear, Normal Breath Sounds, No Accessory Muscle Use Cardiovascular: No Murmur Gastrointestinal: non tender, soft Results Lab Laboratory Tests 01/06/17 06:46 Laboratory Tests 01/05/17 10:59: Glucometer 234H 01/05/17 15:56: Glucometer 227H 01/05/17 20:08: Glucometer 311H 01/06/17 04:29: Glucometer 119H 01/06/17 06:42: Prothrombin Time 35.0H, INR Comment 3.5H 01/06/17 06:46: Sodium Level 137, Potassium Level 4.6, Chloride Level 100, Carbon Dioxide Level 30, Anion Gap 7, Blood Urea Nitrogen 37H, Creatinine 0.88, Estimat Glomerular Filtration Rate > 60, BUN/Creatinine Ratio 42, Glucose Level 145H, Calcium Level 8.2L, Total Bilirubin 0.5, Aspartate Amino Transf (AST/SGOT) 13, Alanine Aminotransferase (ALT/SGPT) 25, Alkaline Phosphatase 68, Total Protein 4.9L, Albumin 3.0L Microbiology 01/03/17 Urine Culture - Final, Complete Presumptive Farzaneh Glabrata Assessment/Plan Assessment/Plan Assess & Plan/Chief Complaint Debility. Atrial fibrillation. COPD. Inability to void. . . Debility. Atrial fibrillation. COPD. Patient complains of short of breathe today. . 12/20/16. Blood pressure better. Apical rate under control. Patient talking. Patient appears somewhat better. Patient is DO NOT RESUSCITATE. . 12/21/16 patient doing much better today. Patient more alert. Blood pressure is within normal limits. Patient not confused. Patient not hypotensive. Patient has hypomagnesemia.. . 12/27/16. Patient feeling better today. Patient not confused. Patient has some hypotension. chest x-ray yesterday showed pneumonia. Patient afebrile. White blood cell count within [place]. . 12/30/16. Patient frustrated. Patient has Improved. To get chest x-ray today. . 12/31/16. Patient feeling much better today.Patient and breathing better. Patient improved since yesterday. . 01/01/17. Debility. Depression. Atrial fibrillation. COPD. Patient feels better today and feels hopeful. .. 01/02/17. Debility. Atrial fibrillation. COPD. Inability to void. Patient feeling better today. Patient have an MRI. . 01/03/17 debility. Atrial fibrillation. COPD. Wheeler catheter. Patient has leukocytosis with low platelet count. . 01/06/17. Atrial fibrillation. debility. COPD. Leukocytosis due to Solu-Medrol Clinical Quality Measures DVT/VTE Risk/Contraindication: Risk Factor Score Per Nursin RFS Level Per Nursing on Admit: 4+=Very High ROMAIN MARSH DO January 06, 2017 08:36
[2017-01-06] MEDS: warFARin 2 MG (COUMADIN) TAB PO SCH (09:04)
[2017-01-06 09:13] LABS: BASOPHILS % (AUTO) 0 % (0-10); EOSINOPHILS % (AUTO) 0 % (0-10); LYMPHOCYTES # (AUTO) 0.2 X 10^3 (1.0-4.0); LYMPHOCYTES % (AUTO) 1 % (12-44); MEAN CORPUSCULAR HEMOGLOBIN 30 PG (25-34); MEAN CORPUSCULAR HGB CONC 31 G/DL (32-36); MEAN CORPUSCULAR VOLUME 96 FL (80-99); MEAN PLATELET VOLUME 12.1 FL (7.4-10.4); MONOCYTES # (AUTO) 0.6 X 10^3 (0.0-1.0); MONOCYTES % (AUTO) 2 % (0-12); NEUTROPHILS # (AUTO) 27.9 X 10^3 (1.8-7.8); NEUTROPHILS % (AUTO) 97 % (42-75); PLATELET COUNT 91 10^3/uL (130-400); RED CELL DISTRIBUTION WIDTH 19.5 % (10.0-14.5); WHITE BLOOD COUNT 28.7 10^3/uL (4.3-11.0)
--- NOTE | 2017-01-06 09:24 | Progress Note-Cardiology ---
Cardiology SOAP Progress Note Subjective: Sitting up in w/c at the bedside. Feels SOB is better. C/O "fluttering" with strenuous activity. Generalized weakness. Objective: I&O/Vital Signs Vital Sign - Last 12Hours 01/08/17 01/08/17 01/08/17 05:42 07:19 07:27 Temp 97.3 Pulse 69 Resp 20 B/P (MAP) 132/71 Pulse Ox 97 90 94 O2 Delivery High Flow N/C O2 Flow Rate 1.50 3.00 3.00 Intake and Output 01/08/17 00:00 Intake Total 680 ml Output Total 675 ml Balance 5 ml Weight (Pounds): 117 Weight (Ounces): 4.8 Weight (Calculated Kilograms): 53.993964 Constitutional: appears stated age, No apparent distress, well-developed, well- nourished Respiratory: No accessory muscle use, No respiratory distress, other (scatter crackles) Cardiovascular: irregularly irregular, No JVD, S1 and S2, systolic murmur Gastrointestional: soft, round, audible bowel sounds, No spleenomegaly Genital/Rectal: other (indwelling urinary catheter to DD; clear, yellow urine) Extremities: No clubbing, No cyanosis, significant edema (mild pedal edema) Neurologic/Psychiatric: alert, oriented x 3, power is 5/5 both on sides Skin: No rash, No ulcerations Results/Procedures: Labs Laboratory Tests 01/07/17 15:40: Urine Color YELLOW, Urine Clarity CLEAR, Urine pH 5, Urine Specific [place] 1.015L, Urine Protein 3+H, Urine Glucose (UA) NEGATIVE, Urine Ketones NEGATIVE, Urine Nitrite NEGATIVE, Urine Bilirubin NEGATIVE, Urine Urobilinogen NORMAL, Urine Leukocyte Esterase 3+H, Urine RBC (Auto) 5+H, Urine RBC 25-50H, Urine WBC >100H, Urine Crystals NONE, Urine Bacteria FEWH, Urine Casts NONE, Urine Mucus NEGATIVE, Urine Yeast MODERATEH, Urine Culture Indicated YES 01/07/17 15:53: Glucometer 172H 01/07/17 20:32: Glucometer 250H 01/08/17 05:49: Glucometer 159H 01/08/17 06:25: White Blood Count 22.7H, Red Blood Count 3.40L, Hemoglobin 10.1L, Hematocrit 32L , Mean Corpuscular Volume 95, Mean Corpuscular Hemoglobin 30, Mean Corpuscular Hemoglobin Concent 31L, Red Cell Distribution Width 19.4H, Platelet Count 62L, Mean Platelet Volume 12.0H, Neutrophils (%) (Auto) 97H, Lymphocytes (%) (Auto) 1L, Monocytes (%) (Auto) 2, Eosinophils (%) (Auto) 0, Basophils (%) (Auto) 0, Neutrophils # (Auto) 22.1H, Lymphocytes # (Auto) 0.2L, Monocytes # (Auto) 0.4, Eosinophils # (Auto) 0.0, Basophils # (Auto) 0.0, Neutrophils % (Manual) 99, Monocytes % (Manual) 1, Blood Morphology Comment NORMAL, Prothrombin Time 42.4H , INR Comment 4.4H, Fibrinogen 236, D-Dimer 2.35H, Sodium Level 140, Potassium Level 4.5, Chloride Level 103, Carbon Dioxide Level 29, Anion Gap 8, Blood Urea Nitrogen 28H, Creatinine 0.78, Estimat Glomerular Filtration Rate > 60, BUN/ Creatinine Ratio 36, Glucose Level 148H, Calcium Level 8.2L, Total Bilirubin 0.5 , Aspartate Amino Transf (AST/SGOT) 12, Alanine Aminotransferase (ALT/SGPT) 22, Alkaline Phosphatase 70, Lactate Dehydrogenase 351H, Total Protein 4.6L, Albumin 2.7L, Digoxin Level 2.08*H 01/08/17 12:17: Glucometer 189H Microbiology 01/07/17 Urine Culture - Preliminary, Resulted Yeast Species Gram Positive Cocci In Chains Procedures NAME: RICARDO VARGAS [facility] REC#: [id number] PT STATUS: ADM IN : 1940 PHYSICIAN: MICHELE YEUNG MD ADMIT DATE: 12/18/16/[facility] Signed Date of Exam: 01/02/17 MRI LUMBAR SPINE W/O CONTRAST PROCEDURE: MRI lumbar spine. TECHNIQUE: Multiplanar, multisequence MRI of the lumbar spine was performed without contrast. INDICATION: Low back pain and numbness. FINDINGS: There is mild right convexity scoliosis of the lumbar spine centered at the L3 level. This is associated with about 7 mm right lateral translation of L3 compared to L2 and L4 levels, seen on the coronal view. The alignment at the posterior spinal line also demonstrates abnormalities of minimal retrolisthesis of L3 over L4, L4 over L5, and L5 over S1. The vertebral body heights are preserved. There is a prominent Schmorl's node along the inferior endplate of L3 with sclerotic changes at the endplates. Some reactive edema and fatty changes at endplates are compatible with subacute and chronic reactive marrow changes from disc disease. There is severe disc height loss involving the L2/3, L3/4, and L4/5 levels and moderate disc height loss at L5/S1 with disc desiccation at all levels. A 1 cm lesion, likely a hemangioma is seen in L1 vertebral body. There is no acute or chronic compression fracture. The cauda equina and conus medullaris appear grossly unremarkable. There is an abdominal aortic aneurysm. This patient has known aneurysm with prior TEVAR treatment as seen on radiographs. T12/L1: There is minimal disc herniation and mild facet hypertrophy. No spinal canal or foraminal stenosis. L1/2: There is a minimal disc bulge and xnml-zg-wodhsfuz facet hypertrophy. No central canal, lateral recess, or foraminal stenosis. L2/3: There is a diffuse disc bulge and bilateral tloe-vw-ibsmtloe facet hypertrophy. There is mild central canal stenosis reducing the AP dimension of the canal to 9.6 mm. There is kble-mn-rguboqsw lateral recess stenosis on the right and ajaufjkf-et-aylfez lateral recess stenosis on the left. The foramina demonstrate severe stenosis on the left and moderate stenosis of the right. L3/4: There is a diffuse disc bulge, asymmetric to the right and moderate facet hypertrophy. There is tvob-cc-vnhoioey central canal stenosis reducing the AP dimension of the canal to 8.9 mm. There is bilateral moderate lateral recess stenosis. The foramina demonstrate severe stenosis on the right and wsmxwdpt-ud-kdykby stenosis on the left. L4/5: There is a diffuse disc bulge. There is mild facet hypertrophy. No central canal stenosis. There is bilateral lateral recess stenosis, mild to moderate on the left and moderate on the right side abutting the descending L5 nerve roots. The foramina demonstrate severe stenosis on the right and mild to moderate stenosis of the left. L5/S1: There is a diffuse disc bulge and zmnx-gb-pbctwsuy facet hypertrophy. No central canal stenosis. There is bilateral lateral recess stenosis of ixgc-wj-koohaubi degree. The foramina demonstrate severe stenosis bilaterally but worse on the right side. IMPRESSION: Advanced disc degenerative changes. There is right convexity scoliosis and alignment abnormalities as described, likely secondary to the scoliosis and degenerative changes. There is multilevel severe neural foraminal stenosis. Other findings as above. Dictated by: Dictated on workstation # [id number] Dict: 01/02/17 1332 Trans: 01/03/17 0805 Interpreted by: RAMESH LEMON MD Electronically signed by: RAMESH LEMON MD 01/03/1705 A/P: Assessment: Near syncope - no further episodes No postural hypotension demonstrable if bp taken in the right arm. 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 Bonilla on 11-29-16 - TEVAR using 3 sequential devices. The first was a 37 x 20 [place] tag endoprosthesis. The second was a 40x15. The third was a 45 x 20. CTA of the chest at [facility] on 12-02-16 showed development of a small thrombus at the origin of the left subclavian artery. No thrombus seen in the left common carotid artery. Mild cardiomegaly with mildly enlarged main pulmonary artery suggestive of pulmonary hypertension. There is no evidence of a significant stenosis of the internal carotid artery on either side. There is, however, decreased flow velocity in the left common carotid and left internal carotid arteries which may or may not relate to a proximal stenosis in the left common carotid artery. Reversal of flow in the left vertebral artery. 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 Per u/s of 12-31-16 Echocardiogram of November 28, 2016 at [facility] showed LVEF 55%. Sclerotic arotic valve, no stenosis, overall no significant valve disease. Normal size aortic root. PASP 53mmHg. Pulmonary hypertension - PASP 53 mmHg on echocardiogram of 11-28-16 Cardiac cath of Oct [address] Comer at [facility] in [place], [place] show no angiographic evidence of any hemodynamically significant CAD for which medical tx was advised PAF/flutter - rate improved (H/O PAF) - first documented during hospitalization of November 2016 at [facility] Warfarin tx - therapeutic INR COPD H/O tobaccoism (50 year smoking history) HTN HLP CAD - h/o cardiac cath in 2009 at [facility] in [place], [place] by Dr. 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 Silva managing H/O anxiety Not a suitable candidate for BB d/t orthostatic hypotension CT of the head from 12-20-16 showed age related atrophy Advanced disc degenerative changes. There is right convexity scoliosis and alignment abnormalities as described, likely secondary to the scoliosis and degenerative changes. There is multilevel severe neural foraminal stenosis. Per MRI of 01-03-17 Plan: Complex management issue. HR improved Elevated dig level today - stop digoxin Continue warfarin d/t PAF with recent endograft repair. Monitor INR closely.- Supra-therapeutic INR today - hold warfarin until INR below 3.0 Monitor CBC closely. Mild thrombocytopenia - being managed by medical services Continue thigh high SUMMER hose Numbness in her legs/feet bilat and neurogenic bladder of undetermined etiology - medical services managing Possible d/c to LTC facility today Out-pt f/u appt in a week Physician Assessment Physician Assessment LATE ENTRY FOR MY VISIT TO SEE THE PATIENT ON 01/06/17 AROUND 9:30 AM Lungs: good bilat air entry Cor: reg A&R * As documented in our note above ARIAS SHEPARD January 06, 2017 09:24 LANDON FINLEY MD FACP FAC CCDS January 08, 2017 14:25
[2017-01-06 10:03] LABS: ANISOCYTOSIS SLIGHT; BAND NEUTROPHILS 3 %; BASOPHILS % (MANUAL) 0 %; EOSINOPHILS % (MANUAL) 0 %; LYMPHOCYTES % (MANUAL) 0 %; NEUTROPHILS % (MANUAL) 94 %; POIKILOCYTOSIS SLIGHT; POLYCHROMASIA SLIGHT
--- NOTE | 2017-01-06 10:16 | Physical Therapy Daily Note ---
PT Daily Note-Current Subjective Patient in wheelchair pre tx, just got done with OT, ready for PT. Patient states she has pain of 9/10 in back. Appearance Patient in bed post tx with nurse call, phone, tray, all needs met. Mental Status Patient Orientation: Person, Place, Situation Attachments: Oxygen Transfers Functional [place] Measure 0=Not Assessed/NA 4=Minimal Assistance 1=Total Assistance 5=Supervision or Setup 2=Maximal Assistance 6=Modified [place] 3=Moderate Assistance 7=Complete IndependenceIRFPAI Quality Coding Scale 6 Independent with activity with or without an assistive device 5 Patient requires set up or clean up by helper. Patient completes activity by themselves 4 Supervision or touching assist (CGA). [place] provide cues , steadying assist 3 The helper provides less than half the effort to complete the activity 2 The helper provides more than half the effort to complete the activity 1 Dependent. The helper does all the effort to complete an activity 7 Patient refused to complete or attempt activity 9 The patient did not perform the activity before the current illness or injury 88 Not attempted due to Medical conditions or safety concerns Transfers (B, C, W/C) (FIM): 1 Scootin Rollin Roll Left to Right (QC): 1 Supine to/from Sit: 1 Sit to/from Stand: 1 Sit to Lying (QC): 1 Sit to Stand (QC): 1 Chair/Msa-tp-Imnnb Xfer(QC): 1 Bed to/from Chair: 1 Patient was pretty much dependent for bed mobility and transfers today. She may not be participating with full effort. Patient has to be instructed in proper positioning during each transfer, she doesn't seem to remember instructions. Patient needs instructed to push from the bed or armrests when performing a stand pivot transfer, if she is not instructed to do this then she will always try to pull on therapist for the transfer. However, as soon as therapist starts the transfer she does not push with her arms and grabs hold of the therapists arms and provides little to no assist. Patient sat at the edge of the mat for about 15' with instructions not to lean backward, she would often lean backward and hold on to the edge of the mat with her hands to keep from falling and then complain about her arms getting tired, she needed cues to lean forward to sit with less effort. Gait Training Does the Patient Walk?: No and Walking Goal NOT indicated Gait (FIM): 0 Walk 10 feet (QC): 88 Walk 50 ft with 2 Turns(QC): 88 Walk 150 ft (QC): 88 Walking 10ft/uneven surface-QC: 88 Wheelchair Training Wheelchair (FIM): 2 Distance: 50'x2 Wheelchair Level of Assist: 4 Wheel 50 ft with 2 turns (QC): 3 Type of Wheelchair: Manual Patient is very slow propelling a manual wheelchair, uses both arms, needs assist with turning, takes many rest breaks. Stair Training Stairs (FIM): 0 1 Step (curb) (QC): 88 4 Steps (QC): 88 12 Steps (QC): 88 Balance Picking up an Object (QC): 88 Exercises Supine Ex: Bridging, Ankle pumps, Quad Set, Glut sets, Heel Slides Supine Reps: 15 SAQ alternating for 5 min Treatments bed mobility and transfer training, wheelchair mobility, functional strengthening Assessment Current Status: Regressing Patient seems to be declining in functional mobility. PT Short Term Goals Short Term Goals Time Frame: Dec 26, 2016 Gait (FIM): 1 Gait Distance Comment: 30' Gait Level of Assist: 4 Gait Assistive Device: FWW Wheelchair Distance: 50' PT Chcf Goals Chcf Goals PT Window Maker Goals Time Frame: January 09, 2017 Transfers (B,C,W/C) (FIM): 5 Sit to Lying (QC): 4 Lying-Sitting on Side/Bed(QC): 4 Sit to Stand (QC): 4 Rollin Roll Left to Right (QC): 4 Chair/Ukv-ai-Mcqiq Xfer(QC): 4 Car Transfer (QC): 3 Gait (FIM): 2 Distance: 50' Walk 10 feet (QC): 4 Walk 10ft-Uneven Surface(QC): 4 Walk 50ft with 2 Turns (QC): 4 Walk 150 ft (QC): 88 Gait Level of Assist: 4 Gait Assistive Device: FWW Wheelchair (FIM): 5 Distance: 150' Wheelchair Level of Assist: 5 Wheel 50 feet with 2 turns (QC: 4 Stairs (FIM): 2 # of Steps: 4 1 Step (curb) (QC): 3 4 Steps (QC): 3 12 Steps (QC): 88 Stairs Level Of Assist: 4 Picking up an Object (QC): 88 PT Plan Problem List Problem List: Activity Tolerance, Functional Strength, Safety, Balance, Gait, Transfer, Bed Mobility, ROM Treatment/Plan Treatment Plan: Continue Plan of Care Treatment Plan: Bed Mobility, Education, Functional Activity Brad, Functional Strength, Group Therapy, Gait, Safety, Therapeutic Exercise, Transfers Treatment Duration: January 09, 2017 Visits Per Week: 10-11 Minutes/Day (M-F): 60-90 Minutes/Day (Sat/Stone): 15-30 Safety Risks/Education Patient Education: Transfer Techniques, Correct Positioning, W/C Management, Safety Issues Teaching Recipient: Patient Teaching Methods: Demonstration, Discussion Response to Teaching: Reinforcement Needed Time/GCodes Time In: 915 Time Out: 1015 Total Billed Treatment Time: 60 Total Billed Treatment [address] [facility] 15' EX 15' FA 30' TANIA GREENBERG PT January 06, 2017 10:15
--- NOTE | 2017-01-06 10:51 | Occupational Ther Daily Note ---
OT Current Status-Daily Note Subjective Pt in bed, agrees to treatment. Mental Status/Objective Functional [place] Measure 0=Not Assessed/NA 4=Minimal Assistance 1=Total Assistance 5=Supervision or Setup 2=Maximal Assistance 6=Modified [place] 3=Moderate Assistance 7=Complete [place] ADL-Treatment Pt refused shower today. Pt incontinent of bowel in bed. Rolls left and right with minimal assistance. Total assist required for hygiene. Supine to sit with maximal assistance. Pt washed upper body with minimal assistance for balance. Dependent for lower body bathing. Pt donned pullover shirt with minimal assistance for balance. Dependent to don socks. Pt required assist x2 to don Depends and pants. Pt unable to come to full standing position. Pt requires cues for safety and hand placement during sit to stand. Dependent to transfer to w/c. Pt combed hair with set up. Pt removed and replaced teeth, but required assist to clean dentures. Pt drinks from cup with straw with set up. Pt requires increased time for all tasks and requires extended rest breaks during activity. Pt sitting in w/c with needs met after session. Functional [place] Measure 0=Not Assessed/NA 4=Minimal Assistance 1=Total Assistance 5=Supervision or Setup 2=Maximal Assistance 6=Modified [place] 3=Moderate Assistance 7=Complete IndependenceIRFPAI Quality Coding Scale 6 Independent with activity with or without an assistive device 5 Patient requires set up or clean up by helper. Patient completes activity by themselves 4 Supervision or touching assist (CGA). [place] provide cues , steadying assist 3 The helper provides less than half the effort to complete the activity 2 The helper provides more than half the effort to complete the activity 1 Dependent. The helper does all the effort to complete an activity 7 Patient refused to complete or attempt activity 9 The patient did not perform the activity before the current illness or injury 88 Not attempted due to Medical conditions or safety concerns Eating (FIM): 5 Eating (QC): 5 Grooming (FIM): 5 Oral Hygiene (QC): 5 Bathing (FIM): 2 Bathing Location: L Arm, R Arm, Chest, Abdomen Shower/Bathe Self (QC): 2 Upper Body (FIM): 4 Upper Body Dressing (QC): 3 Lower Body Dressing (FIM): 1 Lower Body Dressing (QC): 1 On/Off Footwear (QC): 1 Toileting (FIM): 1 Toileting Hygiene (QC): 1 Toilet/Commode Transfer (FIM): 1 OT Short Term Goals Short Term Goals Time Frame: Dec 26, 2016 Bathing(FIM): 4 Upper Body Dressing(FIM): 5 Lower Body Dressing(FIM): 3 Toileting(FIM): 3 Toilet/Commode Transfer(FIM): 4 1=Demonstrate adherence to instructed precautions during ADL tasks. 2=Patient will verbalize/demonstrate understanding of assistive devices/ modifications for ADL. 3=Patient will improve strength/tolerance for activity to enable patient to perform ADL's. OT Senior Care Goals Senior Care Goals Time Frame: January 09, 2017 Eating (FIM): 6 Eating (QC): 6 Groomin Oral Hygiene (QC): 6 Bathing(FIM): 5 Shower/Bathe Self (QC): 5 Upper Body Dressing(FIM): 6 Upper Body Dressing (QC): 6 Lower Body Dressing(FIM): 5 Lower Body Dressing (QC): 5 On/Off Footwear (QC): 5 Toileting(FIM): 5 Toileting Hygiene (QC): 5 Toilet/Commode Transfer(FIM): 5 Toilet/Commode Transfer (QC): 5 Shower Transfer(FIM): 5 Additional Goals: 1-Demonstrate ADL Tasks, 2-Verbalize Understanding, 3- ImproveStrength/Brad 1=Demonstrate adherence to instructed precautions during ADL tasks. 2=Patient will verbalize/demonstrate understanding of assistive devices/ modifications for ADL. 3=Patient will improve strength/tolerance for activity to enable patient to perform ADL's. OT Education/Plan Discharge Recommendations Plan/Recommendations: Continue POC Treatment Plan/Plan of Care Patient would benefit from OT for education, treatment and training to promote independence in ADL's, mobility, safety and/or upper extremity function for ADL' s. Plan of Care: ADL Retraining, Functional Mobility, Group Exercise/Act as Ind, UE Funct Exercise/Act Treatment Duration: January 09, 2017 Visits Per Week: 10-12 Minutes/Day (M-F): 60-90 Minutes/Day (Sat/Stone): PRN Agreement: Yes Rehab Potential: Fair Time/GCodes Start Time: 08:15 Stop Time: 09:15 Total Time Billed (hr/min): 60 Billed Treatment Time 1 visit, ADLx4(60minutes) AYAAN PLUNKETT OT January 06, 2017 10:51
--- NOTE | 2017-01-06 10:56 | Physical Therapy Daily Note ---
PT Daily Note-Current Subjective Pt. agrees to a little exercise and sitting EOB, family present and supportive. Pt. c/o she just doesnt feel right Pain Numeric Pain Scale: 0-No Pain Mental Status Patient Orientation: Normal For Age Attachments: Oxygen, Wheeler Catheter Transfers Functional [place] Measure 0=Not Assessed/NA 4=Minimal Assistance 1=Total Assistance 5=Supervision or Setup 2=Maximal Assistance 6=Modified [place] 3=Moderate Assistance 7=Complete IndependenceIRFPAI Quality Coding Scale 6 Independent with activity with or without an assistive device 5 Patient requires set up or clean up by helper. Patient completes activity by themselves 4 Supervision or touching assist (CGA). [place] provide cues , steadying assist 3 The helper provides less than half the effort to complete the activity 2 The helper provides more than half the effort to complete the activity 1 Dependent. The helper does all the effort to complete an activity 7 Patient refused to complete or attempt activity 9 The patient did not perform the activity before the current illness or injury 88 Not attempted due to Medical conditions or safety concerns sup to sit and sit to sup with min to mod assist Exercises Supine Ex: Ankle pumps, Rolling, Heel Slides, Scooting, Hip abd/add Supine Reps: 10 Seated Therapy Exercises: Ankle pumps, Long arc quads, Hip flexion Seated Reps: 10 Assessment Current Status: Fair Progress BPs Left arm in supine 69/50, HR 72, O2sats 92%, right arm in supine 136/60, left leg 139/68, left leg seated 166/104 pts. BPs up and down sporadically PT Short Term Goals Short Term Goals Time Frame: Dec 26, 2016 Gait (FIM): 1 Gait Distance Comment: 30' Gait Level of Assist: 4 Gait Assistive Device: FWW Wheelchair Distance: 50'x2 PT Residential Goals Residential Goals PT Residential Goals Time Frame: January 09, 2017 Transfers (B,C,W/C) (FIM): 5 Sit to Lying (QC): 4 Lying-Sitting on Side/Bed(QC): 4 Sit to Stand (QC): 4 Rollin Roll Left to Right (QC): 4 Chair/Myn-sm-Lijvw Xfer(QC): 4 Car Transfer (QC): 3 Gait (FIM): 2 Distance: 50' Walk 10 feet (QC): 4 Walk 10ft-Uneven Surface(QC): 4 Walk 50ft with 2 Turns (QC): 4 Walk 150 ft (QC): 88 Gait Level of Assist: 4 Gait Assistive Device: FWW Wheelchair (FIM): 5 Distance: 150' Wheelchair Level of Assist: 5 Wheel 50 feet with 2 turns (QC: 4 Stairs (FIM): 2 # of Steps: 4 1 Step (curb) (QC): 3 4 Steps (QC): 3 12 Steps (QC): 88 Stairs Level Of Assist: 4 Picking up an Object (QC): 88 PT Plan Treatment/Plan Treatment Plan: Continue Plan of Care Treatment Plan: Bed Mobility, Education, Functional Activity Brad, Functional Strength, Group Therapy, Gait, Safety, Therapeutic Exercise, Transfers Treatment Duration: January 09, 2017 Visits Per Week: 10-11 Minutes/Day (M-F): 60-90 Minutes/Day (Sat/Stone): 15-30 Safety Risks/Education Patient Education: Transfer Techniques Teaching Recipient: Patient Time/GCodes Time In: 1025 Time Out: 1055 Total Billed Treatment Time: 30 Total Billed Treatment 1,FA20m,EX10m G Codes Necessary: PAULO Mukherjee FRUIT DRYER January 06, 2017 10:56
--- NOTE | 2017-01-06 11:10 | Pulmonary Progress Note ---
Subjective Subjective/Events-last exam Pt is doing much better. Exam Exam Vital Signs Date Time Temp Pulse Resp B/P (MAP) Pulse Ox O2 Delivery O2 Flow Rate FiO2 01/06/17 08:00 1.50 01/06/17 07:10 90 2.50 01/06/17 07:00 85 01/06/17 05:33 95.0 77 22 148/79 96 01/06/17 01:00 90 01/05/17 20:21 92 2.50 01/05/17 20:16 92 2.50 01/05/17 20:00 1.50 01/05/17 19:23 78 01/05/17 18:03 98.1 94 14 144/76 92 01/05/17 14:22 93 2.50 01/05/17 12:56 77 I & O 01/06/17 07:00 Intake Total 850 ml Output Total 850 ml Balance 0 ml General Appearance: No Apparent Distress, Thin HEENT: Normal ENT Inspection Neck: Full Range of Motion, Normal Inspection Respiratory: Chest Non Tender, Lungs Clear, Normal Breath Sounds, No Accessory Muscle Use Cardiovascular: No Murmur Gastrointestinal: non tender, soft Results Lab Laboratory Tests 01/05/17 05:08 01/06/17 06:42 01/06/17 06:46 Assessment/Plan Assessment/Plan Acute respiratory distress - now improved -Trial pt back on regular NC Pneumonia -resolving COPDAE -SVNS, oxygen -solumedrol - titrated to D/C Hypotension - improved -Decrease lopressor and hold for SBP <100 Probable CHARISMA -Out patient testing Clinical Quality Measures DVT/VTE Risk/Contraindication: Risk Factor Score Per Nursin RFS Level Per Nursing on Admit: 4+=Very High FRITZ MADRIGAL DO January 06, 2017 11:10
--- NOTE | 2017-01-06 12:58 | Occupational Ther Daily Note ---
OT Current Status-Daily Note Subjective Pt in bed with family present, agrees to treatment. Mental Status/Objective Functional [place] Measure 0=Not Assessed/NA 4=Minimal Assistance 1=Total Assistance 5=Supervision or Setup 2=Maximal Assistance 6=Modified [place] 3=Moderate Assistance 7=Complete [place] ADL-Treatment Functional [place] Measure 0=Not Assessed/NA 4=Minimal Assistance 1=Total Assistance 5=Supervision or Setup 2=Maximal Assistance 6=Modified [place] 3=Moderate Assistance 7=Complete IndependenceIRFPAI Quality Coding Scale 6 Independent with activity with or without an assistive device 5 Patient requires set up or clean up by helper. Patient completes activity by themselves 4 Supervision or touching assist (CGA). [place] provide cues , steadying assist 3 The helper provides less than half the effort to complete the activity 2 The helper provides more than half the effort to complete the activity 1 Dependent. The helper does all the effort to complete an activity 7 Patient refused to complete or attempt activity 9 The patient did not perform the activity before the current illness or injury 88 Not attempted due to Medical conditions or safety concerns Other Treatment Pt supine to sit with moderate assistance. Dependent for transfer to w/c. Pt performed short distance w/c mobility with assistance. Pt completed arm arc activity with bilateral UE to promote increased activity tolerance and strength. One rest break required during activity. Pt completed peg activity with bilateral hands to promote reaching and coordination. Increased time for task. Pt returned to room, requested to remain sitting in w/c for lunch. Pt sitting in w/c with needs met and family present after session. OT Short Term Goals Short Term Goals Time Frame: Dec 26, 2016 Bathing(FIM): 4 Upper Body Dressing(FIM): 5 Lower Body Dressing(FIM): 3 Toileting(FIM): 3 Toilet/Commode Transfer(FIM): 4 1=Demonstrate adherence to instructed precautions during ADL tasks. 2=Patient will verbalize/demonstrate understanding of assistive devices/ modifications for ADL. 3=Patient will improve strength/tolerance for activity to enable patient to perform ADL's. OT Ground Support Agent Goals Ground Support Agent Goals Time Frame: January 09, 2017 Eating (FIM): 6 Eating (QC): 6 Groomin Oral Hygiene (QC): 6 Bathing(FIM): 5 Shower/Bathe Self (QC): 5 Upper Body Dressing(FIM): 6 Upper Body Dressing (QC): 6 Lower Body Dressing(FIM): 5 Lower Body Dressing (QC): 5 On/Off Footwear (QC): 5 Toileting(FIM): 5 Toileting Hygiene (QC): 5 Toilet/Commode Transfer(FIM): 5 Toilet/Commode Transfer (QC): 5 Shower Transfer(FIM): 5 Additional Goals: 1-Demonstrate ADL Tasks, 2-Verbalize Understanding, 3- ImproveStrength/Brad 1=Demonstrate adherence to instructed precautions during ADL tasks. 2=Patient will verbalize/demonstrate understanding of assistive devices/ modifications for ADL. 3=Patient will improve strength/tolerance for activity to enable patient to perform ADL's. OT Education/Plan Discharge Recommendations Plan/Recommendations: Continue POC Treatment Plan/Plan of Care Patient would benefit from OT for education, treatment and training to promote independence in ADL's, mobility, safety and/or upper extremity function for ADL' s. Plan of Care: ADL Retraining, Functional Mobility, Group Exercise/Act as Ind, UE Funct Exercise/Act Treatment Duration: January 09, 2017 Visits Per Week: 10-12 Minutes/Day (M-F): 60-90 Minutes/Day (Sat/Stone): PRN Agreement: Yes Rehab Potential: Fair Time/GCodes Start Time: 11:30 Stop Time: 12:00 Total Time Billed (hr/min): 30 Billed Treatment Time 1 visit, FAx2(30minutes) AYAAN PLUNKETT OT January 06, 2017 12:58
[2017-01-06] MEDS: fluCOnazole (DIFLUCAN) 100 MG TAB PO SCH (16:00)
[2017-01-06] MEDS: ALFUZOSIN HCL 10 MG TAB (UROXATRAL) PO SCH (17:29)
[2017-01-06 17:34] VITALS: BP 135/82
[2017-01-06] MEDS: SIMvastatin 40 MG (ZOCOR) TAB PO SCH (20:45)
--- NOTE | 2017-01-06 21:07 | PM & R (SOAP) Progress Note ---
Subjective Subjective/Events-last exam Patient was seen in her room earlier this evening Patient Min to mod assist for transfers.Appreciate DR Fuller and Cardiologys notes and orders Appreciate current labs and CXR INR elevated-may be prolonged by diflucan Coumadin held Wiil recheck in AM Patient with leukocytosis may be partially due to IV steroids now on taper as well as improving Pneumonia.Neurogenic bladder being managed with Indwelling Wheeler catheter Review of Systems Pulmonary: Dyspnea Genitourinary: Retention Neurological: Numbness, Weakness Objective Exam Last Set of Vital Signs Vital Signs Date Time Temp Pulse Resp B/P (MAP) Pulse Ox O2 Delivery O2 Flow Rate FiO2 01/06/17 20:08 1.50 01/06/17 19:00 68 01/06/17 17:34 96.8 20 135/82 92 01/05/17 06:00 High Flow N/C Capillary Refill : I&O Intake and Output 01/06/17 00:00 Intake Total 1250 ml Output Total 850 ml Balance 400 ml Intake Oral 1250 ml Output Urine Total 850 ml # Bowel Movements 3 General: Alert, Oriented X3, Cooperative, No Acute Distress HEENT: Atraumatic, PERRLA, EOMI, Mucous Memb Moist/[place], Other (02 by N/C in place) Neck: Supple, No JVD Lungs: Clear to Auscultation Heart: Regular Rate Abdomen: Normal Bowel Sounds, Soft, No Tenderness Extremities: No Edema Neuro: Other (generalized weakness) Results Lab Laboratory Tests 01/04/17 06:11: Glucometer 207H 01/04/17 07:40: White Blood Count 21.9H, Red Blood Count 3.36L, Hemoglobin 9.8L, Hematocrit 32L , Mean Corpuscular Volume 94, Mean Corpuscular Hemoglobin 29, Mean Corpuscular Hemoglobin Concent 31L, Red Cell Distribution Width 19.3H, Platelet Count 110L, Mean Platelet Volume 11.2H, Neutrophils (%) (Auto) 96H, Lymphocytes (%) (Auto) 1L, Monocytes (%) (Auto) 3, Eosinophils (%) (Auto) 0, Basophils (%) (Auto) 0, Neutrophils # (Auto) 21.0H, Lymphocytes # (Auto) 0.3L, Monocytes # (Auto) 0.6, Eosinophils # (Auto) 0.0, Basophils # (Auto) 0.0, Neutrophils % (Manual) 97, Lymphocytes % (Manual) 2, Monocytes % (Manual) 1, Hypochromasia SLIGHT, Basophilic Stippling SLIGHT, Stomatocytes SLIGHT, Prothrombin Time 29.8H, INR Comment 2.9H 01/04/17 10:56: Glucometer 181H 01/04/17 15:46: Glucometer 221H 01/04/17 20:05: Glucometer 216H 01/05/17 05:08: Glucometer 157H, White Blood Count 23.9H, Red Blood Count 3.31L, Hemoglobin 9.8L , Hematocrit 32L, Mean Corpuscular Volume 96, Mean Corpuscular Hemoglobin 30, Mean Corpuscular Hemoglobin Concent 31L, Red Cell Distribution Width 19.3H, Platelet Count 96L, Mean Platelet Volume 11.6H, Neutrophils (%) (Auto) 97H, Lymphocytes (%) (Auto) 1L, Monocytes (%) (Auto) 2, Eosinophils (%) (Auto) 0, Basophils (%) (Auto) 0, Neutrophils # (Auto) 23.1H, Lymphocytes # (Auto) 0.2L, Monocytes # (Auto) 0.5, Eosinophils # (Auto) 0.0, Basophils # (Auto) 0.0, Prothrombin Time 29.7H, INR Comment 2.8H 01/05/17 10:59: Glucometer 234H 01/05/17 15:56: Glucometer 227H 01/05/17 20:08: Glucometer 311H 01/06/17 04:29: Glucometer 119H 01/06/17 06:42: White Blood Count 28.7H, Red Blood Count 3.50L, Hemoglobin 10.4L, Hematocrit 34L , Mean Corpuscular Volume 96, Mean Corpuscular Hemoglobin 30, Mean Corpuscular Hemoglobin Concent 31L, Red Cell Distribution Width 19.5H, Platelet Count 91L, Mean Platelet Volume 12.1H, Neutrophils (%) (Auto) 97H, Lymphocytes (%) (Auto) 1L, Monocytes (%) (Auto) 2, Eosinophils (%) (Auto) 0, Basophils (%) (Auto) 0, Neutrophils # (Auto) 27.9H, Lymphocytes # (Auto) 0.2L, Monocytes # (Auto) 0.6, Eosinophils # (Auto) 0.0, Basophils # (Auto) 0.0, Neutrophils % (Manual) 94, Lymphocytes % (Manual) 0, Monocytes % (Manual) 3, Eosinophils % (Manual) 0, Basophils % (Manual) 0, Band Neutrophils 3, Polychromasia SLIGHT, Poikilocytosis SLIGHT, Basophilic Stippling MODERATE, Anisocytosis SLIGHT, Prothrombin Time 35.0H, INR Comment 3.5H 01/06/17 06:46: Sodium Level 137, Potassium Level 4.6, Chloride Level 100, Carbon Dioxide Level 30, Anion Gap 7, Blood Urea Nitrogen 37H, Creatinine 0.88, Estimat Glomerular Filtration Rate > 60, BUN/Creatinine Ratio 42, Glucose Level 145H, Calcium Level 8.2L, Total Bilirubin 0.5, Aspartate Amino Transf (AST/SGOT) 13, Alanine Aminotransferase (ALT/SGPT) 25, Alkaline Phosphatase 68, Total Protein 4.9L, Albumin 3.0L, Digoxin Level 2.43*H 01/06/17 10:35: Glucometer 259H 01/06/17 15:49: Glucometer 173H 01/06/17 20:40: Glucometer 203H Microbiology 01/03/17 Urine Culture - Final, Complete Presumptive Farz[place]h [place] Assessment/Plan Assessment 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 with resulting lower extremity weakness and numbness and neurogenic bladder General debil s/p Aortic Aneurysm repair Severe DJD Lumbar spine with low back pain associated with L3 scoliosis Anticoagulation with supratherapeutic INR with Coumadin on hold repeate INR ordered for tomorrow Postop urinary retention following with Wheeler catheter reinserted UTI- under treatment with IV antibiotics associated with Leukocytosis Pneumonia on antibiotics Leukocytosis multifactorial recheck labs in AM HTN with episodes of hypotension associated with dizziness-Cardiology adjusting meds with some irregularity in readings left vs rt arm due to recent vasc surgery COPD on treatments and 02 Abdominal pain -patient has had complete workup for this at [facility] and no findings found IV steroids with hyperglycemia-improved Orthostatic hypotension-improved Reactive depression-Celexa ordered. Discharge postponed til possibly tomorrow to [place] due to above issues. Plan Continue PT/OT as tolerated Pain Management-for additional DX of DJD Lumbar spine F/U with Nicky Meyer.Khalid and Shira as per their schedule F/U labs and studies as per above plan Trial of celexa for reactive depression-done Discharge postponed til possibly tomorrow or Friday due to above issues Reinserted Wheeler catheter to DD last week. due to continued urinary retention Discussed case with RN this evening and with Dr lawler as well as [facility] [employer] earlier today by phone MICHELE YEUNG MD January 06, 2017 21:07
[2017-01-06] MEDS: ALPRAZolam 0.25 MG (XANAX) TAB PO PRN (21:42)
[2017-01-07 04:18] VITALS: BP 135/77
[2017-01-07] MEDS: PANTOPRAZOLE 40 MG (PROTONIX) TAB PO SCH ×2 (06:08→21:03)
[2017-01-07] MEDS: FERROUS SULF 325 MG (IRON) TAB PO SCH ×3 (06:08→19:00)
[2017-01-07 06:19] LABS: BASOPHILS % (AUTO) 0 % (0-10); EOSINOPHILS % (AUTO) 0 % (0-10); LYMPHOCYTES # (AUTO) 0.3 X 10^3 (1.0-4.0); LYMPHOCYTES % (AUTO) 1 % (12-44); MEAN CORPUSCULAR HEMOGLOBIN 30 PG (25-34); MEAN CORPUSCULAR HGB CONC 31 G/DL (32-36); MEAN CORPUSCULAR VOLUME 96 FL (80-99); MEAN PLATELET VOLUME 12.4 FL (7.4-10.4); MONOCYTES # (AUTO) 0.4 X 10^3 (0.0-1.0); MONOCYTES % (AUTO) 2 % (0-12); NEUTROPHILS # (AUTO) 24.6 X 10^3 (1.8-7.8); NEUTROPHILS % (AUTO) 97 % (42-75); PLATELET COUNT 73 10^3/uL (130-400); RED BLOOD COUNT 3.27 10^6/uL (4.35-5.85); RED CELL DISTRIBUTION WIDTH 19.4 % (10.0-14.5); WHITE BLOOD COUNT 25.3 10^3/uL (4.3-11.0)
[2017-01-07 06:31] LABS: INR 4.5 (0.8-1.4); PROTHROMBIN TIME PATIENT 42.9 SEC (12.2-14.7)
[2017-01-07 06:39] LABS: ALANINE AMINOTRANSFERASE 20 U/L (0-55); ALBUMIN 2.8 G/DL (3.2-4.5); ANION GAP 9 MMOL/L (5-14); ASPARTATE AMINO TRANSFERASE 11 U/L (5-34); BILIRUBIN,TOTAL 0.4 MG/DL (0.1-1.0); BLOOD UREA NITROGEN 36 MG/DL (7-18); BUN/CREATININE RATIO 43; CALCIUM 8.1 MG/DL (8.5-10.1); CARBON DIOXIDE 29 MMOL/L (21-32); CHLORIDE 102 MMOL/L (98-107); CREATININE SERUM 0.83 MG/DL (0.60-1.30); GFR ESTIMATED > 60; GLUCOSE 139 MG/DL (70-105); POTASSIUM 4.6 MMOL/L (3.6-5.0); SODIUM 140 MMOL/L (135-145); TOTAL PROTEIN 4.6 G/DL (6.4-8.2)
[2017-01-07 06:46] LABS: DIGOXIN 2.72 NG/ML (0.80-2.00)
[2017-01-07] MEDS: RT-ADVAIR HFA 115/21 MCG PER PUFF IH SCH ×2 (06:50→19:18)
[2017-01-07] MEDS: RT-ALBUTEROL/IPRATROPIUM 3 ML (DUONEB) VIAL INH SCH ×3 (06:50→19:18)
[2017-01-07] MEDS: inSUlin ASPART (NovoLOG) 1 UNIT/0.01 ML (CHARGE PER UNIT) SC SCH ×4 (06:59→21:03)
--- NOTE | 2017-01-07 08:09 | Progress Note (SOAP) ---
Subjective Subjective/Events-last exam due to abnormal lab tests patient not to have full physical therapy or occupational therapy today. White blood cell count 25,000. Digoxin toxic. Platelet count decreased to 73,000. Patient is feeling okay. Atrial fibrillation. Prolonged INR Objective Exam Vital Signs Date Time Temp Pulse Resp B/P (MAP) Pulse Ox O2 Delivery O2 Flow Rate FiO2 01/07/17 07:00 81 01/07/17 06:50 100 2.50 01/07/17 04:18 97.9 70 18 135/77 96 High Flow N/C 1.50 01/07/17 01:00 68 01/06/17 21:18 90 2.50 01/06/17 20:08 1.50 01/06/17 19:00 68 01/06/17 17:34 96.8 72 20 135/82 92 01/06/17 15:53 90 2.50 01/06/17 13:00 85 I & O 01/07/17 07:00 Intake Total 1500 ml Output Total 1000 ml Balance 500 ml Capillary Refill : General Appearance: No Apparent Distress, Thin HEENT: Normal ENT Inspection Neck: Normal Inspection Respiratory: No Accessory Muscle Use, No Respiratory Distress Cardiovascular: Irregularly Irregular Results Lab Laboratory Tests 01/07/17 06:00 Laboratory Tests 01/06/17 10:35: Glucometer 259H 01/06/17 15:49: Glucometer 173H 01/06/17 20:40: Glucometer 203H 01/07/17 06:00: White Blood Count 25.3H, Red Blood Count 3.27L, Hemoglobin 9.8L, Hematocrit 31L , Mean Corpuscular Volume 96, Mean Corpuscular Hemoglobin 30, Mean Corpuscular Hemoglobin Concent 31L, Red Cell Distribution Width 19.4H, Platelet Count 73L, Mean Platelet Volume 12.4H, Neutrophils (%) (Auto) 97H, Lymphocytes (%) (Auto) 1L, Monocytes (%) (Auto) 2, Eosinophils (%) (Auto) 0, Basophils (%) (Auto) 0, Neutrophils # (Auto) 24.6H, Lymphocytes # (Auto) 0.3L, Monocytes # (Auto) 0.4, Eosinophils # (Auto) 0.0, Basophils # (Auto) 0.0, Prothrombin Time 42.9H, INR Comment 4.5H, Sodium Level 140, Potassium Level 4.6, Chloride Level 102, Carbon Dioxide Level 29, Anion Gap 9, Blood Urea Nitrogen 36H, Creatinine 0.83, Estimat Glomerular Filtration Rate > 60, BUN/Creatinine Ratio 43, Glucose Level 139H, Calcium Level 8.1L, Total Bilirubin 0.4, Aspartate Amino Transf (AST/SGOT ) 11, Alanine Aminotransferase (ALT/SGPT) 20, Alkaline Phosphatase 65, Total Protein 4.6L, Albumin 2.8L, Digoxin Level 2.72*H Microbiology 01/03/17 Urine Culture - Final, Complete Presumptive Farzaneh Glabrata Assessment/Plan Assessment/Plan Assess & Plan/Chief Complaint Debility. Atrial fibrillation. COPD. Inability to void. . . Debility. Atrial fibrillation. COPD. Patient complains of short of breathe today. . 12/20/16. Blood pressure better. Apical rate under control. Patient talking. Patient appears somewhat better. Patient is DO NOT RESUSCITATE. . 12/21/16 patient doing much better today. Patient more alert. Blood pressure is within normal limits. Patient not confused. Patient not hypotensive. Patient has hypomagnesemia.. . 12/27/16. Patient feeling better today. Patient not confused. Patient has some hypotension. chest x-ray yesterday showed pneumonia. Patient afebrile. White blood cell count within [place]. . 12/30/16. Patient frustrated. Patient has Improved. To get chest x-ray today. . 12/31/16. Patient feeling much better today.Patient and breathing better. Patient improved since yesterday. . 01/01/17. Debility. Depression. Atrial fibrillation. COPD. Patient feels better today and feels hopeful. .. 01/02/17. Debility. Atrial fibrillation. COPD. Inability to void. Patient feeling better today. Patient have an MRI. . 01/03/17 debility. Atrial fibrillation. COPD. Wheeler catheter. Patient has leukocytosis with low platelet count. . 01/06/17. Atrial fibrillation. debility. COPD. Leukocytosis due to Solu-Medrol. . 01/07/17 White blood cell count 25,000. platelet count 73,000. Digoxin level toxic. Clinical Quality Measures DVT/VTE Risk/Contraindication: Risk Factor Score Per Nursin RFS Level Per Nursing on Admit: 4+=Very High ROMAIN MARSH DO January 07, 2017 08:09
[2017-01-07] MEDS: DILTIAZEM 240 MG (CARDIZEM CD) CAP PO SCH (09:36)
[2017-01-07] MEDS: methylPREDNISolone 40 MG/ML (Solu-MEDROL) VIAL IV SCH ×2 (09:36→21:03)
[2017-01-07] MEDS: FLUTICASONE NASAL SPRAY (FLONASE) 16 GM BTL NS SCH (09:37)
[2017-01-07] MEDS: NICOTINE 14 MG (NICODERM) PATCH TD SCH (09:43)
--- NOTE | 2017-01-07 09:43 | Occupational Ther Daily Note ---
OT Current Status-Daily Note Subjective Pt alert, lying in bed. Pt has a wet cough and is holding L side when coughing. Pt agrees to therapy. Nrsg and physician knows about pain. Pt states that the pain has been there since before she came to rehab. Mental Status/Objective Patient Orientation: Person, Place, Time, Situation Functional [place] Measure 0=Not Assessed/NA 4=Minimal Assistance 1=Total Assistance 5=Supervision or Setup 2=Maximal Assistance 6=Modified [place] 3=Moderate Assistance 7=Complete [place] Attachments: Wheeler Catheter, IV, Oxygen ADL-Treatment Pt is agreeable to sitting on EOB for sponge bath. Pt stated that someone had already completed bathing her upper body. Pt was able to sit EOB holding onto upper bedrail and side of bed. Pt felt like she was falling when sitting straight up. Pt had difficulty using one arm to bathe upper body and sitting, she would fall backwards assist needed to sit upright. Mod A for donning shirt. Mod A for going from supine to sitting then max A for sitting to supine and scooting up in bed. With HOB raised pt was able to cleanse didier area and dry self. Mod A to roll side to side max A to cleanse pt's buttocks and don lower body clothing. Nrsg checked on pt's buttocks due to wounds on that area. Pt is rolled and lying on R side to decrease pressure on buttocks. Pt is able to take out and put in dentures, BARAKAT cleansed dentures. Pt was able to brush hair when given tool. Call light/phone in reach. All needs met in room. Functional [place] Measure 0=Not Assessed/NA 4=Minimal Assistance 1=Total Assistance 5=Supervision or Setup 2=Maximal Assistance 6=Modified [place] 3=Moderate Assistance 7=Complete IndependenceIRFPAI Quality Coding Scale 6 Independent with activity with or without an assistive device 5 Patient requires set up or clean up by helper. Patient completes activity by themselves 4 Supervision or touching assist (CGA). [place] provide cues , steadying assist 3 The helper provides less than half the effort to complete the activity 2 The helper provides more than half the effort to complete the activity 1 Dependent. The helper does all the effort to complete an activity 7 Patient refused to complete or attempt activity 9 The patient did not perform the activity before the current illness or injury 88 Not attempted due to Medical conditions or safety concerns Grooming (FIM): 3 Bathing (FIM): 2 Lower Body Dressing (FIM): 2 OT Short Term Goals Short Term Goals Time Frame: Dec 26, 2016 Bathing(FIM): 4 Upper Body Dressing(FIM): 5 Lower Body Dressing(FIM): 3 Toileting(FIM): 3 Toilet/Commode Transfer(FIM): 4 1=Demonstrate adherence to instructed precautions during ADL tasks. 2=Patient will verbalize/demonstrate understanding of assistive devices/ modifications for ADL. 3=Patient will improve strength/tolerance for activity to enable patient to perform ADL's. OT Long-Term Goals Sales Department Supervisor Goals Time Frame: January 09, 2017 Eating (FIM): 6 Eating (QC): 6 Groomin Oral Hygiene (QC): 6 Bathing(FIM): 5 Shower/Bathe Self (QC): 5 Upper Body Dressing(FIM): 6 Upper Body Dressing (QC): 6 Lower Body Dressing(FIM): 5 Lower Body Dressing (QC): 5 On/Off Footwear (QC): 5 Toileting(FIM): 5 Toileting Hygiene (QC): 5 Toilet/Commode Transfer(FIM): 5 Toilet/Commode Transfer (QC): 5 Shower Transfer(FIM): 5 Additional Goals: 1-Demonstrate ADL Tasks, 2-Verbalize Understanding, 3- ImproveStrength/Brad 1=Demonstrate adherence to instructed precautions during ADL tasks. 2=Patient will verbalize/demonstrate understanding of assistive devices/ modifications for ADL. 3=Patient will improve strength/tolerance for activity to enable patient to perform ADL's. OT Education/Plan Discharge Recommendations Plan/Recommendations: Continue POC Treatment Plan/Plan of Care Patient would benefit from OT for education, treatment and training to promote independence in ADL's, mobility, safety and/or upper extremity function for ADL' s. Plan of Care: ADL Retraining, Functional Mobility, Group Exercise/Act as Ind, UE Funct Exercise/Act Treatment Duration: January 09, 2017 Visits Per Week: 10-12 Minutes/Day (M-F): 60-90 Minutes/Day (Sat/Stone): PRN Agreement: Yes Rehab Potential: Fair Time/GCodes Start Time: 08:00 Stop Time: 09:30 Total Time Billed (hr/min): 60 Billed Treatment Time 1 visit-ADL 4 (60 min) AVEL RAMIREZ January 07, 2017 09:43
[2017-01-07] MEDS: cefTRIAXone INJECTION 1,000 MG in NS (IVPB) 50 ML IV SCH (09:44)
[2017-01-07] MEDS: POLYETHYLENE GLYCOL 17 GM (MIRALAX) PACK PO SCH ×2 (09:44→21:04)
[2017-01-07] MEDS: NICOTINE PATCH REMOVAL TP SCH (09:44)
[2017-01-07] MEDS: MENTHOL/ZINC OXIDE (CALMOSEPTINE) 113 GM TUBE TOP SCH ×2 (09:45→21:04)
--- NOTE | 2017-01-07 10:00 | PM & R (SOAP) Progress Note ---
Subjective Subjective/Events-last exam Patient was seen in her room times two this AM Case discussed with one of patients sons as well as Loading Unit Operator for IRU and PT and RN and Dr lawler Discharge on hold due to elevated INR and dropping Platelet count as well as leukocytosis Patient Min to mod assist for transsfers Review of Systems Neurological: Weakness Objective Exam Last Set of Vital Signs Vital Signs Date Time Temp Pulse Resp B/P (MAP) Pulse Ox O2 Delivery O2 Flow Rate FiO2 01/07/17 07:00 81 01/07/17 06:50 100 2.50 01/07/17 04:18 97.9 18 135/77 High Flow N/C Capillary Refill : I&O Intake and Output 01/07/17 00:00 Intake Total 1200 ml Output Total 750 ml Balance 450 ml Intake Oral 1200 ml Output Urine Total 750 ml # Bowel Movements 2 General: Alert, Oriented X3, Cooperative, No Acute Distress HEENT: Atraumatic, PERRLA, EOMI, Mucous Memb Moist/[place], Other (02 by N/C in place) Neck: Supple, No JVD Lungs: Clear to Auscultation Heart: Regular Rate Abdomen: Normal Bowel Sounds, Soft, No Tenderness Extremities: No Edema Neuro: Other (generalized weakness) Results Lab Laboratory Tests 01/04/17 10:56: Glucometer 181H 01/04/17 15:46: Glucometer 221H 01/04/17 20:05: Glucometer 216H 01/05/17 05:08: Glucometer 157H, White Blood Count 23.9H, Red Blood Count 3.31L, Hemoglobin 9.8L , Hematocrit 32L, Mean Corpuscular Volume 96, Mean Corpuscular Hemoglobin 30, Mean Corpuscular Hemoglobin Concent 31L, Red Cell Distribution Width 19.3H, Platelet Count 96L, Mean Platelet Volume 11.6H, Neutrophils (%) (Auto) 97H, Lymphocytes (%) (Auto) 1L, Monocytes (%) (Auto) 2, Eosinophils (%) (Auto) 0, Basophils (%) (Auto) 0, Neutrophils # (Auto) 23.1H, Lymphocytes # (Auto) 0.2L, Monocytes # (Auto) 0.5, Eosinophils # (Auto) 0.0, Basophils # (Auto) 0.0, Prothrombin Time 29.7H, INR Comment 2.8H 01/05/17 10:59: Glucometer 234H 01/05/17 15:56: Glucometer 227H 01/05/17 20:08: Glucometer 311H 01/06/17 04:29: Glucometer 119H 01/06/17 06:42: White Blood Count 28.7H, Red Blood Count 3.50L, Hemoglobin 10.4L, Hematocrit 34L , Mean Corpuscular Volume 96, Mean Corpuscular Hemoglobin 30, Mean Corpuscular Hemoglobin Concent 31L, Red Cell Distribution Width 19.5H, Platelet Count 91L, Mean Platelet Volume 12.1H, Neutrophils (%) (Auto) 97H, Lymphocytes (%) (Auto) 1L, Monocytes (%) (Auto) 2, Eosinophils (%) (Auto) 0, Basophils (%) (Auto) 0, Neutrophils # (Auto) 27.9H, Lymphocytes # (Auto) 0.2L, Monocytes # (Auto) 0.6, Eosinophils # (Auto) 0.0, Basophils # (Auto) 0.0, Neutrophils % (Manual) 94, Lymphocytes % (Manual) 0, Monocytes % (Manual) 3, Eosinophils % (Manual) 0, Basophils % (Manual) 0, Band Neutrophils 3, Polychromasia SLIGHT, Poikilocytosis SLIGHT, Basophilic Stippling MODERATE, Anisocytosis SLIGHT, Prothrombin Time 35.0H, INR Comment 3.5H 01/06/17 06:46: Sodium Level 137, Potassium Level 4.6, Chloride Level 100, Carbon Dioxide Level 30, Anion Gap 7, Blood Urea Nitrogen 37H, Creatinine 0.88, Estimat Glomerular Filtration Rate > 60, BUN/Creatinine Ratio 42, Glucose Level 145H, Calcium Level 8.2L, Total Bilirubin 0.5, Aspartate Amino Transf (AST/SGOT) 13, Alanine Aminotransferase (ALT/SGPT) 25, Alkaline Phosphatase 68, Total Protein 4.9L, Albumin 3.0L, Digoxin Level 2.43*H 01/06/17 10:35: Glucometer 259H 01/06/17 15:49: Glucometer 173H 01/06/17 20:40: Glucometer 203H 01/07/17 06:00: White Blood Count 25.3H, Red Blood Count 3.27L, Hemoglobin 9.8L, Hematocrit 31L , Mean Corpuscular Volume 96, Mean Corpuscular Hemoglobin 30, Mean Corpuscular Hemoglobin Concent 31L, Red Cell Distribution Width 19.4H, Platelet Count 73L, Mean Platelet Volume 12.4H, Neutrophils (%) (Auto) 97H, Lymphocytes (%) (Auto) 1L, Monocytes (%) (Auto) 2, Eosinophils (%) (Auto) 0, Basophils (%) (Auto) 0, Neutrophils # (Auto) 24.6H, Lymphocytes # (Auto) 0.3L, Monocytes # (Auto) 0.4, Eosinophils # (Auto) 0.0, Basophils # (Auto) 0.0, Prothrombin Time 42.9H, INR Comment 4.5H, Sodium Level 140, Potassium Level 4.6, Chloride Level 102, Carbon Dioxide Level 29, Anion Gap 9, Blood Urea Nitrogen 36H, Creatinine 0.83, Estimat Glomerular Filtration Rate > 60, BUN/Creatinine Ratio 43, Glucose Level 139H, Calcium Level 8.1L, Total Bilirubin 0.4, Aspartate Amino Transf (AST/SGOT ) 11, Alanine Aminotransferase (ALT/SGPT) 20, Alkaline Phosphatase 65, Total Protein 4.6L, Albumin 2.8L, Digoxin Level 2.72*H Microbiology 01/03/17 Urine Culture - Final, Complete Presumptive Farzaneh Glabrata Assessment/Plan Assessment Lumbar Spinal stenosis with central canal stenosis L3-L4 with resulting lower extremity weakness and numbness and neurogenic bladder General debil s/p Aortic Aneurysm repair Severe DJD Lumbar spine with low back pain associated with L3 scoliosis Anticoagulation with supratherapeutic INR with Coumadin on hold repeate INR ordered for tomorrow Postop urinary retention following with Wheeler catheter reinserted UTI- under treatment with IV antibiotics associated with Leukocytosis Pneumonia on antibiotics Leukocytosis multifactorial recheck labs in AM HTN with episodes of hypotension associated with dizziness-Cardiology adjusting meds with some irregularity in readings left vs rt arm due to recent vasc surgery COPD on treatments and 02 Abdominal pain -patient has had complete workup for this at [facility] and no findings found IV steroids with hyperglycemia-improved Orthostatic hypotension-improved Reactive depression-Celexa ordered. Discharge postponed to SNU in [place] til later this week due to elevated INR , Leukocytosis and Thrombocytopenia . Plan Continue PT/OT as tolerated Pain Management-for additional DX of DJD Lumbar spine F/U with Nicky Meyer.Susi and Shira as per their schedule F/U labs and studies as per above plan Trial of celexa for reactive depression-done Reinserted Wheeler catheter to DD last week. due to continued urinary retention Team Conference tomorrow 01/08/17 Dr Gaytan Hematology to see MICHELE YEUNG MD January 07, 2017 10:00
--- NOTE | 2017-01-07 11:17 | Physical Therapy Daily Note ---
PT Daily Note-Current Subjective Agrees. Reports feeling dizzy various times throughout the treatment. Reports feeling weak multiple times as well. Pain Numeric Pain Scale: 5-Moderate Pain Location: Left Location Body Site: Abdomen (/flank) Comment: "hurts" Mental Status Patient Orientation: Person, Place, Time, Situation Transfers Functional [place] Measure 0=Not Assessed/NA 4=Minimal Assistance 1=Total Assistance 5=Supervision or Setup 2=Maximal Assistance 6=Modified [place] 3=Moderate Assistance 7=Complete IndependenceIRFPAI Quality Coding Scale 6 Independent with activity with or without an assistive device 5 Patient requires set up or clean up by helper. Patient completes activity by themselves 4 Supervision or touching assist (CGA). [place] provide cues , steadying assist 3 The helper provides less than half the effort to complete the activity 2 The helper provides more than half the effort to complete the activity 1 Dependent. The helper does all the effort to complete an activity 7 Patient refused to complete or attempt activity 9 The patient did not perform the activity before the current illness or injury 88 Not attempted due to Medical conditions or safety concerns Transfers (B, C, W/C) (FIM): 1 Roll Left to Right (QC): 3 Supine to/from Sit: 2 (max assist and moderate cues to sequence task) Sit to/from Stand: 1 Sit to Lying (QC): 2 Sit to Stand (QC): 1 Chair/Dkc-he-Mmprg Xfer(QC): 1 Car Transfer (QC): 1 does not fully bear weight through LE to stand or to transfer; dependent for SPT Gait Training Does the Patient Walk?: No and Walking Goal IS indicated Gait (FIM): 0 (unable at this time) Distance (FIM): 0=does not occure Walk 10 feet (QC): 9 Walk 50 ft with 2 Turns(QC): 9 Walk 150 ft (QC): 9 Walking 10ft/uneven surface-QC: 9 Unable to ambulate at this time. Wheelchair Training Does the Pt Use a Wheelchair?: Yes Wheelchair (FIM): 2 Wheelchair Distance: 4=088-87 ft Distance: 50 ft Wheelchair Level of Assist: 4 Wheel 50 ft with 2 turns (QC): 4 Wheel 150 ft (QC): 9 Type of Wheelchair: Manual needs assist with turning; limited in functional distance Stair Training Stairs (FIM): 1 (unable) 1 Step (curb) (QC): 9 4 Steps (QC): 9 12 Steps (QC): 9 unable to stand Balance Picking up an Object (QC): 9 (unable to stand) Treatments Worked on functional sup to from sit transfers with max to dep assist; SPT performed x 5 dep assist. Nu step x 10 minutes with occas assist to keep pedaling. Wc mobility 50 ft x 2 with min assist and frequent rest breaks. Assessment Limited functional gains at this point. Pt unable to bear weight through legs. Needs encouragement to push herself to go further. Very weak. Limited functional activity tolerance. PT Short Term Goals Short Term Goals Time Frame: Dec 26, 2016 Gait (FIM): 1 Gait Distance Comment: 30' Gait Level of Assist: 4 Gait Assistive Device: FWW Wheelchair Distance: 50'x2 PT Coal Handling Supervisor Goals Coal Handling Supervisor Goals PT Halfway Goals Time Frame: January 09, 2017 Transfers (B,C,W/C) (FIM): 5 Sit to Lying (QC): 4 Lying-Sitting on Side/Bed(QC): 4 Sit to Stand (QC): 4 Rollin Roll Left to Right (QC): 4 Chair/Tay-jg-Etrpk Xfer(QC): 4 Car Transfer (QC): 3 Gait (FIM): 2 Distance: 50' Walk 10 feet (QC): 4 Walk 10ft-Uneven Surface(QC): 4 Walk 50ft with 2 Turns (QC): 4 Walk 150 ft (QC): 88 Gait Level of Assist: 4 Gait Assistive Device: FWW Wheelchair (FIM): 5 Distance: 150' Wheelchair Level of Assist: 5 Wheel 50 feet with 2 turns (QC: 4 Stairs (FIM): 2 # of Steps: 4 1 Step (curb) (QC): 3 4 Steps (QC): 3 12 Steps (QC): 88 Stairs Level Of Assist: 4 Picking up an Object (QC): 88 No goals met at this time. PT Plan Problem List Problem List: Activity Tolerance, Functional Strength, Safety, Balance, Gait, Transfer, Bed Mobility Treatment/Plan Treatment Plan: Continue Plan of Care Treatment Plan: Bed Mobility, Education, Functional Activity Brad, Functional Strength, Group Therapy, Gait, Safety, Therapeutic Exercise, Transfers Treatment Duration: January 09, 2017 Visits Per Week: 10-11 Minutes/Day (M-F): 60-90 Minutes/Day (Sat/Stone): 15-30 Safety Risks/Education Patient Education: Safety Issues Teaching Recipient: Patient Teaching Methods: Demonstration, Discussion Response to Teaching: Reinforcement Needed Time/GCodes Time In: 930 Time Out: 1030 Total Billed Treatment Time: 60 Total Billed Treatment visit WC 30 FA 20 EX 10 AVEL BAZZI PT January 07, 2017 11:17
--- NOTE | 2017-01-07 13:41 | Physical Therapy Progress Note ---
Therapy Progress Note Patient declined PT this p.m. secondary to fatigue and not feeling well. PT attempted to encourage patient to participate, however, patient continued to decline. PT to attempt in a.m. 1 ref MARK MONET PT January 07, 2017 13:41
--- NOTE | 2017-01-07 13:57 | Occ Therapy Progress Note ---
Therapy Progress Note Pt declined therapy in pm due to pain in R side stating "it hurts when I move so I can't do anything". AVEL RAMIREZ January 07, 2017 13:57
--- NOTE | 2017-01-07 14:00 | Diagnostic Imaging Report ---
INDICATION: Left-sided chest pain. DISCUSSION: 3 views of the chest were obtained, comparison 01/03/2017. 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 Large masslike opacity within the left upper lung is stable. Borderline cardiomegaly is noted. Underlying COPD is stable. Mild pulmonary edema is stable/ slightly decreased. No pleural fluid. No pneumothorax. IMPRESSION: Mild interstitial alveolar opacities are again noted, stable/slightly decreased. This is most consistent with mild pulmonary edema. The remainder of the chest is stable. Dictated by: Dictated on workstation # [id number]
--- NOTE | 2017-01-07 15:23 | Wound Care Progress Note ---
Subjective Subjective Subjective/Events-last exam The patient is a pleasant 76-year-old female who is recovering from thoracic aortic aneurysm repair at . She has fecal incontinence and is unaware of passing stool. He has been transferred to [facility] rehabilitation unit for assistance in recovering functional independence. She is noted to have bilateral buttock pressure ulcers. These are currently under treatment with barrier cream and frequent turning. Past Medical History: COPD, CAD, Atrial Fibrillation. Social History: Patient was living independently prior to her most recent operation. [facility] in [facility], in [place], her . At the time of her admission for surgery she was a every day smoker. Review of Systems: We will shortness of breath, nasal cannula O2, urinary retention, left upper quadrant pain, previously evaluated with negative findings at . Objective Exam Last Set of Vital Signs Vital Signs Date Time Temp Pulse Resp B/P (MAP) Pulse Ox O2 Delivery O2 Flow Rate FiO2 01/07/17 13:00 87 01/07/17 08:59 1.50 01/07/17 06:50 100 01/07/17 04:18 97.9 18 135/77 High Flow N/C Capillary Refill : I&O Intake and Output 01/06/17 23:59 Intake Total 1200 ml Output Total 750 ml Balance 450 ml Intake Oral 1200 ml Output Urine Total 750 ml # Bowel Movements 2 General: Alert, No Acute Distress HEENT: Atraumatic Neck: Supple Lungs: Normal Air Movement Heart: Regular Rate Abdomen: Soft Extremities: No Tenderness/Swelling Skin: Other (Right buttock -- 1.2 x 1.5 x 0.1 cm, base 100% regenerating tissue, ranging moderate serosanguineous. Left buttock -- 0.6 x 0.7 x 0.1 cm , 100% regenerating tissue, moderate serosanguineous drainage. Periwound macerated.) Neuro: Normal Speech, Normal Tone Psych/Mental Status: Other (Mild confusion.) Results Lab Laboratory Tests 01/06/17 15:49: Glucometer 173H 01/06/17 20:40: Glucometer 203H 01/07/17 06:00: White Blood Count 25.3H, Red Blood Count 3.27L, Hemoglobin 9.8L, Hematocrit 31L , Mean Corpuscular Volume 96, Mean Corpuscular Hemoglobin 30, Mean Corpuscular Hemoglobin Concent 31L, Red Cell Distribution Width 19.4H, Platelet Count 73L, Mean Platelet Volume 12.4H, Neutrophils (%) (Auto) 97H, Lymphocytes (%) (Auto) 1L, Monocytes (%) (Auto) 2, Eosinophils (%) (Auto) 0, Basophils (%) (Auto) 0, Neutrophils # (Auto) 24.6H, Lymphocytes # (Auto) 0.3L, Monocytes # (Auto) 0.4, Eosinophils # (Auto) 0.0, Basophils # (Auto) 0.0, Prothrombin Time 42.9H, INR Comment 4.5H, Sodium Level 140, Potassium Level 4.6, Chloride Level 102, Carbon Dioxide Level 29, Anion Gap 9, Blood Urea Nitrogen 36H, Creatinine 0.83, Estimat Glomerular Filtration Rate > 60, BUN/Creatinine Ratio 43, Glucose Level 139H, Calcium Level 8.1L, Total Bilirubin 0.4, Aspartate Amino Transf (AST/SGOT ) 11, Alanine Aminotransferase (ALT/SGPT) 20, Alkaline Phosphatase 65, Total Protein 4.6L, Albumin 2.8L, Digoxin Level 2.72*H 01/07/17 10:59: Glucometer 212H Microbiology 01/03/17 Urine Culture - Final, Complete Presumptive Farzaneh Glabrata Assessment/Plan Assessment/Plan Assessment/Plan 1. Right buttock talk pressure ulcer, stage II. 2. Left buttock talk pressure ulcer, stage II. 3. Fecal incontinence without awareness. Plan: Recommend continued barrier cream, frequent checks, and turning side-to- side avoiding placing patient on her back. Would recommend a didier-check every 2 hours. CASI SOLIS MD January 07, 2017 15:23
[2017-01-07 16:09] LABS: BILIRUBIN,URINE NEGATIVE (NEGATIVE); KETONES,URINE NEGATIVE (NEGATIVE); LEUKOCYTE ESTERASE ,URINE 3+ (NEGATIVE); NITRITE,URINE NEGATIVE (NEGATIVE); PH,URINE 5 (5-9); PROTEIN,URINE 3+ (NEGATIVE); UROBILINOGEN,URINE NORMAL (NORMAL)
[2017-01-07 16:17] LABS: WBC,URINE >100 /HPF
[2017-01-07 16:18] LABS: YEAST,URINE MODERATE /HPF
--- NOTE | 2017-01-07 16:24 | Progress Note-Cardiology ---
Cardiology SOAP Progress Note Subjective: No new c/o Objective: I&O/Vital Signs Vital Sign - Last 12Hours 01/08/17 01/08/17 01/08/17 01/08/17 01:00 05:42 07:19 07:27 Temp 97.3 Pulse 77 69 Resp 20 B/P (MAP) 132/71 Pulse Ox 97 90 94 O2 Delivery High Flow N/C O2 Flow Rate 1.50 3.00 3.00 Intake and Output 01/07/17 23:59 Intake Total 680 ml Output Total 675 ml Balance 5 ml Weight (Pounds): 117 Weight (Ounces): 4.8 Weight (Calculated Kilograms): 53.263006 Constitutional: appears stated age, No apparent distress, well-developed, well- nourished Respiratory: No accessory muscle use, No respiratory distress, other (scatter crackles) Cardiovascular: irregularly irregular, No JVD, S1 and S2, systolic murmur Gastrointestional: soft, round, audible bowel sounds, No spleenomegaly Genital/Rectal: other (indwelling urinary catheter to DD; clear, yellow urine) Extremities: No clubbing, No cyanosis, significant edema (mild pedal edema) Neurologic/Psychiatric: alert, oriented x 3, power is 5/5 both on sides Skin: No rash, No ulcerations Results/Procedures: Labs Laboratory Tests 01/07/17 10:59: Glucometer 212H 01/07/17 15:40: Urine Color YELLOW, Urine Clarity CLEAR, Urine pH 5, Urine Specific [place] 1.015L, Urine Protein 3+H, Urine Glucose (UA) NEGATIVE, Urine Ketones NEGATIVE, Urine Nitrite NEGATIVE, Urine Bilirubin NEGATIVE, Urine Urobilinogen NORMAL, Urine Leukocyte Esterase 3+H, Urine RBC (Auto) 5+H, Urine RBC 25-50H, Urine WBC >100H, Urine Crystals NONE, Urine Bacteria FEWH, Urine Casts NONE, Urine Mucus NEGATIVE, Urine Yeast MODERATEH, Urine Culture Indicated YES 01/07/17 15:53: Glucometer 172H 01/07/17 20:32: Glucometer 250H 01/08/17 05:49: Glucometer 159H 01/08/17 06:25: White Blood Count 22.7H, Red Blood Count 3.40L, Hemoglobin 10.1L, Hematocrit 32L , Mean Corpuscular Volume 95, Mean Corpuscular Hemoglobin 30, Mean Corpuscular Hemoglobin Concent 31L, Red Cell Distribution Width 19.4H, Platelet Count 62L, Mean Platelet Volume 12.0H, Neutrophils (%) (Auto) 97H, Lymphocytes (%) (Auto) 1L, Monocytes (%) (Auto) 2, Eosinophils (%) (Auto) 0, Basophils (%) (Auto) 0, Neutrophils # (Auto) 22.1H, Lymphocytes # (Auto) 0.2L, Monocytes # (Auto) 0.4, Eosinophils # (Auto) 0.0, Basophils # (Auto) 0.0, Neutrophils % (Manual) 99, Monocytes % (Manual) 1, Blood Morphology Comment NORMAL, Prothrombin Time 42.4H , INR Comment 4.4H, Fibrinogen 236, D-Dimer 2.35H, Sodium Level 140, Potassium Level 4.5, Chloride Level 103, Carbon Dioxide Level 29, Anion Gap 8, Blood Urea Nitrogen 28H, Creatinine 0.78, Estimat Glomerular Filtration Rate > 60, BUN/ Creatinine Ratio 36, Glucose Level 148H, Calcium Level 8.2L, Total Bilirubin 0.5 , Aspartate Amino Transf (AST/SGOT) 12, Alanine Aminotransferase (ALT/SGPT) 22, Alkaline Phosphatase 70, Lactate Dehydrogenase 351H, Total Protein 4.6L, Albumin 2.7L, Digoxin Level 2.08*H Microbiology 01/03/17 Urine Culture - Final, Complete Presumptive Farzaneh Glabrata Procedures NAME: RICARDO VARGAS [facility] REC#: [id number] PT STATUS: ADM IN : 1940 PHYSICIAN: ROMAIN MARSH DO ADMIT DATE: 12/18/16/[facility] Draft Date of Exam:01/07/17 CHEST PA/LAT (2 VIEW) INDICATION: Left-sided chest pain. DISCUSSION: 3 views of the chest were obtained, comparison 01/03/2017. 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 Large masslike opacity within the left upper lung is stable. Borderline cardiomegaly is noted. Underlying COPD is stable. Mild pulmonary edema is stable/ slightly decreased. No pleural fluid. No pneumothorax. IMPRESSION: Mild interstitial alveolar opacities are again noted, stable/slightly decreased. This is most consistent with mild pulmonary edema. The remainder of the chest is stable. Dictated on workstation # [id number] Dict: 01/07/17 1356 Trans: 01/07/17 1359 [id number] Interpreted by: ABHI CARRILLO MD Electronically signed by: A/P: Assessment: Near syncope - no further episodes No postural hypotension demonstrable if bp taken in the right arm. 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 Bonilla on 11-29-16 - TEVAR using 3 sequential devices. The first was a 37 x 20 [place] tag endoprosthesis. The second was a 40x15. The third was a 45 x 20. CTA of the chest at [facility] on 12-02-16 showed development of a small thrombus at the origin of the left subclavian artery. No thrombus seen in the left common carotid artery. Mild cardiomegaly with mildly enlarged main pulmonary artery suggestive of pulmonary hypertension. There is no evidence of a significant stenosis of the internal carotid artery on either side. There is, however, decreased flow velocity in the left common carotid and left internal carotid arteries which may or may not relate to a proximal stenosis in the left common carotid artery. Reversal of flow in the left vertebral artery. 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 Per u/s of 12-31-16 Echocardiogram of November 28, 2016 at [facility] showed LVEF 55%. Sclerotic arotic valve, no stenosis, overall no significant valve disease. Normal size aortic root. PASP 53mmHg. Pulmonary hypertension - PASP 53 mmHg on echocardiogram of 11-28-16 Cardiac cath of Oct [address] Comer at [facility] in [place], [place] show no angiographic evidence of any hemodynamically significant CAD for which medical tx was advised PAF/flutter - rate improved (H/O PAF) - first documented during hospitalization of November 2016 at [facility] Warfarin tx - therapeutic INR COPD H/O tobaccoism (50 year smoking history) HTN HLP CAD - h/o cardiac cath in 2009 at [facility] in [place], [place] by Dr. 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 Silva managing H/O anxiety Not a suitable candidate for BB d/t orthostatic hypotension CT of the head from 12-20-16 showed age related atrophy Advanced disc degenerative changes. There is right convexity scoliosis and alignment abnormalities as described, likely secondary to the scoliosis and degenerative changes. There is multilevel severe neural foraminal stenosis. Per MRI of 01-03-17 Plan: Complex management issue. HR improved Elevated dig level; we will stop Dig d/t age and elevated level Continue warfarin d/t PAF with recent endograft repair. Monitor INR closely.- Supra-therapeutic INR again today - hold warfarin until INR below 3.0 Monitor CBC closely. Mild thrombocytopenia - being managed by medical services Continue thigh high SUMMER hose UTI - management per medical services ARIAS SHEPARD January 07, 2017 16:24
[2017-01-07 17:12] VITALS: BP 160/76
[2017-01-07 18:19] VITALS: BP 141/72
[2017-01-07] MEDS: HYDROcodone/APAP 10 MG/325 MG (LORTAB) TAB PO PRN (19:00)
[2017-01-07] MEDS: ALFUZOSIN HCL 10 MG TAB (UROXATRAL) PO SCH (19:00)
[2017-01-07] MEDS: ALPRAZolam 0.25 MG (XANAX) TAB PO PRN (21:03)
[2017-01-07] MEDS: SIMvastatin 40 MG (ZOCOR) TAB PO SCH (21:03)
[2017-01-08 05:42] VITALS: BP 132/71
[2017-01-08] MEDS: PANTOPRAZOLE 40 MG (PROTONIX) TAB PO SCH ×2 (06:11→21:17)
[2017-01-08] MEDS: FERROUS SULF 325 MG (IRON) TAB PO SCH ×3 (06:11→16:47)
[2017-01-08] MEDS: inSUlin ASPART (NovoLOG) 1 UNIT/0.01 ML (CHARGE PER UNIT) SC SCH ×4 (06:11→21:18)
[2017-01-08 06:33] LABS: BASOPHILS % (AUTO) 0 % (0-10); EOSINOPHILS % (AUTO) 0 % (0-10); LYMPHOCYTES # (AUTO) 0.2 X 10^3 (1.0-4.0); LYMPHOCYTES % (AUTO) 1 % (12-44); MEAN CORPUSCULAR HEMOGLOBIN 30 PG (25-34); MEAN CORPUSCULAR HGB CONC 31 G/DL (32-36); MEAN CORPUSCULAR VOLUME 95 FL (80-99); MONOCYTES # (AUTO) 0.4 X 10^3 (0.0-1.0); MONOCYTES % (AUTO) 2 % (0-12); NEUTROPHILS # (AUTO) 22.1 X 10^3 (1.8-7.8); NEUTROPHILS % (AUTO) 97 % (42-75); PLATELET COUNT 62 10^3/uL (130-400); RED CELL DISTRIBUTION WIDTH 19.4 % (10.0-14.5); WHITE BLOOD COUNT 22.7 10^3/uL (4.3-11.0)
[2017-01-08 06:44] LABS: INR 4.4 (0.8-1.4); PROTHROMBIN TIME PATIENT 42.4 SEC (12.2-14.7)
[2017-01-08 06:51] LABS: ALANINE AMINOTRANSFERASE 22 U/L (0-55); ALBUMIN 2.7 G/DL (3.2-4.5); ANION GAP 8 MMOL/L (5-14); ASPARTATE AMINO TRANSFERASE 12 U/L (5-34); BILIRUBIN,TOTAL 0.5 MG/DL (0.1-1.0); BLOOD UREA NITROGEN 28 MG/DL (7-18); BUN/CREATININE RATIO 36; CALCIUM 8.2 MG/DL (8.5-10.1); CARBON DIOXIDE 29 MMOL/L (21-32); CHLORIDE 103 MMOL/L (98-107); CREATININE SERUM 0.78 MG/DL (0.60-1.30); GFR ESTIMATED > 60; GLUCOSE 148 MG/DL (70-105); LACTATE DEHYDROGENASE 351 U/L (125-220); POTASSIUM 4.5 MMOL/L (3.6-5.0); SODIUM 140 MMOL/L (135-145); TOTAL PROTEIN 4.6 G/DL (6.4-8.2)
[2017-01-08 06:53] LABS: NEUTROPHILS % (MANUAL) 99 %
[2017-01-08 07:02] LABS: DIGOXIN 2.08 NG/ML (0.80-2.00)
[2017-01-08] MEDS: RT-ALBUTEROL/IPRATROPIUM 3 ML (DUONEB) VIAL INH SCH ×3 (07:19→20:11)
[2017-01-08] MEDS: RT-ADVAIR HFA 115/21 MCG PER PUFF IH SCH ×2 (07:19→20:11)
--- NOTE | 2017-01-08 08:26 | Progress Note (SOAP) ---
Subjective Subjective/Events-last exam thoracic ordered aneurysm area Platelet count 63,000 today. Waiting on hematology INR elevated has been off warfarin. Patient not voicing any complaints Objective Exam Vital Signs Date Time Temp Pulse Resp B/P (MAP) Pulse Ox O2 Delivery O2 Flow Rate FiO2 01/08/17 07:27 94 3.00 01/08/17 07:19 90 3.00 01/08/17 05:42 97.3 69 20 132/71 97 High Flow N/C 1.50 01/08/17 01:00 77 01/07/17 20:00 1.50 01/07/17 19:24 94 3.00 01/07/17 19:18 90 2.50 01/07/17 19:00 75 01/07/17 18:19 97.3 79 16 141/72 92 High Flow N/C 1.50 01/07/17 17:12 96.4 74 16 160/76 90 High Flow N/C 1.50 01/07/17 15:15 2.50 01/07/17 13:00 87 01/07/17 08:59 1.50 I & O 01/08/17 07:00 Intake Total 930 ml Output Total 1525 ml Balance -595 ml Capillary Refill : General Appearance: No Apparent Distress, WD/WN Results Lab Laboratory Tests 01/08/17 06:25 Laboratory Tests 01/07/17 10:59: Glucometer 212H 01/07/17 15:40: Urine Color YELLOW, Urine Clarity CLEAR, Urine pH 5, Urine Specific [place] 1.015L, Urine Protein 3+H, Urine Glucose (UA) NEGATIVE, Urine Ketones NEGATIVE, Urine Nitrite NEGATIVE, Urine Bilirubin NEGATIVE, Urine Urobilinogen NORMAL, Urine Leukocyte Esterase 3+H, Urine RBC (Auto) 5+H, Urine RBC 25-50H, Urine WBC >100H, Urine Crystals NONE, Urine Bacteria FEWH, Urine Casts NONE, Urine Mucus NEGATIVE, Urine Yeast MODERATEH, Urine Culture Indicated YES 01/07/17 15:53: Glucometer 172H 01/07/17 20:32: Glucometer 250H 01/08/17 05:49: Glucometer 159H 01/08/17 06:25: White Blood Count 22.7H, Red Blood Count 3.40L, Hemoglobin 10.1L, Hematocrit 32L , Mean Corpuscular Volume 95, Mean Corpuscular Hemoglobin 30, Mean Corpuscular Hemoglobin Concent 31L, Red Cell Distribution Width 19.4H, Platelet Count 62L, Mean Platelet Volume 12.0H, Neutrophils (%) (Auto) 97H, Lymphocytes (%) (Auto) 1L, Monocytes (%) (Auto) 2, Eosinophils (%) (Auto) 0, Basophils (%) (Auto) 0, Neutrophils # (Auto) 22.1H, Lymphocytes # (Auto) 0.2L, Monocytes # (Auto) 0.4, Eosinophils # (Auto) 0.0, Basophils # (Auto) 0.0, Neutrophils % (Manual) 99, Monocytes % (Manual) 1, Blood Morphology Comment NORMAL, Prothrombin Time 42.4H , INR Comment 4.4H, Fibrinogen 236, D-Dimer 2.35H, Sodium Level 140, Potassium Level 4.5, Chloride Level 103, Carbon Dioxide Level 29, Anion Gap 8, Blood Urea Nitrogen 28H, Creatinine 0.78, Estimat Glomerular Filtration Rate > 60, BUN/ Creatinine Ratio 36, Glucose Level 148H, Calcium Level 8.2L, Total Bilirubin 0.5 , Aspartate Amino Transf (AST/SGOT) 12, Alanine Aminotransferase (ALT/SGPT) 22, Alkaline Phosphatase 70, Lactate Dehydrogenase 351H, Total Protein 4.6L, Albumin 2.7L, Digoxin Level 2.08*H Microbiology 01/03/17 Urine Culture - Final, Complete Presumptive Farzaneh Glabrata Assessment/Plan Assessment/Plan Assess & Plan/Chief Complaint Debility. Atrial fibrillation. COPD. Inability to void. . . Debility. Atrial fibrillation. COPD. Patient complains of short of breathe today. . 12/20/16. Blood pressure better. Apical rate under control. Patient talking. Patient appears somewhat better. Patient is DO NOT RESUSCITATE. . 12/21/16 patient doing much better today. Patient more alert. Blood pressure is within normal limits. Patient not confused. Patient not hypotensive. Patient has hypomagnesemia.. . 12/27/16. Patient feeling better today. Patient not confused. Patient has some hypotension. chest x-ray yesterday showed pneumonia. Patient afebrile. White blood cell count within [place]. . 12/30/16. Patient frustrated. Patient has Improved. To get chest x-ray today. . 12/31/16. Patient feeling much better today.Patient and breathing better. Patient improved since yesterday. . 01/01/17. Debility. Depression. Atrial fibrillation. COPD. Patient feels better today and feels hopeful. .. 01/02/17. Debility. Atrial fibrillation. COPD. Inability to void. Patient feeling better today. Patient have an MRI. . 01/03/17 debility. Atrial fibrillation. COPD. Wheeler catheter. Patient has leukocytosis with low platelet count. . 01/06/17. Atrial fibrillation. debility. COPD. Leukocytosis due to Solu-Medrol. . 01/07/17 White blood cell count 25,000. platelet count 73,000. Digoxin level toxic.. . 01/08/17. White blood cell count still elevated but coming down. Platelet count decreasing still Clinical Quality Measures DVT/VTE Risk/Contraindication: Risk Factor Score Per Nursin RFS Level Per Nursing on Admit: 4+=Very High ROMAIN MARSH DO January 08, 2017 08:26
--- NOTE | 2017-01-08 08:45 | Progress Note-Cardiology ---
Cardiology SOAP Progress Note Subjective: Tires easily Poor stamina Denies palp or syncope or cp Objective: I&O/Vital Signs Vital Sign - Last 12Hours 01/08/17 01/08/17 01/08/17 01/08/17 01:00 05:42 07:19 07:27 Temp 97.3 Pulse 77 69 Resp 20 B/P (MAP) 132/71 Pulse Ox 97 90 94 O2 Delivery High Flow N/C O2 Flow Rate 1.50 3.00 3.00 Intake and Output 01/07/17 23:59 Intake Total 680 ml Output Total 675 ml Balance 5 ml Weight (Pounds): 117 Weight (Ounces): 4.8 Weight (Calculated Kilograms): 53.416768 Constitutional: appears stated age, No apparent distress, well-developed, well- nourished Respiratory: No accessory muscle use, No respiratory distress, other (scatter crackles) Cardiovascular: irregularly irregular, No JVD, S1 and S2, systolic murmur Gastrointestional: soft, round, audible bowel sounds, No spleenomegaly Genital/Rectal: other (indwelling urinary catheter to DD; clear, yellow urine) Extremities: No clubbing, No cyanosis, significant edema (mild pedal edema) Neurologic/Psychiatric: alert, oriented x 3, power is 5/5 both on sides Skin: No rash, No ulcerations Results/Procedures: Labs Laboratory Tests 01/07/17 10:59: Glucometer 212H 01/07/17 15:40: Urine Color YELLOW, Urine Clarity CLEAR, Urine pH 5, Urine Specific [place] 1.015L, Urine Protein 3+H, Urine Glucose (UA) NEGATIVE, Urine Ketones NEGATIVE, Urine Nitrite NEGATIVE, Urine Bilirubin NEGATIVE, Urine Urobilinogen NORMAL, Urine Leukocyte Esterase 3+H, Urine RBC (Auto) 5+H, Urine RBC 25-50H, Urine WBC >100H, Urine Crystals NONE, Urine Bacteria FEWH, Urine Casts NONE, Urine Mucus NEGATIVE, Urine Yeast MODERATEH, Urine Culture Indicated YES 01/07/17 15:53: Glucometer 172H 01/07/17 20:32: Glucometer 250H 01/08/17 05:49: Glucometer 159H 01/08/17 06:25: White Blood Count 22.7H, Red Blood Count 3.40L, Hemoglobin 10.1L, Hematocrit 32L , Mean Corpuscular Volume 95, Mean Corpuscular Hemoglobin 30, Mean Corpuscular Hemoglobin Concent 31L, Red Cell Distribution Width 19.4H, Platelet Count 62L, Mean Platelet Volume 12.0H, Neutrophils (%) (Auto) 97H, Lymphocytes (%) (Auto) 1L, Monocytes (%) (Auto) 2, Eosinophils (%) (Auto) 0, Basophils (%) (Auto) 0, Neutrophils # (Auto) 22.1H, Lymphocytes # (Auto) 0.2L, Monocytes # (Auto) 0.4, Eosinophils # (Auto) 0.0, Basophils # (Auto) 0.0, Neutrophils % (Manual) 99, Monocytes % (Manual) 1, Blood Morphology Comment NORMAL, Prothrombin Time 42.4H , INR Comment 4.4H, Fibrinogen 236, D-Dimer 2.35H, Sodium Level 140, Potassium Level 4.5, Chloride Level 103, Carbon Dioxide Level 29, Anion Gap 8, Blood Urea Nitrogen 28H, Creatinine 0.78, Estimat Glomerular Filtration Rate > 60, BUN/ Creatinine Ratio 36, Glucose Level 148H, Calcium Level 8.2L, Total Bilirubin 0.5 , Aspartate Amino Transf (AST/SGOT) 12, Alanine Aminotransferase (ALT/SGPT) 22, Alkaline Phosphatase 70, Lactate Dehydrogenase 351H, Total Protein 4.6L, Albumin 2.7L, Digoxin Level 2.08*H Microbiology 01/03/17 Urine Culture - Final, Complete Presumptive Farzaneh Glabrata Laboratory Tests 01/07/17 06:00 01/08/17 06:25 A/P: Assessment: Probable pneumonia, managed by the Medical Service Leucocytosis, likely due to pneumonia and steroid therapy (managed by the Medical Service) Near syncope - no further episodes No postural hypotension demonstrable if bp taken in the right arm. 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 Bonilla on 11-29-16 - TEVAR using 3 sequential devices. The first was a 37 x 20 [place] tag endoprosthesis. The second was a 40x15. The third was a 45 x 20. CTA of the chest at [facility] on 12-02-16 showed development of a small thrombus at the origin of the left subclavian artery. No thrombus seen in the left common carotid artery. Mild cardiomegaly with mildly enlarged main pulmonary artery suggestive of pulmonary hypertension. There is no evidence of a significant stenosis of the internal carotid artery on either side. There is, however, decreased flow velocity in the left common carotid and left internal carotid arteries which may or may not relate to a proximal stenosis in the left common carotid artery. Reversal of flow in the left vertebral artery. 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 Per u/s of 12-31-16 Echocardiogram of November 28, 2016 at [facility] showed LVEF 55%. Sclerotic arotic valve, no stenosis, overall no significant valve disease. Normal size aortic root. PASP 53mmHg. Pulmonary hypertension - PASP 53 mmHg on echocardiogram of 11-28-16 Cardiac cath of Oct [address] Comer at [facility] in [place], [place] show no angiographic evidence of any hemodynamically significant CAD for which medical tx was advised PAF/flutter - rate improved (H/O PAF) - first documented during hospitalization of November 2016 at [facility] Warfarin tx - supra-therapeutic INR, likely related to antibiotic therapy COPD H/O tobaccoism (50 year smoking history) HTN HLP CAD - h/o cardiac cath in 2009 at [facility] in [place], [place] by Dr. 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 Silva managing H/O anxiety Not a suitable candidate for BB d/t orthostatic hypotension CT of the head from 12-20-16 showed age related atrophy Advanced disc degenerative changes. There is right convexity scoliosis and alignment abnormalities as described, likely secondary to the scoliosis and degenerative changes. There is multilevel severe neural foraminal stenosis. Per MRI of 01-03-17 Plan: Complex management issue due to multiple comorbidities outlined above Hold warfarin until INR drops back into the therapeutic range Monitor labs LANDON FINLEY MD [facility] January 08, 2017 08:45
--- NOTE | 2017-01-08 09:37 | PM & R (SOAP) Progress Note ---
Subjective Subjective/Events-last exam Patient was seen in her room this AM Missing some therapies due to medical issues Discussed case with Dr Muñoz and RN and SW today Left message on Dr Reynolds voice mail re hem consult re Thrombocytipenia INR still elevated and Coumadin on hold. DR Gaytan has ordered further lab studies Discharge to SNU in [place] on hold for now The patient is unable to SLR on left and lacks active ankle dorsifexion Left Patella reflex deminished Review of Systems General: Fatigue Neurological: Weakness Objective Exam Last Set of Vital Signs Vital Signs Date Time Temp Pulse Resp B/P (MAP) Pulse Ox O2 Delivery O2 Flow Rate FiO2 01/08/17 07:27 94 3.00 01/08/17 05:42 97.3 69 20 132/71 High Flow N/C Capillary Refill : I&O Intake and Output 01/08/17 00:00 Intake Total 1230 ml Output Total 1275 ml Balance -45 ml Intake Oral 1180 ml IV Total 50 ml Output Urine Total 1275 ml # Bowel Movements 6 General: Alert, No Acute Distress HEENT: Atraumatic, Other (02 by N/c in place) Neck: Supple Lungs: Normal Air Movement Heart: Regular Rate Abdomen: Soft Extremities: No Tenderness/Swelling Skin: Other (Right buttock -- 1.2 x 1.5 x 0.1 cm, base 100% regenerating tissue, ranging moderate serosanguineous. Left buttock -- 0.6 x 0.7 x 0.1 cm , 100% regenerating tissue, moderate serosanguineous drainage. Periwound macerated.) Neuro: Normal Speech, Normal Tone, Other (Left lower extr weaknes as per above) Psych/Mental Status: Other (somewhat depressed placed on med last week [facility] has seen) Results Lab Laboratory Tests 01/05/17 10:59: Glucometer 234H 01/05/17 15:56: Glucometer 227H 01/05/17 20:08: Glucometer 311H 01/06/17 04:29: Glucometer 119H 01/06/17 06:42: White Blood Count 28.7H, Red Blood Count 3.50L, Hemoglobin 10.4L, Hematocrit 34L , Mean Corpuscular Volume 96, Mean Corpuscular Hemoglobin 30, Mean Corpuscular Hemoglobin Concent 31L, Red Cell Distribution Width 19.5H, Platelet Count 91L, Mean Platelet Volume 12.1H, Neutrophils (%) (Auto) 97H, Lymphocytes (%) (Auto) 1L, Monocytes (%) (Auto) 2, Eosinophils (%) (Auto) 0, Basophils (%) (Auto) 0, Neutrophils # (Auto) 27.9H, Lymphocytes # (Auto) 0.2L, Monocytes # (Auto) 0.6, Eosinophils # (Auto) 0.0, Basophils # (Auto) 0.0, Neutrophils % (Manual) 94, Lymphocytes % (Manual) 0, Monocytes % (Manual) 3, Eosinophils % (Manual) 0, Basophils % (Manual) 0, Band Neutrophils 3, Polychromasia SLIGHT, Poikilocytosis SLIGHT, Basophilic Stippling MODERATE, Anisocytosis SLIGHT, Prothrombin Time 35.0H, INR Comment 3.5H 01/06/17 06:46: Sodium Level 137, Potassium Level 4.6, Chloride Level 100, Carbon Dioxide Level 30, Anion Gap 7, Blood Urea Nitrogen 37H, Creatinine 0.88, Estimat Glomerular Filtration Rate > 60, BUN/Creatinine Ratio 42, Glucose Level 145H, Calcium Level 8.2L, Total Bilirubin 0.5, Aspartate Amino Transf (AST/SGOT) 13, Alanine Aminotransferase (ALT/SGPT) 25, Alkaline Phosphatase 68, Total Protein 4.9L, Albumin 3.0L, Digoxin Level 2.43*H 01/06/17 10:35: Glucometer 259H 01/06/17 15:49: Glucometer 173H 01/06/17 20:40: Glucometer 203H 01/07/17 06:00: White Blood Count 25.3H, Red Blood Count 3.27L, Hemoglobin 9.8L, Hematocrit 31L , Mean Corpuscular Volume 96, Mean Corpuscular Hemoglobin 30, Mean Corpuscular Hemoglobin Concent 31L, Red Cell Distribution Width 19.4H, Platelet Count 73L, Mean Platelet Volume 12.4H, Neutrophils (%) (Auto) 97H, Lymphocytes (%) (Auto) 1L, Monocytes (%) (Auto) 2, Eosinophils (%) (Auto) 0, Basophils (%) (Auto) 0, Neutrophils # (Auto) 24.6H, Lymphocytes # (Auto) 0.3L, Monocytes # (Auto) 0.4, Eosinophils # (Auto) 0.0, Basophils # (Auto) 0.0, Prothrombin Time 42.9H, INR Comment 4.5H, Sodium Level 140, Potassium Level 4.6, Chloride Level 102, Carbon Dioxide Level 29, Anion Gap 9, Blood Urea Nitrogen 36H, Creatinine 0.83, Estimat Glomerular Filtration Rate > 60, BUN/Creatinine Ratio 43, Glucose Level 139H, Calcium Level 8.1L, Total Bilirubin 0.4, Aspartate Amino Transf (AST/SGOT ) 11, Alanine Aminotransferase (ALT/SGPT) 20, Alkaline Phosphatase 65, Total Protein 4.6L, Albumin 2.8L, Digoxin Level 2.72*H 01/07/17 10:59: Glucometer 212H 01/07/17 15:40: Urine Color YELLOW, Urine Clarity CLEAR, Urine pH 5, Urine Specific [place] 1.015L, Urine Protein 3+H, Urine Glucose (UA) NEGATIVE, Urine Ketones NEGATIVE, Urine Nitrite NEGATIVE, Urine Bilirubin NEGATIVE, Urine Urobilinogen NORMAL, Urine Leukocyte Esterase 3+H, Urine RBC (Auto) 5+H, Urine RBC 25-50H, Urine WBC >100H, Urine Crystals NONE, Urine Bacteria FEWH, Urine Casts NONE, Urine Mucus NEGATIVE, Urine Yeast MODERATEH, Urine Culture Indicated YES 01/07/17 15:53: Glucometer 172H 01/07/17 20:32: Glucometer 250H 01/08/17 05:49: Glucometer 159H 01/08/17 06:25: White Blood Count 22.7H, Red Blood Count 3.40L, Hemoglobin 10.1L, Hematocrit 32L , Mean Corpuscular Volume 95, Mean Corpuscular Hemoglobin 30, Mean Corpuscular Hemoglobin Concent 31L, Red Cell Distribution Width 19.4H, Platelet Count 62L, Mean Platelet Volume 12.0H, Neutrophils (%) (Auto) 97H, Lymphocytes (%) (Auto) 1L, Monocytes (%) (Auto) 2, Eosinophils (%) (Auto) 0, Basophils (%) (Auto) 0, Neutrophils # (Auto) 22.1H, Lymphocytes # (Auto) 0.2L, Monocytes # (Auto) 0.4, Eosinophils # (Auto) 0.0, Basophils # (Auto) 0.0, Neutrophils % (Manual) 99, Monocytes % (Manual) 1, Blood Morphology Comment NORMAL, Prothrombin Time 42.4H , INR Comment 4.4H, Fibrinogen 236, D-Dimer 2.35H, Sodium Level 140, Potassium Level 4.5, Chloride Level 103, Carbon Dioxide Level 29, Anion Gap 8, Blood Urea Nitrogen 28H, Creatinine 0.78, Estimat Glomerular Filtration Rate > 60, BUN/ Creatinine Ratio 36, Glucose Level 148H, Calcium Level 8.2L, Total Bilirubin 0.5 , Aspartate Amino Transf (AST/SGOT) 12, Alanine Aminotransferase (ALT/SGPT) 22, Alkaline Phosphatase 70, Lactate Dehydrogenase 351H, Total Protein 4.6L, Albumin 2.7L, Digoxin Level 2.08*H Microbiology 01/03/17 Urine Culture - Final, Complete Presumptive [place] Assessment/Plan Assessment Lumbar Spinal stenosis with central canal stenosis L3-L4 with resulting lower extremity weakness LT >RT and numbness and neurogenic bladder General debil s/p Aortic Aneurysm repair Severe DJD Lumbar spine with low back pain associated with L3 scoliosis Anticoagulation with supratherapeutic INR with Coumadin on hold repeate INR ordered for tomorrow Postop urinary retention following with Wheeler catheter reinserted UTI- under treatment with IV antibiotics associated with Leukocytosis Pneumonia on antibiotics Leukocytosis multifactorial recheck labs in AM HTN with episodes of hypotension associated with dizziness-Cardiology adjusting meds with some irregularity in readings left vs rt arm due to recent vasc surgery COPD on treatments and 02 Abdominal pain -patient has had complete workup for this at [facility] and no findings found IV steroids with hyperglycemia-improved Orthostatic hypotension-improved Reactive depression-Celexa ordered. Discharge postponed to SNU in [facility] til later this week due to elevated INR , Leukocytosis and Thrombocytopenia Dr Gaytan Hem to see Coumadin on hold due to supratherapeutic INR Dr Muñoz covering my service while I am away from 01/09/17/ til 01/15/17 . Plan Continue PT/OT as tolerated Pain Management-for additional DX of DJD Lumbar spine F/U with Nicky Meyer.Khalid and Shira as per their schedule F/U labs and studies as per above plan Trial of celexa for reactive depression-done Reinserted Wheeler catheter to DD last week. due to continued urinary retention Team Conference later today-See report for full functional update and POC and ELOS. Dr Gaytan Hematology to see with plan as per above MICHELE YEUNG MD January 08, 2017 09:37
[2017-01-08] MEDS: FLUTICASONE NASAL SPRAY (FLONASE) 16 GM BTL NS SCH (09:50)
--- NOTE | 2017-01-08 09:58 | Occupational Ther Daily Note ---
OT Current Status-Daily Note Subjective Pt alert, lying in bed. Pt had not ordered breakfast yet, nrsg ordered breakfast. Pt agreed to therapy. Pt c/o pain in L side. Mental Status/Objective Patient Orientation: Person, Place, Time, Situation Functional [place] Measure 0=Not Assessed/NA 4=Minimal Assistance 1=Total Assistance 5=Supervision or Setup 2=Maximal Assistance 6=Modified [place] 3=Moderate Assistance 7=Complete [place] Attachments: Wheeler Catheter, IV, Oxygen ADL-Treatment Functional [place] Measure 0=Not Assessed/NA 4=Minimal Assistance 1=Total Assistance 5=Supervision or Setup 2=Maximal Assistance 6=Modified [place] 3=Moderate Assistance 7=Complete IndependenceIRFPAI Quality Coding Scale 6 Independent with activity with or without an assistive device 5 Patient requires set up or clean up by helper. Patient completes activity by themselves 4 Supervision or touching assist (CGA). [place] provide cues , steadying assist 3 The helper provides less than half the effort to complete the activity 2 The helper provides more than half the effort to complete the activity 1 Dependent. The helper does all the effort to complete an activity 7 Patient refused to complete or attempt activity 9 The patient did not perform the activity before the current illness or injury 88 Not attempted due to Medical conditions or safety concerns Eating (FIM): 6 (Pt able to open packaging. Uses utensils to spread jelly/ butter then feeds self.) Eating (QC): 6 Grooming (FIM): 5 (After set up, pt is able to complete grooming. ) Oral Hygiene (QC): 5 (After set up pt is able to complete.) Bathing (FIM): 3 (Pt used rolling shower chair to shower. Pt is able to bathe upper body and upper legs. While sitting on shower chair pt able to cleanse didier area. Assist needed for lower legs/feet and buttocks.) Bathing Location: L Arm, R Arm, L Upper Leg, R Upper Leg, Chest, Abdomen, Perineal Area Shower/Bathe Self (QC): 3 (Pt used rolling shower chair to shower. Pt is able to bathe upper body and upper legs. While sitting on shower chair pt able to cleanse [place] area. Assist needed for lower legs/feet and buttocks.) Upper Body (FIM): 3 (Pt is able to thread arms through sleeves then assist to push over head and pull down in back.) Upper Body Dressing (QC): 3 (Pt is able to thread arms through sleeves then assist to push over head and pull down in back.) Lower Body Dressing (FIM): 2 (Pt is able to lift legs up to assist when BARAKAT threaded LE through. Pt was max A to stand while nrsg hiked pants over hips.) Lower Body Dressing (QC): 1 (Pt is able to lift legs up to assist when BARAKAT threaded LE through. Pt was max A to stand while nrsg hiked pants over hips.) On/Off Footwear (QC): 1 (Total assist to don/doff footwear.) Transfers (B, C, W/C) (FIM): 2 (When pt has energy pt is mod A to stand pivot transfer. Then when pt is fatigued transfers are max A.) Shower Transfer(FIM): 1 (Uses rolling shower chair.) Pt fatigues easily and then becomes dependent with transfers. Nrsg present to assist with transfers if needed when this happens. After therapy, pt sitting up in w/c with call light/phone in reach. All needs met in room. OT Short Term Goals Short Term Goals Time Frame: Dec 26, 2016 Bathing(FIM): 4 Upper Body Dressing(FIM): 5 Lower Body Dressing(FIM): 3 Toileting(FIM): 3 Toilet/Commode Transfer(FIM): 4 1=Demonstrate adherence to instructed precautions during ADL tasks. 2=Patient will verbalize/demonstrate understanding of assistive devices/ modifications for ADL. 3=Patient will improve strength/tolerance for activity to enable patient to perform ADL's. OT Fpc Goals Fpc Goals Time Frame: January 09, 2017 Eating (FIM): 6 Eating (QC): 6 Groomin Oral Hygiene (QC): 6 Bathing(FIM): 5 Shower/Bathe Self (QC): 5 Upper Body Dressing(FIM): 6 Upper Body Dressing (QC): 6 Lower Body Dressing(FIM): 5 Lower Body Dressing (QC): 5 On/Off Footwear (QC): 5 Toileting(FIM): 5 Toileting Hygiene (QC): 5 Toilet/Commode Transfer(FIM): 5 Toilet/Commode Transfer (QC): 5 Shower Transfer(FIM): 5 Additional Goals: 1-Demonstrate ADL Tasks, 2-Verbalize Understanding, 3- ImproveStrength/Brad 1=Demonstrate adherence to instructed precautions during ADL tasks. 2=Patient will verbalize/demonstrate understanding of assistive devices/ modifications for ADL. 3=Patient will improve strength/tolerance for activity to enable patient to perform ADL's. OT Education/Plan Discharge Recommendations Plan/Recommendations: Continue POC Treatment Plan/Plan of Care Patient would benefit from OT for education, treatment and training to promote independence in ADL's, mobility, safety and/or upper extremity function for ADL' s. Plan of Care: ADL Retraining, Functional Mobility, Group Exercise/Act as Ind, UE Funct Exercise/Act Treatment Duration: January 09, 2017 Visits Per Week: 10-12 Minutes/Day (M-F): 60-90 Minutes/Day (Sat/Stone): PRN Agreement: Yes Rehab Potential: Fair Time/GCodes Start Time: 08:30 Stop Time: 09:45 Total Time Billed (hr/min): 75 Billed Treatment Time 1 visit-ADL 5 (75 min) AVEL RAMIREZ January 08, 2017 09:58
[2017-01-08] MEDS: SENNA W/DOCUSATE (SENOKOT S) TABLET PO PRN (10:00)
[2017-01-08] MEDS: DILTIAZEM 240 MG (CARDIZEM CD) CAP PO SCH (10:00)
[2017-01-08] MEDS: MENTHOL/ZINC OXIDE (CALMOSEPTINE) 113 GM TUBE TOP SCH ×2 (10:00→21:18)
[2017-01-08] MEDS: methylPREDNISolone 40 MG/ML (Solu-MEDROL) VIAL IV SCH ×2 (10:00→21:17)
[2017-01-08] MEDS: POLYETHYLENE GLYCOL 17 GM (MIRALAX) PACK PO SCH ×2 (10:00→21:18)
[2017-01-08] MEDS: HYDROcodone/APAP 10 MG/325 MG (LORTAB) TAB PO PRN ×2 (10:19→21:17)
[2017-01-08] MEDS: NICOTINE PATCH REMOVAL TP SCH (10:20)
[2017-01-08] MEDS: NICOTINE 14 MG (NICODERM) PATCH TD SCH (10:20)
--- NOTE | 2017-01-08 10:40 | Physical Therapy Daily Note ---
PT Daily Note-Current Subjective Pt. states she is having 9/10 pain in left flank area and it is making her sick to her stomach. Requests a guevara and cloth as she feels she might vomit. Wants in bed. Pain Numeric Pain Scale: 9 Location: Left Location Body Site: Chest (flank) Pain Description: Pressure Mental Status Patient Orientation: Normal For Age Attachments: Wheeler Catheter Transfers Functional [place] Measure 0=Not Assessed/NA 4=Minimal Assistance 1=Total Assistance 5=Supervision or Setup 2=Maximal Assistance 6=Modified [place] 3=Moderate Assistance 7=Complete IndependenceIRFPAI Quality Coding Scale 6 Independent with activity with or without an assistive device 5 Patient requires set up or clean up by helper. Patient completes activity by themselves 4 Supervision or touching assist (CGA). [place] provide cues , steadying assist 3 The helper provides less than half the effort to complete the activity 2 The helper provides more than half the effort to complete the activity 1 Dependent. The helper does all the effort to complete an activity 7 Patient refused to complete or attempt activity 9 The patient did not perform the activity before the current illness or injury 88 Not attempted due to Medical conditions or safety concerns Transfers (B, C, W/C) (FIM): 1 Scootin Rollin Supine to/from Sit: 2 Sit to/from Stand: 1 Bed to/from Chair: 1 (assist of 2) Gait Training Does the Patient Walk?: No and Walking Goal NOT indicated Exercises Seated Therapy Exercises: Ankle pumps, Sit to stand, Long arc quads, Hip flexion, Hip abd/add Seated Reps: 12 (with assist) Assessment Current Status: Poor Progress very limited participation secondary to c/o pain and nausea, BP sitting in w/c at left ankle 173/124 per nurse request PT Short Term Goals Short Term Goals Time Frame: Dec 26, 2016 Gait (FIM): 1 Gait Distance Comment: 30' Gait Level of Assist: 4 Gait Assistive Device: FWW Wheelchair Distance: 50 ft PT Printing And Stamping Supervisor Goals Printing And Stamping Supervisor Goals PT Printing And Stamping Supervisor Goals Time Frame: January 09, 2017 Transfers (B,C,W/C) (FIM): 5 Sit to Lying (QC): 4 Lying-Sitting on Side/Bed(QC): 4 Sit to Stand (QC): 4 Rollin Roll Left to Right (QC): 4 Chair/Drm-pn-Rycqz Xfer(QC): 4 Car Transfer (QC): 3 Gait (FIM): 2 Distance: 50' Walk 10 feet (QC): 4 Walk 10ft-Uneven Surface(QC): 4 Walk 50ft with 2 Turns (QC): 4 Walk 150 ft (QC): 88 Gait Level of Assist: 4 Gait Assistive Device: FWW Wheelchair (FIM): 5 Distance: 150' Wheelchair Level of Assist: 5 Wheel 50 feet with 2 turns (QC: 4 Stairs (FIM): 2 # of Steps: 4 1 Step (curb) (QC): 3 4 Steps (QC): 3 12 Steps (QC): 88 Stairs Level Of Assist: 4 Picking up an Object (QC): 88 PT Plan Treatment/Plan Treatment Plan: Continue Plan of Care Treatment Plan: Bed Mobility, Education, Functional Activity Brad, Functional Strength, Group Therapy, Gait, Safety, Therapeutic Exercise, Transfers Treatment Duration: January 09, 2017 Visits Per Week: 10-11 Minutes/Day (M-F): 60-90 Minutes/Day (Sat/Stone): 15-30 Safety Risks/Education Patient Education: Transfer Techniques Time/GCodes Time In: 1000 Time Out: 1035 Total Billed Treatment Time: 35 Total Billed Treatment 1,FA20,EX15 G Codes Necessary: PAULO Mukherjee SUPERVISOR AIRCRAFT MAINTENANCE January 08, 2017 10:40
--- NOTE | 2017-01-08 13:05 | Occupational Ther Daily Note ---
OT Current Status-Daily Note Subjective Pt alert, lying in bed. Pt agreed to therapy. No c/o pain at this time. Mental Status/Objective Functional [place] Measure 0=Not Assessed/NA 4=Minimal Assistance 1=Total Assistance 5=Supervision or Setup 2=Maximal Assistance 6=Modified [place] 3=Moderate Assistance 7=Complete [place] ADL-Treatment Functional [place] Measure 0=Not Assessed/NA 4=Minimal Assistance 1=Total Assistance 5=Supervision or Setup 2=Maximal Assistance 6=Modified [place] 3=Moderate Assistance 7=Complete IndependenceIRFPAI Quality Coding Scale 6 Independent with activity with or without an assistive device 5 Patient requires set up or clean up by helper. Patient completes activity by themselves 4 Supervision or touching assist (CGA). [place] provide cues , steadying assist 3 The helper provides less than half the effort to complete the activity 2 The helper provides more than half the effort to complete the activity 1 Dependent. The helper does all the effort to complete an activity 7 Patient refused to complete or attempt activity 9 The patient did not perform the activity before the current illness or injury 88 Not attempted due to Medical conditions or safety concerns Other Treatment Lying supine, pt was able to reach and grasp object then hold at shldr height for 2 min before fatiguing and put down. Pt was able to choose items from list. Pt was able to complete UE AROM tasks without difficulty. Pt was able to order lunch with assist to call on phone. After therapy, pt lying in bed with call light/phone in reach. All needs met in room. OT Short Term Goals Short Term Goals Time Frame: Dec 26, 2016 Bathing(FIM): 4 Upper Body Dressing(FIM): 5 Lower Body Dressing(FIM): 3 Toileting(FIM): 3 Toilet/Commode Transfer(FIM): 4 1=Demonstrate adherence to instructed precautions during ADL tasks. 2=Patient will verbalize/demonstrate understanding of assistive devices/ modifications for ADL. 3=Patient will improve strength/tolerance for activity to enable patient to perform ADL's. OT Storage And Backup Administrator Goals [facility] Goals Time Frame: January 09, 2017 Eating (FIM): 6 Eating (QC): 6 Groomin Oral Hygiene (QC): 6 Bathing(FIM): 5 Shower/Bathe Self (QC): 5 Upper Body Dressing(FIM): 6 Upper Body Dressing (QC): 6 Lower Body Dressing(FIM): 5 Lower Body Dressing (QC): 5 On/Off Footwear (QC): 5 Toileting(FIM): 5 Toileting Hygiene (QC): 5 Toilet/Commode Transfer(FIM): 5 Toilet/Commode Transfer (QC): 5 Shower Transfer(FIM): 5 Additional Goals: 1-Demonstrate ADL Tasks, 2-Verbalize Understanding, 3- ImproveStrength/Brad 1=Demonstrate adherence to instructed precautions during ADL tasks. 2=Patient will verbalize/demonstrate understanding of assistive devices/ modifications for ADL. 3=Patient will improve strength/tolerance for activity to enable patient to perform ADL's. OT Education/Plan Discharge Recommendations Plan/Recommendations: Continue POC Treatment Plan/Plan of Care Patient would benefit from OT for education, treatment and training to promote independence in ADL's, mobility, safety and/or upper extremity function for ADL' s. Plan of Care: ADL Retraining, Functional Mobility, Group Exercise/Act as Ind, UE Funct Exercise/Act Treatment Duration: January 09, 2017 Visits Per Week: 10-12 Minutes/Day (M-F): 60-90 Minutes/Day (Sat/Stone): PRN Agreement: Yes Rehab Potential: Fair Time/GCodes Start Time: 11:35 Stop Time: 11:50 Total Time Billed (hr/min): 15 Billed Treatment Time 1 visit-FA 1 (15 min) AVEL RAMIREZ January 08, 2017 13:05
--- NOTE | 2017-01-08 14:16 | Physical Therapy Daily Note ---
PT Daily Note-Current Subjective Pt. states the pain in left chest/flank continues at 8/10. Pt. points to it and indicates it feels like its between her ribs. Pain Numeric Pain Scale: 8 Location: Left Location Body Site: Chest (flank) Pain Description: Stabbing Appearance grimaces and appears in pain Mental Status Patient Orientation: Normal For Age Transfers Functional [place] Measure 0=Not Assessed/NA 4=Minimal Assistance 1=Total Assistance 5=Supervision or Setup 2=Maximal Assistance 6=Modified [place] 3=Moderate Assistance 7=Complete IndependenceIRFPAI Quality Coding Scale 6 Independent with activity with or without an assistive device 5 Patient requires set up or clean up by helper. Patient completes activity by themselves 4 Supervision or touching assist (CGA). [place] provide cues , steadying assist 3 The helper provides less than half the effort to complete the activity 2 The helper provides more than half the effort to complete the activity 1 Dependent. The helper does all the effort to complete an activity 7 Patient refused to complete or attempt activity 9 The patient did not perform the activity before the current illness or injury 88 Not attempted due to Medical conditions or safety concerns rolling left and right with min assist to place moist heat around left rib cage Exercises Supine Ex: Ankle pumps, Rolling, Heel Slides, Scooting, Hip abd/add Supine Reps: 10 (with assist) Treatments moist heat x 6 mins to left flank with one on one attendance during LE exercises. followed by gentle intercostal mm pressure along area of c/o. Pt. states this reduces discomfort by 50% for short time and states she is a big fan of heat for pain Assessment Current Status: Poor Progress pt. weaker and more dependent for mobility etc, consistent c/o pain left rib/ flank area PT Short Term Goals Short Term Goals Time Frame: Dec 26, 2016 Gait (FIM): 1 Gait Distance Comment: 30' Gait Level of Assist: 4 Gait Assistive Device: FWW Wheelchair Distance: 50 ft PT Law Instructor Goals Nursing Home Goals PT Nursing Home Goals Time Frame: January 09, 2017 Transfers (B,C,W/C) (FIM): 5 Sit to Lying (QC): 4 Lying-Sitting on Side/Bed(QC): 4 Sit to Stand (QC): 4 Rollin Roll Left to Right (QC): 4 Chair/Wqs-ii-Sbijs Xfer(QC): 4 Car Transfer (QC): 3 Gait (FIM): 2 Distance: 50' Walk 10 feet (QC): 4 Walk 10ft-Uneven Surface(QC): 4 Walk 50ft with 2 Turns (QC): 4 Walk 150 ft (QC): 88 Gait Level of Assist: 4 Gait Assistive Device: FWW Wheelchair (FIM): 5 Distance: 150' Wheelchair Level of Assist: 5 Wheel 50 feet with 2 turns (QC: 4 Stairs (FIM): 2 # of Steps: 4 1 Step (curb) (QC): 3 4 Steps (QC): 3 12 Steps (QC): 88 Stairs Level Of Assist: 4 Picking up an Object (QC): 88 PT Plan Treatment/Plan Treatment Plan: Continue Plan of Care Treatment Plan: Bed Mobility, Education, Functional Activity Brad, Functional Strength, Group Therapy, Gait, Safety, Therapeutic Exercise, Transfers Treatment Duration: January 09, 2017 Visits Per Week: 10-11 Minutes/Day (M-F): 60-90 Minutes/Day (Sat/Stone): 15-30 Safety Risks/Education Patient Education: Transfer Techniques Time/GCodes Time In: 1345 Time Out: 1415 Total Billed Treatment Time: 30 Total Billed Treatment 1,EX15,FA15 G Codes Necessary: PAULO Mukherjee HULL AND DECK REMOVER January 08, 2017 14:16
[2017-01-08] MEDS: ALPRAZolam 0.25 MG (XANAX) TAB PO PRN (16:46)
[2017-01-08] MEDS: ALFUZOSIN HCL 10 MG TAB (UROXATRAL) PO SCH (16:53)
[2017-01-08 17:20] VITALS: BP 185/80
[2017-01-08 17:26] VITALS: BP 185/80
[2017-01-08] MEDS ORDERED: meTOprolol TARTRATE 25 MG (LOPRESSOR) TABLET PO NR (17:30)
[2017-01-08 18:43] VITALS: BP 165/67
[2017-01-08] MEDS: SIMvastatin 40 MG (ZOCOR) TAB PO SCH (21:17)
[2017-01-09 04:54] VITALS: BP 169/78
[2017-01-09 05:55] LABS: BASOPHILS % (AUTO) 0 % (0-10); EOSINOPHILS % (AUTO) 0 % (0-10); LYMPHOCYTES # (AUTO) 0.1 X 10^3 (1.0-4.0); LYMPHOCYTES % (AUTO) 1 % (12-44); MEAN CORPUSCULAR HEMOGLOBIN 30 PG (25-34); MEAN CORPUSCULAR HGB CONC 31 G/DL (32-36); MEAN CORPUSCULAR VOLUME 95 FL (80-99); MEAN PLATELET VOLUME 12.9 FL (7.4-10.4); MONOCYTES # (AUTO) 0.4 X 10^3 (0.0-1.0); MONOCYTES % (AUTO) 2 % (0-12); NEUTROPHILS # (AUTO) 21.6 X 10^3 (1.8-7.8); NEUTROPHILS % (AUTO) 98 % (42-75); PLATELET COUNT 64 10^3/uL (130-400); RED BLOOD COUNT 3.31 10^6/uL (4.35-5.85); RED CELL DISTRIBUTION WIDTH 19.3 % (10.0-14.5); WHITE BLOOD COUNT 22.1 10^3/uL (4.3-11.0)
[2017-01-09 06:02] LABS: INR 4.7 (0.8-1.4); PROTHROMBIN TIME PATIENT 44.3 SEC (12.2-14.7)
[2017-01-09 06:19] LABS: ANION GAP 9 MMOL/L (5-14); BLOOD UREA NITROGEN 29 MG/DL (7-18); BUN/CREATININE RATIO 36; CARBON DIOXIDE 28 MMOL/L (21-32); CHLORIDE 102 MMOL/L (98-107); POTASSIUM 4.5 MMOL/L (3.6-5.0); SODIUM 139 MMOL/L (135-145)
[2017-01-09 06:20] LABS: GFR ESTIMATED > 60; GLUCOSE 186 MG/DL (70-105)
[2017-01-09] MEDS: FERROUS SULF 325 MG (IRON) TAB PO SCH ×3 (06:32→16:41)
[2017-01-09] MEDS: PANTOPRAZOLE 40 MG (PROTONIX) TAB PO SCH (06:32)
[2017-01-09] MEDS: inSUlin ASPART (NovoLOG) 1 UNIT/0.01 ML (CHARGE PER UNIT) SC SCH ×3 (06:32→16:41)
[2017-01-09] MEDS: RT-ADVAIR HFA 115/21 MCG PER PUFF IH SCH (07:11)
[2017-01-09] MEDS: RT-ALBUTEROL/IPRATROPIUM 3 ML (DUONEB) VIAL INH SCH ×2 (07:11→14:38)
--- NOTE | 2017-01-09 08:12 | Progress Note (SOAP) ---
Subjective Subjective/Events-last exam patient states she'll participate inactivities today. D-dimer elevated. INR prolonged 4.7. White blood cell count 22,000 the same. Platelet count 64 Patient states she feels better today.. Atrial fibrillation Objective Exam Vital Signs Date Time Temp Pulse Resp B/P (MAP) Pulse Ox O2 Delivery O2 Flow Rate FiO2 01/09/17 07:16 3.00 01/09/17 07:14 92 3.00 01/09/17 04:54 98.4 68 18 169/78 93 High Flow N/C 2.00 01/09/17 01:01 64 01/08/17 20:20 1.50 01/08/17 20:13 3.00 01/08/17 20:12 98 3.00 01/08/17 20:03 61 01/08/17 18:43 165/67 01/08/17 17:26 98.6 81 20 185/80 95 High Flow N/C 0.50 01/08/17 17:20 81 185/80 01/08/17 15:03 92 3.00 01/08/17 08:45 1.50 I & O 01/09/17 07:00 Intake Total 700 ml Output Total 1025 ml Balance -325 ml Capillary Refill : General Appearance: No Apparent Distress, WD/WN HEENT: Normal ENT Inspection Neck: Full Range of Motion, Normal Inspection Respiratory: Chest Non Tender, Normal Breath Sounds, No Accessory Muscle Use, No Respiratory Distress, Decreased Breath Sounds Gastrointestinal: non tender, soft Results Lab Laboratory Tests 01/09/17 05:15 Laboratory Tests 01/08/17 12:17: Glucometer 189H 01/08/17 16:25: Glucometer 277H 01/08/17 21:15: Glucometer 174H 01/09/17 05:10: Glucometer 198H 01/09/17 05:15: White Blood Count 22.1H, Red Blood Count 3.31L, Hemoglobin 9.8L, Hematocrit 31L , Mean Corpuscular Volume 95, Mean Corpuscular Hemoglobin 30, Mean Corpuscular Hemoglobin Concent 31L, Red Cell Distribution Width 19.3H, Platelet Count 64L, Mean Platelet Volume 12.9H, Neutrophils (%) (Auto) 98H, Lymphocytes (%) (Auto) 1L, Monocytes (%) (Auto) 2, Eosinophils (%) (Auto) 0, Basophils (%) (Auto) 0, Neutrophils # (Auto) 21.6H, Lymphocytes # (Auto) 0.1L, Monocytes # (Auto) 0.4, Eosinophils # (Auto) 0.0, Basophils # (Auto) 0.0, Prothrombin Time 44.3H, INR Comment 4.7H, Sodium Level 139, Potassium Level 4.5, Chloride Level 102, Carbon Dioxide Level 28, Anion Gap 9, Blood Urea Nitrogen 29H, Creatinine 0.80, Estimat Glomerular Filtration Rate > 60, BUN/Creatinine Ratio 36, Glucose Level 186H, Calcium Level 8.0L, Digoxin Level 1.67 Microbiology 01/07/17 Urine Culture - Preliminary, Resulted Yeast Species Gram Positive Cocci In Chains Assessment/Plan Assessment/Plan Assess & Plan/Chief Complaint Debility. Atrial fibrillation. COPD. Inability to void. . . Debility. Atrial fibrillation. COPD. Patient complains of short of breathe today. . 12/20/16. Blood pressure better. Apical rate under control. Patient talking. Patient appears somewhat better. Patient is DO NOT RESUSCITATE. . 12/21/16 patient doing much better today. Patient more alert. Blood pressure is within normal limits. Patient not confused. Patient not hypotensive. Patient has hypomagnesemia.. . 12/27/16. Patient feeling better today. Patient not confused. Patient has some hypotension. chest x-ray yesterday showed pneumonia. Patient afebrile. White blood cell count within [place]. . 12/30/16. Patient frustrated. Patient has Improved. To get chest x-ray today. . 12/31/16. Patient feeling much better today.Patient and breathing better. Patient improved since yesterday. . 01/01/17. Debility. Depression. Atrial fibrillation. COPD. Patient feels better today and feels hopeful. .. 01/02/17. Debility. Atrial fibrillation. COPD. Inability to void. Patient feeling better today. Patient have an MRI. . 01/03/17 debility. Atrial fibrillation. COPD. Wheeler catheter. Patient has leukocytosis with low platelet count. . 01/06/17. Atrial fibrillation. debility. COPD. Leukocytosis due to Solu-Medrol. . 01/07/17 White blood cell count 25,000. platelet count 73,000. Digoxin level toxic.. . 01/08/17. White blood cell count still elevated but coming down. Platelet count decreasing still low. . 01/22. Debility. Thoracic aortic aneurysm. Thrombocytopenia. Prolonged INR. COPD. Elevated d-dimer Clinical Quality Measures DVT/VTE Risk/Contraindication: Risk Factor Score Per Nursin RFS Level Per Nursing on Admit: 4+=Very High ROMAIN MARSH DO January 09, 2017 08:12
[2017-01-09] MEDS ORDERED: meTOprolol TARTRATE 25 MG (LOPRESSOR) TABLET PO SCH (09:00)
[2017-01-09] MEDS ORDERED: fluCOnazole (DIFLUCAN) 100 MG TAB PO SCH (09:00)
[2017-01-09] MEDS: NICOTINE 14 MG (NICODERM) PATCH TD SCH (09:05)
[2017-01-09] MEDS: DILTIAZEM 240 MG (CARDIZEM CD) CAP PO SCH (09:06)
[2017-01-09] MEDS: MENTHOL/ZINC OXIDE (CALMOSEPTINE) 113 GM TUBE TOP SCH (09:06)
[2017-01-09] MEDS: FLUTICASONE NASAL SPRAY (FLONASE) 16 GM BTL NS SCH (09:07)
[2017-01-09] MEDS: methylPREDNISolone 40 MG/ML (Solu-MEDROL) VIAL IV SCH (09:09)
[2017-01-09] MEDS: NICOTINE PATCH REMOVAL TP SCH (09:12)
[2017-01-09] MEDS: POLYETHYLENE GLYCOL 17 GM (MIRALAX) PACK PO SCH (09:12)
[2017-01-09] MEDS ORDERED: CATHETER FLUSH 10 ML SYR IV PRN (09:15)
[2017-01-09] MEDS ORDERED: NS 100 ML (IVPB) BAG IV ONE (09:15)
[2017-01-09] MEDS ORDERED: IOHEXOL 350 MG/ML 100 ML (OMNIPAQUE 350) VIAL IV ONE (09:15)
--- NOTE | 2017-01-09 09:26 | Physical Therapy Daily Note ---
PT Daily Note-Current Subjective "I can't move my legs." "My balance is bad." "I'm dizzy." Pt expresses frustration with not knowing if she will discharge or not. Mental Status Patient Orientation: Person, Place, Time, Situation Transfers Functional Saline Measure 0=Not Assessed/NA 4=Minimal Assistance 1=Total Assistance 5=Supervision or Setup 2=Maximal Assistance 6=Modified Saline 3=Moderate Assistance 7=Complete IndependenceIRFPAI Quality Coding Scale 6 Independent with activity with or without an assistive device 5 Patient requires set up or clean up by helper. Patient completes activity by themselves 4 Supervision or touching assist (CGA). [place] provide cues , steadying assist 3 The helper provides less than half the effort to complete the activity 2 The helper provides more than half the effort to complete the activity 1 Dependent. The helper does all the effort to complete an activity 7 Patient refused to complete or attempt activity 9 The patient did not perform the activity before the current illness or injury 88 Not attempted due to Medical conditions or safety concerns Transfers (B, C, W/C) (FIM): 2 Scootin Roll Left to Right (QC): 2 Supine to/from Sit: 2 Sit to/from Stand: 2 Sit to Lying (QC): 2 Sit to Stand (QC): 2 Chair/Cml-qd-Uoycy Xfer(QC): 2 Bed to/from Chair: 2 Pt requires max assist with all functional transfers with heavy cuing to participate and attempt to assist as well as cues for sequencing. Pt has limited ability to weight bear through her legs with standing for SPT. Pt sat EOB initially to to don pants. Pt with heavy reliance on UE's for balance and trunk control. At times, needed min assist to maintain balance. SPT to from wheelchair x 2 reps with max assist. Gait Training Does the Patient Walk?: No and Walking Goal IS indicated Gait (FIM): 0 (unable) Walk 10 feet (QC): 88 Walk 50 ft with 2 Turns(QC): 88 Walk 150 ft (QC): 88 Walking 10ft/uneven surface-QC: 88 Wheelchair Training Does the Pt Use a Wheelchair?: Yes Wheelchair (FIM): 2 Wheelchair Distance: 1=498-65 ft Wheelchair Level of Assist: 5 Wheel 50 ft with 2 turns (QC): 5 Wheel 150 ft (QC): 88 Type of Wheelchair: Manual Stair Training Stairs (FIM): 1 (unable to stand) 1 Step (curb) (QC): 88 4 Steps (QC): 88 12 Steps (QC): 88 Balance Picking up an Object (QC): 88 Exercises Seated Therapy Exercises: Ankle pumps, Long arc quads, Hip flexion, Hamstring Curls, Hip abd/add Seated Reps: 10 (to promote LE strength for functional transfers and bed mobility) Treatments Spent much time on bed mobility training; seated EOB; SPT and wheelchair mobility. Pt slow with tasks and requires frequent rest breaks. Assessment Limited functional progress at this time. Needs encouragement to continue to participate. PT Short Term Goals Short Term Goals Time Frame: Dec 26, 2016 Gait (FIM): 1 Gait Distance Comment: 30' Gait Level of Assist: 4 Gait Assistive Device: FWW Wheelchair Distance: 50 ft PT Veterinary Pharmacologist Goals Veterinary Pharmacologist Goals PT Veterinary Pharmacologist Goals Time Frame: January 09, 2017 Transfers (B,C,W/C) (FIM): 5 Sit to Lying (QC): 4 Lying-Sitting on Side/Bed(QC): 4 Sit to Stand (QC): 4 Rollin Roll Left to Right (QC): 4 Chair/Zls-ru-Dlcmt Xfer(QC): 4 Car Transfer (QC): 3 Gait (FIM): 2 Distance: 50' Walk 10 feet (QC): 4 Walk 10ft-Uneven Surface(QC): 4 Walk 50ft with 2 Turns (QC): 4 Walk 150 ft (QC): 88 Gait Level of Assist: 4 Gait Assistive Device: FWW Wheelchair (FIM): 5 Distance: 150' Wheelchair Level of Assist: 5 Wheel 50 feet with 2 turns (QC: 4 Stairs (FIM): 2 # of Steps: 4 1 Step (curb) (QC): 3 4 Steps (QC): 3 12 Steps (QC): 88 Stairs Level Of Assist: 4 Picking up an Object (QC): 88 PT Plan Problem List Problem List: Activity Tolerance, Functional Strength Treatment/Plan Treatment Plan: Continue Plan of Care (vs dc) Treatment Plan: Bed Mobility, Education, Functional Activity Brad, Functional Strength, Group Therapy, Gait, Safety, Therapeutic Exercise, Transfers Treatment Duration: January 09, 2017 Visits Per Week: 10-11 Minutes/Day (M-F): 60-90 Minutes/Day (Sat/Stone): 15-30 Discharge Recommendations Plan Possible DC today. Time/GCodes Time In: 805 Time Out: 915 Total Billed Treatment Time: 70 Total Billed Treatment visit FA 40 EX 15 WC 15 AVEL BAZZI PT January 09, 2017 09:25
--- NOTE | 2017-01-09 10:07 | CONSULTATION REPORT ---
DATE OF SERVICE: 01/08/2017 The patient is admitted to room 222. REFERRING PHYSICIAN: Dr. Mayen IMPRESSION: 1. A 76-year-old female with paraplegia following endovascular stent placement for a 9 cm thoracic aortic aneurysm. 2. Currently undergoing physical therapy with continued paraparesis. 3. Urinary tract infection with pseudomonas and Farzaneh, on Rocephin IV. 4. Thrombocytopenia most likely due to the Rocephin use. 5. Recent use of warfarin, but with supratherapeutic INR, most likely due to antibiotic use. RECOMMENDATIONS: 1. Agree with stopping Rocephin as you are doing. 2. Treat the patient with Diflucan 100 mg daily for the Farzaneh UTI. 3. Repeat her CBC weekly until the thrombocytopenia is resolved. 4. If she continues to have worsening cytopenias, may need further evaluation including bone marrow examination. BRIEF HISTORY: The patient is a 76-year-old female who underwent an endovascular stent placement for a 9 cm thoracic aortic aneurysm. 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 She was transferred to [facility] rehabilitation unit to undergo rehabilitation. She was found to have pseudomonas and Farzaneh urinary tract infection and was being treated with Rocephin IV. Since admission, she has developed thrombocytopenia with a platelet count in the 70,000 to 60,000 range, hence a hematology consultation was requested. PAST MEDICAL HISTORY: Significant for longstanding hypertension. She gives history of vasculitis diagnosed in 1999 and was treated with prednisone for several years. This was weaned and discontinued in 2010 and she has not had any problem since then. She denied any other chronic medical problems. Recently, she was found to have a thoracic aortic aneurysm following an incidental finding and because of the size of it, it was decided to proceed with the endovascular repair. SOCIAL HISTORY: The patient is recently . She lived in [place], [place]. She has 5 sons and 8 grandchildren, all of them live close by. No history of tobacco, alcohol or recreational drug use. CURRENT MEDICATIONS AND ALLERGIES: Reviewed in the electronic medical record. PHYSICAL EXAMINATION: GENERAL: An elderly female, awake and oriented and in mild discomfort because of the paraparesis. VITAL SIGNS: Her temperature was 97.3, pulse rate 69, respiratory rate 20, blood pressure 132/71, pulse oximetry showed 97% saturation on 1.5 L of oxygen by nasal cannula. HEENT: Normocephalic. Extraocular muscles intact. Conjunctivae pink, oral mucosa moist. NECK: Supple with no JVD. No cervical, supraclavicular lymphadenopathy palpable. CHEST: Symmetrical. LUNGS: Fairly clear to auscultation without wheezes or rales. CARDIOVASCULAR: Regular in rate and rhythm with a grade II/ systolic murmur. ABDOMEN: Soft, nontender, with no hepatosplenomegaly or other masses palpable. EXTREMITIES: Showed no edema. NEUROLOGIC: Significant for paraparesis with a motor strength of 4/5 in bilateral lower extremities. CBC done today showed WBC 22.7, hemoglobin 10.1, platelet count of 62,000 with neutrophil count of 22.1. Her platelets counts have been 73,000 on 01/07/2017, 91,000 on 01/06/2017, 96,000 on 01/05/2017 and was in the normal range on 12/27/2016 with a platelet count of 157,000. Chemistry panel done today showed normal electrolytes. BUN was 28 and creatinine 0.78 with a GFR more than 560 mL per minute. Liver function studies were normal except albumin level of 2.7. LDH was slightly elevated at 351. Pro time was elevated at 42.4 with an INR of 4.4. D-dimer was slightly elevated at 2.35 with fibrinogen level in the normal range at 236. The elevated white blood cell count is probably related to the steroids she is receiving. Thank you for allowing me to participate in this patient's care. Job ID: [id number] DocumentID: [id number] Dictated Date: 01/08/2017 16:27:32 Automotive Technician Date: 01/09/2017 10:06:39 Dictated By: STACI NIELSEN MD [facility]
--- NOTE | 2017-01-09 10:53 | Occupational Ther Daily Note ---
OT Current Status-Daily Note Subjective Pt sitting in w/c, returning from radiology. Agrees to treatment this am. Pt reports 6/10 back pain. Mental Status/Objective Functional [place] Measure 0=Not Assessed/NA 4=Minimal Assistance 1=Total Assistance 5=Supervision or Setup 2=Maximal Assistance 6=Modified [place] 3=Moderate Assistance 7=Complete [place] Attachments: Oxygen ADL-Treatment Pt declined sponge bath this morning. Grooming tasks completed seated at sink. Pt able to comb hair and rinse mouth with setup and increased time. Pt donned pullover shirt with minimal assistance to pull down in back. Pt has already donned pants. Increased time for ADLs. Rest breaks between activities. Functional [place] Measure 0=Not Assessed/NA 4=Minimal Assistance 1=Total Assistance 5=Supervision or Setup 2=Maximal Assistance 6=Modified [place] 3=Moderate Assistance 7=Complete IndependenceIRFPAI Quality Coding Scale 6 Independent with activity with or without an assistive device 5 Patient requires set up or clean up by helper. Patient completes activity by themselves 4 Supervision or touching assist (CGA). [place] provide cues , steadying assist 3 The helper provides less than half the effort to complete the activity 2 The helper provides more than half the effort to complete the activity 1 Dependent. The helper does all the effort to complete an activity 7 Patient refused to complete or attempt activity 9 The patient did not perform the activity before the current illness or injury 88 Not attempted due to Medical conditions or safety concerns Grooming (FIM): 5 Oral Hygiene (QC): 5 Upper Body (FIM): 4 Other Treatment Pt completed bilateral UE exercises to promote increased strength and activity tolerance needed for ADLs and transfers. Pt performed AROM exercises x12 reps in all planes. Cues for breathing during exercises. Pt requires rest breaks between exercises. Bilateral hand fleet maintenance manager exercises x20 reps to increase fleet maintenance manager strength needed for functional tasks. Pt requests to return to bed. Reviewed safe transfer technique. Pt states "I can't do it" and is anxious with transfers. Cues for hand placement and safety. Stand pivot transfer to EOB with total assist. Sit to supine with max assist. Pt rolled with minimal assistance for repositioning. Pt in bed with needs met after session. OT Short Term Goals Short Term Goals Time Frame: Dec 26, 2016 Bathing(FIM): 4 Upper Body Dressing(FIM): 5 Lower Body Dressing(FIM): 3 Toileting(FIM): 3 Toilet/Commode Transfer(FIM): 4 1=Demonstrate adherence to instructed precautions during ADL tasks. 2=Patient will verbalize/demonstrate understanding of assistive devices/ modifications for ADL. 3=Patient will improve strength/tolerance for activity to enable patient to perform ADL's. OT New Car Salesperson Goals New Car Salesperson Goals Time Frame: January 09, 2017 Eating (FIM): 6 Eating (QC): 6 Groomin Oral Hygiene (QC): 6 Bathing(FIM): 5 Shower/Bathe Self (QC): 5 Upper Body Dressing(FIM): 6 Upper Body Dressing (QC): 6 Lower Body Dressing(FIM): 5 Lower Body Dressing (QC): 5 On/Off Footwear (QC): 5 Toileting(FIM): 5 Toileting Hygiene (QC): 5 Toilet/Commode Transfer(FIM): 5 Toilet/Commode Transfer (QC): 5 Shower Transfer(FIM): 5 Additional Goals: 1-Demonstrate ADL Tasks, 2-Verbalize Understanding, 3- ImproveStrength/Brad 1=Demonstrate adherence to instructed precautions during ADL tasks. 2=Patient will verbalize/demonstrate understanding of assistive devices/ modifications for ADL. 3=Patient will improve strength/tolerance for activity to enable patient to perform ADL's. OT Education/Plan Discharge Recommendations Plan/Recommendations: Continue POC Treatment Plan/Plan of Care Patient would benefit from OT for education, treatment and training to promote independence in ADL's, mobility, safety and/or upper extremity function for ADL' s. Plan of Care: ADL Retraining, Functional Mobility, Group Exercise/Act as Ind, UE Funct Exercise/Act Treatment Duration: January 09, 2017 Visits Per Week: 10-12 Minutes/Day (M-F): 60-90 Minutes/Day (Sat/Stone): PRN Agreement: Yes Rehab Potential: Fair Time/GCodes Start Time: 09:40 Stop Time: 10:30 Total Time Billed (hr/min): 50 Billed Treatment Time 1 visit, ADL(15minutes), Ex(20minutes), FA(15minutes) AYAAN PLUNKETT OT January 09, 2017 10:53
--- NOTE | 2017-01-09 11:21 | Diagnostic Imaging Report ---
PROCEDURE: CT angiography of the chest with contrast. TECHNIQUE: Multiple contiguous axial images were obtained through the chest after uneventful bolus administration of intravenous contrast. Reconstructed CTA MIP acquisitions were also performed. INDICATION: Shortness of breath. Followup thoracic aneurysm. CONTRAST: 100 mL of Omnipaque was administered intravenously. COMPARISON: Correlation was made to a KUB dated 12/07/2016. FINDINGS: There is a large descending thoracic aortic aneurysm measuring 8.6 x 6.9 cm in maximum axial dimensions, slightly smaller compared to the 12/07/2016 exam when it measured 9 x 7 cm. There are calcifications seen within the aneurysm sac with no evidence of contrast filling of the sac of the aneurysm. 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 The distal aspect of the left subclavian is patent with reconstitution from branches that probably include retrograde flow in the left vertebral artery. The left common carotid and brachiocephalic arteries are patent. The remaining lumen is excluded with an endograft within the thoracic aortic aneurysm which measures up to 4 cm in caliber. The proximal arch and descending aorta are normal in caliber. The arteries are well opacified with no filling defect to suggest pulmonary embolism. No mediastinal, axillary, or hilar significantly enlarged lymph node is seen. The heart size is normal. No pericardial or pleural effusion. There are pulmonary advanced emphysema changes, worse in the left lung and in the upper lobes. There is consolidation in the right lower lobe and in the posterior segment of the right upper lobe, concerning for pneumonia. There is a small right pleural effusion and a tiny left pleural effusion with bilateral atelectasis in the lung bases. The osseous structures demonstrate prominent degenerative changes in the thoracic spine. Sections through the upper abdomen demonstrate pericholecystic fluid with no obvious gallstones. The visualized portions of the abdominal aorta show it to be mildly aneurysmal including the levels of the celiac trunk where it measures 4 cm in caliber. This is just distal to the termination of the endograft. The celiac trunk, SMA, and left renal artery are patent. The right artery demonstrates prominent proximal plaque with an estimated 60% ostial stenosis. There is prominent intramural thrombus and atherosclerotic plaque within the upper abdominal aorta. IMPRESSION: 1. No pulmonary embolism. 2. Aneurysm of the descending aorta and abdominal aorta. 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 The largest diameter of the descending thoracic aneurysm is 8.6 cm compared to 9 cm on 12/07/2016 with no evidence of endoleak. 3. There is an abdominal aortic aneurysm, partially visualized, with prominent intramural thrombus. 4. Consolidation in the posterior right upper lobe and right lower lobe is concerning for pneumonia. 5. Pericholecystic fluid. Correlate clinically and with gallbladder ultrasound, if needed, to rule out cholecystitis. No calcified gallstones are identified. Dictated by: Dictated on workstation # [id number]
--- NOTE | 2017-01-09 11:24 | Physical Therapy Daily Note ---
PT Daily Note-Current Subjective Complains of left flank/rib pain 7-8/10 "sharp". Transfers Functional [place] Measure 0=Not Assessed/NA 4=Minimal Assistance 1=Total Assistance 5=Supervision or Setup 2=Maximal Assistance 6=Modified [place] 3=Moderate Assistance 7=Complete IndependenceIRFPAI Quality Coding Scale 6 Independent with activity with or without an assistive device 5 Patient requires set up or clean up by helper. Patient completes activity by themselves 4 Supervision or touching assist (CGA). [place] provide cues , steadying assist 3 The helper provides less than half the effort to complete the activity 2 The helper provides more than half the effort to complete the activity 1 Dependent. The helper does all the effort to complete an activity 7 Patient refused to complete or attempt activity 9 The patient did not perform the activity before the current illness or injury 88 Not attempted due to Medical conditions or safety concerns Treatments MHP to area of pain; while it warmed performed gentle stretching B LE's. This was followed by gentle soft tissue work at intecostal area of pain with gentle trigger point release and muscle stretching. Post treatment, reported a slight decrease in pain. Assessment Slight relief with soft tissue work and MHP> PT Short Term Goals Short Term Goals Time Frame: Dec 26, 2016 Gait (FIM): 1 Gait Distance Comment: 30' Gait Level of Assist: 4 Gait Assistive Device: FWW Wheelchair Distance: 50 ft PT Senior Living Goals Go[place]der Goals PT Senior Living Goals Time Frame: January 09, 2017 Transfers (B,C,W/C) (FIM): 5 Sit to Lying (QC): 4 Lying-Sitting on Side/Bed(QC): 4 Sit to Stand (QC): 4 Rollin Roll Left to Right (QC): 4 Chair/Muv-va-Htczu Xfer(QC): 4 Car Transfer (QC): 3 Gait (FIM): 2 Distance: 50' Walk 10 feet (QC): 4 Walk 10ft-Uneven Surface(QC): 4 Walk 50ft with 2 Turns (QC): 4 Walk 150 ft (QC): 88 Gait Level of Assist: 4 Gait Assistive Device: FWW Wheelchair (FIM): 5 Distance: 150' Wheelchair Level of Assist: 5 Wheel 50 feet with 2 turns (QC: 4 Stairs (FIM): 2 # of Steps: 4 1 Step (curb) (QC): 3 4 Steps (QC): 3 12 Steps (QC): 88 Stairs Level Of Assist: 4 Picking up an Object (QC): 88 PT Plan Problem List Problem List: Activity Tolerance, Functional Strength Treatment/Plan Treatment Plan: Continue Plan of Care (vs dc) Treatment Plan: Bed Mobility, Education, Functional Activity Brad, Functional Strength, Group Therapy, Gait, Safety, Therapeutic Exercise, Transfers Treatment Duration: January 09, 2017 Visits Per Week: 10-11 Minutes/Day (M-F): 60-90 Minutes/Day (Sat/Stone): 15-30 Time/GCodes Time In: 1100 Time Out: 1123 Total Billed Treatment Time: 23 Total Billed Treatment visit Man therapy 23 AVEL BAZZI PT January 09, 2017 11:24
--- NOTE | 2017-01-09 14:08 | Occupational Ther Daily Note ---
OT Current Status-Daily Note Subjective Pt in bed, agrees to treatment. Pt reports 6/10 back pain. Mental Status/Objective Functional [place] Measure 0=Not Assessed/NA 4=Minimal Assistance 1=Total Assistance 5=Supervision or Setup 2=Maximal Assistance 6=Modified [place] 3=Moderate Assistance 7=Complete [place] ADL-Treatment Functional [place] Measure 0=Not Assessed/NA 4=Minimal Assistance 1=Total Assistance 5=Supervision or Setup 2=Maximal Assistance 6=Modified [place] 3=Moderate Assistance 7=Complete IndependenceIRFPAI Quality Coding Scale 6 Independent with activity with or without an assistive device 5 Patient requires set up or clean up by helper. Patient completes activity by themselves 4 Supervision or touching assist (CGA). [place] provide cues , steadying assist 3 The helper provides less than half the effort to complete the activity 2 The helper provides more than half the effort to complete the activity 1 Dependent. The helper does all the effort to complete an activity 7 Patient refused to complete or attempt activity 9 The patient did not perform the activity before the current illness or injury 88 Not attempted due to Medical conditions or safety concerns Other Treatment Pt supine to sit with maximal assistance. Pt initially has decreased sitting balance, but improves with bilateral UE support and cues for technique. Total assist stand pivot transfer to w/c. Pt completed putty activity with bilateral hands to increase trash collector supervisor/pinch strength. Pt able to remove small beads from putty with increased time. Pt completed resistance peg activity with bilateral hands to promote reaching, strength, and coordination. Pt completed fine motor activity with nuts and bolts to increase coordination/manipulation skills. Pt requires increased time for task, but is able to complete without assistance. Pt fatigues with activity and requires occasional rest breaks throughout session. Transfer back to EOB with total assist. Sit to supine with max assist. Pt rolls in bed with minimal assistance for repositioning. Pt in bed with needs met after session. OT Short Term Goals Short Term Goals Time Frame: Dec 26, 2016 Bathing(FIM): 4 Upper Body Dressing(FIM): 5 Lower Body Dressing(FIM): 3 Toileting(FIM): 3 Toilet/Commode Transfer(FIM): 4 1=Demonstrate adherence to instructed precautions during ADL tasks. 2=Patient will verbalize/demonstrate understanding of assistive devices/ modifications for ADL. 3=Patient will improve strength/tolerance for activity to enable patient to perform ADL's. OT Usp Goals Usp Goals Time Frame: January 09, 2017 Eating (FIM): 6 Eating (QC): 6 Groomin Oral Hygiene (QC): 6 Bathing(FIM): 5 Shower/Bathe Self (QC): 5 Upper Body Dressing(FIM): 6 Upper Body Dressing (QC): 6 Lower Body Dressing(FIM): 5 Lower Body Dressing (QC): 5 On/Off Footwear (QC): 5 Toileting(FIM): 5 Toileting Hygiene (QC): 5 Toilet/Commode Transfer(FIM): 5 Toilet/Commode Transfer (QC): 5 Shower Transfer(FIM): 5 Additional Goals: 1-Demonstrate ADL Tasks, 2-Verbalize Understanding, 3- ImproveStrength/Brad 1=Demonstrate adherence to instructed precautions during ADL tasks. 2=Patient will verbalize/demonstrate understanding of assistive devices/ modifications for ADL. 3=Patient will improve strength/tolerance for activity to enable patient to perform ADL's. OT Education/Plan Discharge Recommendations Plan/Recommendations: Continue POC Treatment Plan/Plan of Care Patient would benefit from OT for education, treatment and training to promote independence in ADL's, mobility, safety and/or upper extremity function for ADL' s. Plan of Care: ADL Retraining, Functional Mobility, Group Exercise/Act as Ind, UE Funct Exercise/Act Treatment Duration: January 09, 2017 Visits Per Week: 10-12 Minutes/Day (M-F): 60-90 Minutes/Day (Sat/Stone): PRN Agreement: Yes Rehab Potential: Fair Time/GCodes Start Time: 12:50 Stop Time: 13:30 Total Time Billed (hr/min): 40 Billed Treatment Time 1 visit, FA(25minutes), EX(15minutes) AYAAN PLUNKETT OT January 09, 2017 14:08
--- NOTE | 2017-01-09 14:40 | Therapy Team Discharge Summary ---
Therapy Discharge Summary Discharge Recommendations Date of Discharge Therapy D/C Recommendations: Home w/ Family Support Physical Therapy This patient was seen on acute rehab post hospitalization of thoracic abdominal aneurysm and LE paresis. Upon admit to this unit, she required mod assist with transfers, ambulated 10 ft x 2 with FWW with assist; was able to propel the wheelchair 50 ft with min assist but was unable/unsafe to attempt stairs. Treatment has consisted of functional strengthening and transfers as able, although her stay has been complicated with medical issues, BP issues and a short stent in ICU. Her progress has been limited and in fact, she has declined now requiring max assist with transfers and unable to bear full weight for SPT; thus she is unable to ambulate or attempt stairs. She is min assist with wc mobility short distances. She is pleasant and cooperative as able but often times, treatments were discontinued due to her reports of pain or extreme weakness/fatigue. She has not met goals at this time but may benefit from continued skilled therapy services to work on progressing her mobility. [place] at this time to a [place] in [place]. PT Drying Machine Back Tender Goals Usp Goals PT Drying Machine Back Tender Goals Time Frame: January 09, 2017 Transfers (B,C,W/C) (FIM): 5 Roll Left to Right (QC): 4 Sit to Lying (QC): 4 Lying-Sitting on Side/Bed(QC): 4 Sit to Stand (QC): 4 Chair/Pwv-mx-Zdupj Xfer(QC): 4 Car Transfer (QC): 3 Gait (FIM): 2 Distance: 50' Walk 10 feet (QC): 4 Walk 10ft-Uneven Surface(QC): 4 Walk 50ft with 2 Turns (QC): 4 Walk 150 ft (QC): 88 Gait Level of Assist: 4 Gait Assistive Device: FWW Wheelchair (FIM): 5 Distance: 150' Wheelchair Level of Assist: 5 Wheel 50 feet with 2 turns (QC: 4 Stairs (FIM): 2 # of Steps: 4 1 Step (curb) (QC): 3 4 Steps (QC): 3 12 Steps (QC): 88 Stairs Level Of Assist: 4 Picking up an Object (QC): 88 No goals met at discharge OT Drying Machine Back Tender Goals Usp Goals Time Frame: January 09, 2017 Eating (FIM): 6 Eating (QC): 6 Oral Hygiene (QC): 6 Grooming(FIM): 6 Bathing(FIM): 5 Shower/Bathe Self (QC): 5 Upper Body Dressing(FIM): 6 Upper Body Dressing (QC): 6 Lower Body Dressing(FIM): 5 Lower Body Dressing (QC): 5 On/Off Footwear (QC): 5 Toileting(FIM): 5 Toileting Hygiene (QC): 5 Toilet/Commode Transfer(FIM): 5 Toilet/Commode Transfer (QC): 5 Shower Transfer(FIM): 5 Additional Goals: 1-Demonstrate ADL Tasks, 2-Verbalize Understanding, 3- ImproveStrength/Brad 1=Demonstrate adherence to instructed precautions during ADL tasks. 2=Patient will verbalize/demonstrate understanding of assistive devices/ modifications for ADL. 3=Patient will improve strength/tolerance for activity to enable patient to perform ADL's. AVEL BAZZI PT January 09, 2017 14:40
[2017-01-09] MEDS ORDERED: INSU100V16 SQ (15:16)
[2017-01-09] MEDS ORDERED: FLUC100T6 PO ×2 (15:16→15:34)
[2017-01-09] MEDS ORDERED: ASPI-999 PO (15:16)
[2017-01-09] MEDS ORDERED: ALPR0.254 PO ×2 (15:16→15:34)
[2017-01-09] MEDS ORDERED: CITA20TA12 PO (15:16)
[2017-01-09] MEDS ORDERED: DILT240C PO (15:16)
[2017-01-09] MEDS ORDERED: NICO1PAT16 TD (15:16)
[2017-01-09] MEDS ORDERED: ACET650S27 PO (15:16)
[2017-01-09] MEDS ORDERED: METO-333 PO (15:16)
[2017-01-09] MEDS ORDERED: ACET325T49 PO (15:28)
[2017-01-09] MEDS: ALPRAZolam 0.25 MG (XANAX) TAB PO PRN (16:41)
[2017-01-09] MEDS: ALFUZOSIN HCL 10 MG TAB (UROXATRAL) PO SCH (16:41)
[2017-01-09 17:58] VITALS: BP 169/78
--- NOTE | 2017-01-10 10:51 | Physician Query ---
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 Dumont. Please document a response below. Please remember a lack of response to the above will prompt a phone page by CDI/ coding staff. In responding to this query, please exercise your independent professional judgment. The purpose of this communication is to more accurately reflect the complexity of your patients condition. The fact that a question is asked does not imply that any particular answer is desired or expected. Thank you for your timely response to this clarification. Requestors name: Moises THIS PHYSICIAN QUERY FORM IS A PERMANENT PART OF THE MEDICAL RECORD MOISES LEMOS January 10, 2017 10:51
--- NOTE | 2017-01-10 14:55 | Therapy Team Discharge Summary ---
Therapy Discharge Summary Discharge Recommendations Date of Discharge January 09, 2017 at 17:55 Therapy D/C Recommendations: Home w/ Family Support Occupational Therapy Pt admitted to ARU following hospitalization for thoracic abdominal aneurysm and LE paresis. On admission pt required mod assist for transfers and bathing, max assist for LE dressing, and min assist for UE dressing. Skilled OT treatment focused on ADL training, transfers, strengthening, and safety education. Pt's progress was impacted by multiple medical issues and short stay in ICU. Progress has been limited and pt has declined in some areas. At discharge pt is requiring max assist for transfers and LE dressing, mod assist for UE dressing and bathing, and SBA for grooming. Pt met goal for being modified independent with eating, but did not meet other goals. Pt discharged to SNF for continued care. D/C ARU OT. PT Treasury Representative Goals Treasury Representative Goals PT Halfway Goals Time Frame: January 09, 2017 Transfers (B,C,W/C) (FIM): 5 Roll Left to Right (QC): 4 Sit to Lying (QC): 4 Lying-Sitting on Side/Bed(QC): 4 Sit to Stand (QC): 4 Chair/Daw-ww-Rljgc Xfer(QC): 4 Car Transfer (QC): 3 Gait (FIM): 2 Distance: 50' Walk 10 feet (QC): 4 Walk 10ft-Uneven Surface(QC): 4 Walk 50ft with 2 Turns (QC): 4 Walk 150 ft (QC): 88 Gait Level of Assist: 4 Gait Assistive Device: FWW Wheelchair (FIM): 5 Distance: 150' Wheelchair Level of Assist: 5 Wheel 50 feet with 2 turns (QC: 4 Stairs (FIM): 2 # of Steps: 4 1 Step (curb) (QC): 3 4 Steps (QC): 3 12 Steps (QC): 88 Stairs Level Of Assist: 4 Picking up an Object (QC): 88 OT Halfway Goals Treasury Representative Goals Time Frame: January 09, 2017 Eating (FIM): 6 Eating (QC): 6 Oral Hygiene (QC): 6 Grooming(FIM): 6 Bathing(FIM): 5 Shower/Bathe Self (QC): 5 Upper Body Dressing(FIM): 6 Upper Body Dressing (QC): 6 Lower Body Dressing(FIM): 5 Lower Body Dressing (QC): 5 On/Off Footwear (QC): 5 Toileting(FIM): 5 Toileting Hygiene (QC): 5 Toilet/Commode Transfer(FIM): 5 Toilet/Commode Transfer (QC): 5 Shower Transfer(FIM): 5 Additional Goals: 1-Demonstrate ADL Tasks, 2-Verbalize Understanding, 3- ImproveStrength/Brad 1=Demonstrate adherence to instructed precautions during ADL tasks. 2=Patient will verbalize/demonstrate understanding of assistive devices/ modifications for ADL. 3=Patient will improve strength/tolerance for activity to enable patient to perform ADL's. AYAAN PLUNKETT OT January 10, 2017 14:55
--- NOTE | 2017-01-13 09:05 | Physician Query ---
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 Dumont. Please document a response below. Please remember a lack of response to the above will prompt a phone page by CDI/ coding staff. In responding to this query, please exercise your independent professional judgment. The purpose of this communication is to more accurately reflect the complexity of your patients condition. The fact that a question is asked does not imply that any particular answer is desired or expected. Thank you for your timely response to this clarification. Requestors name: Moises THIS PHYSICIAN QUERY FORM IS A PERMANENT PART OF THE MEDICAL RECORD MOISES LEMOS January 13, 2017 09:05
--- NOTE | 2017-01-28 07:23 | Physician Query ---
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 Dumont. Please document a response below. PHYSICIAN RESPONSE Do you agree w/Consulting Dx?: Yes Please remember a lack of response to the above will prompt a phone page by CDI/ coding staff. In responding to this query, please exercise your independent professional judgment. The purpose of this communication is to more accurately reflect the complexity of your patients condition. The fact that a question is asked does not imply that any particular answer is desired or expected. Thank you for your timely response to this clarification. Requestors name: Moises THIS PHYSICIAN QUERY FORM IS A PERMANENT PART OF THE MEDICAL RECORD MOISES LEMOS January 28, 2017 07:22 MICHELE YEUNG MD February 02, 2017 12:20
--- OUTSIDE RECORDS SUMMARY | 2017-01-29 16:27 | XMS REPORT | Continuity of Care Document ---
Author Author [facility] Organization [facility] Address Unknown Phone Unavailable Care Team Providers Care Healthcare Consulting Manager Name Role Phone Taylor Christoph PCP [phone] Source Comments Some departments are not documenting in the electronic medical record. If you do not see the information that you expected, contact Release of Information in the Health Information Management department at [phone] for further assistance in locating additional records.[facility] Active Allergies and Adverse Reactions No Known Allergies Current Medications Prescription Sig. Disp. Refills Start End Date Status Date tiotropium bromide Inhale 2 Puffs by mouth Active (SPIRIVA RESPIMAT) 1.25 into the lungs daily. mcg/actuation mist budesonide/formoterol Inhale 2 Puffs by mouth Active (SYMBICORT HFA) 160/4.5 into the lungs twice mcg inhalation daily. fluticasone (FLONASE) 50 Apply 1 Fenwick to each Active mcg/actuation nasal spray nostril as directed daily. Shake bottle gently before using. Indications: Chronic obstructive pulmonary disease furosemide (LASIX) 20 mg Take 20 mg by mouth Active tablet daily. Daily at noon aspirin 325 mg tablet Take 325 mg by mouth Active daily. Take with food. potassium chloride(+) Take 10 mEq by mouth Active (MICRO-K) 10 mEq capsule daily. Take with a meal and a full glass of water.At noon daily Indications: Electrolyte balance/imbalance simvastatin (ZOCOR) 40 mg Take 40 mg by mouth at Active tablet bedtime daily. albuterol (PROAIR HFA) 90 Inhale 2 Puffs by mouth Active mcg/actuation inhaler into the lungs every 6 hours as needed for Wheezing or Shortness of Breath. Shake well before use. albuterol 0.5% Inhale 2.5 mg solution by Active (PROVENTIL; VENTOLIN) 2.5 nebulizer as directed mg/0.5 mL nebulizer every 6 hours as needed solution for Shortness of Breath or Wheezing. acetaminophen (TYLENOL) Take 650 mg by mouth Active 325 mg tablet every 4 hours as needed for Pain. traMADol (ULTRAM) 50 mg Take 1 Tab by mouth every 40 Tab 0 12/19/19 Active tablet 6 hours as needed. 17 warfarin (COUMADIN) 1 mg Take 1 Tab by mouth at 90 Tab 3 12/19/19 Active tablet bedtime daily. 17 metoprolol tartrate Take 0.5 Tabs by mouth 180 Tab 3 12/19/19 Active (LOPRESSOR) 50 mg tablet twice daily. 17 polyethylene glycol 3350 Take 1 Packet by mouth 12 Each 12/19/19 Active (MIRALAX) 17 g packet twice daily. 17 senna/docusate Take 2 Tabs by mouth 180 Tab 3 12/19/19 Active (SENOKOT-S) 8.6/50 mg twice daily. 17 tablet bisacodyl (DULCOLAX) 10 Insert or Apply 1 0 12/19/19 Active mg rectal suppository Suppository to rectal 17 area as directed daily as needed. sodium chloride (SEA Apply 1-2 Sprays to each 12 12/19/19 Active MIST) 0.65 % nasal spray nostril as directed as [address] Take 1 Tab by mouth twice 90 Tab 3 12/19/19 Active (PROTONIX) 40 mg tablet daily. 17 nicotine (NICODERM CQ Apply 1 Patch to top of 42 Patch 0 12/19/19 Active STEP 1) 21 mg/day patch skin as directed daily 17 17 for 42 days. Indications: SMOKING CESSATION insulin lispro(+) Inject under the skin. Active (HUMALOG KWIKPEN) 100 Inject subcutaneously unit/mL injection PEN before meals and at bedtime.60-140=No [id number] [id number]=1 -440=3 -152=5 -954=89 [id number]=04 [id number]=40 unitsIf above 400 call physician citalopram (CELEXA) 20 mg Take 20 mg by mouth Active tablet daily. Indications: MAJOR DEPRESSIVE DISORDER fluconazole (DIFLUCAN) Take 100 mg by mouth Active 100 mg tablet daily. X 2 days for fungal infection aspirin EC 81 mg tablet Take 81 mg by mouth Active daily. Take with food. ferrous sulfate (FEOSOL, Take 325 mg by mouth Active FEROSUL) 325 mg (65 mg three times daily. With iron) tablet food metoprolol tartrate Take 25 mg by mouth Active (LOPRESSOR) 25 mg tablet daily. diltiazem CD (CARDIZEM Take 240 mg by mouth Active CD) 240 mg capsule daily. glucagon (human Inject 1mg Active recombinant) (GLUCAGEN intramuscularly as needed DIAGNOSTIC KIT) 1 mg/1 mL for glucose below 40, may solr repeat after 15 minutes ALPRAZolam (XANAX) 0.25 Take 0.25 mg by mouth Active mg tablet every 8 hours as needed for Anxiety. Indications: ANXIETY albuterol 0.083% Inhale 1 Vial solution by Active (PROVENTIL; VENTOLIN) 2.5 nebulizer as directed mg /3 mL (0.083 %) every 6 hours as needed nebulizer solution for Wheezing or Shortness of Breath (for shortness of air / wheezing). milk of magnesia (CONC) Take 30 mL by mouth daily Active 2,400 mg/10 mL oral as needed for suspension Constipation. alum/mag hydroxide/simeth Take 30 mL by mouth every Active (MYLANTA, MAALOX PLUS) 4 hours as needed 200/200/20 mg/5 mL susp (indigestion). oral suspension Sodium Chloride 0.9 % Apply 1-2 Sprays to each Active spra nostril as directed three times daily as needed (for nasal dryness/bleeding). Active Problems Problem Noted Date Sepsis ([facility]) 01/15/2017 GI bleed 01/15/2017 CAD (coronary artery disease), [place] coronary artery 01/14/2017 Chronic anticoagulation-on Warfarin 01/13/2017 VRE (vancomycin resistant enterococcus) culture positive 01/13/2017 UTI (urinary tract infection) due to Enterococcus 01/13/2017 Acute on chronic respiratory failure with hypoxia ([facility]) 01/11/2017 Influenza B 01/11/2017 HCAP (healthcare-associated pneumonia) 01/11/2017 NSTEMI (non-ST elevated myocardial infarction) ([facility]) 01/10/2017 Stage 3 chronic kidney disease 12/12/2016 Acute blood loss anemia 12/09/2016 Neurogenic dysfunction of the urinary bladder 12/09/2016 Constipation due to neurogenic bowel 12/09/2016 Leukocytosis 12/02/2016 A-fib ([facility]) 12/02/2016 Hyperglycemia 12/02/2016 Renal infarct ([facility]) 12/02/2016 Thrombus 12/02/2016 Overview: Intraluminal thrombus around level of superior mesenteric Constipation 12/02/2016 Pulmonary hypertension ([facility]) 11/28/2016 Current smoker 11/28/2016 Chronic respiratory failure with hypoxia ([facility]) 11/28/2016 CAD (coronary artery disease) 11/28/2016 H/O acute myocardial infarction 11/28/2016 Severe chronic obstructive pulmonary disease ([facility]) 11/28/2016 HTN (hypertension) 11/27/2016 HLD (hyperlipidemia) 11/27/2016 Aneurysm of thoracic aorta ([facility]) 11/27/2016 Resolved Problems Problem Noted Date Resolved Date Hypoxia 12/12/2016 12/18/2016 Pneumothorax 12/12/2016 12/18/2016 Acute cystitis without hematuria 12/09/2016 12/18/2016 Thrombocytopenia ([facility]) 12/03/2016 12/06/2016 Hyponatremia 12/03/2016 12/06/2016 CAREN (acute kidney injury) ([facility]) 12/02/2016 12/06/2016 Delirium 12/02/2016 12/06/2016 COPD exacerbation ([facility]) 11/28/2016 12/06/2016 Acute respiratory failure with hypoxia and hypercapnia ([facility]) 11/28/2016 Most Recent Encounters Date Type Specialty Providers Description 01/10/2017 [facility] Cardiology Aaron Gold MD NSTEMI (non-ST elevated - Encounter Tod Mayorga MD myocardial infarction) 01/16/2017 ([facility]) 01/07/2017 [facility] Radiology Patrick Bonilla MD Canceled (PATIENT DNKA) Encounter 12/13/2016 Surgery Frank Montana MD ESOPHAGOGASTRODUODENOSCOP Y 12/12/2016 Anesthesia Cony Chery Event 12/11/2016 Surgery Frank Montana MD Canceled ESOPHAGOGASTRODUODENOSCOP Y 12/10/2016 Anesthesia Indu Rebolledo SRNA Event 12/02/2016 Anesthesia Cardiothoracic Surgery Jorge Evans MD Event 11/29/2016 Anesthesia Cardiothoracic Surgery Isela Moreno MD Event 11/28/2016 Anesthesia Erick Saul DO Event 11/28/2016 Surgery Patrick Bonilla MD REPAIR ANEURYSM ENDOVASCULAR DESCENDING AORTA 11/28/2016 Anesthesia Cardiothoracic Surgery Aly Mills CRNA Event 11/27/2016 [facility] Kamar Byrne MD Aneurysm of thoracic - Encounter Patrick Bonilla MD aorta (HCC) 12/18/2016 Frank Montana MD 11/27/2016 Hospital Radiology Encounter 11/07/2016 Hospital Radiology Encounter 11/04/2016 Hospital Radiology Encounter Social History Tobacco Use Types Packs/Day Years Used Date Former Smoker Cigarettes 1 50 Quit: 11/06/2016 Smokeless Tobacco: Never Used Alcohol Use Drinks/Week oz/Week Comments No 0 Standard 0.0 drinks or equivalent Last Filed Vital Signs Vital Sign Reading Time Taken Blood Pressure 98/63 01/15/2017 11:00 PM CDT Pulse 136 01/16/2017 12:20 AM CDT Temperature 36.9 C (98.4 F) 01/16/2017 12:00 AM CDT Respiratory Rate - - Height 1.676 m (5' 6") 01/11/2017 8:37 AM CDT Weight 58.1 kg (128 lb 1.4 oz) 01/15/2017 4:00 AM CDT Body Mass Index 20.68 01/15/2017 4:00 AM CDT Oxygen Saturation 84% 01/16/2017 12:00 AM CDT Plan of Care Not on file Procedures from Last 3 Months Procedure Name Priority Date/Time Associated Diagnosis Comments TELEMETRY STRIPS-SCAN 01/22/2017 Results for this 8:07 AM CDT procedure are in the results section. ECG UNCONFIRMED-SCAN 01/21/2017 Results for this 9:53 AM CDT procedure are in the results section. ECG-SCAN 01/14/2017 Results for this 11:44 AM CDT procedure are in the results section. ECG-SCAN 01/14/2017 Results for this 11:44 AM CDT procedure are in the results section. ECG-SCAN 01/14/2017 Results for this 11:44 AM CDT procedure are in the results section. CONSULT IV THERAPY TEAM STAT 01/13/2017 1:36 PM CDT CONSULT IV THERAPY TEAM STAT 01/10/2017 11:39 PM CDT ECG UNCONFIRMED-SCAN 12/23/2016 Results for this 10:14 AM CDT procedure are in the results section. ECG UNCONFIRMED-SCAN 12/23/2016 Results for this 10:14 AM CDT procedure are in the results section. ECG UNCONFIRMED-SCAN 12/23/2016 Results for this 10:14 AM CDT procedure are in the results section. ECG UNCONFIRMED-SCAN 12/23/2016 Results for this 10:14 AM CDT procedure are in the results section. ECG UNCONFIRMED-SCAN 12/23/2016 Results for this 10:14 AM CDT procedure are in the results section. ECG UNCONFIRMED-SCAN 12/23/2016 Results for this 10:14 AM CDT procedure are in the results section. TELEMETRY STRIPS-SCAN 12/21/2016 Results for this 1:28 PM CDT procedure are in the results section. TELEMETRY STRIPS-SCAN 12/21/2016 Results for this 1:28 PM CDT procedure are in the results section. ECG-SCAN 12/21/2016 Results for this 1:27 PM CDT procedure are in the results section. ECG-SCAN 12/18/2016 Results for this 9:19 AM CDT procedure are in the results section. ECG-SCAN 12/17/2016 Results for this 9:57 AM CDT procedure are in the results section. ECG-SCAN 12/17/2016 Results for this 9:57 AM CDT procedure are in the results section. COLONOSCOPY 12/13/2016 Abdominal pain 10:25 AM CDT ESOPHAGOGASTRODUODENOSCOP 12/13/2016 Abdominal pain Y 10:25 AM CDT CONSULT IV THERAPY TEAM Routine 12/11/2016 9:54 PM CDT ECG-SCAN 12/03/2016 Results for this 8:12 AM CDT procedure are in the results section. ECG-SCAN 12/03/2016 Results for this 8:12 AM CDT procedure are in the results section. ECG-SCAN 12/03/2016 Results for this 8:11 AM CDT procedure are in the results section. ECG-SCAN 12/03/2016 Results for this 8:11 AM CDT procedure are in the results section. ANESTHESIA ACUTE PAIN Routine 11/29/2016 Results for this PROCEDURE 9:41 AM CDT procedure are in the results section. Results from Last 3 Months * TELEMETRY STRIPS-SCAN (01/22/2017 8:07 AM) Narrative Ordered by an unspecified provider. * ECG UNCONFIRMED-SCAN (01/21/2017 9:53 AM) Narrative Ordered by an unspecified provider. * POC GLUCOSE (01/15/2017 7:42 PM) Only the most recent of 106 results within the time period is included. Component Value Range Glucose, POC 117 (H) 70-100 MG/DL * CBC (01/15/2017 7:40 PM) Only the most recent of 29 results within the time period is included. Component Value Range White Blood Cells 13.3 (H) 4.5-11.0 K/UL RBC 2.49 (L) 4.0-5.0 M/UL Hemoglobin 7.5 (L) 12.0-15.0 GM/DL Hematocrit 22.5 (L) 36-45 % MCV 90.3 80-100 FL MCH 30.1 26-34 PG MCHC 33.3 32.0-36.0 G/DL RDW 20.8 (H) 11-15 % Platelet Count 83 (L) 150-400 K/UL MPV 7.9 7-11 FL Specimen Blood * BASIC METABOLIC PANEL (01/15/2017 5:37 PM) Only the most recent of 29 results within the time period is included. Component Value Range Sodium 142 137-147 MMOL/L Potassium 3.9Comment: SLT HEMOLYSIS 3.5-5.1 MMOL/L Chloride 110 98-110 MMOL/L CO2 26 21-30 MMOL/L Anion Gap 6 3-12 Glucose 114 (H) 70-100 MG/DL Blood Urea Nitrogen 32 (H) 7-25 MG/DL Creatinine 0.86 0.4-1.00 MG/DL Calcium 7.9 (L) 8.5-10.6 MG/DL eGFR Non >60Comment: >60 mL/min The eGFR is not validated for use in drug dosing adjustments. Continue to use estimated creatinine clearance per dosing reference text. Please contact the Clinical Pharmacist for questions. eGFR >60Comment: >60 mL/min The eGFR is not validated for use in drug dosing adjustments. Continue to use estimated creatinine clearance per dosing reference text. Please contact the Clinical Pharmacist for questions. Specimen Blood * TRANSFUSE APHERESIS PLATELETS (01/15/2017 12:03 PM) * TYPE & CROSSMATCH (01/15/2017 10:20 AM) Only the most recent of 3 results within the time period is included. Component Value Range Units Ordered 1 Crossmatch Expires 01/18/2017 Record Check FOUND ABO/RH(D) A POS Antibody Screen NEG Electronic Crossmatch YES Specimen Blood * PREPARE APHERESIS PLATELETS (01/15/2017 9:55 AM) Component Value Range Units Ordered 1 Unit Number [id number] Blood Component Type APHERESIS PLT,LEUKO REDUCED,2ND CONT. Unit Division 0 Status OF Unit TRANSFUSED Transfusion Status OK TO TRANSFUSE Specimen Other (Specify) * IMMATURE PLATELET FRACTION (01/15/2017 8:50 AM) Component Value Range Immature Platelet 15.9 (H)Comment: TEST PERFORMED BY [facility] 1.1-7.1 % Fraction [facility] Specimen Blood * VITAMIN B12 (01/15/2017 8:50 AM) Component Value Range Vitamin B12 812 180-914 PG/ML Specimen Blood * FOLATE, SERUM (01/15/2017 8:50 AM) Component Value Range Serum Folate 9.3Comment: NOTE NEW REFERENCE RANGES >3.9 NG/ML Specimen Blood * RETICULOCYTE COUNT (01/15/2017 4:27 AM) Component Value Range Retic, Uncorrected 1.2 0.5-2.0 % Retic, Corrected 0.6 % Retic, Absolute 30.4 30-94 K/UL * PERIPHERAL SMEAR (01/15/2017 4:27 AM) Only the most recent of 2 results within the time period is included. Component Value Range Peripheral Smear NORMOCYTIC ANEMIA WITH ANISOCYTOSIS. GRANULOCYTOSIS WITH LEFT SHIFT. ABSOLUTE LYMPHOCYTOPENIA. MARKED THROMBOCYTOPENIA WITH NORMAL PLATELET MORPHOLOGY. Pathologist Signature INTERPRETED BY PAKO FONSECA M.D. By the PATH SIGNATURE ABOVE, I attest that I have personally formulated the final interpretation expressed in this report and that the above diagnosis is based upon my examination of the slides and/or other material indicated in this report. * IRON + BINDING CAPACITY + %SAT+ FERRITIN (01/15/2017 4:27 AM) Component Value Range Iron 37 (L) 50-160 MCG/DL Iron Binding-TIBC 165 (L) 270-380 MCG/DL % Saturation 22 (L) 28-42 % Ferritin 627 (H) 10-200 NG/ML * FIBRINOGEN (01/15/2017 4:27 AM) Only the most recent of 2 results within the time period is included. Component Value Range Fibrinogen 260 200-400 MG/DL * MAGNESIUM (01/15/2017 4:27 AM) Only the most recent of 9 results within the time period is included. Component Value Range Magnesium 2.0 1.6-2.6 mg/dL Specimen Blood * COMPREHENSIVE METABOLIC PANEL (01/15/2017 4:27 AM) Only the most recent of 7 results within the time period is included. Component Value Range Sodium 141 137-147 MMOL/L Potassium 3.0 (L) 3.5-5.1 MMOL/L Chloride 107 98-110 MMOL/L Glucose 145 (H) 70-100 MG/DL Blood Urea Nitrogen 34 (H) 7-25 MG/DL Creatinine 0.88 0.4-1.00 MG/DL Calcium 7.9 (L) 8.5-10.6 MG/DL Total Protein 4.0 (L) 6.0-8.0 G/DL Total Bilirubin 0.5 0.3-1.2 MG/DL Albumin 2.1 (L) 3.5-5.0 G/DL Alk Phosphatase 56 25-110 U/L AST (SGOT) 23 7-40 U/L CO2 27 21-30 MMOL/L ALT (SGPT) 21 7-56 U/L Anion Gap 7 3-12 eGFR Non >60Comment: >60 mL/min The eGFR is not validated for use in drug dosing adjustments. Continue to use estimated creatinine clearance per dosing reference text. Please contact the Clinical Pharmacist for questions. eGFR >60Comment: >60 mL/min The eGFR is not validated for use in drug dosing adjustments. Continue to use estimated creatinine clearance per dosing reference text. Please contact the Clinical Pharmacist for questions. Specimen Blood * PROTIME INR (PT) (01/15/2017 4:27 AM) Only the most recent of 26 results within the time period is included. Component Value Range INR 1.2 0.8-1.2 Specimen Blood * CBC AND DIFF (01/15/2017 4:27 AM) Only the most recent of 8 results within the time period is included. Component Value Range White Blood Cells 13.8 (H) 4.5-11.0 K/UL RBC 2.48 (L) 4.0-5.0 M/UL Hemoglobin 7.5 (L) 12.0-15.0 GM/DL Hematocrit 22.5 (L) 36-45 % MCV 90.4 80-100 FL MCH 30.3 26-34 PG MCHC 33.5 32.0-36.0 G/DL RDW 21.0 (H) 11-15 % Platelet Count 29 (L) 150-400 K/UL MPV 9.4 7-11 FL Neutrophils 98 (H) 41-77 % Lymphocytes 1 (L) 24-44 % Monocytes 1 (L) 4-12 % Eosinophils 0 0-5 % Basophils 0 0-2 % Absolute Neutrophil Count 13.60 (H) 1.8-7.0 K/UL Absolute Lymph Count 0.10 (L) 1.0-4.8 K/UL Absolute Monocyte Count 0.10 0-0.80 K/UL Absolute Eosinophil Count 0.00 0-0.45 K/UL Absolute Basophil Count 0.00 0-0.20 K/UL Specimen Blood * ECG-SCAN (01/14/2017 11:44 AM) Narrative Ordered by an unspecified provider. * ECG-SCAN (01/14/2017 11:44 AM) Narrative Ordered by an unspecified provider. * ECG-SCAN (01/14/2017 11:44 AM) Narrative Ordered by an unspecified provider. * CHEST SINGLE VIEW (01/14/2017 9:38 AM) Only the most recent of 26 results within the time period is included. Addenda Addendum by Orville aHll MD on 01/14/2017 2:55 PM Finalized by Orville Hall M.D. on 01/14/2017 12:11 PM. Dictated by Adan Rowe M.D. on 01/14/2017 10:32 AM.Addendum: Addendum: Impression 2 should read: Slight increase in small left pleural effusion. Approved by Adan Rowe M.D. on 01/14/2017 1:12 PM By my electronic signature, I attest that I have personally reviewed the images for this examination and formulated the interpretations and opinions expressed in this report Finalized by Orville Hall M.D. on 01/14/2017 2:52 PM. Dictated by Adan Rowe M.D. on 01/14/2017 1:10 PM. Impressions 1.Redemonstration of large aortic aneurysm and extensive endovascular stent throughout the thoracic aorta with unchanged configuration. 2.Unchanged small left pleural effusion. By my electronic signature, I attest that I have personally reviewed the images for this examination and formulated the interpretations and opinions expressed in this report Narrative CHEST SINGLE VIEW Clinical Indication: Female, 77 years old. Dyspnea Comparison: Chest x-ray from 2017 Findings: Redemonstration of metallic endovascular stent involving the aortic arch and majority of the descending thoracic aorta. No significant change in large left mediastinal opacity consistent with known large thoracic aortic aneurysm. Small left pleural effusion. Slight increase in opacity within the left lower lobe likely secondary to layering effusion semierect radiograph. The cardiac silhouette is within normal limits of size. There is no pulmonary vascular congestion. No pneumothorax or consolidating pneumonia is identified. Procedure Note Interface, Radiant Results - Tue January 14, 2017 2:55 PM CDT CHEST SINGLE VIEW Clinical Indication: Female, 77 years old. Dyspnea Comparison: Chest x-ray from 2017 Findings: Redemonstration of metallic endovascular stent involving the aortic arch and majority of the descending thoracic aorta. No significant change in large left mediastinal opacity consistent with known large thoracic aortic aneurysm. Small left pleural effusion. Slight increase in opacity within the left lower lobe likely secondary to layering effusion semierect radiograph. The cardiac silhouette is within normal limits of size. There is no pulmonary vascular congestion. No pneumothorax or consolidating pneumonia is identified. IMPRESSION 1. Redemonstration of large aortic aneurysm and extensive endovascular stent throughout the thoracic aorta with unchanged configuration. 2. Unchanged small left pleural effusion. By my electronic signature, I attest that I have personally reviewed the images for this examination and formulated the interpretations and opinions expressed in this report * OCCULT BLOOD NON COLON CANCER SCREEN (01/14/2017 6:01 AM) Only the most recent of 2 results within the time period is included. Component Value Range Battery Name OCCULT BLOOD SCREEN Specimen Description FECES Special Requests NONE Occult Blood POSITIVE Report Status FINAL 01/14/2017 Specimen Stool - Feces * BLOOD GASES, ARTERIAL (01/13/2017 2:55 PM) Only the most recent of 6 results within the time period is included. Component Value Range pH-Arterial 7.40 7.35-7.45 pCO2-Arterial 47 (H) 35-45 MMHG pO2-Arterial 58 (L) 80-100 MMHG Base Excess-Arterial 3.5 MMOL/L O2 Sat-Arterial 89.6 (L) 95-99 % [id number] 27.4 21-28 MMOL/L Specimen Blood, arterial - Blood * C DIFFICILE BY PCR (01/13/2017 11:00 AM) Only the most recent of 2 results within the time period is included. Component Value Range Battery Name C DIFFICILE PCR Specimen Description FECES Special Requests NONE C. Difficile Toxin B PCR NEGATIVE-wait 7 days to repeat test Report Status FINAL 01/13/2017 Specimen Feces * VANCOMYCIN RANDOM (2017 10:45 AM) Component Value Range Vancomycin Random 6.5 MCG/ML Specimen Blood * LDH-LACTATE DEHYDROGENASE (2017 3:30 AM) Component Value Range Lactate Dehydrogenase 314 (H) 100-210 U/L * CTA ABD/PELVIS (01/11/2017 7:44 PM) Only the most recent of 5 results within the time period is included. Impressions Chest: 1. Previous endovascular repair of thoracic aortic aneurysm. No evidence of endoleak or significant change in size of the sites of aneurysmal dilatation involving the arch and descending thoracic aorta. 2. 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 3. Improvement in a now trace right pleural effusion with some increased right lower lobe consolidation, likely representing a combination of atelectasis and pneumonia. Some new medial right lower lobe consolidation is lower density with tiny foci of surrounding cast along the periphery, suspect for necrotizing pneumonia rather than pulmonary infarct. Smaller focus of low density in the posterior medial right lower lobe within the otherwise higher density consolidation has decrease in size since prior exam, though there is a new tiny focus of gas within it, possibly from early abscess formation, necrotizing pneumonia or pulmonary infarct. 4. Similar small left pleural effusion with increasing left lower lobe consolidation, likely due to atelectasis though some superimposed pneumonia may also be present. 5. Mild fluid and gas distention of the esophagus with mild distal esophageal wall thickening. Wall thickening has improved since the prior exam, suggesting some mild improving esophagitis. 6. Central pulmonary arterial dilatation consistent with pulmonary hypertension. Abdomen and Pelvis: 1. Unchanged appearance and size of infrarenal abdominal aortic aneurysm and noncalcified mural and intraluminal thrombus. Intramural thrombus at the level of the SMA may place the patient at risk for producing distal emboli. 2. Unchanged aneurysmal dilatation of the right and mild ectasia of the left common iliac arteries. 3. Unchanged small fluid collection adjacent to the duodenum, possibly related to prior duodenitis, though no significant duodenal wall thickening is currently seen. 4. Unchanged appearance of multifocal right renal infarcts/areas of ischemia. 5. Cholelithiasis without acute cholecystitis. Some mild common duct dilatation remains, without obstructing stone or mass appreciated. Given normal LFTs, this is of doubtful clinical significance. 6. Colonic diverticulosis, without diverticulitis. By my electronic signature, I attest that I have personally reviewed the images for this examination and formulated the interpretations and opinions expressed in this report Finalized by Erick Brown M.D. on 01/11/2017 9:10 PM. Dictated by Gold Adan M.D. on 01/11/2017 7:51 PM. Narrative CTA Chest, Abdomen and Pelvis Clinical Indication:Female, 77 years old. Aneurysm progression. Technique: Multiple contiguous axial images were obtained through the chest, abdomen and pelvis following the administration of IV contrast material. Post processing coronal and sagittal reconstruction images were made from the axial images. Image post-processing was obtained. IV contrast: Isovue 370. Bowel contrast:None Comparison: CTA CAP December 07, 2016 CHEST FINDINGS: Lower neck: Unremarkable. Axilla, Mediastinum and Estee: No thoracic lymphadenopathy.Mild nonspecific mural thickening of the distal esophagus, with improvement in esophageal wall thickening since prior, with mild fluid and gas distention of the esophagus diffusely. Heart and Great Vessels: Heart is mildly enlarged without pericardial effusion. Mild coronary artery calcifications. Unchanged mild enlargement of the main pulmonary artery. Previous endovascular repair of thoracic aortic aneurysm. There has been no interval change in configuration or size of the size of aortic aneurysmal dilatation involving the arch and descending thoracic aorta. 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 The most prominent portion of the aneurysm in the mid descending thoracic aorta measuring 8.9 cm (series 4, image 25), compared to 9 cm previously. Previously noted second segment of aneurysmal dilatation above the diaphragmatic hiatus measures up to 9.6 cm ( series 4, image 42), compared to 9.5 cm previously. Ascending aorta is normal in caliber. No abnormal contrast accumulation to indicate endoleak. Some dilatation of the main and central right and left pulmonary arteries is noted. Airway, Lungs and Pleura: Resolution of previously seen debris in the right mainstem bronchus. Moderate centrilobular emphysema. Persistent bilateral pleural effusions, improved on the right with only a trace right pleural effusion currently, with a similar small left pleural effusion. There has been slight increase in right lower lobe consolidation, mainly posteriorly and medially. The more medial consolidation the right lower lobe is new since prior exam and has lower density compared to the posterior consolidation, with tiny foci of gas seen along the periphery of the right lower lobe consolidation ( series 4, image 48). Decrease in size of small area of focal low attenuation in the posterior medial right lower lobe within the consolidation, with development of a nondependent focus of gas within the collection (series 4, image 46). There is marked increase in consolidating opacity in the left lower lobe, also greatest posteriorly. No pneumothorax. Chest Wall and Osseous Structures: No destructive osseous lesion. Thoracic spondylosis. ABDOMEN AND PELVIS FINDINGS: Liver and Biliary system: Liver is normal in size with unchanged segment 4 hepatic cyst. Cholelithiasis. Layering high density within the gallbladder likely represents vicarious contrast excretion rather than sludge. Gallbladder is upper limits of normal in size without wall thickening or pericholecystic fluid. Unchanged mild extrahepatic biliary ductal dilatation. Spleen: Unremarkable. Adrenal Glands and Kidneys: Unchanged mild nonspecific thickening of the bilateral adrenal glands. Multifocal wedge-shaped areas of hypoenhancement throughout the right kidney again noted, compatible with right renal infarcts/ ischemic. Left kidney is unremarkable apart from a probable medial interpolar renal cyst. No hydronephrosis. Pancreas and Retroperitoneum: The pancreatic duct is upper limits of normal in caliber. No pancreatic mass. No retroperitoneal lymphadenopathy. Aorta and Major Vessels: Marked tortuosity of the abdominal aorta without significant change in aneurysmal dilatation of the infrarenal abdominal aorta measuring 6 x 5 cm (series 4, image 76), compared to 5.8 x 4.9 cm previously. Unchanged large infrarenal mural thrombus. Unchanged irregular linear intraluminal thrombus within the abdominal aorta to the level of the SMA origin (series 4, image 58-59). Celiac, superior mesenteric, and inferior mesenteric arteries are patent. The bilateral renal arteries are opacified with moderate to marked mixed atherosclerosis again noted at the origin of the right renal artery resulting in moderate luminal narrowing. Mild fusiform ectasia of the left common iliac artery and mild aneurysmal dilatation of the right common iliac artery is stable, with the right common iliac artery measuring up to 2.4 cm (series 4, image 85), previously 2.4 cm. Bilateral internal and external iliac arteries are patent. Common femoral and visualized deep and superficial femoral arteries are patent. Bowel, Mesentery and Peritoneal space: Large and small bowel are normal in caliber. Scattered distal colonic diverticulosis. Persistent fluid collection adjacent to the proximal duodenum (series 4, image 71). No significant duodenal wall thickening is currently appreciated. Appendix is normal. No abdominal free fluid or free air. Pelvis: Persistent moderate to marked bladder distention. Uterus is unremarkable. No pelvic lymphadenopathy. Abdominal wall and Osseous Structures: Lumbar spondylosis with limited multilevel lower lumbar neural foraminal stenosis. No destructive osseous lesion. Diffuse pelvic body wall edema is again present. Procedure Note Interface, Radiant Results - Sat January 11, 2017 9:14 PM CDT CTA Chest, Abdomen and Pelvis Clinical Indication: Female, 77 years old. Aneurysm progression. Technique: Multiple contiguous axial images were obtained through the chest, abdomen and pelvis following the administration of IV contrast material. Post processing coronal and sagittal reconstruction images were made from the axial images. Image post-processing was obtained. IV contrast: Isovue 370. Bowel contrast: None Comparison: CTA CAP December 07, 2016 CHEST FINDINGS: Lower neck: Unremarkable. Axilla, Mediastinum and Estee: No thoracic lymphadenopathy. Mild nonspecific mural thickening of the distal esophagus, with improvement in esophageal wall thickening since prior, with mild fluid and gas distention of the esophagus diffusely. Heart and Great Vessels: Heart is mildly enlarged without pericardial effusion. Mild coronary artery calcifications. Unchanged mild enlargement of the main pulmonary artery. Previous endovascular repair of thoracic aortic aneurysm. There has been no interval change in configuration or size of the size of aortic aneurysmal dilatation involving the arch and descending thoracic aorta. 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 The most prominent portion of the aneurysm in the mid descending thoracic aorta measuring 8.9 cm (series 4, image 25), compared to 9 cm previously. Previously noted second segment of aneurysmal dilatation above the diaphragmatic hiatus measures up to 9.6 cm ( series 4, image 42), compared to 9.5 cm previously. Ascending aorta is normal in caliber. No abnormal contrast accumulation to indicate endoleak. Some dilatation of the main and central right and left pulmonary arteries is noted. Airway, Lungs and Pleura: Resolution of previously seen debris in the right mainstem bronchus. Moderate centrilobular emphysema. Persistent bilateral pleural effusions, improved on the right with only a trace right pleural effusion currently, with a similar small left pleural effusion. There has been slight increase in right lower lobe consolidation, mainly posteriorly and medially. The more medial consolidation the right lower lobe is new since prior exam and has lower density compared to the posterior consolidation, with tiny foci of gas seen along the periphery of the right lower lobe consolidation ( series 4, image 48). Decrease in size of small area of focal low attenuation in the posterior medial right lower lobe within the consolidation, with development of a nondependent focus of gas within the collection (series 4, image 46). There is marked increase in consolidating opacity in the left lower lobe, also greatest posteriorly. No pneumothorax. Chest Wall and Osseous Structures: No destructive osseous lesion. Thoracic spondylosis. ABDOMEN AND PELVIS FINDINGS: Liver and Biliary system: Liver is normal in size with unchanged segment 4 hepatic cyst. Cholelithiasis. Layering high density within the gallbladder likely represents vicarious contrast excretion rather than sludge. Gallbladder is upper limits of normal in size without wall thickening or pericholecystic fluid. Unchanged mild extrahepatic biliary ductal dilatation. Spleen: Unremarkable. Adrenal Glands and Kidneys: Unchanged mild nonspecific thickening of the bilateral adrenal glands. Multifocal wedge-shaped areas of hypoenhancement throughout the right kidney again noted, compatible with right renal infarcts/ ischemic. Left kidney is unremarkable apart from a probable medial interpolar renal cyst. No hydronephrosis. Pancreas and Retroperitoneum: The pancreatic duct is upper limits of normal in caliber. No pancreatic mass. No retroperitoneal lymphadenopathy. Aorta and Major Vessels: Marked tortuosity of the abdominal aorta without significant change in aneurysmal dilatation of the infrarenal abdominal aorta measuring 6 x 5 cm (series 4, image 76), compared to 5.8 x 4.9 cm previously. Unchanged large infrarenal mural thrombus. Unchanged irregular linear intraluminal thrombus within the abdominal aorta to the level of the SMA origin (series 4, image 58-59). Celiac, superior mesenteric, and inferior mesenteric arteries are patent. The bilateral renal arteries are opacified with moderate to marked mixed atherosclerosis again noted at the origin of the right renal artery resulting in moderate luminal narrowing. Mild fusiform ectasia of the left common iliac artery and mild aneurysmal dilatation of the right common iliac artery is stable, with the right common iliac artery measuring up to 2.4 cm (series 4, image 85), previously 2.4 cm. Bilateral internal and external iliac arteries are patent. Common femoral and visualized deep and superficial femoral arteries are patent. Bowel, Mesentery and Peritoneal space: Large and small bowel are normal in caliber. Scattered distal colonic diverticulosis. Persistent fluid collection adjacent to the proximal duodenum (series 4, image 71). No significant duodenal wall thickening is currently appreciated. Appendix is normal. No abdominal free fluid or free air. Pelvis: Persistent moderate to marked bladder distention. Uterus is unremarkable. No pelvic lymphadenopathy. Abdominal wall and Osseous Structures: Lumbar spondylosis with limited multilevel lower lumbar neural foraminal stenosis. No destructive osseous lesion. Diffuse pelvic body wall edema is again present. IMPRESSION Chest: 1. Previous endovascular repair of thoracic aortic aneurysm. No evidence of endoleak or significant change in size of the sites of aneurysmal dilatation involving the arch and descending thoracic aorta. 2. 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 3. Improvement in a now trace right pleural effusion with some increased right lower lobe consolidation, likely representing a combination of atelectasis and pneumonia. Some new medial right lower lobe consolidation is lower density with tiny foci of surrounding cast along the periphery, suspect for necrotizing pneumonia rather than pulmonary infarct. Smaller focus of low density in the posterior medial right lower lobe within the otherwise higher density consolidation has decrease in size since prior exam, though there is a new tiny focus of gas within it, possibly from early abscess formation, necrotizing pneumonia or pulmonary infarct. 4. Similar small left pleural effusion with increasing left lower lobe consolidation, likely due to atelectasis though some superimposed pneumonia may also be present. 5. Mild fluid and gas distention of the esophagus with mild distal esophageal wall thickening. Wall thickening has improved since the prior exam, suggesting some mild improving esophagitis. 6. Central pulmonary arterial dilatation consistent with pulmonary hypertension. Abdomen and Pelvis: 1. Unchanged appearance and size of infrarenal abdominal aortic aneurysm and noncalcified mural and intraluminal thrombus. Intramural thrombus at the level of the SMA may place the patient at risk for producing distal emboli. 2. Unchanged aneurysmal dilatation of the right and mild ectasia of the left common iliac arteries. 3. Unchanged small fluid collection adjacent to the duodenum, possibly related to prior duodenitis, though no significant duodenal wall thickening is currently seen. 4. Unchanged appearance of multifocal right renal infarcts/areas of ischemia. 5. Cholelithiasis without acute cholecystitis. Some mild common duct dilatation remains, without obstructing stone or mass appreciated. Given normal LFTs, this is of doubtful clinical significance. 6. Colonic diverticulosis, without diverticulitis. By my electronic signature, I attest that I have personally reviewed the images for this examination and formulated the interpretations and opinions expressed in this report Finalized by Erick Brown M.D. on 01/11/2017 9:10 PM. Dictated by Gold Adan M.D. on 01/11/2017 7:51 PM. * CTA CHEST WO/W CONTRAST+POST IMPRESSION (01/11/2017 7:44 PM) Only the most recent of 5 results within the time period is included. Impressions Chest: 1. Previous endovascular repair of thoracic aortic aneurysm. No evidence of endoleak or significant change in size of the sites of aneurysmal dilatation involving the arch and descending thoracic aorta. 2. 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 3. Improvement in a now trace right pleural effusion with some increased right lower lobe consolidation, likely representing a combination of atelectasis and pneumonia. Some new medial right lower lobe consolidation is lower density with tiny foci of surrounding cast along the periphery, suspect for necrotizing pneumonia rather than pulmonary infarct. Smaller focus of low density in the posterior medial right lower lobe within the otherwise higher density consolidation has decrease in size since prior exam, though there is a new tiny focus of gas within it, possibly from early abscess formation, necrotizing pneumonia or pulmonary infarct. 4. Similar small left pleural effusion with increasing left lower lobe consolidation, likely due to atelectasis though some superimposed pneumonia may also be present. 5. Mild fluid and gas distention of the esophagus with mild distal esophageal wall thickening. Wall thickening has improved since the prior exam, suggesting some mild improving esophagitis. 6. Central pulmonary arterial dilatation consistent with pulmonary hypertension. Abdomen and Pelvis: 1. Unchanged appearance and size of infrarenal abdominal aortic aneurysm and noncalcified mural and intraluminal thrombus. Intramural thrombus at the level of the SMA may place the patient at risk for producing distal emboli. 2. Unchanged aneurysmal dilatation of the right and mild ectasia of the left common iliac arteries. 3. Unchanged small fluid collection adjacent to the duodenum, possibly related to prior duodenitis, though no significant duodenal wall thickening is currently seen. 4. Unchanged appearance of multifocal right renal infarcts/areas of ischemia. 5. Cholelithiasis without acute cholecystitis. Some mild common duct dilatation remains, without obstructing stone or mass appreciated. Given normal LFTs, this is of doubtful clinical significance. 6. Colonic diverticulosis, without diverticulitis. By my electronic signature, I attest that I have personally reviewed the images for this examination and formulated the interpretations and opinions expressed in this report Finalized by Erick Brown M.D. on 01/11/2017 9:10 PM. Dictated by Gold Adan M.D. on 01/11/2017 7:51 PM. Narrative CTA Chest, Abdomen and Pelvis Clinical Indication:Female, 77 years old. Aneurysm progression. Technique: Multiple contiguous axial images were obtained through the chest, abdomen and pelvis following the administration of IV contrast material. Post processing coronal and sagittal reconstruction images were made from the axial images. Image post-processing was obtained. IV contrast: Isovue 370. Bowel contrast:None Comparison: CTA CAP December 07, 2016 CHEST FINDINGS: Lower neck: Unremarkable. Axilla, Mediastinum and Estee: No thoracic lymphadenopathy.Mild nonspecific mural thickening of the distal esophagus, with improvement in esophageal wall thickening since prior, with mild fluid and gas distention of the esophagus diffusely. Heart and Great Vessels: Heart is mildly enlarged without pericardial effusion. Mild coronary artery calcifications. Unchanged mild enlargement of the main pulmonary artery. Previous endovascular repair of thoracic aortic aneurysm. There has been no interval change in configuration or size of the size of aortic aneurysmal dilatation involving the arch and descending thoracic aorta. 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 The most prominent portion of the aneurysm in the mid descending thoracic aorta measuring 8.9 cm (series 4, image 25), compared to 9 cm previously. Previously noted second segment of aneurysmal dilatation above the diaphragmatic hiatus measures up to 9.6 cm ( series 4, image 42), compared to 9.5 cm previously. Ascending aorta is normal in caliber. No abnormal contrast accumulation to indicate endoleak. Some dilatation of the main and central right and left pulmonary arteries is noted. Airway, Lungs and Pleura: Resolution of previously seen debris in the right mainstem bronchus. Moderate centrilobular emphysema. Persistent bilateral pleural effusions, improved on the right with only a trace right pleural effusion currently, with a similar small left pleural effusion. There has been slight increase in right lower lobe consolidation, mainly posteriorly and medially. The more medial consolidation the right lower lobe is new since prior exam and has lower density compared to the posterior consolidation, with tiny foci of gas seen along the periphery of the right lower lobe consolidation ( series 4, image 48). Decrease in size of small area of focal low attenuation in the posterior medial right lower lobe within the consolidation, with development of a nondependent focus of gas within the collection (series 4, image 46). There is marked increase in consolidating opacity in the left lower lobe, also greatest posteriorly. No pneumothorax. Chest Wall and Osseous Structures: No destructive osseous lesion. Thoracic spondylosis. ABDOMEN AND PELVIS FINDINGS: Liver and Biliary system: Liver is normal in size with unchanged segment 4 hepatic cyst. Cholelithiasis. Layering high density within the gallbladder likely represents vicarious contrast excretion rather than sludge. Gallbladder is upper limits of normal in size without wall thickening or pericholecystic fluid. Unchanged mild extrahepatic biliary ductal dilatation. Spleen: Unremarkable. Adrenal Glands and Kidneys: Unchanged mild nonspecific thickening of the bilateral adrenal glands. Multifocal wedge-shaped areas of hypoenhancement throughout the right kidney again noted, compatible with right renal infarcts/ ischemic. Left kidney is unremarkable apart from a probable medial interpolar renal cyst. No hydronephrosis. Pancreas and Retroperitoneum: The pancreatic duct is upper limits of normal in caliber. No pancreatic mass. No retroperitoneal lymphadenopathy. Aorta and Major Vessels: Marked tortuosity of the abdominal aorta without significant change in aneurysmal dilatation of the infrarenal abdominal aorta measuring 6 x 5 cm (series 4, image 76), compared to 5.8 x 4.9 cm previously. Unchanged large infrarenal mural thrombus. Unchanged irregular linear intraluminal thrombus within the abdominal aorta to the level of the SMA origin (series 4, image 58-59). Celiac, superior mesenteric, and inferior mesenteric arteries are patent. The bilateral renal arteries are opacified with moderate to marked mixed atherosclerosis again noted at the origin of the right renal artery resulting in moderate luminal narrowing. Mild fusiform ectasia of the left common iliac artery and mild aneurysmal dilatation of the right common iliac artery is stable, with the right common iliac artery measuring up to 2.4 cm (series 4, image 85), previously 2.4 cm. Bilateral internal and external iliac arteries are patent. Common femoral and visualized deep and superficial femoral arteries are patent. Bowel, Mesentery and Peritoneal space: Large and small bowel are normal in caliber. Scattered distal colonic diverticulosis. Persistent fluid collection adjacent to the proximal duodenum (series 4, image 71). No significant duodenal wall thickening is currently appreciated. Appendix is normal. No abdominal free fluid or free air. Pelvis: Persistent moderate to marked bladder distention. Uterus is unremarkable. No pelvic lymphadenopathy. Abdominal wall and Osseous Structures: Lumbar spondylosis with limited multilevel lower lumbar neural foraminal stenosis. No destructive osseous lesion. Diffuse pelvic body wall edema is again present. Procedure Note Interface, Radiant Results - Sat January 11, 2017 9:14 PM CDT CTA Chest, Abdomen and Pelvis Clinical Indication: Female, 77 years old. Aneurysm progression. Technique: Multiple contiguous axial images were obtained through the chest, abdomen and pelvis following the administration of IV contrast material. Post processing coronal and sagittal reconstruction images were made from the axial images. Image post-processing was obtained. IV contrast: Isovue 370. Bowel contrast: None Comparison: CTA CAP December 07, 2016 CHEST FINDINGS: Lower neck: Unremarkable. Axilla, Mediastinum and Estee: No thoracic lymphadenopathy. Mild nonspecific mural thickening of the distal esophagus, with improvement in esophageal wall thickening since prior, with mild fluid and gas distention of the esophagus diffusely. Heart and Great Vessels: Heart is mildly enlarged without pericardial effusion. Mild coronary artery calcifications. Unchanged mild enlargement of the main pulmonary artery. Previous endovascular repair of thoracic aortic aneurysm. There has been no interval change in configuration or size of the size of aortic aneurysmal dilatation involving the arch and descending thoracic aorta. 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 The most prominent portion of the aneurysm in the mid descending thoracic aorta measuring 8.9 cm (series 4, image 25), compared to 9 cm previously. Previously noted second segment of aneurysmal dilatation above the diaphragmatic hiatus measures up to 9.6 cm ( series 4, image 42), compared to 9.5 cm previously. Ascending aorta is normal in caliber. No abnormal contrast accumulation to indicate endoleak. Some dilatation of the main and central right and left pulmonary arteries is noted. Airway, Lungs and Pleura: Resolution of previously seen debris in the right mainstem bronchus. Moderate centrilobular emphysema. Persistent bilateral pleural effusions, improved on the right with only a trace right pleural effusion currently, with a similar small left pleural effusion. There has been slight increase in right lower lobe consolidation, mainly posteriorly and medially. The more medial consolidation the right lower lobe is new since prior exam and has lower density compared to the posterior consolidation, with tiny foci of gas seen along the periphery of the right lower lobe consolidation ( series 4, image 48). Decrease in size of small area of focal low attenuation in the posterior medial right lower lobe within the consolidation, with development of a nondependent focus of gas within the collection (series 4, image 46). There is marked increase in consolidating opacity in the left lower lobe, also greatest posteriorly. No pneumothorax. Chest Wall and Osseous Structures: No destructive osseous lesion. Thoracic spondylosis. ABDOMEN AND PELVIS FINDINGS: Liver and Biliary system: Liver is normal in size with unchanged segment 4 hepatic cyst. Cholelithiasis. Layering high density within the gallbladder likely represents vicarious contrast excretion rather than sludge. Gallbladder is upper limits of normal in size without wall thickening or pericholecystic fluid. Unchanged mild extrahepatic biliary ductal dilatation. Spleen: Unremarkable. Adrenal Glands and Kidneys: Unchanged mild nonspecific thickening of the bilateral adrenal glands. Multifocal wedge-shaped areas of hypoenhancement throughout the right kidney again noted, compatible with right renal infarcts/ ischemic. Left kidney is unremarkable apart from a probable medial interpolar renal cyst. No hydronephrosis. Pancreas and Retroperitoneum: The pancreatic duct is upper limits of normal in caliber. No pancreatic mass. No retroperitoneal lymphadenopathy. Aorta and Major Vessels: Marked tortuosity of the abdominal aorta without significant change in aneurysmal dilatation of the infrarenal abdominal aorta measuring 6 x 5 cm (series 4, image 76), compared to 5.8 x 4.9 cm previously. Unchanged large infrarenal mural thrombus. Unchanged irregular linear intraluminal thrombus within the abdominal aorta to the level of the SMA origin (series 4, image 58-59). Celiac, superior mesenteric, and inferior mesenteric arteries are patent. The bilateral renal arteries are opacified with moderate to marked mixed atherosclerosis again noted at the origin of the right renal artery resulting in moderate luminal narrowing. Mild fusiform ectasia of the left common iliac artery and mild aneurysmal dilatation of the right common iliac artery is stable, with the right common iliac artery measuring up to 2.4 cm (series 4, image 85), previously 2.4 cm. Bilateral internal and external iliac arteries are patent. Common femoral and visualized deep and superficial femoral arteries are patent. Bowel, Mesentery and Peritoneal space: Large and small bowel are normal in caliber. Scattered distal colonic diverticulosis. Persistent fluid collection adjacent to the proximal duodenum (series 4, image 71). No significant duodenal wall thickening is currently appreciated. Appendix is normal. No abdominal free fluid or free air. Pelvis: Persistent moderate to marked bladder distention. Uterus is unremarkable. No pelvic lymphadenopathy. Abdominal wall and Osseous Structures: Lumbar spondylosis with limited multilevel lower lumbar neural foraminal stenosis. No destructive osseous lesion. Diffuse pelvic body wall edema is again present. IMPRESSION Chest: 1. Previous endovascular repair of thoracic aortic aneurysm. No evidence of endoleak or significant change in size of the sites of aneurysmal dilatation involving the arch and descending thoracic aorta. 2. 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 3. Improvement in a now trace right pleural effusion with some increased right lower lobe consolidation, likely representing a combination of atelectasis and pneumonia. Some new medial right lower lobe consolidation is lower density with tiny foci of surrounding cast along the periphery, suspect for necrotizing pneumonia rather than pulmonary infarct. Smaller focus of low density in the posterior medial right lower lobe within the otherwise higher density consolidation has decrease in size since prior exam, though there is a new tiny focus of gas within it, possibly from early abscess formation, necrotizing pneumonia or pulmonary infarct. 4. Similar small left pleural effusion with increasing left lower lobe consolidation, likely due to atelectasis though some superimposed pneumonia may also be present. 5. Mild fluid and gas distention of the esophagus with mild distal esophageal wall thickening. Wall thickening has improved since the prior exam, suggesting some mild improving esophagitis. 6. Central pulmonary arterial dilatation consistent with pulmonary hypertension. Abdomen and Pelvis: 1. Unchanged appearance and size of infrarenal abdominal aortic aneurysm and noncalcified mural and intraluminal thrombus. Intramural thrombus at the level of the SMA may place the patient at risk for producing distal emboli. 2. Unchanged aneurysmal dilatation of the right and mild ectasia of the left common iliac arteries. 3. Unchanged small fluid collection adjacent to the duodenum, possibly related to prior duodenitis, though no significant duodenal wall thickening is currently seen. 4. Unchanged appearance of multifocal right renal infarcts/areas of ischemia. 5. Cholelithiasis without acute cholecystitis. Some mild common duct dilatation remains, without obstructing stone or mass appreciated. Given normal LFTs, this is of doubtful clinical significance. 6. Colonic diverticulosis, without diverticulitis. By my electronic signature, I attest that I have personally reviewed the images for this examination and formulated the interpretations and opinions expressed in this report Finalized by Erick Brown M.D. on 01/11/2017 9:10 PM. Dictated by Gold Adan M.D. on 01/11/2017 7:51 PM. * US ABDOMEN LIMITED (01/11/2017 1:36 PM) Impressions 4.7 cm proximal and 4.9 cm distal abdominal aortic aneurysm Patent aorta and proximal common iliac arteries are graft small left kidney Small spleen with granulomas but no other abnormality identified in the area of patient's left superior upper quadrant pain. Finalized by Mason Montanez M.D. on 2017 10:57 AM. Dictated by Mason Montanez M.D. on 2017 10:43 AM. Narrative Limited abdominal sonogram CLINICAL INDICATION: Abdominal pain, lower extremity numbness, abdominal aortic aneurysm TECHNIQUE: Ultrasound images were performed over the abdomen. FINDINGS: Comparison is made with a CTA of the abdomen of same day. Again noted dilatation of the entire abdominal aorta. Proximally, the AP diameter of the abdominal aorta measures 4.7 cm.. A metallic stent is noted within the proximal abdominal aorta. The mid abdominal aorta is upper limits of normal in size measuring 2.8 cm AP. There is a fusiform distal abdominal aortic aneurysm with maximum AP diameter of 4.9 cm. There is a large amount of circumferential mural thrombus within the distal aneurysm reducing the AP diameter of the lumen of the aneurysm to 2.3 cm. The aorta is patent throughout its course in the abdomen. Proximal common iliac arteries are also patent. No periaortic fluid collections are identified. The left kidney is somewhat small with no evidence of hydronephrosis. Left kidney measures 10.1 x 3.6 cm. Scattered small calcified granulomas are noted in the spleen which appears otherwise unremarkable in the area patient discomfort. The spleen length is 6.9 cm. Procedure Note Interface, Radiant Results - Sun 2017 11:00 AM CDT Limited abdominal sonogram CLINICAL INDICATION: Abdominal pain, lower extremity numbness, abdominal aortic aneurysm TECHNIQUE: Ultrasound images were performed over the abdomen. FINDINGS: Comparison is made with a CTA of the abdomen of same day. Again noted dilatation of the entire abdominal aorta. Proximally, the AP diameter of the abdominal aorta measures 4.7 cm.. A metallic stent is noted within the proximal abdominal aorta. The mid abdominal aorta is upper limits of normal in size measuring 2.8 cm AP. There is a fusiform distal abdominal aortic aneurysm with maximum AP diameter of 4.9 cm. There is a large amount of circumferential mural thrombus within the distal aneurysm reducing the AP diameter of the lumen of the aneurysm to 2.3 cm. The aorta is patent throughout its course in the abdomen. Proximal common iliac arteries are also patent. No periaortic fluid collections are identified. The left kidney is somewhat small with no evidence of hydronephrosis. Left kidney measures 10.1 x 3.6 cm. Scattered small calcified granulomas are noted in the spleen which appears otherwise unremarkable in the area patient discomfort. The spleen length is 6.9 cm. IMPRESSION 4.7 cm proximal and 4.9 cm distal abdominal aortic aneurysm Patent aorta and proximal common iliac arteries are graft small left kidney Small spleen with granulomas but no other abnormality identified in the area of patient's left superior upper quadrant pain. Finalized by Mason Montanez M.D. on 2017 10:57 AM. Dictated by Mason Montanez M.D. on 2017 10:43 AM. * D-DIMER (01/11/2017 12:00 PM) Component Value Range D-Dimer 807 (H)Comment: <230 ng/mL DDU The D-dimer cut off value for deep vein thrombosis and pulmonary embolism is 230 ng/mL DDU. Specimen Blood * TROPONIN-I (01/11/2017 12:00 PM) Only the most recent of 4 results within the time period is included. Component Value Range Troponin-I 0.09 (H) 0.0-0.05 NG/ML Specimen Blood * 2-D + DOPPLER ECHOCARDIOGRAM (01/11/2017 8:37 AM) Only the most recent of 2 results within the time period is included. Component Value Range BSA 1.56 m2 ECHO EF 65 % LVIDD 3.4 3.9-5.3 cm LVIDS 2.9 cm IVS 1.4 0.6-0.9 cm PW 1.4 0.6-0.9 cm FS 14.71 28-44 % EF 25.01 % LA size 3.5 2.7-3.8 cm LA volume 29.0 22-52 mL Left Atrium Index 18.59 10-32 Right Ventricular Basal 4.2 cm (2.4-4.2) Diameter Right Atrial Area 17.3 cm2 (<=18) Right Ventricular Mid 2.9 cm (2.0-3.5) Diameter Right Ventricular Long 6.9 cm (5.6-8.6) Diameter Sinus 3.3 2.1-3.5 cm AV peak velocity 1.7 m/s TV rest pulmonary artery 36 mmHg pressure E/A ratio 1.20 TDI e' 0.060 m/s E/E' ratio 10.00 MV Peak E Brendon PW 0.600 m/s MV Peak A Brendon 0.500 m/s Narrative Normal chamber sizes Normal left ventricular systolic function with EF=65% Normal cardiac valve structure; mild to moderate tricuspid regurgitation. Normal pulmonary artery pressure with estimated systolic PAP=36mm Hg * CULTURE-BLOOD W/SENSITIVITY (01/11/2017 12:20 AM) Only the most recent of 6 results within the time period is included. Component Value Range Battery Name BLOOD CULTURE Specimen Description BLOOD LEFT ANTECUBITAL Special Requests NONE Culture NO GROWTH 5 DAYS Report Status FINAL 01/17/2017 Specimen Blood * STREPTOCOCCUS PNEUMO AG, URINE (01/10/2017 11:00 PM) Component Value Range Battery Name STREP PNEUMO AG, UR Specimen Description URINE Special Requests NONE Antigen NEGATIVE Report Status FINAL 01/11/2017 Specimen Urine * UA REFLEX CULTURE LABEL (01/10/2017 11:00 PM) Only the most recent of 4 results within the time period is included. Component Value Range UA Reflex Culture LAB LABEL Specimen Urine * URINALYSIS MICROSCOPIC REFLEX TO CULTURE (01/10/2017 11:00 PM) Only the most recent of 4 results within the time period is included. Component Value Range WBCs,UA PACKED 0-2 /HPF RBCs,UA 20-50 0-3 /HPF Comment,UA Urine submitted for reflex culture if criteria are met:WBC>10, positive nitrite and/or >=1+ leukocyte esterase. If quantity is not sufficient, an addendum will follow. MucousUA TRACE Bacteria,UA FEW (A) NEG-NEG Budding Yeast MODERATE Specimen Urine * URINALYSIS DIPSTICK REFLEX TO CULTURE (01/10/2017 11:00 PM) Only the most recent of 4 results within the time period is included. Component Value Range Color,UA STRAW Turbidity,UA CLEAR CLEAR-CLEAR Specific [place]-Urine 1.009 1.003-1.035 pH,UA 6.0 5.0-8.0 Protein,UA NEG NEG-NEG Glucose,UA NEG NEG-NEG Ketones,UA NEG NEG-NEG Bilirubin,UA NEG NEG-NEG Blood,UA 2+ (A) NEG-NEG Urobilinogen,UA NORMAL NORM-NORMAL Nitrite,UA NEG NEG-NEG Leukocytes,UA 3+ (A) NEG-NEG Urine Ascorbic Acid, UA NEG NEG-NEG Specimen Urine * CULTURE-URINE W/SENSITIVITY (01/10/2017 11:00 PM) Only the most recent of 4 results within the time period is included. Component Value Range Battery Name URINE CULTURE Specimen Description URINE Special Requests NONE Culture >100,000 organisms/ml ENTEROCOCCUS FAECIUM vancomycin resistant Notified [facility] at 0915 on 01.13.17 by yamel (Leonid) Report Status FINAL 01/13/2017 Organism ID >100,000 organisms/ml ENTEROCOCCUS FAECIUM vancomycin resistant Organism ID >100,000 organisms/ml ENTEROCOCCUS FAECIUM vancomycin resistant Specimen Urine Organism Antibiotic Method Susceptibility >100,000 organisms/ml enterococcus Rifampin MANN RESISTANT: Resistant faecium vancomycin resistant BRISENO >100,000 organisms/ml enterococcus Linezolid MANN SUSCEPTIBLE: Susceptible faecium vancomycin resistant BRISENO >100,000 organisms/ml enterococcus Nitrofurantoin MANN SUSCEPTIBLE: Susceptible faecium vancomycin resistant BRISENO >100,000 organisms/ml enterococcus Method MANN MANN BRISENO faecium vancomycin resistant BRISENO >100,000 organisms/ml enterococcus Ampicillin COLE >8 RESISTANT: Resistant faecium vancomycin resistant (MCG/ML) INTERPRETA TION >100,000 organisms/ml enterococcus Vancomycin COLE >16 RESISTANT: Resistant faecium vancomycin resistant (MCG/ML) INTERPRETA TION >100,000 organisms/ml enterococcus Levofloxacin COLE >4 RESISTANT: Resistant faecium vancomycin resistant (MCG/ML) INTERPRETA TION >100,000 organisms/ml enterococcus Tetracycline COLE >8 RESISTANT: Resistant faecium vancomycin resistant (MCG/ML) INTERPRETA TION >100,000 organisms/ml enterococcus Daptomycin COLE 4 SUSCEPTIBLE: faecium vancomycin resistant (MCG/ML) Susceptible INTERPRETA TION >100,000 organisms/ml enterococcus Method COLE COLE (MCG/ML) faecium vancomycin resistant (MCG/ML) INTERPRETATION INTERPRETA TION * RVP VIRAL PANEL PCR (01/10/2017 10:50 PM) Only the most recent of 2 results within the time period is included. Component Value Range Specimen Source NASAL WASH Adenovirus NOT DETECTED Coronavirus 229E NOT DETECTED Coronavirus HKU1 NOT DETECTED Coronavirus NL63 NOT DETECTED Coronavirus OC43 NOT DETECTED Human Metapneumovirus NOT DETECTED Human NOT DETECTED Rhinovirus/ENTEROVIRUS Influenza A H1N1 2009 NOT DETECTED Influenza A H1 NOT DETECTED Influenza A H3 NOT DETECTED Influenza B DETECTED Notified [facility]/0048/EG Parainfluenza 1 NOT DETECTED Parainfluenza 2 NOT DETECTED Parainfluenza 3 NOT DETECTED Parainfluenza 4 NOT DETECTED RSV NOT DETECTED Bordetella Pertussis NOT DETECTED Chlamydophila Pneumoniae NOT DETECTED Mycoplasma Pneumoniae NOT DETECTED Specimen Nasal Wash * POC LACTATE (01/10/2017 9:46 PM) Component Value Range LACTIC ACID POC 1.3 0.5-2.0 MMOL/L * LACTIC ACID(LACTATE) (01/10/2017 9:45 PM) Only the most recent of 3 results within the time period is included. Component Value Range Lactic Acid 1.6 0.5-2.0 MMOL/L * POC IONIZED CALCIUM (01/10/2017 9:31 PM) Only the most recent of 5 results within the time period is included. Component Value Range Ionized Calcium-POC 1.14 1.0-1.3 MMOL/L * POC SODIUM (01/10/2017 9:31 PM) Only the most recent of 5 results within the time period is included. Component Value Range Sodium-POC 139 137-147 MMOL/L * POC POTASSIUM (01/10/2017 9:31 PM) Only the most recent of 5 results within the time period is included. Component Value Range Potassium-POC 3.6 3.5-5.1 MMOL/L * POC HEMATOCRIT (01/10/2017 9:31 PM) Only the most recent of 5 results within the time period is included. Component Value Range Hemoglobin POC 9.9 (L) 12.0-15.0 GM/DL Hematocrit POC 29.0 (L) 36-45 % * POC BLOOD GAS ARTERIAL (01/10/2017 9:31 PM) Only the most recent of 5 results within the time period is included. Component Value Range PH-ART-POC 7.45 7.35-7.45 [id number] 44 35-45 MMHG PO2-ART-POC 49 (LL) 80-100 MMHG Base Ex-ART-POC 6.0 MMOL/L O2 Sat-ART-POC 86.0 (L) 95-99 % [id number]-WBY 30.2 (H) 21-28 MMOL/L * TSH WITH FREE T4 REFLEX (01/10/2017 5:00 PM) Component Value Range TSH 1.477 0.35-5.00 MCU/ML Specimen Blood * BNP (B-TYPE NATRIURETIC PEPTI) (01/10/2017 5:00 PM) Component Value Range B Type Natriuretic 183.0 (H) 0-100 PG/ML Peptide Specimen Blood * LIPID PROFILE (01/10/2017 5:00 PM) Only the most recent of 6 results within the time period is included. Component Value Range Cholesterol 128 <200 MG/DL Triglycerides 165 (H) <150 MG/DL HDL 47 >40 MG/DL LDL 40 <100 MG/DL VLDL 33 MG/DL Non HDL Cholesterol 81Comment: MG/DL Calculated non-HDL Cholesterol (non-HDL-C) indirectly measures LDL-C, Lp(a), IDL-C, and VLDL-C. It is a surrogate marker for Apoprotein B. Non-HDL-C is a more accurate measure of atherogenic particle concentration than LDL-C in patients with hypertriglyceridemia (>200 mg/dL). This calculation is now recommended for evaluation and treatment of coronary heart disease according to the National Cholesterol Education Program Adult Treatment Protocol-III. See Moya et al. Am J. Cardiol. 2008, 101:0101-5584. The "goal" should be less than 130 mg/dL, but will vary according to risk factors. Specimen Blood * HEMOGLOBIN A1C (01/10/2017 5:00 PM) Only the most recent of 2 results within the time period is included. Component Value Range Hemoglobin A1C 6.3 (H)Comment: 4.0-6.0 % The ADA recommends that most patients with type 1 and type 2 diabetes maintain an A1c level <7%. Specimen Blood * PTT (APTT) (01/10/2017 5:00 PM) Only the most recent of 19 results within the time period is included. Component Value Range APTT 92.0 (H) 24.0-40.0 SEC Specimen Blood * GENERAL RAD CHEST EXTERNAL IMAGING (01/10/2017) Only the most recent of 4 results within the time period is included. Narrative This order has been auto finalized and does not contain a result. * ECG UNCONFIRMED-SCAN (12/23/2016 10:14 AM) Narrative Ordered by an unspecified provider. * ECG UNCONFIRMED-SCAN (12/23/2016 10:14 AM) Narrative Ordered by an unspecified provider. * ECG UNCONFIRMED-SCAN (12/23/2016 10:14 AM) Narrative Ordered by an unspecified provider. * ECG UNCONFIRMED-SCAN (12/23/2016 10:14 AM) Narrative Ordered by an unspecified provider. * ECG UNCONFIRMED-SCAN (12/23/2016 10:14 AM) Narrative Ordered by an unspecified provider. * ECG UNCONFIRMED-SCAN (12/23/2016 10:14 AM) Narrative Ordered by an unspecified provider. * TELEMETRY STRIPS-SCAN (12/21/2016 1:28 PM) Narrative Ordered by an unspecified provider. * TELEMETRY STRIPS-SCAN (12/21/2016 1:28 PM) Narrative Ordered by an unspecified provider. * ECG-SCAN (12/21/2016 1:27 PM) Narrative Ordered by an unspecified provider. * ECG-SCAN (12/18/2016 9:19 AM) Narrative Ordered by an unspecified provider. * ECG-SCAN (12/17/2016 9:57 AM) Narrative Ordered by an unspecified provider. * ECG-SCAN (12/17/2016 9:57 AM) Narrative Ordered by an unspecified provider. * COLONOSCOPY (12/13/2016 3:29 PM) Component Value Range Provation Report Patient Name: Brendan Lindsay Procedure Date: 12/13/2016 3:29 PM CSN: [id number] Date of : 1940 Gender: Female Attending Physician: Frank Montana MD Procedure: Colonoscopy Indications: Ab dominal pain in the left upper quadrant Providers: Frank Montana MD (Doctor), Maida Moreno RN (Nurse), Beatris Junior RN (Nurse), Simone Byers (Chief Operator Hydroformer) Referring Physician: Vilma Zhu MD, Patrick Bonilla Medications: Pr opofol per Anesthesia Complications: No immediate complications. Procedure: Pre-Anesthesia Assessment: - Prior to the procedure, a History and Physical was performed, and patient medications and allergies were reviewed. The patient's tolerance of previous anesthesia was also reviewed. The risks and benefits of the procedure and the sedation options and risks were discussed with the patient. All questions were answered, and informed consent was obtained. Prior Anticoagulants: The patient has taken no previous anticoagulant or antiplatelet agents. ASA Grade Assessment: IV - A patient with severe systemic disease that is a constant threat to life. After reviewing the risks and benefits, the patient was deemed in satisfactory condition to undergo the procedure. After I obtained informed consent, the scope was passed under direct vision. Throughout the procedure, the patient's blood pressure, pulse, and oxygen saturations were monitored continuously. The Endoscope was introduced through the anus and advanced to the cecum, identified by appendiceal orifice and ileocecal valve. After I obtained informed consent, the scope was passed under direct vision. Throughout the procedure, the patient's blood pressure, pulse, and oxygen saturations were monitored continuously. The colonoscopy was performed without difficulty. The patient tolerated the procedure well. The ileocecal valve, appendiceal orifice, and rectum were photographed. The quality of the bowel preparation was fair. Findings: Very dense small and large-mouthed diverticula were found in the sigmoid colon and in the descending colon. Internal hemorrhoids were found during retroflexion. The hemorrhoids were moderate. Impression: - Dense diverticulosis in the sigmoid colon and in the descending colon. - Internal hemorrhoids. - No specimens collected. Estimated Blood Loss: Estimated blood loss was minimal. Recommendation: - Patient has a contact number available for emergencies. The signs and symptoms of potential delayed complications were discussed with the patient. Return to normal activities tomorrow. Written discharge instructions were provided to the patient. - Resume previous diet. - Continue present medications. - Repeat colonoscopy is not recommended for surveillance. Scope In: 3:46:30 PM Scope Out: 4:10:13 PM Scope Withdrawal Time 0 hours 8 minutes 49 seconds Total Procedure Duration Time 0 hours 23 minutes 43 seconds Procedure Code(s): --- Professional --- 46632, Colonoscopy, flexible; diagnostic, including collection of specimen(s) by brushing or washing, when performed (separate procedure) Diagnosis Code(s): --- Professional --- K64.8, Other hemorrhoids R10.12, Left upper quadrant pain K57.30, Diverticulosis of large intestine without perforation or abscess without bleeding CPT copyright 2015 [employer]. All rights reserved. The codes documented in this report are preliminary and upon death surveys coder review may be revised to meet current compliance requirements. Attending Participation: I personally performed the entire procedure. MD Frank Butcher MD 12/13/2016 4:15:28 PM The attending physician has electronically signed and finalized this document. Number of Addenda: 0 Note Initiated On: 12/13/2016 3:29 PM * EGD REPORT (12/13/2016 3:28 PM) Component Value Range Provation Report Patient Name: Brendan Montoya Procedure Date: 12/13/2016 3:28 PM CSN: [id number] Date of : 1940 Gender: Female Attending Physician: Frank Montana MD Procedure: Upper GI endoscopy Indications: Ab dominal pain in the left upper quadrant Providers: Frank Montana MD (Doctor), Maida Moreno RN (Nurse), Beatris Junior, RN (Nurse), Simone Byers (Chief Operator Hydroformer) Referring Physician: Patrick Zhu Rajeswari Anaparthy, MD Medications: Pr opofol per Anesthesia Complications: No immediate complications. Procedure: Pre-Anesthesia Assessment: - Prior to the procedure, a History and Physical was performed, and patient medications and allergies were reviewed. The patient's tolerance of previous anesthesia was also reviewed. The risks and benefits of the procedure and the sedation options and risks were discussed with the patient. All questions were answered, and informed consent was obtained. Prior Anticoagulants: The patient has taken no previous anticoagulant or antiplatelet agents. ASA Grade Assessment: IV - A patient with severe systemic disease that is a constant threat to life. After reviewing the risks and benefits, the patient was deemed in satisfactory condition to undergo the procedure. After obtaining informed consent, the endoscope was passed under direct vision. Throughout the procedure, the patient's blood pressure, pulse, and oxygen saturations were monitored continuously. The Endoscope was introduced through the mouth, and advanced to the second part of duodenum. The upper GI endoscopy was accomplished without difficulty. The patient tolerated the procedure well. Findings: The esophagus revealed LA C erosive esophagitis. The stomach was normal. The examined duodenum was normal. Impression: - LA C erosive esophagitis. - Normal stomach. - Normal examined duodenum. - No specimens collected. Estimated Blood Loss: Estimated blood loss: none. Recommendation: - Patient has a contact number available for emergencies. The signs and symptoms of potential delayed complications were discussed with the patient. Return to normal activities tomorrow. Written discharge instructions were provided to the patient. - Resume previous diet. - Continue present medications. Scope In: 3:36:28 PM Scope Out: 3:41:20 PM Total Procedure Duration Time 0 hours 4 minutes 52 seconds Procedure Code(s): --- Professional --- 52745, Esophagogastroduodenoscopy, flexible, transoral; diagnostic, including collection of specimen(s) by brushing or washing, when performed (separate procedure) Diagnosis Code(s): --- Professional --- R10.12, Left upper quadrant pain CPT copyright 2015 [employer]. All rights reserved. The codes documented in this report are preliminary and upon death surveys coder review may be revised to meet current compliance requirements. Attending Participation: I personally performed the entire procedure. MD Frank Butcher MD 12/13/2016 3:42:59 PM The attending physician has electronically signed and finalized this document. Number of Addenda: 0 Note Initiated On: 12/13/2016 3:28 PM * TRANSFUSE PLASMA (FFP) (12/13/2016 3:09 PM) Only the most recent of 2 results within the time period is included. * ABDOMEN AP ONLY (12/12/2016 2:28 PM) Only the most recent of 2 results within the time period is included. Impressions 1. Nonobstructive bowel gas pattern. 2. Abdominal aortic aneurysm. Approved by Tod Santiago M.D. on 12/12/2016 4:36 PM By my electronic signature, I attest that I have personally reviewed the images for this examination and formulated the interpretations and opinions expressed in this report Finalized by Ramón Moya D.O. on 12/12/2016 11:25 PM. Dictated by Tod Santiago M.D. on 12/12/2016 3:39 PM. Narrative Procedure: ABDOMEN AP ONLY Clinical Indication: Constipation Comparison: Abdomen x-ray 12/10/2016 Findings: Partial visualization of the known thoracic aortic aneurysm and stent. Redemonstration of known abdominal aortic aneurysm, with unchanged configuration. Surgical clips are noted over the right pelvis. Bowel gas pattern is nonobstructive. There is no significant residual retained fecal material. There is lumbar spondylosis. Procedure Note Interface, Radiant Results - [facility] Dec 12, 2016 11:29 PM CDT Procedure: ABDOMEN AP ONLY Clinical Indication: Constipation Comparison: Abdomen x-ray 12/10/2016 Findings: Partial visualization of the known thoracic aortic aneurysm and stent. Redemonstration of known abdominal aortic aneurysm, with unchanged configuration. Surgical clips are noted over the right pelvis. Bowel gas pattern is nonobstructive. There is no significant residual retained fecal material. There is lumbar spondylosis. IMPRESSION 1. Nonobstructive bowel gas pattern. 2. Abdominal aortic aneurysm. Approved by Tod Santiago M.D. on 12/12/2016 4:36 PM By my electronic signature, I attest that I have personally reviewed the images for this examination and formulated the interpretations and opinions expressed in this report Finalized by Ramón Moya D.O. on 12/12/2016 11:25 PM. Dictated by Tod Santiago M.D. on 12/12/2016 3:39 PM. * POTASSIUM (12/12/2016 10:49 AM) Only the most recent of 2 results within the time period is included. Component Value Range Potassium 3.7 3.5-5.1 MMOL/L Specimen Blood * GRAM STAIN (12/11/2016 5:40 PM) Component Value Range Battery Name GRAM STAIN Specimen Description PLEURAL FLUID right pleural space pigtail Special Requests NONE Gram Stain MODERATE NEUTROPHILS NO ORGANISMS SEEN Report Status FINAL 12/11/2016 Specimen Pleural Fluid * CULTURE-WOUND/TISSUE/FLUID(AEROBIC ONLY)W/SENSITIVITY (12/11/2016 5:40 PM) Component Value Range Battery Name ROUTINE CULTURE Specimen Description PLEURAL FLUID right pleural space pigtail Special Requests NONE Direct Gram Stain MODERATE NEUTROPHILS NO ORGANISMS SEEN Culture NO GROWTH 5 DAYS Report Status FINAL 12/16/2016 Specimen Pleural Fluid * LIPASE (12/11/2016 10:09 AM) Only the most recent of 2 results within the time period is included. Component Value Range Lipase 17 11-82 U/L Specimen Blood * AMYLASE (12/11/2016 10:09 AM) Only the most recent of 2 results within the time period is included. Component Value Range Amylase 43 24-100 U/L Specimen Blood * PREPARE PLASMA (FFP) (12/11/2016 6:38 AM) Component Value Range Units Ordered 1 Unit Number [id number] Blood Component Type APHERESIS PLASMA RT 1 Unit Division 0 Status OF Unit TRANSFUSED Transfusion Status OK TO TRANSFUSE Specimen Other (Specify) * [facility] (12/10/2016 1:00 PM) Component Value Range Ref Lab Test Code 6371576, Helicobacter pylori Antigen, Fecal by EIA REF LAB RESULT (MSAR) SEE NOTE Test name Result Flag Units RefIntvl Helicobacter pylori Ag, by EIA Negative Negative Performed by [facility], [address] [place] [id number] [email or web address], Jesus Garcia MD, Lab. Director * H. PYLORI AG, FECES (12/10/2016 1:00 PM) Component Value Range H. Pylori Ag, Feces TEST CANCELLED AND REORDERED [facility] SEE REF LAB RESULT Specimen Sweat - Feces * PROCALCITONIN (12/06/2016 10:00 AM) Only the most recent of 2 results within the time period is included. Component Value Range Procalcitonin 0.19 (H) <0.10 NG/ML Specimen Blood * CHEST 2 VIEWS (12/05/2016 6:22 AM) Impressions Bilateral pleural effusions, right greater than left, associated with partial atelectasis right lower lobe. Thoracic aortic aneurysm status post endovascular stent graft. Finalized by Orville Hall M.D. on 12/05/2016 7:53 AM. Dictated by Orville Hall M.D. on 12/05/2016 7:46 AM. Narrative CHEST 2 VIEWS History: Atelectasis. Aortic aneurysm Technique: PA and lateral views of the chest were obtained. Comparison: Comparison is made to an examination of the previous day. Findings: There is a small right pleural effusion associated with partial atelectasis of the right lower lobe. There is blunting of the left posterior costophrenic angle consistent with a small left pleural effusion. No acute interstitial or alveolar opacities are identified. The heart size is within normal limits. Thoracic aortic endovascular stent graft is again identified. The large soft tissue density projected over the left midlung corresponding to the saccular aneurysm shows no significant change. Left jugular venous line remains in place. No pneumothorax is seen. Procedure Note Interface, Radiant Results - [facility] Dec 05, 2016 7:56 AM CDT CHEST 2 VIEWS History: Atelectasis. Aortic aneurysm Technique: PA and lateral views of the chest were obtained. Comparison: Comparison is made to an examination of the previous day. Findings: There is a small right pleural effusion associated with partial atelectasis of the right lower lobe. There is blunting of the left posterior costophrenic angle consistent with a small left pleural effusion. No acute interstitial or alveolar opacities are identified. The heart size is within normal limits. Thoracic aortic endovascular stent graft is again identified. The large soft tissue density projected over the left midlung corresponding to the saccular aneurysm shows no significant change. Left jugular venous line remains in place. No pneumothorax is seen. IMPRESSION Bilateral pleural effusions, right greater than left, associated with partial atelectasis right lower lobe. Thoracic aortic aneurysm status post endovascular stent graft. Finalized by Orville Hall M.D. on 12/05/2016 7:53 AM. Dictated by Orville Hall M.D. on 12/05/2016 7:46 AM. * ECG-SCAN (12/03/2016 8:12 AM) Narrative Ordered by an unspecified provider. * ECG-SCAN (12/03/2016 8:12 AM) Narrative Ordered by an unspecified provider. * ECG-SCAN (12/03/2016 8:11 AM) Narrative Ordered by an unspecified provider. * ECG-SCAN (12/03/2016 8:11 AM) Narrative Ordered by an unspecified provider. * ANESTHESIA ARTERIAL LINE INSERTION (12/02/2016 1:55 PM) Narrative Jorge Evans MD 12/02/20161:55 PM Anesthesia Procedure: Arterial Line Placement A-LINE INSERTION Date/Time: 12/02/2016 1:45 PM Patient location: ICU Indications: hemodynamic monitoring Staff Anesthesiologist: WING RYAN Resident/JAVA GROOVY DEVELOPER/SRNA: JORGE EVANS Performed by: Resident/JAVA GROOVY DEVELOPER/SRNA Preprocedure checklist performed: 2 patient identifiers, risks & benefits discussed, patient evaluated, timeout performed, consent obtained, patient being monitored and sterile drape Sterile technique: - Proper hand washing - Cap, mask - Sterile gloves - Skin prep for antisepsis Arterial Line Procedure Patient Sedated: no Artery prepped with chlorhexidine; skin prep agent completely dried prior to procedure. Location: radial artery Laterality: right Technique: palpation Needle gauge: 20 G Number of attempts: 2 Procedure Outcome Catheter secured with adhesive dressing applied and chlorhexidine patch applied Events: no complications noted during insertion and skin intact, warm, and dry Observation: pt tolerated well Refer to nursing documentation for vitals and monitoring data during procedure. * LIVER FUNCTION PANEL (11/29/2016 3:18 PM) Component Value Range Total Bilirubin 0.3 0.3-1.2 MG/DL Bilirubin, Direct 0.1 <0.4 MG/DL Albumin 2.6 (L) 3.5-5.0 G/DL Alk Phosphatase 93 25-110 U/L AST (SGOT) 34 7-40 U/L ALT (SGPT) 17 7-56 U/L Total Protein 5.6 (L) 6.0-8.0 G/DL Specimen Blood * ANESTHESIA ACUTE PAIN PROCEDURE (11/29/2016 9:41 AM) Narrative Isela Moreno MD 11/29/20169:41 AM Anesthesia Inpatient Procedure INPATIENT PROCEDURE Date/Time: 11/28/2016 7:45 PM Patient location: ICU Staff Anesthesiologist: ISELA MORENO Performed by: Anesthesia Faculty Preprocedure checklist performed: 2 patient identifiers, risks & benefits discussed, patient evaluated, timeout performed, consent obtained, patient being monitored and sterile drape Sterile technique: - Proper hand washing - Cap, mask - Sterile gloves - Skin prep for antisepsis Additional notes: Procedure:Lumbar drain placement Indication: acute lower extremity motor and sensory deficits s/p TEVAR Consent obtained: yes, from son (patient s/p anesthesia) Local anesthesia: yes, 2 cc 1% lidocaine Timeout performed: as above Technique:Full sterile barrier precautions followed after patient sterilely prepped with chlorhexadine.Kidder technique used to insert 14g Tuohy via paramedian approach into the L3-L4 interspace.Needle advanced until champagne-colored CSF obtained.On initial attempt, catheter unable to easily advance, so catheter and Tuohy were removed as a unit.Catheter intact upon removal.Subsequent attempt resulted again in champagne-colored CSF and catheter was able to easily advance. Needle insertion depth was 6 cm. Catheter threaded in to 20 cm at skin.Catheter site secured with suture, biopatch and sterile dressing. Patient tolerated procedure well with no immediate complications noted. ATTESTATION I personally performed the procedure myself. Staff name:Isela Moreno MD Date:11/29/2016 * LINE [facility] 1V CXR (11/28/2016 6:29 PM) Impressions 1.Large complex thoracic aortic aneurysm with interval stenting. 2.Right lower lobar atelectasis and a possible small right pleural effusion. Approved by Joann Wells M.D. on 11/29/2016 10:00 AM By my electronic signature, I attest that I have personally reviewed the images for this examination and formulated the interpretations and opinions expressed in this report Finalized by Yusuf Chen M.D. on 11/29/2016 3:57 PM. Dictated by Joann Wells M.D. on 11/29/2016 8:08 AM. Narrative Procedure: LINE [facility] 1V CXR Clinical Indication: Descending thoracic aortic aneurysm Comparison: Chest x-ray and CTA chest November 27, 2016 Findings: There has been placement of a left IJ central venous catheter with the distal tip projected over the low SVC. Interval thoracic aortic stent placement. There is a persistent lobular soft tissue density projecting over the left upper lung , compatible with known thoracic aortic aneurysm. There is atelectasis of the right lower lobe and a possible small right pleural effusion. The heart size and pulmonary vasculature are unremarkable. No pneumothorax is identified. Procedure Note Interface, Radiant Results - FriNov 29, 2016 4:00 PM CDT Procedure: LINE [facility] 1V CXR Clinical Indication: Descending thoracic aortic aneurysm Comparison: Chest x-ray and CTA chest November 27, 2016 Findings: There has been placement of a left IJ central venous catheter with the distal tip projected over the low SVC. Interval thoracic aortic stent placement. There is a persistent lobular soft tissue density projecting over the left upper lung , compatible with known thoracic aortic aneurysm. There is atelectasis of the right lower lobe and a possible small right pleural effusion. The heart size and pulmonary vasculature are unremarkable. No pneumothorax is identified. IMPRESSION 1. Large complex thoracic aortic aneurysm with interval stenting. 2. Right lower lobar atelectasis and a possible small right pleural effusion. Approved by Joann Wells M.D. on 11/29/2016 10:00 AM By my electronic signature, I attest that I have personally reviewed the images for this examination and formulated the interpretations and opinions expressed in this report Finalized by Yusuf Chen M.D. on 11/29/2016 3:57 PM. Dictated by Joann Wells M.D. on 11/29/2016 8:08 AM. * PHOSPHORUS (11/28/2016 5:40 PM) Component Value Range Phosphorus 5.3 (H) 2.0-4.0 MG/DL Specimen Blood * IR ARTERIOGRAM BODY (11/28/2016 4:33 PM) Addenda Addendum by Aayush Black MD on 12/02/2016 11:19 AM Finalized by Felipe Black M.D. on 11/29/2016 11:59 AM. Dictated by Felipe Black M.D. on 11/29/2016 11:52 AM.Addendum: IAayush M.D., the attending radiologist, was present for the procedure, personally reviewed the images, and formulated the interpretations and opinions expressed in this report. @TT Finalized by Felipe Black M.D. on 12/02/2016 11:16 AM. Dictated by Felipe Black M.D. on 12/02/2016 11:16 AM. Impressions Successful treatment of thoracic aortic aneurysm using overlapping thoracic stent grafts as described above. Narrative Exam: Thoracic aortogram and thoracic stent graft placement Indication: Thoracic aortic aneurysm Operators: Dr. Irene Briones and Aayush Black M.D. Written informed consent was obtained. Devices: 37 mm x 20 cm, 40 mm x 15 cm and 45 mm x 20 cm [place] thoracic stent grafts Technique and findings: Percutaneous access the left common femoral artery was obtained. A 6 Macanese sheath was advanced into the left common femoral artery. Surgical exposure like common femoral artery was performed by Dr. Bonilla. Right common femoral artery was accessed with a 18-gauge Seldinger needle. A [employer] guidewire was passed through the needle and a 6 Macanese sheath was advanced over the guidewire. Using an 035 Glidewire a KAZ 1 catheter was advanced into the descending aorta. The Glidewire was exchanged for a 035 Lunderquist wire. The 6 Macanese sheath was removed and a 24 Macanese sheath was carefully advanced over the Lunderquist wire into the abdominal aorta. A KAZ 1 catheter was advanced through the left common femoral sheath. The catheter was advanced into the ascending aorta using an 035 Glidewire. The Glidewire was then exchanged for a Lunderquist wire. A 5 Macanese marking pigtail catheter was advanced over the Lunderquist wire. Next a 37 mm diameter x 20 cm thoracic stent graft was advanced through the 24 Macanese sheath and into the transverse aorta. Digital subtraction arteriography was then performed through the pigtail catheter. The position of the left carotid left subclavian artery were identified. The stent graft was then deployed just distal to the left common carotid artery. Follow-up angiography demonstrated excellent positioning of the stent graft. Next a 40 mm x 15 cm graft was deployed in an overlapping fashion. Next a 45 mm diameter x 20 cm thoracic stent graft was advanced into the descending thoracic aorta. Digital subtraction angiography was performed and the position of the celiac artery was identified. The celiac artery was marked on the monitor the 45 mm diameter x 27 m thoracic stent graft was then deployed. Angioplasty was then performed using a trilobed balloon at the distal attachment site, junction zones and proximal attachment site. Completion aortography demonstrated excellent angiographic result with successful exclusion of the aneurysm and no evidence of Endo leak. Procedure Note Interface, Radiant Results - FriDec 02, 2016 11:19 AM CDT Exam: Thoracic aortogram and thoracic stent graft placement Indication: Thoracic aortic aneurysm Operators: Dr. Irene Briones and Aayush Black M.D. Written informed consent was obtained. Devices: 37 mm x 20 cm, 40 mm x 15 cm and 45 mm x 20 cm [place] thoracic stent grafts Technique and findings: Percutaneous access the left common femoral artery was obtained. A 6 Macanese sheath was advanced into the left common femoral artery. Surgical exposure like common femoral artery was performed by Dr. Bonilla. Right common femoral artery was accessed with a 18-gauge Seldinger needle. A [employer] guidewire was passed through the needle and a 6 Macanese sheath was advanced over the guidewire. Using an 035 Glidewire a KAZ 1 catheter was advanced into the descending aorta. The Glidewire was exchanged for a 035 Lunderquist wire. The 6 Macanese sheath was removed and a 24 Macanese sheath was carefully advanced over the Lunderquist wire into the abdominal aorta. A KAZ 1 catheter was advanced through the left common femoral sheath. The catheter was advanced into the ascending aorta using an 035 Glidewire. The Glidewire was then exchanged for a Lunderquist wire. A 5 Macanese marking pigtail catheter was advanced over the Lunderquist wire. Next a 37 mm diameter x 20 cm thoracic stent graft was advanced through the 24 Macanese sheath and into the transverse aorta. Digital subtraction arteriography was then performed through the pigtail catheter. The position of the left carotid left subclavian artery were identified. The stent graft was then deployed just distal to the left common carotid artery. Follow-up angiography demonstrated excellent positioning of the stent graft. Next a 40 mm x 15 cm graft was deployed in an overlapping fashion. Next a 45 mm diameter x 20 cm thoracic stent graft was advanced into the descending thoracic aorta. Digital subtraction angiography was performed and the position of the celiac artery was identified. The celiac artery was marked on the monitor the 45 mm diameter x 27 m thoracic stent graft was then deployed. Angioplasty was then performed using a trilobed balloon at the distal attachment site, junction zones and proximal attachment site. Completion aortography demonstrated excellent angiographic result with successful exclusion of the aneurysm and no evidence of Endo leak. IMPRESSION Successful treatment of thoracic aortic aneurysm using overlapping thoracic stent grafts as described above. * POC ACTIVATED CLOTTING TIME (11/28/2016 4:02 PM) Only the most recent of 3 results within the time period is included. Component Value Range Activated Clotting Time 222 s * BEDSIDE PFT (11/28/2016 10:03 AM) Component Value Range FVC-Pre 1.20 L FVC-%Pred-pre 41 % FEV1-Pre 0.64 L FEV1-%Pred-Pre 29 % SCA8950-Aqy 0.31 L/sec GVB3626-%Pred-Pre 19 % PEF-Pre 91.3 L/min * BLOOD TYPE CONFIRMATION - ORDER ONLY IF REQUESTED BY LAB (11/27/2016 9:08 PM) Component Value Range ABO/RH(D) A POS * ALBUMIN (11/27/2016 8:40 PM) Component Value Range Albumin 2.9 (L) 3.5-5.0 G/DL * IONIZED CALCIUM (11/27/2016 8:40 PM) Component Value Range Ionized Calcium 1.15 1.0-1.3 MMOL/L Specimen Blood * CT CHEST EXTERNAL IMAGING (11/27/2016 12:15 AM) Narrative This order has been auto finalized and does not contain a result.
== END 2017-01-09 17:55 | DRG 52 ==
LOC: ENPENDDIS 01-09 16:30
PROVIDERS: ADMIT Physical Medicine & Rehabilitation; ATTEND Physical Medicine & Rehabilitation
DX: G82.20 Paraplegia, unspecified (principal); Z48.812 Encounter for surgical aftercare following surgery on the circulatory system; R33.9 Retention of urine, unspecified; J44.9 Chronic obstructive pulmonary disease, unspecified; I10 Essential (primary) hypertension; E88.09 Other disorders of plasma-protein metabolism, not elsewhere classified; E83.51 Hypocalcemia; D64.9 Anemia, unspecified; I48.91 Unspecified atrial fibrillation; Z66 Do not resuscitate; I27.2 Other secondary pulmonary hypertension; I25.10 Atherosclerotic heart disease of native coronary artery without angina pectoris; R10.12 Left upper quadrant pain; R10.32 Left lower quadrant pain; F17.210 Nicotine dependence, cigarettes, uncomplicated; Z79.01 Long term (current) use of anticoagulants; M47.896 Other spondylosis, lumbar region; J18.9 Pneumonia, unspecified organism; N39.0 Urinary tract infection, site not specified; B37.49 Other urogenital candidiasis; B96.5 Pseudomonas (aeruginosa) (mallei) (pseudomallei) as the cause of diseases classified elsewhere; J44.1 Chronic obstructive pulmonary disease with (acute) exacerbation; L89.312 Pressure ulcer of right buttock, stage 2; L89.322 Pressure ulcer of left buttock, stage 2; R15.9 Full incontinence of feces; E87.6 Hypokalemia; F41.9 Anxiety disorder, unspecified; F32.9 Major depressive disorder, single episode, unspecified; D69.59 Other secondary thrombocytopenia; N31.9 Neuromuscular dysfunction of bladder, unspecified
CPT/HCPCS: 36415; 70450; 71010; 71020; 71275; 72070; 72100; 72148; 76937; 80048; 80053; 80162; 81000; 82962; 83036; 83615; 83735; 83880; 84443; 84484; 85007; 85025; 85027; 85379; 85384; 85610; 87077; 87088; 87186; 93005; 93880; 94640; 94664; 94760

== ENCOUNTER 2016-12-23 03:40 | Inpatient (IN) | payer MEDICARE, OTHER ==
[2016-12-23] VITALS (8 sets, daily range): BP systolic 75–144; BP diastolic 56–86
[~2016-12-23] VITALS: Ht 160 cm; Wt 51.8 kg
[~2016-12-23 03:40] MED LIST: 0.9126SP NS; ACET325T38 PO; ALBU2.5V4 NEB; ASPI325T32 PO; BISA10SU58 RC; BUDE10.2 IH; FLUT16SP22 NS; FURO20TA4 PO; METO50TA2 PO; NCT21TD TD; PANT40TA3 PO; POLY17PO6 PO; POTA10CA43 PO; RT-ALBUINH IH; SENN-40 PO; SIMV40TA4 PO; TRAM50TA2 PO; WARF1TAB6 PO
[2016-12-23] MEDS: NS IV 1000 ML 1,000 ML IV SCH ×2 (05:25→16:42)
[2016-12-23 05:34] LABS: MAGNESIUM 1.9 MG/DL (1.8-2.4); PHOSPHORUS 3.4 MG/DL (2.3-4.7)
[2016-12-23] MEDS ORDERED: ALPRAZolam 0.25 MG (XANAX) TAB PO PRN (06:00)
[2016-12-23] MEDS ORDERED: ACETAMINOPHEN 325 MG TABLET/CAPLET (TYLENOL) PO PRN (06:00)
[2016-12-23] MEDS ORDERED: ONDANSETRON 4 MG/2 ML (SDV) Z0FRAN IVP PRN (06:00)
[2016-12-23] MEDS ORDERED: HYDROcodone/APAP 10 MG/325 MG (LORTAB) TAB PO PRN (06:00)
[2016-12-23] MEDS ORDERED: ONDANSETRON 4 MG (ZOFRAN) ORAL DISSOLVE TAB PO PRN (06:00)
[2016-12-23] MEDS ORDERED: SALIVA SUBSTITUTE 60 ML SPRAY(MOUTHKOTE) MM PRN (06:00)
[2016-12-23] MEDS: KCL 10 MEQ TAB (MICRO K) PO SCH (06:40)
--- NOTE | 2016-12-23 07:05 | Pulmonary Consultation ---
History of Present Illness History of Present Illness Date of Consultation 12/23/16 07:00 Date of Admission History of Present Illness 76 yo with hx of COPD, HTN, CAD who was in rehab unit after repair of thoracic aortic aneurysm at . While at pt developed DVT and was placed on anticoagulation. While in rehab this weekend pt developed acute respiratory distress and was transferred to ICU. I am consulted for pulmonary management. Allergies and Home Medications Allergies Coded Allergies: No Known Drug Allergies (Unverified , 12/18/16) Home Medications 0.9 % Sodium Chloride 126 Ml [place], 1-2 SPRAYS NS UD PRN for NASAL, (Reported) Acetaminophen 325 Mg Tablet, 650 MG PO Q4H PRN for PAIN-MILD, (Reported) Albuterol Sulfate 1 Puff Puff, 2 PUFF IH Q6H PRN for SHORTNESS OF BREATH, ( Reported) 1 PUFF = 90 MCG Albuterol Sulfate 2.5 Mg/3 Ml Vial.neb, 2.5 MG NEB Q6H PRN for SHORTNESS OF BREATH, (Reported) Aspirin 325 Mg Tablet.dr, 325 MG PO DAILY, (Reported) Bisacodyl 10 Mg Supp.rect, 10 MG RC DAILY PRN for CONSTIPATION, (Reported) Budesonide/Formoterol Fumarate 10.2 Gm Hfa.aer.ad, 2 PUFF IH BID, (Reported) Fluticasone Propionate 16 Gm [place].susp, 1 SPRAY NS DAILY, (Reported) Furosemide 20 Mg Tablet, 20 MG PO 1200, (Reported) Metoprolol Tartrate 50 Mg Tablet, 25 MG PO BID, (Reported) TAKES 1/2 (50MG) TABLET Nicotine 1 Each Patch.td24, 21 MG TD DAILY, (Reported) Pantoprazole Sodium 40 Mg Tablet.dr, 40 MG PO BID, (Reported) Polyethylene Glycol 3350 17 Gm Powd.pack, 17 GM PO BID, (Reported) Potassium Chloride 10 Meq Capsule.er, 10 MEQ PO 1200, (Reported) Sennosides/Docusate Sodium 1 Each Tablet, 2 TAB PO BID, (Reported) Simvastatin 40 Mg Tablet, 40 MG PO HS, (Reported) Tramadol HCl 50 Mg Tablet, 50 MG PO Q6H PRN for PAIN-MILD TO MODERATE, (Reported ) Warfarin Sodium 1 Mg Tablet, 1 MG PO HS, (Reported) Past Dtkojwe-Ycmolw-Qykxya Hx Patient Social History Alcohol Use: Denies Use Recreational Drug Use: No Smoking Status: Former Smoker Type Used: Cigarettes Recent Foreign Travel: No Contact w/Someone Who Travel: No Recent Infectious Disease Expo: No Recent Hopitalizations: Yes Physical Abuse Screen: No Sexual Abuse: No Immunizations Up To Date Date of Pneumonia Vaccine: Jul 23, 2016 Seasonal Allergies Seasonal Allergies: Yes Surgeries Surgeries: Orthopedic Respiratory Respiratory Disorders: COPD Reproductive System Sexually Transmitted Disease: No HIV/AIDS: No Female Reproductive Disorders: Denies Genitourinary Genitourinary Disorders: Renal Failure Gastrointestinal Gastrointestinal Disorders: Gastroesophageal Reflux, Chronic Constipation, Hiatal Hernia HEENT Loss of Vision: Denies Hearing Impairment: Denies Blood Transfusions Adverse Reaction to a Blood Tr: No Review of Systems Constitutional: Malaise, Sweats, Weakness Eyes: No: Conjunctivae inflammation, Eyelid inflammation, Other, Pain, Redness , Vision change ENT: No: Ear discharge, Ear pain, Mouth pain, Mouth swelling, Nose congestion, Nose discharge, Nose pain, Other, Throat pain, Throat swelling Respiratory: Cough, Dry, SOB with excertion, Shortness of breath Cardiovascular: Paroxysmal Noc. Dyspnea, No: Chest Pain, Edema, Lt Headedness, Orthopnea, Other, Palpitations Gastrointestinal: No: Abdominal Pain, Constipation, Diarrhea, Hematochezia, Melena, Nausea, Other, Vomiting Neurological: Weakness Exam Exam Vital Signs Date Time Temp Pulse Resp B/P (MAP) Pulse Ox O2 Delivery O2 Flow Rate FiO2 12/23/16 06:15 61 17 124/62 98 High Flow NC 33.00 12/23/16 05:28 63 19 128/70 94 12/23/16 04:14 62 18 130/65 98 12/23/16 04:14 62 12/23/16 04:10 95 15.00 75 12/23/16 04:00 97 75 12/23/16 04:00 97.1 62 18 130/65 High Flow NC 33.00 General Appearance: No Apparent Distress, WD/WN, Anxious HEENT: PERRL/EOMI, TMs Normal, Normal ENT Inspection, Pharynx Normal Neck: Full Range of Motion, Normal Inspection, Non Tender, Supple Respiratory: Chest Non Tender, No Accessory Muscle Use, No Respiratory Distress , Decreased Breath Sounds Cardiovascular: Regular Rate, Rhythm Gastrointestinal: normal bowel sounds, non tender Extremity: Normal Capillary Refill, Normal Inspection Neurologic/Psychiatric: Alert, Oriented x3 Skin: Normal Color, Warm/Dry Assessment/Plan Assessment/Plan -Acute respiratory distress - now improved -Trial pt back on regular NC COPDAE -SVNS, oxygen -add solumedrol Probable CHARISMA -Out patient testing Will keep pt on stepdown for today and transfer back to rehab tomorrow if she is still doing well. Clinical Quality Measures DVT/VTE Risk/Contraindication: Risk Factor Score Per Nursin RFS Level Per Nursing on Admit: 4+=Very High FRITZ MADRIGAL DO Dec 23, 2016 07:05
[2016-12-23] MEDS: PANTOPRAZOLE 40 MG (PROTONIX) TAB PO SCH ×2 (07:44→16:42)
--- NOTE | 2016-12-23 07:45 | History & Physicial ---
History of Present Illness History of Present Illness Reason for visit/HPI patient in hospital in acute rehabilitation. Patient went into acute respiratory failure. Patient transferred to cardiac stepdown. Patient has a history of COPD area Coronary artery disease. Thoracic ordered aneurysm surgery at . DVT at . Patient does have some confusion. Patient this morning breathing much better Date of Admission Dec 23, 2016 at 03:40 I consulted on this patient on 12/23/16 07:42 Attending Physician Elton Marsh DO Admitting Physician Christoph Vazquez DO Consult Allergies and Home Medications Allergies Coded Allergies: No Known Drug Allergies (Unverified , 12/18/16) Home Medications 0.9 % Sodium Chloride 126 Ml [place], 1-2 SPRAYS NS UD PRN for NASAL, (Reported) Acetaminophen 325 Mg Tablet, 650 MG PO Q4H PRN for PAIN-MILD, (Reported) Albuterol Sulfate 1 Puff Puff, 2 PUFF IH Q6H PRN for SHORTNESS OF BREATH, ( Reported) 1 PUFF = 90 MCG Albuterol Sulfate 2.5 Mg/3 Ml Vial.neb, 2.5 MG NEB Q6H PRN for SHORTNESS OF BREATH, (Reported) Aspirin 325 Mg Tablet.dr, 325 MG PO DAILY, (Reported) Bisacodyl 10 Mg Supp.rect, 10 MG RC DAILY PRN for CONSTIPATION, (Reported) Budesonide/Formoterol Fumarate 10.2 Gm Hfa.aer.ad, 2 PUFF IH BID, (Reported) Fluticasone Propionate 16 Gm [place].susp, 1 SPRAY NS DAILY, (Reported) Furosemide 20 Mg Tablet, 20 MG PO 1200, (Reported) Metoprolol Tartrate 50 Mg Tablet, 25 MG PO BID, (Reported) TAKES 1/2 (50MG) TABLET Nicotine 1 Each Patch.td24, 21 MG TD DAILY, (Reported) Pantoprazole Sodium 40 Mg Tablet.dr, 40 MG PO BID, (Reported) Polyethylene Glycol 3350 17 Gm Powd.pack, 17 GM PO BID, (Reported) Potassium Chloride 10 Meq Capsule.er, 10 MEQ PO 1200, (Reported) Sennosides/Docusate Sodium 1 Each Tablet, 2 TAB PO BID, (Reported) Simvastatin 40 Mg Tablet, 40 MG PO HS, (Reported) Tramadol HCl 50 Mg Tablet, 50 MG PO Q6H PRN for PAIN-MILD TO MODERATE, (Reported ) Warfarin Sodium 1 Mg Tablet, 1 MG PO HS, (Reported) Past Ndvgraq-Xhtuxi-Bfqumz Hx Patient Social History Alcohol Use: Denies Use Recreational Drug Use: No Smoking Status: Former Smoker Type Used: Cigarettes Physical Abuse Screen: No Sexual Abuse: No Recent Foreign Travel: No Contact w/other who traveled: No Recent Hopitalizations: Yes Recent Infectious Disease Expo: No Immunizations Up To Date Date of Pneumonia Vaccine: Jul 23, 2016 Seasonal Allergies Seasonal Allergies: Yes Surgeries Surgeries: Orthopedic Reproductive System Sexually Transmitted Disease: No HIV/AIDS: No Female Reproductive Disorders: Denies Genitourinary Genitourinary Disorders: Renal Failure Gastrointestinal Gastrointestinal Disorders: Gastroesophageal Reflux, Chronic Constipation, Hiatal Hernia HEENT Loss of Vision: Denies Hearing Impairment: Denies Blood Transfusions Adverse Reaction to a Blood Tr: No Constitutional: malaise, weakness EENTM: no symptoms reported Respiratory: other (acute respiratory failure) Cardiovascular: vascular heart diseas Gastrointestinal: no symptoms reported Genitourinary: other (Wheeler and) Physical Exam Vital Signs Vital Sign - Last 12Hours 12/23/16 04:00 Temp 97.1 Pulse 62 Resp 18 B/P (MAP) 130/65 Pulse Ox 97 O2 Delivery High Flow NC O2 Flow Rate 33.00 FiO2 75 Capillary Refill : General Appearance: No Apparent Distress, Thin Eyes: Bilateral Eye Normal Inspection HEENT: Normal ENT Inspection Neck: Full Range of Motion, Normal Inspection Respiratory: Chest Non Tender, No Accessory Muscle Use, No Respiratory Distress Cardiovascular: Regular Rate, Rhythm, No Murmur Gastrointestinal: Non Tender, Soft Assessment/Plan Assessment and Plan acute respiratory failure. COPD. Coronary artery disease. Thoracically aortic aneurysm [facility] had surgery History of DVT Problems: Clinical Quality Measures DVT/VTE Risk/Contraindication: Risk Factor Score Per Nursin RFS Level Per Nursing on Admit: 4+=Very High ELTON MARSH DO Dec 23, 2016 07:45
[2016-12-23] MEDS: RT-ADVAIR HFA 115/21 MCG PER PUFF IH SCH ×2 (07:54→20:00)
[2016-12-23] MEDS: FLUTICASONE NASAL SPRAY (FLONASE) 16 GM BTL NS SCH (08:53)
[2016-12-23] MEDS: methylPREDNISolone 40 MG/ML (Solu-MEDROL) VIAL IV SCH ×3 (08:53→22:23)
[2016-12-23] MEDS: FUROSEMIDE 20 MG (LASIX) TAB PO SCH (08:54)
[2016-12-23] MEDS: ASPIRIN E.C. 325 MG (ECOTRIN) TABLET PO SCH (08:54)
[2016-12-23] MEDS: POLYETHYLENE GLYCOL 17 GM (MIRALAX) PACK PO SCH ×2 (08:54→22:23)
[2016-12-23] MEDS: NICOTINE 14 MG (NICODERM) PATCH TD SCH (08:54)
[2016-12-23] MEDS: NICOTINE PATCH REMOVAL TP SCH (08:55)
[2016-12-23] MEDS ORDERED: meTOprolol TARTRATE 25 MG (LOPRESSOR) TABLET PO SCH (09:00)
[2016-12-23] MEDS ORDERED: RT-ALBUTEROL SULF 2.5 MG/3 ML PRE-MIX VIAL IH SCH (09:00)
[2016-12-23] MEDS ORDERED: RT-ALBUTEROL SULF 2.5 MG/3 ML PRE-MIX VIAL IH PRN (09:15)
--- NOTE | 2016-12-23 09:52 | Occupational Therapy Eval ---
OT Evaluation-General/PLF Medical Diagnosis Admission Date Dec 23, 2016 at 03:40 Medical Diagnosis: Respiratory failure Onset Date: Nov 27, 2016 Therapy Diagnosis Therapy Diagnosis: Weakness, Decreased ADL skills Height/Weight Height (Feet): 5 Height (Inches): 3.00 Weight (Pounds): 113 Weight (Ounces): 0.3 Precautions Precautions/Isolations: Fall Prevention, Standard Precautions Referral Physician: Dr. Saunders Referral Reason: Activity Tolerance, Self Care, Evaluation/Treatment, Strengthening/ROM Medical History Pertinent Medical History: Atrial Fib, CAD, COPD, GERD, HTN, [place] Additional Medical History knee replacement, renal failure Current History Pt. was in hospital on acute rehab for aortic aneurysm. Went into respiratory failure. Transferred to acute. Reviewed History: Yes Social History Home: Single Level Current Living Status: Alone Entry Into Home: Stairs With Railing Steps Into Home: 2 ADL-Prior Level of Function ADL PLOF Comments Originally, pt. independent with basic self care needs. Spouse not long ago. DME/Equipment: Bath Chair, Grab Bars, Shower, Tub/Shower DME/Equipment Comments tall toilet OT Current Status Subjective Pt. does not report pain. However, when asked to complete a task will often say , "I can't do that." OT provided encouragement and pt. will try at that task. Appearance Pt. is in bed. Lethargic but finishing drinking medicine that nursing provided. Mental Status/Objective Patient Orientation: Person Attachments: Wheeler Catheter, IV, Oxygen, Telemetry Current Dentures/Partials: Yes Hand Dominance: Right Upper Extremity ROM Pt. is able to flex/abduct bilateral shoulders to approximately 90 degrees. ROM WFL distally. Upper Extremity Coordination intact Upper Extremity Strength 2+/5 bilateral shoulders 3/5 distally ADL-Treatment Functional [place] Measure 0=Not Assessed/NA 4=Minimal Assistance 1=Total Assistance 5=Supervision or Setup 2=Maximal Assistance 6=Modified [place] 3=Moderate Assistance 7=Complete IndependenceIRFPAI Quality Coding Scale 6 Independent with activity with or without an assistive device 5 Patient requires set up or clean up by helper. Patient completes activity by themselves 4 Supervision or touching assist (CGA). [place] provide cues , steadying assist 3 The helper provides less than half the effort to complete the activity 2 The helper provides more than half the effort to complete the activity 1 Dependent. The helper does all the effort to complete an activity 7 Patient refused to complete or attempt activity 9 The patient did not perform the activity before the current illness or injury 88 Not attempted due to Medical conditions or safety concerns Eating (FIM): 5 (Pt. requires set up. Will ask for OT to assist with packages , plate, etc.... when asked to do this on her own, pt. is able to do so.) Lower Body Dressing (FIM): 2 (When asked to doff socks, pt. states that she can 't. With encouragement, is able to doff right sock. Unable to don it, or doff/ don left sock.) Transfers (B, C, W/C) (FIM): 3 (Pt. requires min assist for supine-sit, and then mod assist for sit-stand and "dance" around to chair.) Pt. requires encouragement for each step of the way. Does not seem to understand her abilities. Has been in hospital for some time. Requires encouragement to attempt tasks, and to try for self. OT assisted pt. to chair next to bed. Breakfast tray set up in front of her. Pt. has multiple tubing that makes positioning difficult at times. All needs were met up in chair. Pt. eating breakfast. Nursing aware. Education OT Patient Education: Correct positioning, Modified ADL techniques, Progress toward Goal/Update tx plan, Purpose of tx/functional activities, Reviewed precautions, Rehab process, Transfer techniques Teaching Recipient: Patient Teaching Methods: Demonstration, Discussion Response to Teaching: Verbalize Understanding, Return Demonstration OT Short Term Goals Short Term Goals Time Frame: Dec 30, 2016 Eating(FIM): 5 Grooming(FIM): 5 Bathing(FIM): 4 Upper Body Dressing(FIM): 4 Lower Body Dressing(FIM): 4 Toileting(FIM): 4 Transfers (B,C,W/C) (FIM): 4 Toilet/Commode Transfer(FIM): 4 Additional Short Term Goals: 1-Demonstrate ADL Tasks, 2-Verbalize Understanding , 3-ImproveStrength/Brad 1=Demonstrate adherence to instructed precautions during ADL tasks. 2=Patient will verbalize/demonstrate understanding of assistive devices/ modifications for ADL. 3=Patient will improve strength/tolerance for activity to enable patient to perform ADL's. OT Custodial Goals Coding Assistant Goals Time Frame: January 06, 2017 Eating (FIM): 6 Grooming(FIM): 6 Bathing(FIM): 5 Upper Body Dressing(FIM): 6 Lower Body Dressing(FIM): 6 Toileting(FIM): 6 Transfers (B,C,W/C) (FIM): 6 Toilet/Commode Transfer(FIM): 6 Shower Transfer(FIM): 5 Additional Goals: 1-Demonstrate ADL Tasks, 2-Verbalize Understanding, 3- ImproveStrength/Brad 1=Demonstrate adherence to instructed precautions during ADL tasks. 2=Patient will verbalize/demonstrate understanding of assistive devices/ modifications for ADL. 3=Patient will improve strength/tolerance for activity to enable patient to perform ADL's. OT Education/Plan Problem List/Assessment Assessment: Decreased Activ Tolerance, Decreased UE Strength, Dependent Transfers, Impaired Bed Mobility, Impaired Funct Balance, Impaired I ADL's, Impaired Self-Care Skills Discharge Recommendations Plan/Recommendations: Continue POC Therapy D/C Recommendations: Assisted Living Barriers to Progress Pt. demonstrates poor motivation at times. Target Placement Pt. would benefit from assisted living facility when strength and independence has increased. Treatment Plan/Plan of Care Treatment,Training & Education: Yes Patient would benefit from OT for education, treatment and training to promote independence in ADL's, mobility, safety and/or upper extremity function for ADL' s. Plan of Care: ADL Retraining, Functional Mobility, UE Funct Exercise/Act Treatment Duration: January 06, 2017 # of days/week 5-6 Visits Per Week: 5-6 Agreement: Yes Rehab Potential: Fair Time/GCodes Start Time: 09:00 Stop Time: 09:20 Total Time Billed (hr/min): 20 Billed Treatment Time 1, EVhigh x 20minutes Selfcur- CL Selfgoal-SELENA MILLAN OT Dec 23, 2016 09:51
[2016-12-23 10:28] LABS: BASOPHILS % (AUTO) 1 % (0-10); EOSINOPHILS # (AUTO) 0.2 10^3/uL (0.0-0.3); EOSINOPHILS % (AUTO) 3 % (0-10); LYMPHOCYTES # (AUTO) 1.2 X 10^3 (1.0-4.0); LYMPHOCYTES % (AUTO) 15 % (12-44); MEAN CORPUSCULAR HEMOGLOBIN 29 PG (25-34); MEAN CORPUSCULAR HGB CONC 30 G/DL (32-36); MEAN CORPUSCULAR VOLUME 96 FL (80-99); MEAN PLATELET VOLUME 10.4 FL (7.4-10.4); MONOCYTES # (AUTO) 0.7 X 10^3 (0.0-1.0); MONOCYTES % (AUTO) 9 % (0-12); NEUTROPHILS # (AUTO) 5.6 X 10^3 (1.8-7.8); NEUTROPHILS % (AUTO) 73 % (42-75); PLATELET COUNT 186 10^3/uL (130-400); RED BLOOD COUNT 2.98 10^6/uL (4.35-5.85); RED CELL DISTRIBUTION WIDTH 20.1 % (10.0-14.5); WHITE BLOOD COUNT 7.7 10^3/uL (4.3-11.0)
[2016-12-23] MEDS: RT-ALBUTEROL/IPRATROPIUM 3 ML (DUONEB) VIAL INH SCH ×4 (10:32→23:01)
[2016-12-23 10:49] LABS: ALBUMIN 2.6 G/DL (3.2-4.5); BILIRUBIN,TOTAL 0.5 MG/DL (0.1-1.0); CREATININE SERUM 0.96 MG/DL (0.60-1.30); POTASSIUM 4.2 MMOL/L (3.6-5.0); TOTAL PROTEIN 4.9 G/DL (6.4-8.2)
--- NOTE | 2016-12-23 10:53 | Physical Therapy Evaluation ---
PT Evaluation-General Medical Diagnosis Admission Date Dec 23, 2016 at 03:40 Medical Diagnosis: Respiratory failure Onset Date: Nov 27, 2016 Therapy Diagnosis Therapy Diagnosis: weakness; abn gait Height/Weight Height (Feet): 5 Height (Inches): 3.00 Weight (Pounds): 113 Weight (Ounces): 0.3 Precautions Precautions/Isolations: Fall Prevention, Standard Precautions Weight Bear Status Weight Bearing Restriction: Weight Bearing/Tolerated Referral Physician: Dr. Saundesr Reason for Referral: Evaluation/Treatment Medical History Pertinent Medical History: Atrial Fib, CAD, COPD, GERD, HTN, [place] Additional Medical History TKR, renal failure Current History Pt is a patient on ARU and was transferred to ICU due to acute respiratory failure. Pt had been admitted to ARU post abdominal aortic aneurysm for functional strength and mobility. Reviewed History: Yes Social History Home: Single Level Current Living Status: Alone Entry Into Home: Stairs With Railing PT Steps Into Home: 2 Prior/Core FIM Prior Level of Function Functional [place] Measure 0=Not Assessed/NA 4=Minimal Assistance 1=Total Assistance 5=Supervision or Setup 2=Maximal Assistance 6=Modified [place] 3=Moderate Assistance 7=Complete [place] Prior to aneurysm, pt was indep with all functional mobility and self care; pt' s spouse has recently . PT Evaluation-Current Subjective Agrees to PT, but wants to return to bed. (Pt up in chair currently and has been up to chair for about 40 minutes.) Complains of back pain. Does not want to try to use the walker, wants therapist to assist with transfers. Pain Location: Lower Location Body Site: Back Pain Description: Ache Comment: Nurse notified Objective Patient Orientation: Person, Place, Time, Situation Problem Solving: Fair Attachments: Oxygen, Wheeler Catheter, IV ROM/Strength ROM Lower Extremities WFL AAROM Strenght Lower Extremities grossly 2/5 throughout; weak and needs much encouragement to attempt to move. Integumentary/Posture Integumentary Intact Bowel Incontinence: No Bladder Incontinence: Wheeler Cath Posture normal and symmetrical Neuromuscular (Tone, Coordination, Reflexes) diminished coordinationl B LE's Sensory Vision: Functional Hearing: Functional Hand Dominance: Right Sensation Right Lower Extremit: Intact Sensation Left Lower Extremity: Intact Transfers Functional [place] Measure 0=Not Assessed/NA 4=Minimal Assistance 1=Total Assistance 5=Supervision or Setup 2=Maximal Assistance 6=Modified [place] 3=Moderate Assistance 7=Complete [place] Transfers (B, C, W/C) (FIM): 2 Scootin Supine to/from Sit: 2 Sit to/from Stand: 2 bed t/f WC(FIM only if WC use): 2 max and max encouragement to participate; pt requires max assist with SPT with inability to take steps to turn to surface. Gait Mode of Locomotion: Both Anticipated Mode of Locomotion: Walk Comments/Gait Description Gait not assessed a this evaluation Balance Sitting Static: Good Sitting Dynamic: Fair Standing Static: Poor Standing Dynamic: Poor Treatment Sit to stand x 2. SPT with max assist. Sat EOB x 5 minutes to work on static seated balance and functional act tolerance. IN bed post treatment with needs met. Assessment/Needs Pt presents with gross B LE weakness and impaired ability to transfer or participate in mobility. She needs max encouragement to participate. Pt would benefit from skilled PT intervention to work on functional strength and mobility to allow her to return home. However, question the likelihood of her recovering to the point of returning home alone as before. Co Morbidities that limit functional progress, spouse recently so new to living alone and caring for herself, lengthy hospitalization due to aneurysm, decreased motivation to participate; Body systems affected: LE strength, core strength/balance, functional activity tolerance, respiratory failure; inability to ambulate; unstable in presentation due to recent respiratory failure. Evaluation of high complexity. Rehab Potential: Guarded PT Short Term Goals Short Term Goals Transfers (B,C,W/C) (FIM): 4 PT Crusher Loader Equipment Operator Goals Crusher Loader Equipment Operator Goals PT Crusher Loader Equipment Operator Goals Time Frame: Dec 30, 2016 Transfers (B,C,W/C) (FIM): 4 Gait (FIM): 2 Gait distance (FIM): 1=up to 49 ft Distance: 30 ft Gait Assistive Device: FWW PT Plan Problem List Problem List: Activity Tolerance, Functional Strength, Safety, Balance, Gait, Transfer Treatment/Plan Treatment Plan: Continue Plan of Care Treatment Plan: Bed Mobility, Education, Functional Activity Brad, Functional Strength, Gait, Therapeutic Exercise, Transfers Treatment Duration: Dec 30, 2016 # of days/week 5-6 Visits Per Week: 5-6 Pt/Family Agrees w/Plan: Yes Safety Risks/Education Patient Education: Safety Issues Teaching Recipient: Patient Teaching Methods: Discussion Time/GCodes Time In: 940 Time Out: 1010 Total Billed Treatment Time: 30 Total Billed Treatment visit [facility] 15 FA 15 G Codes Necessary: Yes PT/OT Therapy GCodes Therapy Functional Limitation: Physical Therapy Test(s)/Tool used to determine: Level of Assistance Scale Functional Limitation-Current Charge Code: STAR Modifier: CM Functional Limitation-Goal Charge Code: MOBOMAR Modifier: AVEL ADAMES PT Dec 23, 2016 10:53
--- NOTE | 2016-12-23 11:52 | ST Dysphagia Evaluation ---
Speech Evaluation-General Medical Diagnosis Respiratory failure Onset Date: Nov 27, 2016 Therapy Diagnosis Therapy Diagnosis: Oropharyngeal Swallow WFL Precautions Precautions: Aspiration Precautions/Isolations: Fall Prevention, Standard Precautions Referral Referring Physician: Dr. Boo Saunders Reason for Referral: Evaluation/Treatment Clinical Bedside Swallowing Evaluation Medical History Pertinent Medical History: Atrial Fib, CAD, COPD, GERD, HTN, [place] Reviewed History: Yes Social History Current Living Status: Alone Speech PLF/Current-Dysphagia Prior Level of Function The patient reported she consumed a regular diet with thin liquids prior to admission without any swallowing challenges. Subjective The patient was recently admitted to [facility] following acute respiratory failure. The patient greeted the clinician appropriately and agreed to participate in the dysphagia evaluation on this date. 12/23/16: CXR: Probable right upper lobe pneumonia is a new finding. Aneurysmal mass effect unchanged, COPD and right pleural effusion noted. Cognitive Status Patient Orientation: Person, Place, Time, Situation Oral Motor Skills Dentition: Natural Current Food Consistancy: Regular, Thin Liquids Ability to Follow Directions: Good Oral Expression Ability: Mild Impairment Voice Voice Phonatory-Based Quality: Glottal Rich Voice Pitch: Normal Voice Loudness: Moderately Soft/Quiet Face Facial Symmetry: Symmetrical Oral-Facial Assessment Oral-Facial Dentition: Normal Labial Seal Description: Normal Smile: Normal Puff Cheeks: Normal Lingual Protrusion: Normal Lingual ROM: Normal Lingual Strength: Normal Pharynx Velopharyngeal Move.: Normal Volitional Dry Swallow: Yes Dysphagia Evaluation Consistencies Presented: Regular, Thin Liquid, Mechanical Soft - No oral impairments were noted throughout the evaluation. - No pharyngeal impairments were noted throughout the evaluation. - The patient was evaluated with the contents of her breakfast tray. The patient 's breakfast tray included eggs, toast, orange juice, milk, and water. To note, the patient demonstrated a productive cough at baseline. - Thin liquid, Mechanical Soft, Solid: No signs/symptoms of aspiration were demonstrated with any consistency tested. The patient's vocal quality remained clear throughout the evaluation. The patient's baseline cough did not change in frequency, consistency, or productivity throughout the evaluation. The patient' s SpO2% remained at 95%. Dietary Recommendations: Regular Liquid Recommendations: Thin Swallowing Precautions: Small Bites and Sips, Sitting 90 Degrees 30 Post Intake Dysphagia Evaluation Summary Oropharyngeal Swallow Function grossly WNL Speech-Plan Treatment Plan Speech Therapy Treatment Plan: Discontinue ST Evaluation, only. Rehab Potential: Guarded Safety Risks/Education Teaching Recipient: Patient Teaching Methods: Discussion Response to Teaching: Verbalize Understanding Education Topics Provided: Results, Recommendations, Signs/Symptoms of Aspiration, Swallowing Strategies Time Speech Therapy Time In: 10:20 Speech Therapy Time Out: 10:40 Total Billed Time: 20 Billed Treatment Time 1, DYSEVS Speech GCodes Complexity Level Test(s)/Tool Used to Determine: Level of Assistance Scale Functional Limitation-Current Current: [id number] Modifier: CI Functional Limitation-Goal Goal: SWALGOAL Modifier: CI Functional Limitation-D/C Discharge: [facility] Modifier: CI ELVI LINO Dec 23, 2016 11:52
[2016-12-23 15:25] LABS: ABG BASE EXCESS 2.3 MMOL/L (-2.5-2.5); ABG HCO3 27 MMOL/L (23-27); ABG OXYGEN SATURATION 99 % (94-100); ABG PCO2 40 MMHG (35-45); ABG PH 7.43 (7.37-7.43); ABG PO2 108 MMHG (79-93); ABG TCO2 27.9 MMOL/L (21.0-31.0)
[2016-12-23 15:27] LABS: ALLENS TEST YES-POS
[2016-12-23] MEDS: warFARin 1 MG (COUMADIN) TAB PO SCH (16:42)
[2016-12-23] MEDS: FERROUS SULF 325 MG (IRON) TAB PO SCH (16:42)
[2016-12-23] MEDS ORDERED: ALFUZOSIN HCL 10 MG TAB (UROXATRAL) PO SCH (18:00)
[2016-12-23] MEDS: CEFEPIME INJECTION 2,000 MG in NS (IVPB) 50 ML IV SCH (18:47)
[2016-12-23] MEDS: SIMvastatin 40 MG (ZOCOR) TAB PO SCH (22:24)
[2016-12-23] MEDS: meTOprolol TARTRATE 25 MG (LOPRESSOR) TABLET PO SCH (22:25)
[2016-12-24] VITALS (16 sets, daily range): BP systolic 63–85; BP diastolic 45–63
[2016-12-24] MEDS: RT-ALBUTEROL/IPRATROPIUM 3 ML (DUONEB) VIAL INH SCH ×6 (02:00→22:24)
[2016-12-24] MEDS: methylPREDNISolone 40 MG/ML (Solu-MEDROL) VIAL IV SCH ×4 (03:13→19:57)
[2016-12-24] MEDS: NS IV 1000 ML 1,000 ML IV SCH ×4 (05:04→18:38)
[2016-12-24 05:05] LABS: BASOPHILS % (AUTO) 0 % (0-10); EOSINOPHILS % (AUTO) 0 % (0-10); LYMPHOCYTES # (AUTO) 0.9 X 10^3 (1.0-4.0); LYMPHOCYTES % (AUTO) 9 % (12-44); MEAN CORPUSCULAR HEMOGLOBIN 29 PG (25-34); MEAN CORPUSCULAR HGB CONC 31 G/DL (32-36); MEAN CORPUSCULAR VOLUME 94 FL (80-99); MEAN PLATELET VOLUME 10.6 FL (7.4-10.4); MONOCYTES # (AUTO) 0.2 X 10^3 (0.0-1.0); MONOCYTES % (AUTO) 2 % (0-12); NEUTROPHILS # (AUTO) 8.8 X 10^3 (1.8-7.8); NEUTROPHILS % (AUTO) 89 % (42-75); PLATELET COUNT 180 10^3/uL (130-400); RED BLOOD COUNT 2.76 10^6/uL (4.35-5.85); RED CELL DISTRIBUTION WIDTH 19.2 % (10.0-14.5); WHITE BLOOD COUNT 9.9 10^3/uL (4.3-11.0)
[2016-12-24 05:20] LABS: INR 1.5 (0.8-1.4); PROTHROMBIN TIME PATIENT 17.7 SEC (12.2-14.7)
[2016-12-24 05:32] LABS: BAND NEUTROPHILS 1 %; BASOPHILS % (MANUAL) 0 %; EOSINOPHILS % (MANUAL) 0 %; HYPOCHROMASIA SLIGHT; LYMPHOCYTES % (MANUAL) 5 %; NEUTROPHILS % (MANUAL) 92 %; POLYCHROMASIA SLIGHT
[2016-12-24 05:33] LABS: ANISOCYTOSIS MODERATE; MICROCYTOSIS SLIGHT
[2016-12-24 05:34] LABS: ALANINE AMINOTRANSFERASE 15 U/L (0-55); ALBUMIN 2.6 G/DL (3.2-4.5); ANION GAP 11 MMOL/L (5-14); ASPARTATE AMINO TRANSFERASE 20 U/L (5-34); BILIRUBIN,TOTAL 0.3 MG/DL (0.1-1.0); BLOOD UREA NITROGEN 17 MG/DL (7-18); BUN/CREATININE RATIO 19; CALCIUM 8.2 MG/DL (8.5-10.1); CARBON DIOXIDE 22 MMOL/L (21-32); CHLORIDE 104 MMOL/L (98-107); GFR ESTIMATED > 60; GLUCOSE 202 MG/DL (70-105); MAGNESIUM 1.6 MG/DL (1.8-2.4); POTASSIUM 4.4 MMOL/L (3.6-5.0); SODIUM 137 MMOL/L (135-145); TOTAL PROTEIN 4.8 G/DL (6.4-8.2)
--- NOTE | 2016-12-24 06:34 | Pulmonary Progress Note ---
Subjective Subjective/Events-last exam No complications noted currently. Exam Exam Vital Signs Date Time Temp Pulse Resp B/P (MAP) Pulse Ox O2 Delivery O2 Flow Rate FiO2 12/24/16 04:00 99.2 76 22 74/51 93 40.00 10.00 12/24/16 02:16 97 10.00 45 12/24/16 01:00 76 12/24/16 00:00 94 10.00 40 12/24/16 00:00 99.1 76 20 84/63 94 40.00 10.00 12/23/16 23:01 95 10.00 45 12/23/16 21:00 97 High Flow NC 10.00 40 12/23/16 20:00 95 10.00 40 12/23/16 20:00 98.2 74 23 75/58 95 FIO2 40.00 10.00 12/23/16 19:14 98 10.00 45 12/23/16 19:04 98 10.00 50 12/23/16 19:00 74 12/23/16 16:00 93 15.00 50 12/23/16 16:00 99.7 80/56 94 High Flow NC 50.00 15.00 12/23/16 14:51 99 20.00 60 12/23/16 12:05 92 20.00 60 12/23/16 12:00 93 15.00 50 12/23/16 11:00 68 15 94 High Flow NC 33.00 12/23/16 10:43 97.1 12/23/16 10:35 100 15.00 50 12/23/16 10:13 97.1 12/23/16 10:00 144/86 97 High Flow NC 33.00 12/23/16 09:04 93 12/23/16 09:00 99 High Flow NC 20.00 50 12/23/16 08:00 93 15.00 50 12/23/16 07:56 93 15.00 50 12/23/16 07:00 64 19 128/64 97 High Flow NC 33.00 12/23/16 07:00 66 I & O 12/24/16 07:00 Intake Total 2080 ml Output Total 1600 ml Balance 480 ml General Appearance: No Apparent Distress, Thin HEENT: Normal ENT Inspection Neck: Full Range of Motion, Normal Inspection Respiratory: Chest Non Tender, No Accessory Muscle Use, No Respiratory Distress Cardiovascular: Regular Rate, Rhythm, No Murmur Gastrointestinal: normal bowel sounds, non tender Extremity: Normal Capillary Refill, Normal Inspection Neurologic/Psychiatric: Alert, Oriented x3 Skin: Normal Color, Warm/Dry Results Lab Laboratory Tests 12/23/16 10:22 12/24/16 04:45 Assessment/Plan Assessment/Plan -Acute respiratory distress - now improved -Trial pt back on regular NC COPDAE -SVNS, oxygen -add solumedrol Hypotension -Decrease lopressor -500 NS bolus Probable CHARISMA -Out patient testing May be able to transfer back to rehab if her BP improves. Clinical Quality Measures DVT/VTE Risk/Contraindication: Risk Factor Score Per Nursin RFS Level Per Nursing on Admit: 4+=Very High Contraindications-Pharm: Other *list below* FRITZ MADRIGAL DO Dec 24, 2016 06:34
[2016-12-24] MEDS ORDERED: NS IV 500 ML 500 ML IV SCH (06:36)
[2016-12-24] MEDS: RT-ADVAIR HFA 115/21 MCG PER PUFF IH SCH ×2 (07:02→19:02)
[2016-12-24] MEDS ORDERED: MAGNESIUM 1 GM/100 ML IVPB 100 ML IV NR (07:30)
--- NOTE | 2016-12-24 07:32 | Progress Note (SOAP) ---
Subjective Subjective/Events-last exam acute respiratory failure. Pneumonia. infection. Patient hypotensive. Patient feeling better today and having no problems Objective Exam Vital Signs Date Time Temp Pulse Resp B/P (MAP) Pulse Ox O2 Delivery O2 Flow Rate FiO2 12/24/16 07:01 97 6.00 12/24/16 04:00 99.2 76 22 74/51 93 40.00 10.00 12/24/16 04:00 94 10.00 40 12/24/16 02:16 97 10.00 45 12/24/16 01:00 76 12/24/16 00:00 94 10.00 40 12/24/16 00:00 99.1 76 20 84/63 94 40.00 10.00 12/23/16 23:01 95 10.00 45 12/23/16 21:00 97 High Flow [place] 10.00 40 12/23/16 20:00 95 10.00 40 12/23/16 20:00 98.2 74 23 75/58 95 FIO2 40.00 10.00 12/23/16 19:14 98 10.00 45 12/23/16 19:04 98 10.00 50 12/23/16 19:00 74 12/23/16 16:00 93 15.00 50 12/23/16 16:00 99.7 80/56 94 High Flow NC 50.00 15.00 12/23/16 14:51 99 20.00 60 12/23/16 12:05 92 20.00 60 12/23/16 12:00 93 15.00 50 12/23/16 11:00 68 15 94 High Flow NC 33.00 12/23/16 10:43 97.1 12/23/16 10:35 100 15.00 50 12/23/16 10:13 97.1 12/23/16 10:00 144/86 97 High Flow NC 33.00 12/23/16 09:04 93 12/23/16 09:00 99 High Flow NC 20.00 50 12/23/16 08:00 93 15.00 50 12/23/16 07:56 93 15.00 50 I & O 12/24/16 07:00 Intake Total 2080 ml Output Total 1600 ml Balance 480 ml Capillary Refill : General Appearance: No Apparent Distress, Thin HEENT: Normal ENT Inspection Neck: Full Range of Motion, Normal Inspection Respiratory: Chest Non Tender, Lungs Clear, No Accessory Muscle Use, No Respiratory Distress Cardiovascular: Regular Rate, Rhythm, No Murmur Gastrointestinal: non tender, soft Results Lab Laboratory Tests 12/23/16 10:22 12/24/16 04:45 Laboratory Tests 12/23/16 10:22: White Blood Count 7.7, Red Blood Count 2.98L, Hemoglobin 8.6L, Hematocrit 29L, Mean Corpuscular Volume 96, Mean Corpuscular Hemoglobin 29, Mean Corpuscular Hemoglobin Concent 30L, Red Cell Distribution Width 20.1H, Platelet Count 186, Mean Platelet Volume 10.4, Neutrophils (%) (Auto) 73, Lymphocytes (%) (Auto) 15 , Monocytes (%) (Auto) 9, Eosinophils (%) (Auto) 3, Basophils (%) (Auto) 1, Neutrophils # (Auto) 5.6, Lymphocytes # (Auto) 1.2, Monocytes # (Auto) 0.7, Eosinophils # (Auto) 0.2, Basophils # (Auto) 0.0, Sodium Level 141, Potassium Level 4.2, Chloride Level 105, Carbon Dioxide Level 30, Anion Gap 6, Blood Urea Nitrogen 15, Creatinine 0.96, Estimat Glomerular Filtration Rate 57, BUN/ Creatinine Ratio 16, Glucose Level 145H, Calcium Level 8.0L, Total Bilirubin 0.5 , Aspartate Amino Transf (AST/SGOT) 19, Alanine Aminotransferase (ALT/SGPT) 13, Alkaline Phosphatase 82, Total Protein 4.9L, Albumin 2.6L 12/23/16 14:43: Blood Gas Puncture Site RR, Blood Gas Patient Temperature 96.0, Arterial Blood pH 7.43, Arterial Blood Partial Pressure CO2 40, Arterial Blood Partial Pressure O2 108H, Arterial Blood HCO3 27, Arterial Blood Total CO2 27.9, Arterial Blood Oxygen Saturation 99, Arterial Blood Base Excess 2.3, Guy Test YES-POS, Blood Gas Ventilator Setting NO, Blood Gas Inspired Oxygen 60 12/24/16 00:54: Glucometer 205H 12/24/16 04:45: White Blood Count 9.9, Red Blood Count 2.76L, Hemoglobin 8.0L, Hematocrit 26L, Mean Corpuscular Volume 94, Mean Corpuscular Hemoglobin 29, Mean Corpuscular Hemoglobin Concent 31L, Red Cell Distribution Width 19.2H, Platelet Count 180, Mean Platelet Volume 10.6H, Neutrophils (%) (Auto) 89H, Lymphocytes (%) (Auto) 9L, Monocytes (%) (Auto) 2, Eosinophils (%) (Auto) 0, Basophils (%) (Auto) 0, Neutrophils # (Auto) 8.8H, Lymphocytes # (Auto) 0.9L, Monocytes # (Auto) 0.2, Eosinophils # (Auto) 0.0, Basophils # (Auto) 0.0, Sodium Level 137, Potassium Level 4.4, Chloride Level 104, Carbon Dioxide Level 22, Anion Gap 11, Blood Urea Nitrogen 17, Creatinine 0.90, Estimat Glomerular Filtration Rate > 60, BUN/ Creatinine Ratio 19, Glucose Level 202H, Calcium Level 8.2L, Total Bilirubin 0.3 , Aspartate Amino Transf (AST/SGOT) 20, Alanine Aminotransferase (ALT/SGPT) 15, Alkaline Phosphatase 82, Total Protein 4.8L, Albumin 2.6L, Neutrophils % (Manual ) 92, Lymphocytes % (Manual) 5, Monocytes % (Manual) 2, Eosinophils % (Manual) 0 , Basophils % (Manual) 0, Band Neutrophils 1, Polychromasia SLIGHT, Hypochromasia SLIGHT, Basophilic Stippling SLIGHT, Anisocytosis MODERATE, Microcytosis SLIGHT, Macrocytosis MODERATE, Elliptocytes SLIGHT, Prothrombin Time 17.7H, INR Comment 1.5H, Phosphorus Level 3.0, Magnesium Level 1.6L Assessment/Plan Assessment/Plan Assess & Plan/Chief Complaint acute respiratory failure resolved. Pneumonia. infection. Patient feeling better today. Hypotensive. Hypomagnesemia Clinical Quality Measures DVT/VTE Risk/Contraindication: Risk Factor Score Per Nursin RFS Level Per Nursing on Admit: 4+=Very High Contraindications-Pharm: Other *list below* ROMAIN MARSH DO Dec 24, 2016 07:32
[2016-12-24] MEDS: KCL 10 MEQ TAB (MICRO K) PO SCH (07:48)
[2016-12-24] MEDS: FERROUS SULF 325 MG (IRON) TAB PO SCH ×3 (07:48→17:02)
[2016-12-24] MEDS: PANTOPRAZOLE 40 MG (PROTONIX) TAB PO SCH ×2 (07:48→17:02)
[2016-12-24] MEDS: meTOprolol TARTRATE 25 MG (LOPRESSOR) TABLET PO SCH ×2 (08:55→21:12)
[2016-12-24] MEDS: NICOTINE 14 MG (NICODERM) PATCH TD SCH (09:00)
[2016-12-24] MEDS: FUROSEMIDE 20 MG (LASIX) TAB PO SCH (09:21)
[2016-12-24] MEDS: POLYETHYLENE GLYCOL 17 GM (MIRALAX) PACK PO SCH ×2 (09:21→21:12)
[2016-12-24] MEDS: ASPIRIN E.C. 325 MG (ECOTRIN) TABLET PO SCH (09:21)
[2016-12-24] MEDS: CEFEPIME INJECTION 2,000 MG in NS (IVPB) 50 ML IV SCH (09:21)
[2016-12-24] MEDS: NICOTINE PATCH REMOVAL TP SCH (09:22)
[2016-12-24] MEDS: FLUTICASONE NASAL SPRAY (FLONASE) 16 GM BTL NS SCH (09:23)
--- NOTE | 2016-12-24 10:16 | Diagnostic Imaging Report ---
EXAMINATION: Portable upright radiograph of the chest. INDICATION: Respiratory distress. FINDINGS: There is a descending thoracic aortic aneurysm measuring 8.6 cm in size with a descending thoracic endoprosthesis again seen without significant change. Improving right perihilar and basilar infiltrates are seen. The heart size is significantly enlarged. The mediastinum and anastasia appear unremarkable. No significant effusion. IMPRESSION: 1. Improving right perihilar and basilar infiltrates. 2. Stable descending thoracic aneurysm. Dictated by: Dictated on workstation # [id number]
--- NOTE | 2016-12-24 11:16 | Occupational Ther Daily Note ---
OT Current Status-Daily Note Subjective Pt sitting in chair, agrees to therapy, but reports she doesn't think she can do much. Pt reports 8/10 low back pain. Mental Status/Objective Functional [place] Measure 0=Not Assessed/NA 4=Minimal Assistance 1=Total Assistance 5=Supervision or Setup 2=Maximal Assistance 6=Modified [place] 3=Moderate Assistance 7=Complete [place] Attachments: Wheeler Catheter, IV, Oxygen Other Treatment Pt had just been assisted to chair with nursing. Pt agrees to UE exercises. Pt performed bilateral UE AROM exercises to promote increased strength and activity tolerance needed for functional task completion. Pt performed AROM x10 reps in all planes with frequent rest breaks. Bilateral hand community development manager exercises x15 reps with minimal resistance therapy foam. Assisted pt to reposition in chair per pt request. Pt declined further activity stating "that's all I can do." Pt sitting in chair with needs met after session. OT Short Term Goals Short Term Goals Time Frame: Dec 30, 2016 Eating(FIM): 5 Grooming(FIM): 5 Bathing(FIM): 4 Upper Body Dressing(FIM): 4 Lower Body Dressing(FIM): 4 Toileting(FIM): 4 Transfers (B,C,W/C) (FIM): 4 Toilet/Commode Transfer(FIM): 4 Additional Short Term Goals: 1-Demonstrate ADL Tasks, 2-Verbalize Understanding , 3-ImproveStrength/Brad 1=Demonstrate adherence to instructed precautions during ADL tasks. 2=Patient will verbalize/demonstrate understanding of assistive devices/ modifications for ADL. 3=Patient will improve strength/tolerance for activity to enable patient to perform ADL's. OT Correction Goals Correction Goals Time Frame: January 06, 2017 Eating (FIM): 6 Grooming(FIM): 6 Bathing(FIM): 5 Upper Body Dressing(FIM): 6 Lower Body Dressing(FIM): 6 Toileting(FIM): 6 Transfers (B,C,W/C) (FIM): 6 Toilet/Commode Transfer(FIM): 6 Shower Transfer(FIM): 5 Additional Goals: 1-Demonstrate ADL Tasks, 2-Verbalize Understanding, 3- ImproveStrength/Brad 1=Demonstrate adherence to instructed precautions during ADL tasks. 2=Patient will verbalize/demonstrate understanding of assistive devices/ modifications for ADL. 3=Patient will improve strength/tolerance for activity to enable patient to perform ADL's. OT Education/Plan Discharge Recommendations Plan/Recommendations: Continue POC Treatment Plan/Plan of Care Patient would benefit from OT for education, treatment and training to promote independence in ADL's, mobility, safety and/or upper extremity function for ADL' s. Plan of Care: ADL Retraining, Functional Mobility, UE Funct Exercise/Act Treatment Duration: January 06, 2017 Visits Per Week: 5-6 Agreement: Yes Rehab Potential: Guarded Time/GCodes Start Time: 10:13 Stop Time: 10:27 Total Time Billed (hr/min): 14 Billed Treatment Time 1 visit, Ex(14minutes) PT/OT Therapy GCodes Therapy Functional Limitation: Physical Therapy Test(s)/Tool used to determine: Level of Assistance Scale Functional Limitation-Current Charge Code: MOBCUR Modifier: CI Functional Limitation-Goal Charge Code: MOBGOAL Modifier: CI AYAAN PLUNKETT OT Dec 24, 2016 11:16
--- NOTE | 2016-12-24 11:20 | Physical Therapy Progress Note ---
Therapy Progress Note visit only. Pt has already been up to the chair and has returned to bed. Nursing reports pt experiencing low blood pressure this morning and requests to hold off on PT at this time. AVEL BAZZI PT Dec 24, 2016 11:20
--- NOTE | 2016-12-24 12:42 | Physical Therapy Progress Note ---
Therapy Progress Note Attempted visit again to try to sit her up in chair; nursing asked to hold off due to continued low blood pressure. Will check pt tomorrow. AVEL BAZZI PT Dec 24, 2016 12:42
[2016-12-24] MEDS ORDERED: NS IV 500 ML 500 ML IV ONE (13:30)
[2016-12-24] MEDS: warFARin 1 MG (COUMADIN) TAB PO SCH (17:09)
[2016-12-24] MEDS: SENNA W/DOCUSATE (SENOKOT S) TABLET PO PRN (17:09)
[2016-12-24] MEDS: SIMvastatin 40 MG (ZOCOR) TAB PO SCH (21:12)
[2016-12-25] MEDS: methylPREDNISolone 40 MG/ML (Solu-MEDROL) VIAL IV SCH ×3 (01:01→14:12)
[2016-12-25] MEDS: RT-ALBUTEROL/IPRATROPIUM 3 ML (DUONEB) VIAL INH SCH ×4 (02:37→14:58)
[2016-12-25 04:13] LABS: BASOPHILS % (AUTO) 0 % (0-10); EOSINOPHILS % (AUTO) 0 % (0-10); LYMPHOCYTES # (AUTO) 0.5 X 10^3 (1.0-4.0); LYMPHOCYTES % (AUTO) 5 % (12-44); MEAN CORPUSCULAR HEMOGLOBIN 29 PG (25-34); MEAN CORPUSCULAR HGB CONC 31 G/DL (32-36); MEAN CORPUSCULAR VOLUME 94 FL (80-99); MEAN PLATELET VOLUME 10.4 FL (7.4-10.4); MONOCYTES # (AUTO) 0.4 X 10^3 (0.0-1.0); MONOCYTES % (AUTO) 4 % (0-12); NEUTROPHILS # (AUTO) 9.6 X 10^3 (1.8-7.8); NEUTROPHILS % (AUTO) 91 % (42-75); PLATELET COUNT 199 10^3/uL (130-400); RED BLOOD COUNT 2.77 10^6/uL (4.35-5.85); RED CELL DISTRIBUTION WIDTH 19.6 % (10.0-14.5); WHITE BLOOD COUNT 10.5 10^3/uL (4.3-11.0)
[2016-12-25 04:29] LABS: INR 1.6 (0.8-1.4); PROTHROMBIN TIME PATIENT 18.8 SEC (12.2-14.7)
[2016-12-25 04:38] LABS: MAGNESIUM 1.9 MG/DL (1.8-2.4); PHOSPHORUS 2.8 MG/DL (2.3-4.7)
[2016-12-25 04:54] LABS: CALCIUM 7.9 MG/DL (8.5-10.1); CREATININE SERUM 0.91 MG/DL (0.60-1.30); POTASSIUM 3.7 MMOL/L (3.6-5.0)
[2016-12-25] MEDS: RT-ADVAIR HFA 115/21 MCG PER PUFF IH SCH ×2 (06:32→06:36)
[2016-12-25] MEDS: FERROUS SULF 325 MG (IRON) TAB PO SCH ×2 (06:54→14:12)
[2016-12-25] MEDS: KCL 10 MEQ TAB (MICRO K) PO SCH (06:54)
[2016-12-25] MEDS: PANTOPRAZOLE 40 MG (PROTONIX) TAB PO SCH (06:54)
--- NOTE | 2016-12-25 06:55 | Pulmonary Progress Note ---
Subjective Subjective/Events-last exam PT is doing much better. Exam Exam Vital Signs Date Time Temp Pulse Resp B/P (MAP) Pulse Ox O2 Delivery O2 Flow Rate FiO2 12/25/16 06:32 2.00 12/25/16 06:23 98 3.00 12/25/16 04:00 99.4 High Flow NC 3.00 12/25/16 04:00 97 3.00 12/25/16 02:37 97 3.00 12/25/16 01:00 81 12/25/16 00:00 99.9 12/25/16 00:00 98 3.00 12/24/16 22:24 96 3.00 12/24/16 21:00 97 High Flow NC 3.00 12/24/16 20:00 98 3.00 12/24/16 20:00 100.0 12/24/16 19:02 93 3.00 12/24/16 19:00 76 12/24/16 18:58 93 3.00 12/24/16 17:45 86 83/62 12/24/16 16:00 98.3 85 20 72/47 95 High Flow NC 3.00 12/24/16 16:00 96 3.00 12/24/16 15:15 89 85/49 12/24/16 14:45 85 69/49 68/48 12/24/16 14:15 80 67/50 12/24/16 13:38 94 3.00 12/24/16 13:00 81 68/50 12/24/16 13:00 78 12/24/16 12:45 90 75/56 12/24/16 12:30 69/49 68/46 12/24/16 12:00 94 3.00 12/24/16 12:00 80 63/49 12/24/16 11:30 97.9 83 26 67/47 94 High Flow NC 3.00 12/24/16 11:27 99 6.00 12/24/16 10:50 84 72/45 12/24/16 09:00 94 High Flow NC 5.00 12/24/16 09:00 80 77/53 12/24/16 08:00 97.8 76 22 74/58 94 High Flow NC 6.00 12/24/16 08:00 94 6.00 12/24/16 07:01 97 6.00 12/24/16 07:00 66 I & O 12/25/16 07:00 Intake Total 4180 ml Output Total 3810 ml Balance 370 ml General Appearance: No Apparent Distress, Thin HEENT: Normal ENT Inspection Neck: Full Range of Motion, Normal Inspection Respiratory: Chest Non Tender, Lungs Clear, No Accessory Muscle Use, No Respiratory Distress Cardiovascular: Regular Rate, Rhythm, No Murmur Gastrointestinal: non tender, soft Extremity: Normal Capillary Refill, Normal Inspection Neurologic/Psychiatric: Alert, Oriented x3 Skin: Normal Color, Warm/Dry Results Lab Laboratory Tests 12/23/16 10:22 12/24/16 04:45 12/25/16 04:03 Assessment/Plan Assessment/Plan -Acute respiratory distress - now improved -Trial pt back on regular [place] COPDAE -SVNS, oxygen -add solumedrol Hypotension - improved -Decrease lopressor and hold for SBP <100 Probable CHARISMA -Out patient testing Pt is ok from my stand point to go back to rehab. Clinical Quality Measures DVT/VTE Risk/Contraindication: Risk Factor Score Per Nursin RFS Level Per Nursing on Admit: 4+=Very High Contraindications-Pharm: Other *list below* FRITZ MADRIGAL DO Dec 25, 2016 06:55
[2016-12-25] MEDS ORDERED: PIPERACILLIN SODIUM/TAZOBACTAM 4.5 GM in NS (IVPB) 100 ML IV NR (07:01)
--- NOTE | 2016-12-25 07:31 | Progress Note (SOAP) ---
Subjective Subjective/Events-last exam patient feeling better today. Sputum culture moderate growth for pseudomonas aeruginosa. Acute respiratory distress. COPD with acute exacerbation. Debility. Hypotension. Stop Uroxatral Objective Exam Vital Signs Date Time Temp Pulse Resp B/P (MAP) Pulse Ox O2 Delivery O2 Flow Rate FiO2 12/25/16 06:32 2.00 12/25/16 06:23 98 3.00 12/25/16 04:00 99.4 High Flow NC 3.00 12/25/16 04:00 97 3.00 12/25/16 02:37 97 3.00 12/25/16 01:00 81 12/25/16 00:00 99.9 12/25/16 00:00 98 3.00 12/24/16 22:24 96 3.00 12/24/16 21:00 97 High Flow NC 3.00 12/24/16 20:00 98 3.00 12/24/16 20:00 100.0 12/24/16 19:02 93 3.00 12/24/16 19:00 76 12/24/16 18:58 93 3.00 12/24/16 17:45 86 83/62 12/24/16 16:00 98.3 85 20 72/47 95 High Flow NC 3.00 12/24/16 16:00 96 3.00 12/24/16 15:15 89 85/49 12/24/16 14:45 85 69/49 68/48 12/24/16 14:15 80 67/50 12/24/16 13:38 94 3.00 12/24/16 13:00 81 68/50 12/24/16 13:00 78 12/24/16 12:45 90 75/56 12/24/16 12:30 69/49 68/46 12/24/16 12:00 94 3.00 12/24/16 12:00 80 63/49 12/24/16 11:30 97.9 83 26 67/47 94 High Flow NC 3.00 12/24/16 11:27 99 6.00 12/24/16 10:50 84 72/45 12/24/16 09:00 94 High Flow NC 5.00 12/24/16 09:00 80 77/53 12/24/16 08:00 97.8 76 22 74/58 94 High Flow NC 6.00 12/24/16 08:00 94 6.00 I & O 12/25/16 07:00 Intake Total 4180 ml Output Total 3810 ml Balance 370 ml Capillary Refill : General Appearance: No Apparent Distress, Thin HEENT: Normal ENT Inspection Neck: Normal Inspection Respiratory: Chest Non Tender, No Accessory Muscle Use, No Respiratory Distress Cardiovascular: Regular Rate, Rhythm, No Murmur Gastrointestinal: non tender, soft Results Lab Laboratory Tests 12/25/16 04:03 Laboratory Tests 12/24/16 16:06: Glucometer 287H 12/24/16 21:31: Glucometer 219H 12/25/16 04:03: White Blood Count 10.5, Red Blood Count 2.77L, Hemoglobin 8.1L, Hematocrit 26L, Mean Corpuscular Volume 94, Mean Corpuscular Hemoglobin 29, Mean Corpuscular Hemoglobin Concent 31L, Red Cell Distribution Width 19.6H, Platelet Count 199, Mean Platelet Volume 10.4, Neutrophils (%) (Auto) 91H, Lymphocytes (%) (Auto) 5L , Monocytes (%) (Auto) 4, Eosinophils (%) (Auto) 0, Basophils (%) (Auto) 0, Neutrophils # (Auto) 9.6H, Lymphocytes # (Auto) 0.5L, Monocytes # (Auto) 0.4, Eosinophils # (Auto) 0.0, Basophils # (Auto) 0.0, Prothrombin Time 18.8H, INR Comment 1.6H, Sodium Level 142, Potassium Level 3.7, Chloride Level 108H, Carbon Dioxide Level 25, Anion Gap 9, Blood Urea Nitrogen 20H, Creatinine 0.91, Estimat Glomerular Filtration Rate 60, BUN/Creatinine Ratio 22, Glucose Level 176H, Calcium Level 7.9L, Phosphorus Level 2.8, Magnesium Level 1.9 Microbiology 12/23/16 Gram Stain - Final, Complete 12/23/16 Sputum Culture - Final, Complete Pseudomonas Aeruginosa Assessment/Plan Assessment/Plan Assess & Plan/Chief Complaint acute respiratory failure resolved. Pneumonia. infection. Patient feeling better today. Hypotensive. Hypomagnesemia. . Acute respiratory distress. Pneumonia. Pseudomonas aeruginosa. from sputum moderate growth Hypotension. COPD with acute exacerbation. Clinical Quality Measures DVT/VTE Risk/Contraindication: Risk Factor Score Per Nursin RFS Level Per Nursing on Admit: 4+=Very High Contraindications-Pharm: Other *list below* ROMAIN MARSH DO Dec 25, 2016 07:31
[2016-12-25 08:00] VITALS: BP 92/62
[2016-12-25] MEDS: POLYETHYLENE GLYCOL 17 GM (MIRALAX) PACK PO SCH (08:27)
[2016-12-25] MEDS: SENNA W/DOCUSATE (SENOKOT S) TABLET PO PRN (08:27)
[2016-12-25] MEDS: CEFEPIME INJECTION 2,000 MG in NS (IVPB) 50 ML IV SCH (08:28)
[2016-12-25] MEDS: NICOTINE PATCH REMOVAL TP SCH (08:28)
[2016-12-25] MEDS: NICOTINE 14 MG (NICODERM) PATCH TD SCH (08:28)
[2016-12-25] MEDS: FLUTICASONE NASAL SPRAY (FLONASE) 16 GM BTL NS SCH (08:29)
[2016-12-25] MEDS: ASPIRIN E.C. 325 MG (ECOTRIN) TABLET PO SCH (08:29)
[2016-12-25] MEDS: FUROSEMIDE 20 MG (LASIX) TAB PO SCH (08:29)
[2016-12-25] MEDS: meTOprolol TARTRATE 25 MG (LOPRESSOR) TABLET PO SCH (08:30)
--- NOTE | 2016-12-25 09:12 | Diagnostic Imaging Report ---
EXAMINATION: Portable upright radiograph of the chest. INDICATION: Respiratory distress. 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 There is improvement in the right perihilar infiltrate. There is remaining mild right basilar infiltrate. The heart size is moderately enlarged. No pneumothorax. There is a small right pleural effusion. IMPRESSION: Improving right perihilar infiltrate. Remaining mild right basilar infiltrate and small right pleural effusion. Dictated by: Dictated on workstation # [id number]
--- NOTE | 2016-12-25 11:21 | Occupational Ther Daily Note ---
OT Current Status-Daily Note Subjective Pt in bed, agrees to treatment. Pt reports "discomfort" in back and abdomen. Mental Status/Objective Functional [place] Measure 0=Not Assessed/NA 4=Minimal Assistance 1=Total Assistance 5=Supervision or Setup 2=Maximal Assistance 6=Modified [place] 3=Moderate Assistance 7=Complete [place] Attachments: Wheeler Catheter, IV, Oxygen Other Treatment Pt states she just returned to bed after sitting up in chair. Pt agrees to bed level activity. Pt performed bilateral UE exercises to promote increased strength and activity tolerance needed for functional task completion. Pt performed AROM x12 reps in all planes. Rest breaks between all exercises. Bilateral hand kiln fireman exercises x15 reps with minimal resistance therapy foam. Assist x2 required to scoot pt to HOB and reposition. Pt in bed with needs met after session. OT Short Term Goals Short Term Goals Time Frame: Dec 30, 2016 Eating(FIM): 5 Grooming(FIM): 5 Bathing(FIM): 4 Upper Body Dressing(FIM): 4 Lower Body Dressing(FIM): 4 Toileting(FIM): 4 Transfers (B,C,W/C) (FIM): 4 Toilet/Commode Transfer(FIM): 4 Additional Short Term Goals: 1-Demonstrate ADL Tasks, 2-Verbalize Understanding , 3-ImproveStrength/Brad 1=Demonstrate adherence to instructed precautions during ADL tasks. 2=Patient will verbalize/demonstrate understanding of assistive devices/ modifications for ADL. 3=Patient will improve strength/tolerance for activity to enable patient to perform ADL's. OT Snf Goals Raw Silk Grader Goals Time Frame: January 06, 2017 Eating (FIM): 6 Grooming(FIM): 6 Bathing(FIM): 5 Upper Body Dressing(FIM): 6 Lower Body Dressing(FIM): 6 Toileting(FIM): 6 Transfers (B,C,W/C) (FIM): 6 Toilet/Commode Transfer(FIM): 6 Shower Transfer(FIM): 5 Additional Goals: 1-Demonstrate ADL Tasks, 2-Verbalize Understanding, 3- ImproveStrength/Brad 1=Demonstrate adherence to instructed precautions during ADL tasks. 2=Patient will verbalize/demonstrate understanding of assistive devices/ modifications for ADL. 3=Patient will improve strength/tolerance for activity to enable patient to perform ADL's. OT Education/Plan Discharge Recommendations Plan/Recommendations: Continue POC Treatment Plan/Plan of Care Patient would benefit from OT for education, treatment and training to promote independence in ADL's, mobility, safety and/or upper extremity function for ADL' s. Plan of Care: ADL Retraining, Functional Mobility, UE Funct Exercise/Act Treatment Duration: January 06, 2017 Visits Per Week: 5-6 Agreement: Yes Rehab Potential: Guarded Time/GCodes Start Time: 10:40 Stop Time: 10:58 Total Time Billed (hr/min): 18 Billed Treatment Time 1 visit, EX(18minutes) PT/OT Therapy GCodes Therapy Functional Limitation: Physical Therapy Test(s)/Tool used to determine: Level of Assistance Scale Functional Limitation-Current Charge Code: MOBCUR Modifier: CI Functional Limitation-Goal Charge Code: MOBGOAL Modifier: CI AYAAN PLUNKETT OT Dec 25, 2016 11:21
--- NOTE | 2016-12-25 11:38 | Physical Therapy Daily Note ---
PT Daily Note-Current Subjective Agreeable to get out of bed to chair. Discussed return to ARU versus other options. Pt expresses that if she returned to ARU "it would need to be stepped down a notch because it is difficult" to complete 3 hrs of therapy. Pt expresses that she does not have family to stay with her or to live with. Reports "it would be hard for my children to see me in a intermediate." Mental Status Patient Orientation: Person, Place, Time, Situation Transfers Functional [place] Measure 0=Not Assessed/NA 4=Minimal Assistance 1=Total Assistance 5=Supervision or Setup 2=Maximal Assistance 6=Modified [place] 3=Moderate Assistance 7=Complete IndependenceIRFPAI Quality Coding Scale 6 Independent with activity with or without an assistive device 5 Patient requires set up or clean up by helper. Patient completes activity by themselves 4 Supervision or touching assist (CGA). [place] provide cues , steadying assist 3 The helper provides less than half the effort to complete the activity 2 The helper provides more than half the effort to complete the activity 1 Dependent. The helper does all the effort to complete an activity 7 Patient refused to complete or attempt activity 9 The patient did not perform the activity before the current illness or injury 88 Not attempted due to Medical conditions or safety concerns Transfers (B, C, W/C) (FIM): 3 Supine to/from Sit: 3 Sit to/from Stand: 4 Bed to/from Chair: 4 Needs mod assist to sit up in bed able to sit EOB with CGA, with complaints of feeling "woozy". Sit to stand with min assist and SPT with FWW with very close CGA. Pt up in chair post treatment iwth needs met. BP taken in supine prior to treatment: 73/60; sitting EOB 82/68 and post transfer up in chair 80/62. O2 in situ during and post treatment. Treatments Functional mobility with bed mobility and transfers Assessment BP remains low. Pt did seem to be brighter today, but apprehensive about returning to ARU for therapy services. However, expresses that she doesn't particularly want to go to a NH. This clinician feels that 3 hrs of therapy a day would be difficult for her to complete. She has limited functional activity tolerance, becomes SOA quickly and does need encouragement to agree to participate often times. PT Short Term Goals Short Term Goals Transfers (B,C,W/C) (FIM): 4 PT Correction Goals Correction Goals PT Putty Tinter Maker Goals Time Frame: Dec 30, 2016 Transfers (B,C,W/C) (FIM): 4 Gait (FIM): 2 Gait distance (FIM): 1=up to 49 ft Distance: 30 ft Gait Assistive Device: FWW PT Plan Problem List Problem List: Activity Tolerance, Functional Strength, Safety, Balance, Gait, Transfer, Bed Mobility Treatment/Plan Treatment Plan: Continue Plan of Care Treatment Plan: Bed Mobility, Education, Functional Activity Brad, Functional Strength, Gait, Therapeutic Exercise, Transfers Treatment Duration: Dec 30, 2016 Visits Per Week: 5-6 Safety Risks/Education Patient Education: Transfer Techniques, Safety Issues Teaching Recipient: Patient Teaching Methods: Demonstration, Discussion Response to Teaching: Reinforcement Needed Discharge Recommendations Plan Follow with SW and discharge planning team on dc destination that is best suited for this patient. Time/GCodes Time In: 948 Time Out: 1012 Total Billed Treatment Time: 24 Total Billed Treatment visit FA 24 PT/OT Therapy GCodes Therapy Functional Limitation: Physical Therapy Test(s)/Tool used to determine: Level of Assistance Scale Functional Limitation-Current Charge Code: MOBCUR Modifier: CI Functional Limitation-Goal Charge Code: MOBGOAL Modifier: CI AVEL BAZZI PT Dec 25, 2016 11:37
[2016-12-25 12:00] VITALS: BP 92/62
[2016-12-25] MEDS ORDERED: SODIUM CHLORIDE IV SCH ×2 (13:00)
[2016-12-25] MEDS ORDERED: TAZOBACTAM IV SCH ×2 (13:00)
[2016-12-25] MEDS ORDERED: PIPERACILLIN SODIUM IV SCH ×2 (13:00)
[2016-12-25] MEDS ORDERED: PIPERACILLIN SODIUM/TAZOBACTAM 4.5 GM in NS (IVPB) 100 ML IV SCH (15:00)
[2016-12-25] MEDS ORDERED: warFARin 2 MG (COUMADIN) TAB PO SCH (18:00)
[2016-12-25] MEDS ORDERED: IPRA3AMP INH (18:21)
[2016-12-25] MEDS ORDERED: FERR-74 PO (18:21)
--- NOTE | 2017-01-09 07:14 | Discharge Summary ---
Diagnosis/Chief Complaint Date of Admission Dec 23, 2016 at 13:17 Date of Discharge Dec 25, 2016 at 14:23 Discharge Date: Dec 25, 2016 Discharge Time: 1420 Admission Diagnosis Admission Diagnosis acute respiratory failure. COPD. Coronary artery disease. Thoracically aortic aneurysm [facility] had surgery History of DVT Discharge Diagnosis acute respiratory failure. Coronary artery disease. COPD with acute exacerbation. DO NOT RESUSCITATE. Essential hypertension. GERD. Hypomagnesemia. Hypotension. Pneumonia. Pseudomonas aeruginosa. Coronary artery disease. Thoracic aortic aneurysm Reason Hospital Visit patient in hospital in acute rehabilitation. Patient went into acute respiratory failure. Patient transferred to cardiac stepdown. Patient has a history of COPD area Coronary artery disease. Thoracic ordered aneurysm surgery at . DVT at . Patient does have some confusion. Patient this morning breathing much better Discharge Summary Consultations pulmonology Discharge Physical Examination Allergies: Coded Allergies: No Known Drug Allergies (Unverified , 12/18/16) Hospital Course patient did better and transferred back to acute rehabilitation Labs (last 24 hrs) Laboratory Tests 12/23/16 03:35: Phosphorus Level 3.4, Magnesium Level 1.9 12/23/16 10:22: White Blood Count 7.7, Red Blood Count 2.98L, Hemoglobin 8.6L, Hematocrit 29L, Mean Corpuscular Volume 96, Mean Corpuscular Hemoglobin 29, Mean Corpuscular Hemoglobin Concent 30L, Red Cell Distribution Width 20.1H, Platelet Count 186, Mean Platelet Volume 10.4, Neutrophils (%) (Auto) 73, Lymphocytes (%) (Auto) 15 , Monocytes (%) (Auto) 9, Eosinophils (%) (Auto) 3, Basophils (%) (Auto) 1, Neutrophils # (Auto) 5.6, Lymphocytes # (Auto) 1.2, Monocytes # (Auto) 0.7, Eosinophils # (Auto) 0.2, Basophils # (Auto) 0.0, Sodium Level 141, Potassium Level 4.2, Chloride Level 105, Carbon Dioxide Level 30, Anion Gap 6, Blood Urea Nitrogen 15, Creatinine 0.96, Estimat Glomerular Filtration Rate 57, BUN/ Creatinine Ratio 16, Glucose Level 145H, Calcium Level 8.0L, Total Bilirubin 0.5 , Aspartate Amino Transf (AST/SGOT) 19, Alanine Aminotransferase (ALT/SGPT) 13, Alkaline Phosphatase 82, Total Protein 4.9L, Albumin 2.6L 12/23/16 14:43: Blood Gas Puncture Site RR, Blood Gas Patient Temperature 96.0, Arterial Blood pH 7.43, Arterial Blood Partial Pressure CO2 40, Arterial Blood Partial Pressure O2 108H, Arterial Blood HCO3 27, Arterial Blood Total CO2 27.9, Arterial Blood Oxygen Saturation 99, Arterial Blood Base Excess 2.3, Guy Test YES-POS, Blood Gas Ventilator Setting NO, Blood Gas Inspired Oxygen 60 12/24/16 00:54: Glucometer 205H 12/24/16 04:45: White Blood Count 9.9, Red Blood Count 2.76L, Hemoglobin 8.0L, Hematocrit 26L, Mean Corpuscular Volume 94, Mean Corpuscular Hemoglobin 29, Mean Corpuscular Hemoglobin Concent 31L, Red Cell Distribution Width 19.2H, Platelet Count 180, Mean Platelet Volume 10.6H, Neutrophils (%) (Auto) 89H, Lymphocytes (%) (Auto) 9L, Monocytes (%) (Auto) 2, Eosinophils (%) (Auto) 0, Basophils (%) (Auto) 0, Neutrophils # (Auto) 8.8H, Lymphocytes # (Auto) 0.9L, Monocytes # (Auto) 0.2, Eosinophils # (Auto) 0.0, Basophils # (Auto) 0.0, Neutrophils % (Manual) 92, Lymphocytes % (Manual) 5, Monocytes % (Manual) 2, Eosinophils % (Manual) 0, Basophils % (Manual) 0, Band Neutrophils 1, Polychromasia SLIGHT, Hypochromasia SLIGHT, Basophilic Stippling SLIGHT, Anisocytosis MODERATE, Microcytosis SLIGHT , Macrocytosis MODERATE, Elliptocytes SLIGHT, Prothrombin Time 17.7H, INR Comment 1.5H, Sodium Level 137, Potassium Level 4.4, Chloride Level 104, Carbon Dioxide Level 22, Anion Gap 11, Blood Urea Nitrogen 17, Creatinine 0.90, Estimat Glomerular Filtration Rate > 60, BUN/Creatinine Ratio 19, Glucose Level 202H, Hemoglobin A1c 5.1, Calcium Level 8.2L, Phosphorus Level 3.0, Magnesium Level 1.6L, Total Bilirubin 0.3, Aspartate Amino Transf (AST/SGOT) 20, Alanine Aminotransferase (ALT/SGPT) 15, Alkaline Phosphatase 82, Total Protein 4.8L, Albumin 2.6L 12/24/16 16:06: Glucometer 287H 12/24/16 21:31: Glucometer 219H 12/25/16 04:03: White Blood Count 10.5, Red Blood Count 2.77L, Hemoglobin 8.1L, Hematocrit 26L, Mean Corpuscular Volume 94, Mean Corpuscular Hemoglobin 29, Mean Corpuscular Hemoglobin Concent 31L, Red Cell Distribution Width 19.6H, Platelet Count 199, Mean Platelet Volume 10.4, Neutrophils (%) (Auto) 91H, Lymphocytes (%) (Auto) 5L , Monocytes (%) (Auto) 4, Eosinophils (%) (Auto) 0, Basophils (%) (Auto) 0, Neutrophils # (Auto) 9.6H, Lymphocytes # (Auto) 0.5L, Monocytes # (Auto) 0.4, Eosinophils # (Auto) 0.0, Basophils # (Auto) 0.0, Prothrombin Time 18.8H, INR Comment 1.6H, Sodium Level 142, Potassium Level 3.7, Chloride Level 108H, Carbon Dioxide Level 25, Anion Gap 9, Blood Urea Nitrogen 20H, Creatinine 0.91, Estimat Glomerular Filtration Rate 60, BUN/Creatinine Ratio 22, Glucose Level 176H, Calcium Level 7.9L, Phosphorus Level 2.8, Magnesium Level 1.9 12/25/16 15:51: Glucometer 189H Microbiology 12/23/16 Gram Stain - Final, Complete 12/23/16 Sputum Culture - Final, Complete Pseudomonas Aeruginosa Laboratory Tests 12/23/16 10:22 12/24/16 04:45 12/25/16 04:03 Pending Labs Microbiology Date/Time Source Procedure Growth Status 12/23/16 19:15 Sputum Expectorated Gram Stain - Final Complete 12/23/16 19:15 Sputum Culture - Final Pseudomonas Aeruginosa Complete Laboratory Tests 12/23/16 03:35: Phosphorus Level 3.4, Magnesium Level 1.9 12/23/16 10:22: White Blood Count 7.7, Red Blood Count 2.98, Hemoglobin 8.6, Hematocrit 29, Mean Corpuscular Volume 96, Mean Corpuscular Hemoglobin 29, Mean Corpuscular Hemoglobin Concent 30, Red Cell Distribution Width 20.1, Platelet Count 186, Mean Platelet Volume 10.4, Neutrophils (%) (Auto) 73, Lymphocytes (%) (Auto) 15 , Monocytes (%) (Auto) 9, Eosinophils (%) (Auto) 3, Basophils (%) (Auto) 1, Neutrophils # (Auto) 5.6, Lymphocytes # (Auto) 1.2, Monocytes # (Auto) 0.7, Eosinophils # (Auto) 0.2, Basophils # (Auto) 0.0, Sodium Level 141, Potassium Level 4.2, Chloride Level 105, Carbon Dioxide Level 30, Anion Gap 6, Blood Urea Nitrogen 15, Creatinine 0.96, Estimat Glomerular Filtration Rate 57, BUN/ Creatinine Ratio 16, Glucose Level 145, Calcium Level 8.0, Total Bilirubin 0.5, Aspartate Amino Transf (AST/SGOT) 19, Alanine Aminotransferase (ALT/SGPT) 13, Alkaline Phosphatase 82, Total Protein 4.9, Albumin 2.6 12/23/16 14:43: Blood Gas Puncture Site RR, Blood Gas Patient Temperature 96.0, Arterial Blood pH 7.43, Arterial Blood Partial Pressure CO2 40, Arterial Blood Partial Pressure O2 108, Arterial Blood HCO3 27, Arterial Blood Total CO2 27.9, Arterial Blood Oxygen Saturation 99, Arterial Blood Base Excess 2.3, Gyu Test YES-POS, Blood Gas Ventilator Setting NO, Blood Gas Inspired Oxygen 60 12/24/16 00:54: Glucometer 205 12/24/16 04:45: White Blood Count 9.9, Red Blood Count 2.76, Hemoglobin 8.0, Hematocrit 26, Mean Corpuscular Volume 94, Mean Corpuscular Hemoglobin 29, Mean Corpuscular Hemoglobin Concent 31, Red Cell Distribution Width 19.2, Platelet Count 180, Mean Platelet Volume 10.6, Neutrophils (%) (Auto) 89, Lymphocytes (%) (Auto) 9, Monocytes (%) (Auto) 2, Eosinophils (%) (Auto) 0, Basophils (%) (Auto) 0, Neutrophils # (Auto) 8.8, Lymphocytes # (Auto) 0.9, Monocytes # (Auto) 0.2, Eosinophils # (Auto) 0.0, Basophils # (Auto) 0.0, Neutrophils % (Manual) 92, Lymphocytes % (Manual) 5, Monocytes % (Manual) 2, Eosinophils % (Manual) 0, Basophils % (Manual) 0, Band Neutrophils 1, Polychromasia SLIGHT, Hypochromasia SLIGHT, Basophilic Stippling SLIGHT, Anisocytosis MODERATE, Microcytosis SLIGHT , Macrocytosis MODERATE, Elliptocytes SLIGHT, Prothrombin Time 17.7, INR Comment 1.5, Sodium Level 137, Potassium Level 4.4, Chloride Level 104, Carbon Dioxide Level 22, Anion Gap 11, Blood Urea Nitrogen 17, Creatinine 0.90, Estimat Glomerular Filtration Rate > 60, BUN/Creatinine Ratio 19, Glucose Level 202, Hemoglobin A1c 5.1, Calcium Level 8.2, Phosphorus Level 3.0, Magnesium Level 1.6, Total Bilirubin 0.3, Aspartate Amino Transf (AST/SGOT) 20, Alanine Aminotransferase (ALT/SGPT) 15, Alkaline Phosphatase 82, Total Protein 4.8, Albumin 2.6 12/24/16 16:06: Glucometer 287 12/24/16 21:31: Glucometer 219 12/25/16 04:03: White Blood Count 10.5, Red Blood Count 2.77, Hemoglobin 8.1, Hematocrit 26, Mean Corpuscular Volume 94, Mean Corpuscular Hemoglobin 29, Mean Corpuscular Hemoglobin Concent 31, Red Cell Distribution Width 19.6, Platelet Count 199, Mean Platelet Volume 10.4, Neutrophils (%) (Auto) 91, Lymphocytes (%) (Auto) 5, Monocytes (%) (Auto) 4, Eosinophils (%) (Auto) 0, Basophils (%) (Auto) 0, Neutrophils # (Auto) 9.6, Lymphocytes # (Auto) 0.5, Monocytes # (Auto) 0.4, Eosinophils # (Auto) 0.0, Basophils # (Auto) 0.0, Prothrombin Time 18.8, INR Comment 1.6, Sodium Level 142, Potassium Level 3.7, Chloride Level 108, Carbon Dioxide Level 25, Anion Gap 9, Blood Urea Nitrogen 20, Creatinine 0.91, Estimat Glomerular Filtration Rate 60, BUN/Creatinine Ratio 22, Glucose Level 176, Calcium Level 7.9, Phosphorus Level 2.8, Magnesium Level 1.9 12/25/16 15:51: Glucometer 189 Radiology Reviewed chest x-ray improving right perihilar and basilar infiltrates on admission. Next day chest x-ray still showing more improvement Discharge Home Medications: Active Scripts Active Ferrous Sulfate 325 Mg Tablet 325 Mg PO TIDWM 90 Days Iprat-Albut 0.5-3(2.5) mg/3 ml (Ipratropium/Albuterol Sulfate) 3 Ml Ampul.neb 3 Ml INH RTQ4HR 90 Days Reported Simvastatin 40 Mg Tablet 40 Mg PO HS Potassium Chloride 10 Meq Capsule.er 10 Meq PO 1200 Furosemide 20 Mg Tablet 20 Mg PO 1200 Fluticasone Propionate 16 Gm [place].susp 1 [place] NS DAILY Symbicort 160-4.5 Mcg Inhaler (Budesonide/Formoterol Fumarate) 10.2 Gm Hfa.aer.ad 2 Puff IH BID Aspirin EC (Aspirin) 325 Mg Tablet.dr 325 Mg PO DAILY Albuterol Sulfate 2.5 Mg/3 Ml Vial.neb 2.5 Mg NEB Q6H PRN Proair Hfa (Albuterol Sulfate) 1 Puff Puff 2 Puff IH Q6H PRN 1 PUFF = 90 MCG Tylenol (Acetaminophen) 325 Mg Tablet 650 Mg PO Q4H PRN TAKES 2 (325 MG) TABLETS Tramadol HCl 50 Mg Tablet 50 Mg PO Q6H PRN Pantoprazole Sodium 40 Mg Tablet.dr 40 Mg PO BID Metoprolol Tartrate 50 Mg Tablet 25 Mg PO BID TAKES 1/2 (50MG) TABLET Warfarin Sodium 1 Mg Tablet 1 Mg PO HS Nasal Mist (0.9 % Sodium Chloride) 126 Ml [place] 1-2 Sprays NS UD PRN Senokot-S Tablet (Sennosides/Docusate Sodium) 1 Each Tablet 2 Tab PO BID Miralax (Polyethylene Glycol 3350) 17 Gm Powd.pack 17 Gm PO BID Nicotine Patch (Nicotine) 1 Each Patch.td24 21 Mg TD DAILY Dulcolax (Bisacodyl) 10 Mg Supp.rect 10 Mg RC DAILY PRN Instructions to patient/family Please see electonic discharge instructions given to patient. Clinical Quality Measures DVT/VTE Risk/Contraindication: Risk Factor Score Per Nursin RFS Level Per Nursing on Admit: 4+=Very High Contraindications-Pharm: Other *list below* ROMAIN MARSH DO January 09, 2017 07:14
== END 2016-12-25 14:23 | disposition home or self-care (01) | DRG 189 ==
LOC: ICU 03:40 → UNDOADMOB 03:40 → ICU 04:00 → INTOOBSV 13:17 → OBSVTOIN 13:17 → ENPENDDIS 12-25 14:20
PROVIDERS: ADMIT Family Medicine; ATTEND Family Medicine
DX: J96.00 Acute respiratory failure, unspecified whether with hypoxia or hypercapnia (principal); J18.9 Pneumonia, unspecified organism; J44.1 Chronic obstructive pulmonary disease with (acute) exacerbation; N39.0 Urinary tract infection, site not specified; I95.9 Hypotension, unspecified; E83.42 Hypomagnesemia; I10 Essential (primary) hypertension; I25.10 Atherosclerotic heart disease of native coronary artery without angina pectoris; Z66 Do not resuscitate; G47.33 Obstructive sleep apnea (adult) (pediatric); K21.9 Gastro-esophageal reflux disease without esophagitis; K44.9 Diaphragmatic hernia without obstruction or gangrene; Z86.718 Personal history of other venous thrombosis and embolism; Z87.891 Personal history of nicotine dependence
CPT/HCPCS: 36415; 71010; 80048; 80053; 82805; 82962; 83036; 83735; 84100; 85007; 85025; 85027; 85610; 87070; 87077; 87186; 87205; 94640; 94760; G0378